=== PATIENT | female | born 1975 | race Two or more races ===

== ENCOUNTER → 2020-08-28 13:30 | Outpatient (BNVA) | payer OTHER, SELFPAY | PROVIDERS: PCP Internal Medicine; Visit Provider Nurse Practitioner Family | DX: Z76.89 Persons encountering health services in other specified circumstances (principal) ==

== ENCOUNTER 2020-10-14 13:00 | Outpatient (RCR) | payer OTHER, SELFPAY ==
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
== END 2020-10-30 11:53 | disposition other institution (70) ==
LOC: HO.PT 13:00
PROVIDERS: PCP Nurse Practitioner Family; Visit Provider Nurse Practitioner Family
DX: M54.2 Cervicalgia (principal); M54.31 Sciatica, right side; V89.2XXD Person injured in unspecified motor-vehicle accident, traffic, subsequent encounter
CPT/HCPCS: 97110; 97140; 97162; 97163

== ENCOUNTER → 2020-10-17 08:57 | Outpatient (REF) | payer OTHER, SELFPAY ==
--- NOTE | 2020-10-17 | NM_ITS ---
Myocardial perfusion study Indication: Chest pain to evaluate for myocardial ischemia . Technique: The patient was brought in for a Lexiscan perfusion study on 10/17/2000. Patient performed low-level exercise and was injected 0.4 mg of Lexiscan intravenously. Within a minute of injection, 35 mCi of sestamibi was given intravenously. Images were obtained using the SPECT gamma camera interlaced with the gating device. Images were obtained in supine position. Resting perfusion study was performed on 10/20/2020. Patient was administered 25 mCi of sestamibi intravenously at rest. Images were then obtained in supine position. Images obtained with and without CT attenuation. Total DLP 106 mGy-cm. Images were processed with the software and compared side to side in short axis, horizontal long axis and vertical long axis views. Findings: The stress perfusion study showed non attenuated images show moderately reduced uptake in the distal anterior and apex of the LV myocardium. Remainder of the LV myocardium is normally perfused. Attenuation corrected images show mildly to moderately reduced uptake in the distal septum and anterior wall of the LV myocardium.. The gated study shows normal LV systolic function with calculated LVEF of 59%. LV cavity is normal in size. The gated study shows normal systolic wall thickening and contraction of segments. Resting study shows non attenuated images show normal uptake in the distal anterior and apex of the LV myocardium. Attenuation corrected images show improved uptake in the distal anterior wall of the LV myocardium.. Gating at rest reveals normal systolic wall motion with ejection fraction at 68%. The findings are consistent with small area of possible reversible defect in the distal anterior wall of the LV myocardium which could represent ischemia. Shifting attenuation artifact cannot be entirely ruled out. NM/NM ella perf SPECT rest & str Impression: 1. Myocardial perfusion imaging study shows equivocal intensity distal anterior wall ischemia. 2. Gated LVEF is 59% 3. Transient ischemic dilatation not present EKG is nondiagnostic for ischemia
--- NOTE | 2020-10-17 09:02 | CA_ITS ---
Acquisition Time: 2020-10-17 10:27:05 Total Exercise Time: 00:02:00 Test Indications: CHEST PAIN, UNSPECIFIED Medications: Protocol: LEXISCAN Max HR: 142 BPM 80% of Pred: 176 BPM Max BP: 124/078 mmHG Max Work Load: 1.0 METS Pharmacological stress test using Lexiscan while sitting and kicking her feet. Pt tolerated well, Denies any anginal sx. EKG without arrhythmias, non-diagnostic for ischemia. Nuclear images to follow. Normotensive response to test. Pt reports to be feeling heavy , sx reversed with Aminophyline. Test reviewed with Dr. Hernandes Referred By: Bella Cade Overread By: Larissa Li
--- NOTE | 2020-10-17 09:02 | CA_ITS ---
Transthoracic Echocardiogram Patient (Last, First, Middle): Rosa Pretty, Gender: Female Date of : 1975 Age: 45 Procedure Date: 10/17/2020 Procedure Type: Transthoracic Echocardiogram Location: OP Height: 160.02 cm Weight: 101.61 kg BSA: 2.03 m2 Heart Rate: bpm BP: 116 / 82 mmHg Aerodynamics Professor: BUCKY Referring MD: Bella Cade AEMTAly Symptoms: I25.10 - Atherosclerotic heart disease of [place] coronary artery without angina pectoris Study Quality: Technically Difficult ECG Rhythm: Sinus Conclusions: - The left ventricular systolic function is normal. The visually estimated ejection fraction is between 55-60%. - No obvious valvular pathology seen on this study. Findings Procedure Information Contrast agent, definity, is being given per protocol without apparent complications. Left Ventricle Normal left ventricular cavity size. There is normal left ventricular wall thickness. The left ventricular systolic function is normal. The visually estimated ejection fraction is between 55-60%. There is no evidence of regional wall motion abnormalities. Diastolic function is normal for age. Right Ventricle Normal right ventricular cavity size and systolic function. Atria The left atrium is normal in size. The right atrium is normal in size. Aortic Valve There is a normal trileaflet aortic valve. There is no aortic valve stenosis. There is no aortic valve regurgitation. Mitral Valve The mitral valve appears normal. There is no mitral valve regurgitation. There is no mitral valve stenosis. Pulmonic Valve The pulmonic valve was not well visualized. Tricuspid Valve Normal tricuspid valve structure. There is trace tricuspid valve regurgitation. The pulmonary artery systolic pressure is normal. Great Vessels The aortic annulus, sinuses of valsalva, and asc aorta are normal in size. Venous The inferior vena cava is normal in size and collapses greater than 50% with inspiration. Pericardium/Pleural There is no evidence of pericardial effusion. Prior Study Comparison No significant change compared to prior study dated: 03/10/2017. Recommendations, Care & Conclusions No obvious valvular pathology seen on this study. Measurements 2D Linear Measurements IVSd: 0.84 0.6-0.9/0.6-1.0 cm LVIDd: 3.89 3.9-5.3/4.2-5.9 cm LVIDd Index: 1.92 2.4-3.2/2.2-3.1 cm/m2 LVIDs: 2.47 2.0-3.6 cm LVPWd: 0.88 0.7-1.1 cm Ao Root: 2.70 2.1-3.5 cm LA Diam: 3.20 2.7-3.8/3.0-4.0 cm LAIDs Index: 1.58 1.5-2.3 cm/m2 LV Mass: 121.72 67-162/88-224 g LV Mass Index: 59.96 43-95/49-115 g/m2 LVOT Diam: 1.90 3.0+(-)1.3 cm 2D Systolic Function EF 4C: 57.10 >55% EF 2C: 40.40 >55% EF BiP: 51.70 >55% Mitral Valve MV Pk E: 1.02 MV PK A: 0.70 MV Decel Time: 148.00 E/A: 1.50 E'Lateral: 10.50 E'Medial: 7.25 E/E' Med: 14.10 E/E' Lat: 9.70 PHT: 43.00 MVA PHT: 5.12 Decel [place]: 6.89 Aortic Valve AoV Pk Te: 1.41 AoV Pk Grad: 8.00 LVOT LVOT Pk Te: 0.87 LVOT Mn Te: 0.61 LVOT VTI: 0.18 LVOT Pk Grad: 3.00 LVOT Mn Grad: 2.00 LVOT Diam: 1.90 LVOT Area: 2.84 Diastolic Function MV Pk E: 1.02 MV Pk A: 0.70 E/A: 1.50 E'Medial: 7.25 E/E' Med: 14.10 E' Laterial: 10.50 E/E' Lat: 9.70 Tricuspid Valve TR Pk Te: 2.10 TR Pk Grad: 18.00 RA Press: 3.00 RVSP: 21.00 Great Vessels Aorta Ao Root-2D: 2.70 2.0-3.7 cm Ao Asc: 2.90 2.1-3.4 cm Updated in Other Vendor System with Status of Final Khai Hernandes MD electronically signed on 10/19/2020 10:11:52 AM with status of Final
== END ==
LOC: HO.CARD 08:57
PROVIDERS: Visit Provider Nurse Practitioner Family
DX: R07.9 Chest pain, unspecified (principal); I25.10 Atherosclerotic heart disease of native coronary artery without angina pectoris; I48.0 Paroxysmal atrial fibrillation
CPT/HCPCS: 78452; 93017; 93306; A9500; J0280; J2785; Q9957

== ENCOUNTER 2020-10-20 11:50 | Outpatient (REF) | payer OTHER, SELFPAY ==
[2020-10-20 13:08] LABS: Cholesterol 223 mg/dL; HDL Cholesterol 45 mg/dL; LDL Cholesterol Calculated 144 mg/dl; Triglycerides 171 mg/dL
== END 2020-10-20 11:51 | disposition home or self-care (01) ==
LOC: HO.LAB 11:50
PROVIDERS: PCP Internal Medicine; Visit Provider Nurse Practitioner Family
DX: I25.10 Atherosclerotic heart disease of native coronary artery without angina pectoris (principal)
CPT/HCPCS: 80061

== ENCOUNTER → 2020-10-24 10:55 | Outpatient (BNVA) | payer OTHER, SELFPAY | PROVIDERS: PCP Family Medicine; Referring Provider Family Medicine; Visit Provider Nurse Practitioner Family | DX: I25.10 Atherosclerotic heart disease of native coronary artery without angina pectoris (principal); R07.9 Chest pain, unspecified; E66.9 Obesity, unspecified; C50.919 Malignant neoplasm of unspecified site of unspecified female breast; R94.39 Abnormal result of other cardiovascular function study | CPT/HCPCS: Q3014 ==

== ENCOUNTER → 2020-11-20 08:13 | Outpatient (BNVA) | payer OTHER, SELFPAY | PROVIDERS: PCP Internal Medicine; Visit Provider Physician Assistant | DX: E66.9 Obesity, unspecified (principal); Z68.39 Body mass index [BMI] 39.0-39.9, adult | CPT/HCPCS: Q3014 ==

== ENCOUNTER 2020-11-25 10:30 | Outpatient (REF) | payer OTHER, SELFPAY ==
[2020-11-26 09:30] LABS: BV Int Neg Control Negative (Negative); BV Int Pos Control Positive (Positive)
[2020-11-27 00:27] LABS: C. trachomatis RNA TMA NOT DETECTED (NOT DETECTED); N. gonorrhoeae RNA TMA NOT DETECTED (NOT DETECTED)
== END 2020-11-25 10:31 | disposition home or self-care (01) ==
LOC: HO.LAB 10:30
PROVIDERS: PCP Internal Medicine; Visit Provider Advanced Practice Midwife
DX: Z01.419 Encounter for gynecological examination (general) (routine) without abnormal findings (principal); Z20.2 Contact with and (suspected) exposure to infections with a predominantly sexual mode of transmission; N39.3 Stress incontinence (female) (male); N94.12 Deep dyspareunia; B37.2 Candidiasis of skin and nail; Z79.899 Other long term (current) drug therapy
CPT/HCPCS: 36415; 87480; 87491; 87510; 87591; 87660; Q3014

== ENCOUNTER → 2020-12-08 12:44 | Outpatient (BNVA) | payer OTHER, SELFPAY | PROVIDERS: PCP Internal Medicine; Visit Provider Physician Assistant | DX: E66.9 Obesity, unspecified (principal) | CPT/HCPCS: Q3014 ==

== ENCOUNTER → 2021-01-26 15:20 | Outpatient (BNV) | payer OTHER, SELFPAY | PROVIDERS: Visit Provider Internal Medicine | DX: Z85.3 Personal history of malignant neoplasm of breast (principal); Z92.3 Personal history of irradiation; R94.5 Abnormal results of liver function studies | CPT/HCPCS: 99214; 99442; G2211 ==

== ENCOUNTER → 2021-02-13 13:35 | Outpatient (BNVA) | payer OTHER, SELFPAY | PROVIDERS: PCP Internal Medicine; Visit Provider Surgery | DX: L91.8 Other hypertrophic disorders of the skin (principal) | CPT/HCPCS: 99212 ==

== ENCOUNTER 2021-09-17 10:02 | Outpatient (REF) | payer OTHER, SELFPAY ==
--- NOTE | ~2021-09-17 | MM_ITS ---
EXAMINATION: MM SCREENING DIGITAL BREAST TOMOSYNTHESIS, RIGHT CLINICAL INFORMATION: Screening. Asymptomatic. Status post left mastectomy. Status post right lumpectomy COMPARISON: Mammography: April 29, 2020 and studies dating back to April 02, 2016 TECHNIQUE: Digital breast tomosynthesis is performed in both the craniocaudal and mediolateral oblique views along with computer-aided detection (CAD). Synthesized 2D images are generated from the tomosynthesis. FINDINGS: There are scattered areas of fibroglandular density (ACR BI-RADS breast composition Category b). There are no new significant masses, abnormal calcifications, or other abnormalities. Stable postoperative changes seen upper outer aspect of the right breast from previous lumpectomy. MM/MM tomosynthesis screening RT IMPRESSION: There are no significant changes from prior study. ASSESSMENT: BI-RADS 2: Benign RECOMMENDATION: Routine annual mammography screening. This patient's information was entered into a reminder system with a target due date for their next mammogram.
== END 2021-09-17 10:03 | disposition home or self-care (01) ==
LOC: HO.MAMMO 10:02
PROVIDERS: PCP Internal Medicine; Visit Provider Internal Medicine
DX: Z12.31 Encounter for screening mammogram for malignant neoplasm of breast (principal)
CPT/HCPCS: 77063; 77067

== ENCOUNTER 2021-10-21 10:28 | Outpatient (REF) | payer OTHER, SELFPAY ==
[2021-10-21 11:49] LABS: Hematocrit 42.9 % (37.0-47.0); Hemoglobin 14.2 g/dl (12.0-16.0); Mean Corpuscular HGB Conc 33.1 g/dl (31.0-35.0); Mean Corpuscular Hemoglobin 29.3 pg (27.0-33.0); Mean Corpuscular Volume 88.6 fL (80.0-98.0); Mean Platelet Volume 10.3 fL (9.4-12.3); Platelet Count 285 X10*3/uL (160-400); Red Blood Count 4.84 X10*6/uL (4.20-5.50); Red Cell Distribution Width 12.5 % (11.0-16.0); White Blood Count 6.6 X10*3/uL (4.8-10.8)
[2021-10-21 12:36] LABS: HCG Quantitative < 2 mIU/mL; TSH reflex Free T4 0.64 uIU/mL (0.32-4.0)
[2021-10-21 16:18] LABS: CT PCR NOT DETECTED (Not Detect.); NG PCR NOT DETECTED (Not Detect.)
[2021-10-22 11:05] LABS: BV Int Neg Control Negative (Negative); BV Int Pos Control Positive (Positive)
[2021-10-23 04:12] LABS: Lutenizing Hormone 38.6 mIU/mL; Prolactin 5.7 ng/mL
== END 2021-10-21 10:29 | disposition home or self-care (01) ==
LOC: HO.LAB 10:28
PROVIDERS: Visit Provider Obstetrics & Gynecology
DX: Z11.3 Encounter for screening for infections with a predominantly sexual mode of transmission (principal); B37.3 Candidiasis of vulva and vagina; N91.5 Oligomenorrhea, unspecified; N93.9 Abnormal uterine and vaginal bleeding, unspecified
CPT/HCPCS: 36415; 83001; 83002; 84146; 84443; 84702; 85027; 87480; 87491; 87510; 87591; 87660; 99212

== ENCOUNTER 2021-11-12 09:59 | Outpatient (REF) | payer OTHER, SELFPAY | END 2021-11-12 10:00 | disposition home or self-care (01) | LOC: HO.LAB 09:59 | PROVIDERS: Visit Provider Obstetrics & Gynecology | DX: N91.5 Oligomenorrhea, unspecified (principal); Z87.891 Personal history of nicotine dependence | CPT/HCPCS: 58100; 88305 ==

== ENCOUNTER 2021-11-19 10:02 | Outpatient (REF) | payer OTHER, SELFPAY ==
--- NOTE | ~2021-11-19 | US_ITS ---
EXAMINATION: US PELVIS CLINICAL INFORMATION: Abnormal uterine and vaginal bleeding. COMPARISON: None. TECHNIQUE: Ultrasound of the pelvis is performed using both transabdominal and transvaginal transducers along with Doppler. Transvaginal imaging is performed due to inadequate visualization transabdominally. FINDINGS: Uterus: The uterus is anteverted and measures 9.2 x 4.1 x 4.9 cm. There is a small cystic area with echogenic calcification measuring 0.5 cm in the left myometrium, likely a small myometrial complex cyst. The double wall endometrial thickness is 0.2 cm. The uterus is smooth in contour and has normal myometrial echogenicity. There is a small hyperechoic area in the left body of uterus measuring 1.6 x 1.6 x 1.5 cm. Adnexa: Both ovaries are visualized. There is normal color flow to the adnexa. There is no ovarian torsion. There is no pelvic ascites or fluid collection. Right ovary measures 2.2 x 1.7 x 1.5 cm and volume 2.9 mL. Previously right ovary measured 2.3 x 1.6 x 1.9 cm and volume 3.5 mL. Left ovary measures 2.1 x 1.8 x 1.9 and volume 3.8 mL. Previously it measured 2.8 x 1.4 x 2.4 cm and volume 4.9 mL. US/US pelvic and transvaginal IMPRESSION: Small mild ventral complex cyst measuring 0.5 cm. Small fibroid left upper body of uterus measuring 1.6 cm.
== END 2021-11-19 10:03 | disposition home or self-care (01) ==
LOC: HO.US 10:02
PROVIDERS: Visit Provider Obstetrics & Gynecology
DX: N93.9 Abnormal uterine and vaginal bleeding, unspecified (principal); N91.5 Oligomenorrhea, unspecified
CPT/HCPCS: 76830; 76856

== ENCOUNTER → 2021-11-26 10:53 | Outpatient (BNVA) | payer OTHER, SELFPAY | PROVIDERS: Visit Provider Obstetrics & Gynecology | DX: N91.5 Oligomenorrhea, unspecified (principal) | CPT/HCPCS: Q3014 ==

== ENCOUNTER 2021-12-13 15:41 | Emergency (ER) | payer OTHER, SELFPAY ==
--- NOTE | ~2021-12-13 | XR_ITS ---
EXAMINATION: XR CHEST CLINICAL INFORMATION: Shortness of breath. COMPARISON: Chest done on 06/15/2020. TECHNIQUE: 2 views of the chest were obtained. FINDINGS: Curvilinear opacities noted at left suprahilar region likely represent pleural parenchymal scar. Otherwise both lung hwang are clear. No evidence of any pleural effusion or pneumothorax. The cardiac mediastinal silhouette is within normal limit. Post surgical changes of left breast implant is noted, unchanged. XR/XR chest 2V IMPRESSION: No radiographic evidence of acute cardiopulmonary disease.
[2021-12-13 15:43] VITALS: PULSE 120; RESP 22; TEMP 37; O2SAT 97; BMI 38.2
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
[2021-12-13 16:02] VITALS: PULSE 114; RESP 17
[2021-12-13 16:47] LABS: MANUAL DIFF FLAG NO
[2021-12-13 16:49] LABS: Basophils Percent Auto 0.3 % (0-2); Eosinophils Absolute Auto 0.2 X10*3/uL (0.0-0.4); Eosinophils Percent Auto 1.8 % (0-4); Hematocrit 43.7 % (37.0-47.0); Hemoglobin 14.8 g/dl (12.0-16.0); Imm Gran Abs Auto 0.02 X10*3/uL (0.00-0.03); Imm Gran Pct Auto 0.2 % (0.0-0.4); Lymphocytes Absolute Auto 3.7 X10*3/uL (1.2-4.9); Lymphocytes Percent Auto 41.7 % (20-40); Mean Corpuscular HGB Conc 33.9 g/dl (31.0-35.0); Mean Corpuscular Hemoglobin 30.5 pg (27.0-33.0); Mean Corpuscular Volume 90.1 fL (80.0-98.0); Mean Platelet Volume 10.5 fL (9.4-12.3); Monocytes Absolute Auto 0.5 X10*3/uL (0.1-1.2); Monocytes Percent Auto 5.7 % (2-11); Neutrophils Absolute Auto 4.5 x10*3/uL (2.0-8.3); Neutrophils Percent Auto 50.3 % (45-73); Platelet Count 287 X10*3/uL (160-400); Red Blood Count 4.85 X10*6/uL (4.20-5.50); Red Cell Distribution Width 12.2 % (11.0-16.0)
[2021-12-13] MEDS: Albuterol Sulfate (0.083%) 2.5 MG/3 ML VIAL.NEB INHALE (16:53)
[2021-12-13 16:55] LABS: INTERNATIONAL NORM RATIO 1.1 (0.9-1.1); Prothrombin Time 12.2 SEC (9.9-13.0)
[2021-12-13 16:57] LABS: Partial Thromboplastin Time 37.8 SEC (24.1-38.0)
[2021-12-13 17:05] LABS: Anion Gap 17 (12-20); Blood Urea Nitrogen 9 mg/dL (9-16); Calcium 10.4 mg/dL (8.4-10.2); Carbon Dioxide 22 mmol/L (22-29); Chloride 107 mmol/L (96-108); Creatinine Clr Calc Pharmacy 94.3; Estimated Glomerular Filt Rate > 60; Glucose Random 107 mg/dL (60-115); Magnesium 1.8 mg/dL (1.6-2.6); Potassium 3.9 mmol/L (3.3-5.1); Sodium 142 mmol/L (135-145)
[2021-12-13 17:09] LABS: COVID-19 Test Negative (Negative)
[2021-12-13 17:10] LABS: B Type Natriuretic Peptide < 10 pg/mL (<100); Troponin-I High Sensitivity 3.6 ng/L (<3.5-17.0)
[2021-12-13 17:17] LABS: D Dimer High Sensitivity < 150 NG/ML
== END 2021-12-13 17:50 | disposition home or self-care (01) ==
PROVIDERS: Physician Assistant; Emergency Provider Emergency Medicine Emergency Medical Services
DX: J45.909 Unspecified asthma, uncomplicated (principal); R06.02 Shortness of breath; R07.89 Other chest pain; R05.9 Cough, unspecified; F17.210 Nicotine dependence, cigarettes, uncomplicated; Z71.6 Tobacco abuse counseling; Z20.822 Contact with and (suspected) exposure to COVID-19; Z79.899 Other long term (current) drug therapy
CPT/HCPCS: 36415; 71046; 80048; 83735; 83880; 84484; 85025; 85379; 85610; 85730; 87635; 99283

== ENCOUNTER → 2022-03-18 11:20 | Outpatient (BNVA) | payer OTHER, SELFPAY | PROVIDERS: Visit Provider Obstetrics & Gynecology | DX: N91.5 Oligomenorrhea, unspecified (principal) | CPT/HCPCS: Q3014 ==

== ENCOUNTER 2022-03-25 11:46 | Outpatient (REF) | payer OTHER, SELFPAY | END 2022-03-25 11:47 | disposition home or self-care (01) | LOC: HO.LAB 11:46 | PROVIDERS: Visit Provider Obstetrics & Gynecology | DX: N91.5 Oligomenorrhea, unspecified (principal); N93.9 Abnormal uterine and vaginal bleeding, unspecified | CPT/HCPCS: 58100; 81025; 88305 ==

== ENCOUNTER → 2022-04-08 16:11 | Outpatient (BNVA) | payer OTHER, SELFPAY | PROVIDERS: Visit Provider Obstetrics & Gynecology | DX: Z13.89 Encounter for screening for other disorder (principal) | CPT/HCPCS: Q3014 ==

== ENCOUNTER 2022-08-07 14:36 | Emergency (ER) | payer OTHER, SELFPAY ==
--- NOTE | ~2022-08-07 | XR_ITS ---
EXAMINATION: LUMBAR SPINE 3 VIEWS AND DORSAL SPINE 3 VIEWS CLINICAL INFORMATION: Pain status post fall COMPARISON: None TECHNIQUE: As above nonweightbearing FINDINGS: Generalized endplate spurring and sclerosis consistent with degenerative disc disease throughout. There is no evidence of any fracture or subluxation. No spondylolysis. Minor scoliosis convex left lumbar spine. XR/XR lumbar spine 2-3V IMPRESSION: No fracture.
--- NOTE | ~2022-08-07 | XR_ITS ---
EXAMINATION: LUMBAR SPINE 3 VIEWS AND DORSAL SPINE 3 VIEWS CLINICAL INFORMATION: Pain status post fall COMPARISON: None TECHNIQUE: As above nonweightbearing FINDINGS: Generalized endplate spurring and sclerosis consistent with degenerative disc disease throughout. There is no evidence of any fracture or subluxation. No spondylolysis. Minor scoliosis convex left lumbar spine. XR/XR thoracic spine 3V IMPRESSION: No fracture.
--- NOTE | ~2022-08-07 | CT_ITS ---
EXAMINATION: CT OF THE HEAD WITHOUT CONTRAST CT OF THE CERVICAL SPINE WITHOUT CONTRAST CLINICAL INFORMATION: Fall yesterday with neck pain and left-sided weakness.. COMPARISON: CT scan of the head and cervical spine dated 06/15/2020. CT scan of the head and cervical spine dated 12/12/2017. TECHNIQUE: Contiguous axial imaging was performed from the skullbase to vertex without intravenous administration of contrast. Coronal reformations of the head were obtained. Contiguous axial imaging was then performed from the skull base down to the thoracic inlet. Coronal and sagittal reformations of the cervical spine were obtained. This CT examination was performed using dose optimization techniques as appropriate, variously including the following: *Automated exposure control *Adjustment of mA and/or kV according to patient size (this includes techniques or standardized protocols for targeted exams where dose is matched to indication/reason for exam; i.e. extremities or head) *Use of iterative reconstruction technique DLP: 1134.2 mGy-cm. FINDINGS: CT scan of the head: There is no evidence of acute intracranial hemorrhage or territorial infarction. No abnormal mass-effect or midline shift is seen. Ho to white matter differentiation is well preserved. No extra-axial fluid collections are identified. The ventricles are normal in size. There is no abnormal attenuation within the brain parenchyma. The osseous structures and soft tissues are normal. The mastoid air cells and visualized portions of the paranasal sinuses are well-aerated. CT scan of the cervical spine: Normal alignment is seen with no evidence of acute fracture or dislocation. Craniocervical junction and atlantoaxial articulations are intact. Prevertebral soft tissues are normal in thickness. There is moderate vertebral spondylosis and minimal disc space narrowing at the C4-C5, C5-C6 and C6-C7 levels and in the upper thoracic spine at T1-T2, similar to the prior exam. The included soft tissues of the neck and lung apices are unremarkable. CT/CT cervical spine wo IV con IMPRESSION: CT scan of the head: No acute intracranial pathology. CT scan of the cervical spine: No evidence of cervical spine fracture or malalignment. Multilevel degenerative changes in the mid and lower cervical spine and upper thoracic spine, similar to the prior exam from 06/15/2020.
[2022-08-07 14:57] VITALS: BP 159/87; PULSE 96; RESP 18; TEMP 36.8; O2SAT 98; BMI 34.5
[2022-08-07 15:16] LABS: MANUAL DIFF FLAG NO
[2022-08-07 15:17] LABS: Basophils Percent Auto 0.5 % (0-2); Eosinophils Absolute Auto 0.3 X10*3/uL (0.0-0.4); Eosinophils Percent Auto 3.5 % (0-4); Hemoglobin 14.2 g/dl (12.0-16.0); Imm Gran Abs Auto 0.02 X10*3/uL (0.00-0.03); Imm Gran Pct Auto 0.2 % (0.0-0.4); Lymphocytes Absolute Auto 2.3 X10*3/uL (1.2-4.9); Lymphocytes Percent Auto 26.3 % (20-40); Mean Corpuscular HGB Conc 33.8 g/dl (31.0-35.0); Mean Corpuscular Hemoglobin 30.5 pg (27.0-33.0); Mean Corpuscular Volume 90.1 fL (80.0-98.0); Mean Platelet Volume 10.2 fL (9.4-12.3); Monocytes Absolute Auto 0.5 X10*3/uL (0.1-1.2); Monocytes Percent Auto 5.7 % (2-11); Neutrophils Absolute Auto 5.5 x10*3/uL (2.0-8.3); Neutrophils Percent Auto 63.8 % (45-73); Platelet Count 246 X10*3/uL (160-400); Red Blood Count 4.66 X10*6/uL (4.20-5.50); White Blood Count 8.6 X10*3/uL (4.8-10.8)
[2022-08-07 15:42] LABS: Alanine Aminotransferase 27 U/L (0-31); Albumin Level 4.6 g/dL (3.5-5.0); Alkaline Phosphatase 85 U/L (39-117); Anion Gap 20 (12-20); Aspartate Amino Transferase 29 U/L (5-31); Bilirubin Total 0.7 mg/dL (0.0-1.0); Blood Urea Nitrogen 15 mg/dL (9-16); Calcium 9.6 mg/dL (8.4-10.2); Carbon Dioxide 20 mmol/L (22-29); Chloride 105 mmol/L (96-108); Creatinine Clr Calc Pharmacy 88.2; Estimated Glomerular Filt Rate > 60; Glucose Random 237 mg/dL (60-115); Potassium 3.9 mmol/L (3.3-5.1); Sodium 141 mmol/L (135-145); Total Protein 7.8 g/dL (6.5-8.0)
--- NOTE | 2022-08-07 18:51 | ED_ITS ---
HPI - Weakness General Chief complaint: Weakness Stated complaint: l side weakness unblanced Time Seen by Provider: 08/07/22 18:25 Source: patient Mode of arrival: ambulatory Limitations: no limitations History of Present Illness HPI Narrative: The patient is a 47 year old female with a PMH significant for diabetes, breast cancer (in remission), optic neuritis (resulting legal blindness), asthma, anxiety, depression and coronary artery calcification, DM on Metformin presenting for left sided weakness heaviness and right sided pain. She reports that yesterday her child fell and she started running over toward him and she tripped and fell and almost fell on her son therefore she tried to avoid him and did an almost 360 she reports and fell on an outstretched hand on the right arm. She reports since then she has been having neck pain and left arm/left weakness heaviness . She reports that the pain on her right side has resolved. The left-sided weakness has improved. She reports that this happened /started around 13:00 yesterday. It is improving. She reports that this time she does not feel weak and she does not have any heavy feeling sensation at this time. She does report some intermittent headaches since the fall. Reports that she is unsure if she hit her head but she did not lose consciousness. She denies being on any blood thinners at this time. Reports that she was taking aspirin but has not taken it in weeks. She denies any dizziness, paresthesias, jaw pain, confusion, chest pain or shortness of breath, dyspnea on exertion, orthopnea, palpitations, nausea/vomiting/diarrhea/constipation, hip pain, right shoulder/elbow/hand and wrist pain at this time. She denies any other injuries complaints or concerns at this time. MD Complaint: generalized weakness (Left sided ) Onset (ago): hour(s) (since 1pm yesterday after her fall) Duration: improved Location: LUE and LLE Migration: none Severity: mild Severity scale (1-10): 7 (Right side and headache) Quality: aching Relieving factors: none Exacerbating factors: movement (Movement of neck) Associated symptoms: denies other symptoms Related Data Home Medications Medication Instructions Recorded Confirmed fluticasone propionate 50 1 spray intranasal DAILY 03/18/22 04/23/22 mcg/actuation nasal spray,suspension Previous Rx's Medication Instructions Recorded albuterol sulfate 90 mcg/actuation 2 puff inhalation Q6H PRN for 07/21/22 aerosol inhaler wheezing #6.7 grams blood-glucose meter (Black Raven and Stag Voice #1 ea 07/21/22 Glucose Meter kit) metformin 1,000 mg tablet 1,000 mg PO BID #180 tabs 07/21/22 aspirin 81 mg tablet,delayed 81 mg PO DAILY 90 days #90 tabs 08/06/22 release (Adult Low Dose Aspirin) diazepam 10 mg tablet (Valium) 10 mg PO Q8H PRN muscle spasm #14 08/07/22 tabs naproxen 500 mg tablet 500 mg PO BID PRN pain #14 tabs 08/07/22 Allergies Allergy/AdvReac Type Severity Reaction Status Date / Time iodine [IODINE] Allergy Severe ANAPHYLAXIS Verified 04/23/22 11:52 Penicillins [PENICILLINS] Allergy Severe DIFFICULTY Verified 04/23/22 11:52 BREATHING,HIVES penicillin V Allergy Unknown anaphylaxis Verified 04/23/22 11:52 ,rash vancomycin Allergy Unknown rash, Verified 04/23/22 11:52 itching Iodine Tincture Allergy Unknown Unknown Uncoded 04/23/22 11:52 nylon Allergy Unknown Unknown Uncoded 04/23/22 11:52 Review of Systems Review of Systems: Constitutional : No Fever, No Chills, No Night Sweats, No Fatigue, No Malaise ENT/Mouth : No Ear Pain, No Nasal Congestion, No Sinus Pain, No sore throat, No Rhinorrhea Eyes: No Eye Pain, No Swelling, No Redness, No Foreign Body, No Discharge, No Vision Changes Cardiovascular : No Chest Pain, No SOB, No Dyspnea on Exertion, No Orthopnea, No Palpitations Respiratory : No Cough, No Sputum, No Wheezing, No Dyspnea Gastrointestinal : No Nausea, No Vomiting, No Diarrhea, No Constipation, No abdominal Pain, No Hematochezia, No Melena Genitourinary : No Dysuria, No Urinary Frequency, No Urinary Incontinence, No Urgency, No Flank Pain Musculoskeletal : + Neck pain/injury, No additional joint pain, No Myalgias Skin : No lacerations Neuro : No Focal weakness, + Fall, + general unilateral left weakness, No Numbness, No Paresthesias, No Loss of Consciousness, No Dizziness, + Headache Yes all other systems are reviewed and are negative PMFSH Past Medical History Attestation statement: The following information was validated with the patient. Source: old records reviewed, obtained from family and nursing notes reviewed Medical History Anxiety and depression Asthma BMI 39.0-39.9,adult Breast CA Chest pain Coronary artery calcification seen on CAT scan Depression Legal blindness Obesity Potential exposure to STD Type 2 diabetes mellitus Surgical History H/O right breast biopsy History of left mastectomy Hx of section S/P lumpectomy, right breast Family History Family History Father HTN (hypertension) Anxiety Depression Cancer Diabetes Mother CVD (cardiovascular disease) Social History Social History Alcohol intake: current Alcohol intake frequency: holidays/special occasions only Patient Tobacco Use Status: Current everyday Tobacco user Tobacco use type: Cigarette Use of substances other than those prescribed or required for medical reasons: No Advance Directives: No Patient : No service: No Current occupational status: disabled Current occupational exposures/hazards: No Gender identity: Female Physical Exam Vital Signs: Vital Signs: Last Vital Signs Temp 98.3 F 08/07/22 14:57 Pulse 74 08/07/22 20:00 Resp 18 08/07/22 14:57 BP 144/90 H 08/07/22 20:00 Pulse Ox 97 08/07/22 20:00 O2 Del Method 08/07/22 20:00 BMI result Body Mass Index 34.5 Patient is Hypertensive. Vital signs have been reviewed as normal and appeared to be correct. Heart rate normal. Respiration rate normal. Temperature normal. Oxygen saturation normal. Appearance: Alert. Oriented X3. No acute distress. Head: Normal external exam. Normocephalic. Atraumatic. Able to rotate head bilaterally. Eyes: PERRLA. EOMI. No nystagmus noted. Conjunctiva and sclera normal. Eyelids normal. Patient's visual field is limited (chronic) ENT: Hearing normal. Moist mucous membranes. No trismus noted. No drooling noted. No muffled voice noted. No nystagmus noted. Neck: Normal inspection. Neck supple. FROM. Trachea midline. No meningeal signs. No neck mass noted. CVS: Normal heart rate and rhythm. Heart sound normal. No murmurs noted. Pulses normal throughout. Respiratory: No respiratory distress. Painless inspiration. Breath sounds normal. No wheezes/rales/rhonchi noted. Chest nontender. No accessory muscle usage noted or decreased air movement noted. Abdomen: Soft and nontender. No distention noted. No organomegaly noted. No visible injury noted. Back: No CVA tenderness. Full range of motion noted. Skin: Skin warm and dry. Normal skin color. Normal skin turgor. No rashes/lesions/lacerations noted. Extremities: No lower extremity edema. Extremities exhibit normal range of motion. Extremities nontender. Able to shrug shoulders bilaterally and keep up against resistance. Neuro: Oriented X 3. No motor deficit. No sensory deficit. Reflexes normal. Moving all extremities. No focal motor deficits. Cranial nerves II-XI intact bilaterally. Facial strength normal. Normal cognition. Speech normal. Gait normal. Strength 5/5 throughout. No pronator drift. No tremor noted. No fasciculations noted. No rigidity noted. Muscle tone normal throughout. No asterixis noted. Dqxkor-uv-[id number] test normal. Heel to cunningham test normal. Tandem gait normal. Does not sway with eyes open. Romberg test negative. Rapid alternating movement upper extremity normal. Rapid alternating movement lower extremity normal. NIHSS score 0. NIH Stroke Scale Internal: Initial- Upon Arrival Level of Consciousness: Alert Level of Consciousness Questions: Answers both questions correctly Level of Consciousness Commands: Performs both tasks correctly Best Gaze: Normal Visual: No visual loss (baseline ) Facial Palsy: Normal Motor Arm (Right): No drift Motor Arm (Left): No drift Motor Leg (Right): No drift Motor Leg (Left): No drift Limb Ataxia: Absent Sensory: Normal Best Language: No aphasia Dysarthia: Normal Extinction and Inattention: No abnormality Score: 0 Course Course Course Narrative: 6:30 pm -The patient is a 47 year old female with a PMH significant for diabetes, breast cancer (in remission), optic neuritis (resulting legal blindness), asthma, anxiety, depression and coronary artery calcification presenting for neck pain, left sided weakness and right sided pain. She reports yesterday she was running over to her child because he fell, she then tripped and fell on an out stretched right arm after for performing some type of 360 avoid falling onto her son. She reports since then she has been having neck pain with left upper and lower extremity weakness or heaviness that has actually improved today. She reports muscular pain to the right side. Patient is currently taking metformin, she reports she has not taken her ASA in a few weeks. On exam patient does not have any focal neuro deficits noted. Normal steady gait. She does have tenderness palpation to left side of her neck. No mid ce rvical tenderness step-offs or deformities noted or obvious trauma. She has full range of motion of all extremities. Normal strength. Normal sensation. Normal reflexes. She has chronic visual disturbance that she reports is not worsened at this time. Not a candidate for tPA as patient has non disabling symptoms and the symptoms started after a fall. Plan: CT of the head and neck, x ray of spine, labs - CBC w/ diff, CMP, CK, Troponin Reevaluation(s) Reevaluation #1: Patient is sitting in a chair with a heating pack on her shoulders. She is alert and oriented. CT and Xray results are unremarkable. Labs remarkable for Carbon Dioxide: 20 (L); Random Glucose 237 (H) Troponin: <3.5 (unremrkable) At this time patient reports her headache and neck pain are much better. She continues to deny any left-sided numbness or heavy sensation any longer since her episode yesterday. As patient has a normal neuro exam. Imaging is all negative only revealed chronic changes will DC home with symptomatic treatment instructions return if any new or worsening symptoms to follow up with primary care provider. Patient understands agrees with this plan. Time: 20:36 MDM - Weakness Medical Records Attestation: I reviewed the patient's medical records. Lab Data Attestation: I reviewed the patient's lab results. Result diagrams: 08/07/22 15:11 08/07/22 15:11 Labs: Lab Results 08/07/22 08/07/22 08/07/22 Range/Units 15:11 15:11 15:11 WBC 8.6 (4.8-10.8) X10*3/uL RBC 4.66 (4.20-5.50) X10*6/uL Hgb 14.2 (12.0-16.0) g/dl Hct 42.0 (37.0-47.0) % MCV 90.1 (80.0-98.0) fL MCH 30.5 (27.0-33.0) pg MCHC 33.8 (31.0-35.0) g/dl RDW 12.0 (11.0-16.0) % Plt Count 246 (160-400) X10*3/uL MPV 10.2 (9.4-12.3) fL Immature Gran % (Auto) 0.2 (0.0-0.4) % Neut % (Auto) 63.8 (45-73) % Lymph % (Auto) 26.3 (20-40) % Fountain % (Auto) 5.7 (2-11) % Eos % (Auto) 3.5 (0-4) % Baso % (Auto) 0.5 (0-2) % Lymph # (Auto) 2.3 (1.2-4.9) X10*3/uL Fountain # (Auto) 0.5 (0.1-1.2) X10*3/uL Eos # (Auto) 0.3 (0.0-0.4) X10*3/uL Baso # (Auto) 0.0 (0.0-0.2) X10*3/uL Abs Immat Gran (auto) 0.02 (0.00-0.03) X10*3/uL Absolute Neuts (auto) 5.5 (2.0-8.3) x10*3/uL Absolute Nucleated RBC 0.000 (0.0-0.012) X10*3/uL Nucleated RBC % (auto) 0.0 (0.0-0.2) /100WBC Sodium 141 (135-145) mmol/L Potassium 3.9 (3.3-5.1) mmol/L Chloride 105 (96-108) mmol/L Carbon Dioxide 20 L (22-29) mmol/L Anion Gap 20 (12-20) BUN 15 D (9-16) mg/dL Creatinine 0.84 (0.5-1.4) mg/dL Estim Creat Clear Calc 88.2 Estimated GFR > 60 Random Glucose 237 H (60-115) mg/dL Calcium 9.6 D (8.4-10.2) mg/dL Total Bilirubin 0.7 (0.0-1.0) mg/dL AST 29 (5-31) U/L ALT 27 (0-31) U/L Alkaline Phosphatase 85 (39-117) U/L Total Creatine Kinase 93 (26-140) U/L Troponin I High Sens < 3.5 (<3.5-17.0) ng/L Total Protein 7.8 (6.5-8.0) g/dL Albumin 4.6 (3.5-5.0) g/dL Imaging Data CT scan - head: Attestation: I personally reviewed and interpreted this imaging study as follows: Radiologist's impression: IMPRESSION: CT scan of the head: No acute intracranial pathology. ? ? CT scan of the cervical spine: No evidence of cervical spine fracture or malalignment. Multilevel degenerative changes in the mid and lower cervical spine and upper thoracic spine, similar to the prior exam from 06/15/2020. Cervical Spine CT : Attestation: I personally reviewed and interpreted this imaging study as follows: Radiologist's impression: IMPRESSION: CT scan of the head: No acute intracranial pathology. ? ? CT scan of the cervical spine: No evidence of cervical spine fracture or malalignment. Multilevel degenerative changes in the mid and lower cervical spine and upper thoracic spine, similar to the prior exam from 06/15/2020. Thoracic Spine X-Ray: Attestation: I personally reviewed and interpreted this imaging study as follows: Radiologist's impression: IMPRESSION: No fracture Lumbar Spine X-Ray: Attestation: I personally reviewed and interpreted this imaging study as follows: Radiologist's impression: IMPRESSION: No fracture Discharge Plan Discharge Clinical Impression: Fall, Head injury, Cervical sprain, Sprain of upper back, Sprain of low back Patient Disposition: Home, Self-Care Instructions: Head Injury (ED), Low Back Strain (ED), Cervical Sprain (ED) Prescriptions: New naproxen 500 mg tablet 500 mg PO BID PRN (Reason: pain) Qty: 14 0RF diazepam [Valium] 10 mg tablet 10 mg PO Q8H PRN (Reason: muscle spasm) Qty: 14 0RF No Action albuterol sulfate 90 mcg/actuation HFA aerosol inhaler 2 puff inhalation Q6H PRN (Reason: for wheezing) Qty: 6.7 1RF (DME) blood-glucose meter [[employer] Glucose Meter] Kit See Rx Instructions .Route Qty: 1 0RF Rx Instructions: As directed metformin 1,000 mg tablet 1,000 mg PO BID Qty: 180 1RF aspirin [Adult Low Dose Aspirin] 81 mg tablet,delayed release (DR/EC) 81 mg PO DAILY 90 Days Qty: 90 0RF fluticasone propionate 50 mcg/actuation spray,suspension 1 spray intranasal DAILY Rx Instructions: administer into each nostril Referrals: Yann Fernandez MD [Primary Care Provider] - 2 days Interventions: ED Discharge Assessment Last Done: 08/07/22 20:51 Discharge Date/Time: 08/07/22 20:52 Print Language: Bangladeshi
[2022-08-07] MEDS: Acetaminophen 325 MG TABLET 975 MG PO (19:06)
[2022-08-07] MEDS: Cyclobenzaprine HCl 10 MG TABLET PO (19:06)
--- OUTSIDE RECORDS SUMMARY | 2022-08-07 19:25 | XMS_ITS | Continuity of Care Document ---
:1975 Author Organization [facility] Address [address] [place] [address]- Care Team Providers Name Role Phone Rebecca DE JESUS, Yann Corona Primary Care Physician Encounter [facility] [place] Date(s): 09/27/19 - 11/14/19 [facility] [address] [place] [address]- [facility] Attending Physician: Hanane Roman DO Admitting Physician: Hanane Roman DO Referring Physician: Karoline Carlisle MD Allergies, Adverse Reactions, Alerts Substance Reaction Severity Status penicillin anaphalactic Active iodinated radiocontrast dyes anaphalactic Act chaya Medications albuterol 0.083% inhalation solution 3 mL = 2.5 mg, Neb, Every 6 hours, PRN Wheezing/Shortness of Breath, 0 Refills, Maintenance, 08/28/18 10:19:10 EDT Start Date: 08/28/18 Status: Orderedalbuterol 90 mcg/inh inhalation powder 2 puffs, Inhalation, Every 4 hours, PRN Wheezing/Shortness of Breath, 0 Refills, Maintenance, 09/27/18 11:31:56 EST Start Date: 09/27/18 Status: OrderedPatient's Own Meds See Instructions, Maintenance, diabetic medication By Mouth as per doctor- to star sep 27, 2018, 09/27/18 13:48:31 EST Start Date: 09/27/18 Status: Orderedtamoxifen 20 mg oral tablet 1 tablet = 20 mg, By Mouth, Daily, 0 Refills, Maintenance, 08/28/18 10:18:47 EDT Start Date: 08/28/18 Status: Ordered Problem List Condition Effective Dates Status Health Status Informant Acquired absence of left Active breast(Confirmed) Anxiety(Confirmed) Active Depression(Confirmed) Active Former tobacco use(Confirmed) Active Legally blind(Confirmed) Active Breast cancer of lower-outer quadrant Active of left female breast(Confirmed) Breast cancer of upper-outer quadrant Active of right female breast(Confirmed) Obese(Confirmed) Active Social History Social History Type Response Smoking Status Former smoker entered on: 08/28/18 Sex Medical Equipment Implanted Date:10/02/18 Target Site:Breast Left Description Quantity MRI Company Model MESH ALLOMAX HUMAN 16X20 - BARD ([id number]) 1 Bard Unknown SUSANNE: No Information Assigning Authority: FDA
--- OUTSIDE RECORDS SUMMARY | 2022-08-07 19:25 | XMS_ITS | Continuity of Care Document ---
:1975 Author Organization [facility] Address [address] [place] [address] Drive [address] [place] [address]- Care Team Providers Name Role Phone Rebecca DE JESUS, Yann Corona Primary Care Physician Encounter [facility] [place] Date(s): 01/25/20 - 05/24/20 [facility] [address] [place] [address] Drive [address] [place] [address]- [facility] Attending Physician: Serene DE JESUS, Oliver Scherer Referring Physician: Yann Fernandez MD Allergies, Adverse Reactions, Alerts Substance Reaction [...] Model MESH ALLOMAX HUMAN 16X20 - BARD ([id number]) 1 Bard Unknown SUSANNE: No Information Assigning Authority: FDA
--- OUTSIDE RECORDS SUMMARY | 2022-08-07 19:25 | XMS_ITS | Continuity of Care Document ---
:1975 Author Organization [facility] Address [address] [place] [address] Drive [address] [place] [address]- Care Team Providers Name Role Phone Rebecca DE JESUS, Ynan Corona Primary Care Physician Encounter [facility] [place] Date(s[place] 02/13/20 - 06/12/20 [facility] [address] [place] [address] Drive [address] [place] [address]- [facility] Attending Physician: Rosa Maria RAO, Emilie Hope Allergies, Adverse Reactions, Alerts Substance Reaction Severity [...] Model MESH ALLOMAX HUMAN 16X20 - BARD ([id number]) 1 Bard Unknown SUSANNE: No Information Assigning Authority: FDA
--- OUTSIDE RECORDS SUMMARY | 2022-08-07 19:25 | XMS_ITS | Continuity of Care Document ---
:1975 Author Organization [facility] Address [address] [facility] [place] [address]- Care Team Providers Name Role Phone Rebecca DE JESUS, Yann Corona Primary Care Physician Encounter [facility] [place] Date(s): 10/15/19 - 10/15/19 [facility] [address] [facility] [place] [address]- [facility] Discharge Disposition: A-D/C Home Attending Physician: Osiris Mcgee MD Admitting Physician: Osiris Mcgee MD Referring Physician: Karoline Carlisle MD Allergies, Adverse [...] Active of right female breast(Confirmed) Obese(Confirmed) Active Vital Signs Most recent to oldest [Reference Range]: 1 Height 160 cm (10/15/19 2:39 PM) Weight 99.8 kg (10/15/19 2:39 PM) Pulse Rate [55-90 bpm] 92 bpm *H* (10/15/19 2:39 PM) Body Mass Index [18.5-24.99] 38.98 *>HHI* (10/15/19 2:39 PM) Blood Pressure [90-138/55-84 mm Hg] 114/57 mm Hg (10/15/19 2:39 PM) Respiratory Rate [16-30 br/min] 14 br/min *L* (10/15/19 2:39 PM) Temperature [96.8-100.4 DegF] 98.4 DegF (10/15/19 2:39 PM) Social History Social History Type Response Smoking Status Former smoker entered on: 08/28/18 Sex Medical Equipment Implanted Date:10/02/18 Target Site:Breast Left Description Quantity MRI Company Model MESH ALLOMAX HUMAN 16X20 - BARD ([id number]) 1 Bard Unknown SUSANNE: No Information Assigning Authority: FDA
--- OUTSIDE RECORDS SUMMARY | 2022-08-07 19:26 | XMS_ITS | Continuity of Care Document ---
:1975 Author Organization [facility] Address [address] [place] [address] Drive [address] [place] [address]- Care Team Providers Name Role Phone Rebecca DE JESUS, Yann Corona Primary Care Physician Encounter [facility] Date(s): 05/13/20 - 06/12/20 [facility] [address] [place] [address] Drive [address] [place] [address]- [facility] Attending Physician: Elba Sinclair Admitting Physician: Admtr, Elba Referring Physician: Admtr, Ar8 Allergies, Adverse Reactions, Alerts Substance Reaction Severity [...] Model MESH ALLOMAX HUMAN 16X20 - BARD ([id number]) 1 Bard Unknown SUSANNE: No Information Assigning Authority: FDA
--- OUTSIDE RECORDS SUMMARY | 2022-08-07 19:26 | XMS_ITS | Continuity of Care Document ---
:1975 Author Organization [facility] Address [address] [facility] [place] [address]- Care Team Providers Name Role Phone Rebecca DE JESUS, Yann Corona Primary Care Physician [phone] Encounter [facility] [place] Date(s): 10/15/19 - 10/25/19 [facility] [address] [facility] [place] [address]- [facility] Attending Physician: Elba Sinclair Admitting Physician: AdmtrElba Referring Physician: Admtr, Ar8 Allergies, Adverse Reactions, [...] Model MESH ALLOMAX HUMAN 16X20 - BARD ([id number]) 1 Bard Unknown SUSANNE: No Information Assigning Authority: FDA
--- OUTSIDE RECORDS SUMMARY | 2022-08-07 19:26 | XMS_ITS | Continuity of Care Document ---
:1975 Author Organization [facility] Address [address] [place] [address]- Care Team Providers Name Role Phone Rebecca DE JESUS, Yann Corona Primary Care Physician [phone] Encounter [facility] [place] Date(s): 12/27/19 - 04/10/[address] [address]- [facility] Attending Physician: Oliver Cast MD Admitting Physician: Oliver Cast MD Allergies, Adverse Reactions, Alerts Substance Reaction [...] Model MESH ALLOMAX HUMAN 16X20 - BARD ([id number]) 1 Bard Unknown SUSANNE: No Information Assigning Authority: FDA
[2022-08-07 19:35] LABS: Troponin-I High Sensitivity < 3.5 ng/L (<3.5-17.0)
[2022-08-07 20:00] VITALS: BP 144/90; PULSE 74; O2SAT 97
== END 2022-08-07 20:52 | disposition home or self-care (01) ==
PROVIDERS: Physician Assistant Medical; Emergency Provider Internal Medicine; PCP Internal Medicine
DX: S09.90XA Unspecified injury of head, initial encounter (principal); S13.4XXA Sprain of ligaments of cervical spine, initial encounter; S23.3XXA Sprain of ligaments of thoracic spine, initial encounter; S33.5XXA Sprain of ligaments of lumbar spine, initial encounter; W01.0XXA Fall on same level from slipping, tripping and stumbling without subsequent striking against object, initial encounter; R53.1 Weakness; E11.9 Type 2 diabetes mellitus without complications; F17.210 Nicotine dependence, cigarettes, uncomplicated; Z79.84 Long term (current) use of oral hypoglycemic drugs; Z79.899 Other long term (current) drug therapy; Y93.02 Activity, running; Y92.480 Sidewalk as the place of occurrence of the external cause; Y99.9 Unspecified external cause status
CPT/HCPCS: 36415; 70450; 72072; 72100; 72125; 80053; 82550; 84484; 85025; 99284

== ENCOUNTER → 2022-10-12 13:02 | Outpatient (BNVA) | payer OTHER, SELFPAY | PROVIDERS: PCP Internal Medicine; Referring Provider Internal Medicine; Visit Provider Internal Medicine Cardiovascular Disease | DX: R07.89 Other chest pain (principal); I25.10 Atherosclerotic heart disease of native coronary artery without angina pectoris; F17.210 Nicotine dependence, cigarettes, uncomplicated | CPT/HCPCS: 93005; 99212 ==

== ENCOUNTER 2022-10-25 13:53 | Outpatient (REF) | payer OTHER, SELFPAY ==
[2022-10-25 14:49] LABS: Hematocrit 41.4 % (37.0-47.0); Hemoglobin 13.9 g/dl (12.0-16.0); Mean Corpuscular HGB Conc 33.6 g/dl (31.0-35.0); Mean Corpuscular Hemoglobin 30.7 pg (27.0-33.0); Mean Corpuscular Volume 91.4 fL (80.0-98.0); Mean Platelet Volume 10.7 fL (9.4-12.3); Platelet Count 257 X10*3/uL (160-400); Red Blood Count 4.53 X10*6/uL (4.20-5.50); Red Cell Distribution Width 12.1 % (11.0-16.0); White Blood Count 8.8 X10*3/uL (4.8-10.8)
[2022-10-25 15:02] LABS: Alanine Aminotransferase 25 U/L (0-31); Albumin Level 4.7 g/dL (3.5-5.0); Alkaline Phosphatase 79 U/L (39-117); Anion Gap 14 (12-20); Aspartate Amino Transferase 22 U/L (5-31); Bilirubin Total 0.6 mg/dL (0.0-1.0); Blood Urea Nitrogen 11 mg/dL (9-16); Calcium 10.1 mg/dL (8.4-10.2); Carbon Dioxide 23 mmol/L (22-29); Chloride 108 mmol/L (96-108); Estimated Glomerular Filt Rate > 60; Glucose Random 108 mg/dL (60-115); Potassium 4.1 mmol/L (3.3-5.1); Sodium 141 mmol/L (135-145); Total Protein 7.7 g/dL (6.5-8.0)
== END 2022-10-25 13:54 | disposition home or self-care (01) ==
LOC: HO.LAB 13:53
PROVIDERS: PCP Internal Medicine; Visit Provider Internal Medicine
DX: C50.919 Malignant neoplasm of unspecified site of unspecified female breast (principal)
CPT/HCPCS: 36415; 80053; 85027

== ENCOUNTER 2022-11-12 12:24 | Outpatient (REF) | payer OTHER, SELFPAY ==
--- NOTE | ~2022-11-12 | MM_ITS ---
EXAMINATION: MM SCREENING DIGITAL BREAST TOMOSYNTHESIS, RIGHT CLINICAL INFORMATION: Due for yearly. Prior left mastectomy. Right IDC status post lumpectomy 01/21/2017. COMPARISON: Mammography: 09/17/2021, 04/29/2020, 06/21/2019, 05/02/2018; ultrasound right breast 04/29/2020. TECHNIQUE: Digital breast tomosynthesis is performed in both the craniocaudal and mediolateral oblique views along with computer-aided detection (CAD). Synthesized 2D images are generated from the tomosynthesis. FINDINGS: There are scattered areas of fibroglandular density (ACR BI-RADS breast composition Category b). There are post therapy changes with stable scarring anterior upper outer quadrant. A stable macrolobulated nodule is again present mid 9:00 right breast. The axilla is unremarkable. No abnormal calcifications. No interval developing density or architectural abnormality. No significant changes. MM/MM tomosynthesis screening RT IMPRESSION: No mammographic evidence of malignancy. ASSESSMENT: BI-RADS 2: Benign RECOMMENDATION: Routine annual mammography screening. This patient's information was entered into a reminder system with a target due date for their next mammogram.
== END 2022-11-12 12:25 | disposition home or self-care (01) ==
LOC: HO.MAMMO 12:24
PROVIDERS: PCP Internal Medicine; Visit Provider Internal Medicine
DX: Z12.31 Encounter for screening mammogram for malignant neoplasm of breast (principal)
CPT/HCPCS: 77063; 77067

== ENCOUNTER 2022-12-24 19:13 | Emergency (ER) | payer OTHER, SELFPAY ==
[2022-12-24 20:11] VITALS: BP 154/97; PULSE 98; RESP 16; TEMP 36.4; O2SAT 98; BMI 37.1
--- NOTE | 2022-12-24 20:12 | ED_ITS ---
HPI - Asthma General Chief Complaint: Asthma Stated Complaint: Asthma Time Seen by Provider: 12/24/22 20:16 Source: patient Mode of arrival: ambulatory Limitations: no limitations History of Present Illness HPI Narrative: 47-year-old female with a past medical history of asthma presenting to the ER with complaints of a cough with some shortness of breath and wheezing that started today. Reports that she would not be here if she had medication for her nebulizer and her albuterol inhaler. Reports that her son was sick with similar symptoms a few days ago although his symptoms improved. She does not believe s he has COVID and does not want a COVID/RSV/flu swab. She denies any fevers, chest pain, dyspnea on exertion, orthopnea palpitations, nausea/vomiting/diarrhea, abdominal pain, lower extremity edema or calf tenderness or any other symptoms complaints or concerns at this time. MD complaint: asthma attack , shortness of breath and wheezing Onset (ago): day(s) (Started today) Severity: mild Context: ran out of meds Associated symptoms: dry cough Asthma History: history of frequent attacks Treatments Prior to Arrival: inhaled bronchodilator Related Data Current Asthma Therapy: inhaled bronchodilator Previous Rx's Medication Instructions Recorded albuterol sulfate 90 mcg/actuation 2 puff inhalation Q6H PRN for 07/21/22 aerosol inhaler wheezing #6.7 grams blood-glucose meter ([employer] Voice #1 ea 07/21/22 Glucose Meter kit) metformin 1,000 mg tablet 1,000 mg PO BID #180 tabs 07/21/22 aspirin 81 mg tablet,delayed 81 mg PO DAILY 90 days #90 tabs 08/06/22 release (Adult Low Dose Aspirin) nicotine See Rx Instructions transdermal 11/16/22 21mg/24hr-14mg/24hr-7mg/24hr daily .COMPLEX #56 patches transderm patches,sequentl fluticasone propionate 50 1 spray intranasal DAILY #16 grams 12/08/22 mcg/actuation nasal spray,suspension albuterol sulfate 0.63 mg/3 mL 0.63 mg (3 mL) inhalation QID PRN 12/24/22 solution for nebulization shortness of breath or wheezing #75 mL albuterol sulfate 90 mcg/actuation 1 inh inhalation QID PRN shortness 12/24/22 aerosol inhaler of breath or wheezing #8.5 grams azithromycin 250 mg tablet See Rx Instructions PO .COMPLEX #6 12/24/22 tabs codeine 10 mg-guaifenesin 100 mg/5 5 ml PO Q6H PRN cold symptoms #120 12/24/22 mL oral liquid (Guaifenesin AC) mL prednisone 20 mg tablet 40 mg PO DAILY inflammation 5 days 12/24/22 #10 tabs Allergies Allergy/AdvReac Type Severity Reaction Status Date / Time iodine [IODINE] Allergy Severe ANAPHYLAXIS Verified 11/16/22 11:55 Penicillins [PENICILLINS] Allergy Severe DIFFICULTY Verified 11/16/22 11:55 BREATHING,HIVES penicillin V Allergy Unknown anaphylaxis Verified 11/16/22 11:55 ,rash vancomycin Allergy Unknown rash, Verified 11/16/22 11:55 itching Iodine Tincture Allergy Unknown Unknown Uncoded 11/16/22 11:31 nylon Allergy Unknown Unknown Uncoded 11/16/22 11:31 Review of Systems Review of Systems: Constitutional : denies med noncompliance, no history of PE or DVT, denies recent travel, No Fever, No Chills ENT/Mouth : No Hoarseness, No sore throat, No Rhinorrhea, No Nasal congestion, No Sinus Pressure, No Ear Pain, No stridor, Eyes: No Redness, No Discharge, No Vision Changes Cardiovascular : No Chest Pain, + SOB, No Dyspnea on Exertion, No Edema, no pleurisy, Respiratory : + Cough, + wheezing, No Sputum, no stridor, no hemoptysis, Gastrointestinal : No Nausea, No Vomiting, No Diarrhea, No abdominal Pain Genitourinary : No Dysuria, No Hematuria Musculoskeletal : No joint pain/swelling, No Myalgias Extremities: no extremity swelling /pain Skin : No rash, no itching, no swelling Neuro : No Weakness, No Numbness, No Headache, No Dizziness, No Paresthesias Psych : No anxiety, depression Heme/Lymph: No Bruising, No Bleeding Endocrine : No Polyuria, No Polydipsia Yes all other systems are reviewed and are negative [facility] Past Medical History Attestation statement: The following information was validated with the patient. Source: old records reviewed and nursing notes reviewed Medical History Anxiety and depression Asthma BMI 39.0-39.9,adult Breast CA Chest pain Coronary artery calcification seen on CAT scan Depression Legal blindness Obesity Potential exposure to STD Smoker Type 2 diabetes mellitus Surgical History H/O right breast biopsy History of left mastectomy Hx of section S/P lumpectomy, right breast Family History Family History Father HTN (hypertension) Anxiety Depression Cancer Diabetes Mother CVD (cardiovascular disease) Social History Social History Housing: Apartment Alcohol intake: current Alcohol intake frequency: holidays/special occasions only Patient Tobacco Use Status: Current everyday Tobacco user Tobacco use type: Cigarette e-Cigarette/Vaping Use: Never Used Advance Directives: No Advance Directives Information Provided: Yes service: No Current occupational status: disabled Current occupational exposures/hazards: No Gender identity: Female Cognitive needs: No Hearing needs: No Vision needs: No Physical Exam Vital Signs: Vital Signs: Last Vital Signs Temp 97.6 F 12/24/22 20:11 Pulse 98 12/24/22 20:11 Resp 16 12/24/22 20:11 BP 154/97 H 12/24/22 20:11 Pulse Ox 98 12/24/22 20:11 O2 Del Method 12/24/22 20:11 BMI result Body Mass Index 37.1 vital signs have been reviewed Blood pressure normal. Heart rate normal. Respiration normal. Oxygen saturation normal. Appearance: Alert. Oriented X3. No acute distress. Head: Normal external exam. Normocephalic. Atraumatic. Eyes: PERRLA. EOMI. Conjunctiva and sclera normal. Eyelids normal. ENT: EAC normal. TM's Normal. Pharynx normal. Uvula midline. Moist mucous membranes. No trismus noted. No drooling noted. No muffled voice noted. No stridor noted. Patient tolerating secretions well. Neck: Normal inspection. Neck supple. FROM. No adenopathy. Thyroid Normal. No meningeal signs. No neck mass noted. CVS: Normal heart rate and rhythm. Heart sound normal. Pulses normal throughout. No murmurs/rales/gallops. Respiratory: No respiratory distress. Painless inspiration. Breath sounds normal. No wheezes/rales/rhonchi noted. Chest nontender. No accessory muscle usage noted or decreased air movement noted. Normal chest excursions noted. Abdomen: Soft and nontender. Bowel sounds normal in all 4 quadrants. No distention noted. No organomegaly noted. No visible injury noted. Back: No CVA tenderness. Full range of motion noted. No rashes/lesion/induration/fluctuance or signs of infection noted. Skin: Skin warm and dry. Normal skin color. Normal skin turgor. No rashes/lesions/lacerations noted. Extremities: No lower extremity edema. Extremities exhibit normal range of motion. Extremities nontender. Neuro: Oriented X 3. No motor deficit. No sensory deficit. Reflexes normal. Normal steady gait. No focal neuro deficits noted. Vascular: + radial pulses/+ 2 distal pedal pulses/+2 dorsalis pedis b/l. Normal cap refill. No cyanosis noted to upper extremity nails and lower extremity toes nails. Course Course Course Narrative: Patient is alert and oriented x3. Not in any acute distress. Lungs clear to auscultation. No wheezes/rales/rhonchi noted. No lower extremity edema or calf tenderness is noted. Patient reports she does not need a chest x-ray and she refused a COVID/RSV/flu swab. Therefore at this time patient will be discharged home with refill on her asthma medication and symptomatic treatment instructions return if any new or worsening symptoms follow up with primary care provider. Patient understands agrees with this plan. Discharge Plan Discharge Clinical Impression: Asthma exacerbation, Acute bronchitis with bronchospasm Patient Disposition: Home, Self-Care Instructions: Asthma (ED), Acute Bronchitis (ED), Wheezing (ED) Additional Instructions: You have a pending COVID/RSV/flu swab. Please check her patient portal to see if it is positive or negative. Prescriptions: New albuterol sulfate 0.63 mg/3 mL solution for nebulization 0.63 mg inhalation QID PRN (Reason: shortness of breath or wheezing) Qty: 75 0RF albuterol sulfate 90 mcg/actuation HFA aerosol inhaler 1 inh inhalation QID PRN (Reason: shortness of breath or wheezing) Qty: 8.5 0RF azithromycin 250 mg tablet See Rx Instructions .ROUTE .COMPLEX Qty: 6 0RF Rx Instructions: take 500 mg today (day 1), then 250 mg for 4 days (days 2-5) codeine-guaifenesin [Guaifenesin AC] 10-100 mg/5 mL liquid 5 ml PO Q6H PRN (Reason: cold symptoms) Qty: 120 0RF prednisone 20 mg tablet 40 mg PO DAILY 5 Days Qty: 10 0RF No Action albuterol sulfate 90 mcg/actuation HFA aerosol inhaler 2 puff inhalation Q6H PRN (Reason: for wheezing) Qty: 6.7 1RF (DME) blood-glucose meter [[employer] Glucose Meter] Kit See Rx Instructions .Route Qty: 1 0RF Rx Instructions: As directed metformin 1,000 mg tablet 1,000 mg PO BID Qty: 180 1RF aspirin [Adult Low Dose Aspirin] 81 mg tablet,delayed release (DR/EC) 81 mg PO DAILY 90 Days Qty: 90 0RF fluticasone propionate 50 mcg/actuation spray,suspension 1 spray intranasal DAILY Qty: 16 0RF Rx Instructions: administer into each nostril nicotine 21-14-7 mg/24 hr patch, TD daily, sequential See Rx Instructions transdermal .COMPLEX Qty: 56 0RF Rx Instructions: apply 1-21 mg NICOTINE PATCH daily for 28 days; follow with 1-14 mg PATCH daily for 14 days, then 1-7mg PATCH daily for 14 days transdermal Referrals: Yann Fernandez MD [Primary Care Provider] - Interventions: ED Discharge Assessment Last Done: 12/24/22 20:24 Discharge Date/Time: 12/24/22 20:24
== END 2022-12-24 20:24 | disposition home or self-care (01) ==
PROVIDERS: Emergency Provider Emergency Medicine; PCP Internal Medicine
DX: J20.9 Acute bronchitis, unspecified (principal); J45.901 Unspecified asthma with (acute) exacerbation; F17.210 Nicotine dependence, cigarettes, uncomplicated; E66.9 Obesity, unspecified; Z68.37 Body mass index [BMI] 37.0-37.9, adult
CPT/HCPCS: 99282; 99283

== ENCOUNTER 2023-02-16 10:24 | Outpatient (REF) | payer OTHER, SELFPAY ==
[2023-02-16 12:32] LABS: Anion Gap 10 (12-20); Blood Urea Nitrogen 9 mg/dL (9-16); Calcium 9.8 mg/dL (8.4-10.2); Carbon Dioxide 26 mmol/L (22-29); Chloride 107 mmol/L (96-108); Cholesterol 186 mg/dL; Estimated Glomerular Filt Rate > 60; Glucose Random 146 mg/dL (60-115); HDL Cholesterol 37 mg/dL; LDL Cholesterol Calculated 109 mg/dl; Potassium 4.4 mmol/L (3.3-5.1); Sodium 139 mmol/L (135-145); Triglycerides 203 mg/dL
[2023-02-16 12:44] LABS: Folate 11.3 ng/mL (> or = 4.0); TSH reflex Free T4 0.31 uIU/mL (0.32-4.0); Vitamin B12 369 pg/mL (200-900); Vitamin D 25-OH Total 18.9 ng/mL (>30)
[2023-02-16 13:37] LABS: Free T4 (Free Thyroxine) 1.15 ng/dL (0.71-1.85)
== END 2023-02-16 10:25 | disposition home or self-care (01) ==
LOC: HO.LAB 10:24
PROVIDERS: Nurse Practitioner Family; PCP Internal Medicine; Visit Provider Internal Medicine Cardiovascular Disease
DX: Z13.220 Encounter for screening for lipoid disorders (principal); Z13.29 Encounter for screening for other suspected endocrine disorder; Z13.21 Encounter for screening for nutritional disorder; R07.9 Chest pain, unspecified; R94.39 Abnormal result of other cardiovascular function study
CPT/HCPCS: 36415; 80048; 80061; 82306; 82607; 82746; 84439; 84443

== ENCOUNTER → 2023-03-22 13:28 | Outpatient (BNVA) | payer OTHER, SELFPAY | PROVIDERS: PCP Internal Medicine; Referring Provider Internal Medicine; Visit Provider Nurse Practitioner Family | DX: R07.9 Chest pain, unspecified (principal); I25.10 Atherosclerotic heart disease of native coronary artery without angina pectoris; I10 Essential (primary) hypertension; E11.9 Type 2 diabetes mellitus without complications; E78.5 Hyperlipidemia, unspecified; C50.911 Malignant neoplasm of unspecified site of right female breast; F17.210 Nicotine dependence, cigarettes, uncomplicated; Z90.11 Acquired absence of right breast and nipple; Z79.82 Long term (current) use of aspirin; Z79.84 Long term (current) use of oral hypoglycemic drugs | CPT/HCPCS: 99212 ==

== ENCOUNTER 2023-05-24 14:25 | Outpatient (AMB) | payer OTHER, SELFPAY ==
[2023-05-24 14:29] VITALS: BP 118/78; PULSE 81; O2SAT 99; BMI 35.6
--- NOTE | 2023-05-24 14:29 | MHC.PC.OV ---
Vital Signs 05/24/23 14:29 Height 5 ft 3 in Weight 201 lb BMI 35.6 BP 118/78 Blood Pressure Location Lt brachial Position Sitting Pulse 81 Pulse Source Pulse Oximeter Pulse Oximetry (%) 99 Oxygen Delivery Method Room Air Intake Visit Reasons: Transfer of Care Dr. Roman Scrub Tech Required: No Accompanied by: Self / Same As Patient Allergies iodine [IODINE] Allergy (Severe, Verified 05/24/23 14:51) ANAPHYLAXIS Penicillins [PENICILLINS] Allergy (Severe, Verified 05/24/23 14:51) DIFFICULTY BREATHING,HIVES penicillin V Allergy (Unknown, Verified 05/24/23 14:51) anaphylaxis,rash vancomycin Allergy (Unknown, Verified 05/24/23 14:51) rash, itching Iodine Tincture Allergy (Unknown, Uncoded 11/16/22 11:31) Unknown nylon Allergy (Unknown, Uncoded 11/16/22 11:31) Unknown Medication List - Last Reconciled 05/24/23 by Polo Cobb PA-C albuterol sulfate 0.63 mg (3 mL) inhalation QID PRN albuterol sulfate 90 mcg/actuation 1 inh inhalation QID PRN aspirin (Adult Low Dose Aspirin) 81 mg PO DAILY 90 days blood-glucose meter ([employer] Glucose Meter kit) As directed cholecalciferol (vitamin D3) 50 mcg PO DAILY fluticasone propionate 50 mcg/actuation 1 spray intranasal DAILY hydroxyzine HCl 25 mg PO ONCE PRN letrozole 2.5 mg PO DAILY metformin 1,000 mg PO BID nicotine (polacrilex) (Nicorette) 2 mg buccal Q8H PRN rosuvastatin (Crestor) 5 mg PO DAILY Tobacco use date assessed: 05/24/23 Dental Screening Dental Screen Date: 05/24/23 Did you have a dental visit in the last 12 months?: Yes Did you have a dental problem in the last 6 months where you did not have access to dental care?: No Was dental information given to patient?: Patient has dentist [facility] Transfer of Care Dr. Roman HPI Details Patient is a 48-year-old female here today for transfer care visit. Is the 1st time I am meeting this 48-year-old female with a past medical history significant for breast cancer, coronary calcifications, obesity, tobacco dependency, legal blindness. . Tobacco dependency: Has been working with smoking cessation counselor and has nicotine patches available to her. She is very motivated to stop smoking though finds it very difficult to do so. She would like nicotine lozenges to also help her quit smoking .. Obesity: She is interested in losing weight and lost his talk to a plastic surgeon about breast lift surgery. She does understand her BMI is above 30. .. Type 2 diabetes: Continues on metformin a 1000 b.i.d., most recent A1c of 5.9. She would like to get off of diabetic medication though understand she needs to lose weight. Otherwise does not regularly check her sugars at homeat this time. No reported episodes of hypoglycemia .. Breast cancer: Patient is status post radiation and lumpectomy on left side. Patient is followed by Oncology and continues on anti hormonal therapy. .. Coronary artery calcifications: Followed by Cardiology, most recent CT coronary arteries showing calcifications, patient has been started on low-dose statin therapy will continue following lipid panel. Otherwise denies any recent episodes of palpitations, shortness of breath or chest discomforts. She does report trying to be more physically active to help her lose weight. Again she does understand she needs to quit smoking [facility] Medical History Anxiety and depression Asthma BMI 39.0-39.9,adult Breast CA Chest pain Coronary artery calcification seen on CAT scan Depression Legal blindness Obesity Potential exposure to STD Smoker Type 2 diabetes mellitus Vitamin D deficiency Surgical History H/O right breast biopsy History of left mastectomy Hx of section S/P lumpectomy, right breast Family History Father HTN (hypertension) Anxiety Depression Cancer Diabetes Mother CVD (cardiovascular disease) Social History Housing: Apartment Alcohol intake: current Alcohol intake frequency: holidays/special occasions only Patient Tobacco Use Status: Current everyday Tobacco user Tobacco use type: Cigarette e-Cigarette/Vaping Use: Never Used service: No Current occupational status: disabled Current occupational exposures/hazards: No Gender identity: Female Cognitive needs: No Hearing needs: No Vision needs: No Female Reproductive History Menstrual Age of Menarche: 11 Questionnaire PHQ-9 Over the last 2 weeks, how often have you been bothered by any of the following problems? 1. Little interest or pleasure in doing things: several days 2. Feeling down, depressed, or hopeless: more than half the days 3. Trouble falling or staying asleep, or sleeping too much: nearly every day 4. Feeling tired or having little energy: more than half the days 5. Poor appetite or overeating: nearly every day 6. Feeling bad about yourself - or that you are a failure or have let yourself or your family down: not at all 7. Trouble concentrating on things, such as reading the newspaper or watching television: not at all 8. Moving or speaking so slowly that other people could have noticed. Or the opposite - being so fidgety or restless that you have been moving around a lot more than usual: not at all 9. Thoughts that you would be better off or of hurting yourself in some way: not at all Total score: 11 17858 - PHQ-9 Billing: Yes Source: Developed by Drs. Scotty Doss, Adenike Rodas, Ghulam Lindsay and colleagues, with an educational shawn from [employer]. Thrive Questionnaire Date Thrive assessed: 05/24/23 I am a: Patient What is your living situation today?: I have a steady place to live Within the past 12 months, did the food you bought not last and you didn't have the money to get more?: Never true Within the past 12 months, did you worry whether your food would run out before you got money to buy more?: Never true Do you have trouble paying for medicines?: No Do you have trouble getting transportation to medical appointments?: No Do you have trouble paying your heating and electricity bill?: No Do you have trouble taking care of your child, family member or friend?: No Do you have trouble with day-to-day activities such as bathing, preparing meals, shopping, managing finances, etc.?: No Are you currently unemployed and looking for a job?: No Are you interested in more education?: No Please select the resources that you would like help with: None Currently or been in a relationship where the following occur: no concerns reported AUDIT C Alcohol Use Questionnaire (AUDIT-C) 1. How often do you have a drink containing alcohol?: Monthly or less 2. How many drinks containing alcohol do you have on a typical day when you are drinking?: 1 or 2 3. How often do you have six or more drinks on one occasion?: Never Total Score: 1 ELEAZAR-7 AMB Questionnaire ELEAZAR-7 Date ELEAZAR - 7 assessed: 05/24/23 Feeling nervous, anxious, or on edge: 2 = More than half the days Not being able to stop or control worryin = More than half the days Worrying too much about different things: 3 = Nearly every day Trouble relaxin = More than half the days Being so restless that it is hard to sit still: 0 = Not at all Becoming easily annoyed or irritable: 3 = Nearly every day Feeling afraid as if something awful might happen: 2 = More than half the days Total ELEAZAR-7 score (0-4 normal; 5-9 mild; 10-14 moderate; 15-21 severe): 14 Source: Developed by Drs. Scotty Doss, Adenike Rodas, Ghulam Lindsay and colleagues, with an educational shawn from [employer]. ELEAZAR-7 Assessment Billing ELEAZAR-7 Assessment Tool: ELEAZAR-7 Assessment 05243 Review of Systems Const Denies headache(s) Eyes Denies loss of vision ENT Denies vertigo, Denies dizziness, Denies headache(s) and Denies sore throat Card Denies chest pain, Denies leg edema and Denies lightheadedness Resp Denies cough, Denies hemoptysis and Denies wheezing GI Denies abdominal pain, Denies melena, Denies constipation, Denies diarrhea and Denies vomiting Denies urinary frequency, Denies dysuria and Denies urinary urgency Musc Denies arthralgias, Denies joint swelling, Denies numbness and Denies tingling Neuro Denies Abnormal speech present, Denies behavioral changes, Denies vertigo, Denies dizziness, Denies headache(s), Denies loss of vision, Denies memory loss, Denies numbness and Denies tingling Psych Denies anxiety, Denies behavioral changes, Denies depression, Denies memory loss and Denies panic attacks Lg/Lymph Denies easy bleeding and Denies easy bruising Aller/Immun Denies wheezing Physical exam (Primary Care) Vital Signs: Last Vital Signs Pulse 81 07/18/23 14:29 BP 118/78 05/24/23 14:29 Pulse Ox 99 05/24/23 14:29 Oxygen Delivery Method Room Air 05/24/23 14:29 BMI result Body Mass Index 35.6 BMI Assessment/Plan discussion: High Tobacco/Smoking Status: Tobacco use Status Tobacco use date assessed 05/24/23 05/24/23 14:39 Patient Tobacco Use Status Current everyday Tobacco 05/24/23 14:39 Tobacco use type Cigarette 05/24/23 14:39 e-Cigarette/Vaping Use Never Used 05/24/23 14:39 Are you ready to quit: Yes Tobacco cessation counseling provided: Yes Relapse Prevention: discussed the importance of a supportive environment, discussed extending NRT, discussed negative mood or depression after quitting, weight gain after smoking is common and discussed dietary, exercise and/or lifestyle changes Number of minutes spent counselin CPT code: 87009 - 4-10 Minutes PHQ-9: PHQ-9 Score PHQ-9: Total score 11 05/24/23 14:48 Thrive Assessment: Date of Thrive Assessment Date Thrive assessed 05/24/23 05/24/23 14:39 Currently or been in a relationship where the following occur: no concerns reported Const Other: Obese General: healthy appearing, no acute distress, alert and awake Nutritional Appearance: well nourished Orientation/consciousness: oriented to person, oriented to place and oriented to time HENMT Ears: TM's normal bilaterally General nose exam: Normal nasal mucous membranes and turbinates present Eyes Conjunctivae: conjunctivae normal Sclerae: sclerae normal Pupils: Equal, round and reactive pupils present Neck Neck: Yes no lymphadenopathy and Yes no JVD Thyroid: Thyroid normal Carotids: no bruits Resp Effort & Inspection: normal respiratory effort and not tachypneic Auscultation: no crackles, no rales, no rhonchi and no wheezes Cardio Rate: regular rate Rhythm: regular rhythm Heart sounds: no murmurs and normal S1 and S2 GI Palpation (GI): Soft to palpation, nontender, no hepatomegaly and no splenomegaly Auscultation: normal bowel sounds Skin General skin exam: no rashes or lesions noted and dry skin Neuro General: oriented to person, oriented to place and oriented to time Cranial nerves: Yes Equal, round and reactive pupils present Speech: No Abnormal speech present Gait exam (Neuro): Normal gait present Motor exam (neuro): no tremor noted Extrem Right upper extremity: full ROM Left upper extremity: full ROM Right lower extremity: full ROM; no edema Left lower extremity: full ROM; no edema Psych Mental Status: mental status grossly normal Speech and movement: Normal speech and movement present Affect: normal affect Attitude: cooperative Thought process: Normal thought process present Assessment and Plan Assessment & Plan (1) Type 2 diabetes mellitus: Code(s): E11.9 - Type 2 diabetes mellitus without complications Qualifiers: Diabetes mellitus complication status: with hyperglycemia Diabetes mellitus intermission coordinator insulin use: without intermission coordinator use Qualified Code(s): E11.65 - Type 2 diabetes mellitus with hyperglycemia Plan: Patient's type 2 diabetes well controlled on current dose of metformin 500 b.i.d.. She expresses a lot of concern not wanting to be on diabetes medication. She would like to lose 30 lb to help her get off of diabetes medication. (2) Smoker: Code(s): F17.200 - Nicotine dependence, unspecified, uncomplicated Plan: She does understand she needs to quit smoking, has nicotine patches available to her. She would like to also tried nicotine lozenges. She has been speaking with a smoking cessation counselor which has been helpful. (3) Obesity: Comment: working with weight management program Code(s): E66.9 - Obesity, unspecified Qualifiers: Body mass index: BMI 35.0-35.9 Obesity classification: adult class 2 (BMI 35 - 39.9) Obesity type: due to excess calories Serious obesity comorbidity presence: without serious comorbidity Qualified Code(s): E66.09 - Other obesity due to excess calories; Z68.35 - Body mass index [BMI] 35.0-35.9, adult Plan: Patient does understand BMI is over 30 will work on being more physically active and adapting to better eating habits to reduce her weight. (4) Legal blindness: Comment: optic neuritis Code(s): H54.8 - Legal blindness, as defined in [place] Plan: Has history of optic neuritis causing legal blindness. 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 She expresses desire to do a breast lift. Orders: Orders Lipid Panel 3 Months I25.10 - Atherosclerotic heart disease of [place] coronary artery without angina pectoris Comprehensive [place]. Panel Fast 3 Months E11. - Type 2 diabetes mellitus with hyperglycemia Complete Blood Count no Diff 3 Months E11. - Type 2 diabetes mellitus with hyperglycemia Hemoglobin A1c 3 Months E11. - Type 2 diabetes mellitus with hyperglycemia Referrals Podiatry Referral E11.65 - Type 2 diabetes mellitus with hyperglycemia Medications: New ciclopirox 0.77% 1 appl topical BID 4 weeks 30 grams 1RF B35.3 - Tinea pedis Changed From rosuvastatin (Crestor) Get fasting labs 2 months of use 5 mg PO DAILY 30 tabs 3RF I25.10 - Atherosclerotic heart disease of [place] coronary artery without angina pectoris To rosuvastatin (Crestor) Get fasting labs 2 months of use 5 mg PO DAILY 90 days 90 tabs 1RF I25.10 - Atherosclerotic heart disease of [place] coronary artery without angina pectoris From cholecalciferol (vitamin D3) 50 mcg PO DAILY 30 caps 3RF E55.9 - Vitamin D deficiency, unspecified To cholecalciferol (vitamin D3) 50 mcg PO DAILY 90 days 90 caps 1RF E55.9 - Vitamin D deficiency, unspecified Refilled nicotine (polacrilex) (Nicorette) 2 mg buccal Q8H PRN 72 ea 0RF nicotine cravings F17.200 - Nicotine dependence, unspecified, uncomplicated Coding Level of Care Code Est Pt Level 4 (42535) Diagnoses Type 2 diabetes mellitus Diabetes mellitus complication status: with hyperglycemia Diabetes mellitus intermission coordinator insulin use: without halfway use Smoker F17.200 Obesity E66.09; Z68.35 Body mass index: BMI 35.0-35.9 Obesity classification: adult class 2 (BMI 35 - 39.9) Obesity type: due to excess calories Serious obesity comorbidity presence: without serious comorbidity Legal blindness H54.8 Breast CA C50.911; C50.912; Z17.0 Breast location: unspecified site of breast Estrogen receptor status: positive Patient sex: female Laterality: bilateral Additional Codes ELEAZAR-7 Assessment Billing - ELEAZAR-7 Assessment Tool: ELEAZAR-7 Assessment 75094 ([id number]) Vital Signs *Quality* - CPT code: 96780 - 4-10 Minutes ([id number])
== END 2023-05-24 15:56 | disposition home or self-care (01) ==
PROVIDERS: Visit Provider Physician Assistant
DX: E11.65 Type 2 diabetes mellitus with hyperglycemia (principal); F17.210 Nicotine dependence, cigarettes, uncomplicated; Z68.35 Body mass index [BMI] 35.0-35.9, adult; E66.09 Other obesity due to excess calories; H54.8 Legal blindness, as defined in USA; C50.911 Malignant neoplasm of unspecified site of right female breast; C50.912 Malignant neoplasm of unspecified site of left female breast; Z17.0 Estrogen receptor positive status [ER+]
CPT/HCPCS: 99214; 99406

== ENCOUNTER 2023-08-02 08:29 | Outpatient (AMB) | payer OTHER, SELFPAY ==
--- NOTE | 2023-08-02 08:30 | A.OFFVIS_ITS ---
Intake Vital Signs 08/02/23 08:34 Height 5 ft 3 in Weight 209 lb 7.026 oz BMI 37.1 BP 128/86 Blood Pressure Location Lt brachial Position Sitting Pulse 103 H Pulse Source Pulse Oximeter Pulse Oximetry (%) 97 Oxygen Delivery Method Room Air Intake Visit Reasons: chest pain Intake Note: Pt presents to the office today for chest pain. Pt states she had chest pain for a day but has since subsided. EKG done. Allergies iodine [IODINE] Allergy (Severe, Verified 08/02/23 08:31) ANAPHYLAXIS Penicillins [PENICILLINS] Allergy (Severe, Verified 08/02/23 08:31) DIFFICULTY BREATHING,HIVES penicillin V Allergy (Unknown, Verified 08/02/23 08:31) anaphylaxis,rash vancomycin Allergy (Unknown, Verified 08/02/23 08:31) rash, itching Iodine Tincture Allergy (Unknown, Uncoded 08/02/23 08:31) Unknown nylon Allergy (Unknown, Uncoded 08/02/23 08:31) Unknown Medication List - Last Reconciled 08/02/23 by ERIK Pulliam albuterol sulfate 0.63 mg (3 mL) inhalation QID PRN albuterol sulfate 90 mcg/actuation 1 inh inhalation QID PRN aspirin (Adult Low Dose Aspirin) 81 mg PO DAILY 90 days blood-glucose meter ([employer] Glucose Meter kit) As directed cholecalciferol (vitamin D3) 50 mcg PO DAILY 90 days ciclopirox 0.77% 1 appl topical BID 4 weeks fluticasone propionate 50 mcg/actuation 1 spray intranasal DAILY hydroxyzine HCl 25 mg PO ONCE PRN letrozole 2.5 mg PO DAILY metformin 1,000 mg PO BID nicotine (polacrilex) (Nicorette) 2 mg buccal Q8H PRN rosuvastatin (Crestor) 5 mg PO DAILY 90 days HPI chest pain HPI Details Rosa is a 48-year-old female with past medical history of hyperlipidemia, diabetes, coronary atherosclerosis on CT scan, mild coronary calcifications on CTA, smoking who presents with reported recent chest discomfort. Today she reports that she had an episode of discomfort below her left breast last week when she was sitting in the car. It spread across her chest in lasted a few minutes before relieving. She has had breast surgery for cancer and currently has expanders in place. She was told by her oncologist that she would have various discomfort in the chest region. She was afraid her pain was from her heart. She has not had any recurrent symptoms since that time. She has no exertional chest discomfort. No shortness of breath, dizziness, presyncope, syncope, PND, orthopnea or edema. She takes her meds as directed. She tells me she quit smoking recently and is interested in working on weight loss and improving her health overall. [facility] Medical History Vitamin D deficiency Smoker Anxiety and depression Asthma Potential exposure to STD Depression BMI 39.0-39.9,adult Type 2 diabetes mellitus Legal blindness Coronary artery calcification seen on CAT scan Breast CA Obesity Chest pain Surgical History History of left mastectomy S/P lumpectomy, right breast H/O right breast biopsy Hx of section Family History Father HTN (hypertension) Anxiety Depression Cancer Diabetes Mother CVD (cardiovascular disease) Social History Housing: Apartment Alcohol intake: current Alcohol intake frequency: holidays/special occasions only Patient Tobacco Use Status: Current everyday Tobacco user Tobacco use type: Cigarette e-Cigarette/Vaping Use: Never Used service: No Current occupational status: disabled Current occupational exposures/hazards: No Gender identity: Female Cognitive needs: No Hearing needs: No Vision needs: No Female Reproductive History Menstrual Age of Menarche: 11 Review of Systems Const All systems reviewed & are unremarkable except as noted in HPI and below Card Reports chest pain (one episode - resolved) Physical Exam Vital Signs: Last Vital Signs Pulse 103 H 08/02/23 08:34 BP 128/86 08/02/23 08:34 Pulse Ox 97 08/02/23 08:34 Oxygen Delivery Method Room Air 08/02/23 08:34 BMI result Body Mass Index 37.1 Const General: cooperative, healthy appearing, comfortable and no acute distress Orientation/consciousness: patient oriented x3 Neck Neck: Yes normal visual inspection Resp Effort & Inspection: normal respiratory effort Auscultation: clear to auscultation bilaterally, no crackles, no rales, no rhonchi and no wheezes Cardio Jugular venous distension: no JVD Rate: regular rate Rhythm: regular rhythm Heart sounds: S1 normal heart sound present, S2 normal heart sound present, no murmurs and no rubs Neuro General: patient oriented x3 Extrem General: Yes normal to inspection and No no pedal edema Psych Appearance: grossly normal Mental Status: mental status grossly normal Speech and movement: Normal speech and movement present Office Procedures EKG Details: Today, read by me, normal sinus rhythm, no acute ST or T-wave abnormalities, rate 97, QTC 447 millisecond [id number], Complete Assessment & Plan Assessment & Plan (1) Chest pain: Code(s): R07.9 - Chest pain, unspecified Qualifiers: Chest pain type: precordial pain Qualified Code(s): R07.2 - Precordial pain Plan: Reports of CP, mostly atypical sounding, No prior known cardiac hx. Does have risk factors of obesity, chest radiation 4 years ago, current smoking. Priort chest CT showed mild coronary calcifications. Echocardiogram 10/17/20 shows EF 55-60%, no valve abnormality and no regional wall motion abnormality. Nuclear stress test 10/17/20 is equivocal for distal anterior ischemia. EKG last visit 10/12/2022 shows sinus rhythm with no acute ST or T-wave abnormalities, rate 81. A CTA of the coronary arteries was done on 02/18/2023 showing minimal nonobstructive CAD. She is taking a daily aspirin and low-dose statin. Previously reluctant to use statin due to history of liver issues with tamoxifen. Labs need to be followed. Orders are in place in the system as ordered by PCP.. Today she reports having an episode of chest discomfort last week which caused her much concern. Her symptom was most likely chest wall in nature. She has a breast [employer] in place which likely contributed to the symptom. She has no exertional discomfort. EKG done today showing normal sinus rhythm with no acute ST or T-wave abnormalities. Offered reassurance. Review cardiac testing with her.. s/s of true angina reviewed. She will keep her cardiology follow-up that is scheduled for March 2024. Emergency care if needed for symptoms. (2) Coronary artery calcification seen on CAT scan: Code(s): I25.10 - Atherosclerotic heart disease of [place] coronary artery without angina pectoris (3) Abnormal nuclear stress test: Code(s): R94.39 - Abnormal result of other cardiovascular function study (4) Obesity: Comment: working with weight management program Code(s): E66.9 - Obesity, unspecified Qualifiers: Body mass index: BMI 35.0-35.9 Obesity classification: adult class 2 (BMI 35 - 39.9) Obesity type: due to excess calories Serious obesity comorbidity presence: without serious comorbidity Qualified Code(s): E66.09 - Other obesity due to excess calories; Z68.35 - Body mass index [BMI] 35.0-35.9, adult Plan: She is requesting referral to the weight loss management program. Message sent to her PCP (5) Breast CA: Comment: Right breast lumpectomy, left breast masectomy - currently has tissue [employer]ter in place (11/2020) Code(s): C50.919 - Malignant neoplasm of unspecified site of unspecified female breast Qualifiers: Breast location: unspecified site of breast Estrogen receptor status: positive Laterality: bilateral Patient sex: female Qualified Code(s): C50.911 - Malignant neoplasm of unspecified site of right female breast; C50.912 - Malignant neoplasm of unspecified site of left female breast; Z17.0 - Estrogen receptor positive status [ER+] Plan: Bilateral breast CA with sugical resection, prior radiation. Follows with Dr Carlisle for oncology. Being monitored at present time. (6) Smoker: Code(s): F17.200 - Nicotine dependence, unspecified, uncomplicated Plan: Since last visit she tells me she quit smoking altogether. Applauded on this. Coding Level of Care Code Est Pt Level 3 (32226) Diagnoses Precordial pain R07.2 Chest pain type: precordial pain Coronary artery calcification seen on CAT scan I25.10 Abnormal nuclear stress test R94.39 Class 2 obesity due to excess calories without serious comorbidity with body mass index (BMI) of 35.0 to 35.9 in adult E66.09; Z68.35 Body mass index: BMI 35.0-35.9 Obesity classification: adult class 2 (BMI 35 - 39.9) Obesity type: due to excess calories Serious obesity comorbidity presence: without serious comorbidity Bilateral malignant neoplasm of breast in female, estrogen receptor positive, unspecified site of breast C50.911; C50.912; Z17.0 Breast location: unspecified site of breast Estrogen receptor status: positive Laterality: bilateral Patient sex: female Smoker F17.200 CPT Codes EKG - CPT: [id number], Complete ([id number]) Time Spent (min) 24
[2023-08-02 08:34] VITALS: BP 128/86; PULSE 103; O2SAT 97; BMI 37.1
== END 2023-08-02 08:55 | disposition home or self-care (01) ==
PROVIDERS: PCP Physician Assistant; Visit Provider Nurse Practitioner Family
DX: R07.2 Precordial pain (principal); I25.10 Atherosclerotic heart disease of native coronary artery without angina pectoris; R94.39 Abnormal result of other cardiovascular function study; E66.09 Other obesity due to excess calories; Z68.35 Body mass index [BMI] 35.0-35.9, adult; C50.911 Malignant neoplasm of unspecified site of right female breast; C50.912 Malignant neoplasm of unspecified site of left female breast; Z17.0 Estrogen receptor positive status [ER+]; F17.200 Nicotine dependence, unspecified, uncomplicated
CPT/HCPCS: 93010; 99213

== ENCOUNTER → 2023-08-02 08:29 | Outpatient (BNVA) | payer OTHER, SELFPAY | PROVIDERS: PCP Physician Assistant; Visit Provider Nurse Practitioner Family | DX: I25.10 Atherosclerotic heart disease of native coronary artery without angina pectoris (principal); R07.2 Precordial pain; R94.39 Abnormal result of other cardiovascular function study; E66.09 Other obesity due to excess calories; C50.911 Malignant neoplasm of unspecified site of right female breast; C50.912 Malignant neoplasm of unspecified site of left female breast; Z17.0 Estrogen receptor positive status [ER+]; Z68.37 Body mass index [BMI] 37.0-37.9, adult | CPT/HCPCS: 93005; 99212 ==

== ENCOUNTER 2023-09-09 09:24 | Emergency (ER) | payer OTHER, SELFPAY ==
--- NOTE | ~2023-09-09 | XR_ITS ---
EXAMINATION: XR CHEST CLINICAL INFORMATION: Dyspnea. COMPARISON: Chest 12/13/2021 TECHNIQUE: Frontal view of the chest was obtained. FINDINGS: No significant abnormality is noted involving the heart, lungs, mediastinum, bony thorax or soft tissues. XR/XR chest 1V IMPRESSION: Unremarkable chest examination.
[2023-09-09 09:25] VITALS: BP 151/85; PULSE 98; RESP 18; TEMP 36.7; O2SAT 105; BMI 37.8
--- NOTE | 2023-09-09 09:29 | ECG_ITS ---
Test Reason : dyspnea Blood Pressure : / mmHG Vent. Rate : 100 BPM Atrial Rate : 100 BPM P-R Int : 108 ms QRS Dur : 086 ms QT Int : 328 ms P-R-T Axes : 030 033 021 degrees QTc Int : 423 ms Sinus tachycardia Otherwise normal ECG When compared with ECG of 08-MAR-2014 09:55, No significant changes seen Referred By: Generic ED Physician Electronically Signed By:LUAN PAINTER MD
--- NOTE | 2023-09-09 09:53 | ED_ITS ---
HPI - SOB/Dyspnea General Chief Complaint: Dyspnea Stated Complaint: Diff Breathing Time Seen by Provider: 09/09/23 09:42 Source: patient and old records reviewed Mode of arrival: ambulatory Limitations: other (very agitated does not want to talk or answer questions refusing most care except neb) History of Present Illness HPI Narrative: 48 yo female with PMH of DM, breast cancer follows with [facility] due for next mammogram in Nov 2023, not currently started letrozole per notes due to concern for side effects on patient's part, elevated LFTs, DM, CAD on CTA scan, asthma but no prior intubations - last prednisone in spring? here with c/o worsening breathing and asthma attack not responding to nebs x 1 week due to son being sick with URI and she had similar symptoms. She notes she is also exposed to roaches/mice in the house to RN but not to me she doesn't really give much history to me. She was upset she had to wait to be seen for 35 minutes and was threatening to leave, she is tearful and crying. She only agrees to neb right now and refuses all other interventions such as IV, labs, workup, medications. MD elicited complaint: shortness of breath, asthma attack and anxiety Pertinent past history: asthma Onset (ago): week(s) (1) Context: recent illness and allergen exposure Timing: progressively worsening Severity: moderate Relieving factors: rest and bronchodilators Known history of: asthma Associated symptoms: cough and wheezing Treatment prior to arrival: bronchodilator Related Data Previous Rx's Medication Instructions Recorded blood-glucose meter ([employer] #1 ea 07/21/22 Glucose Meter kit) metformin 1,000 mg tablet 1,000 mg PO BID #180 tabs 07/21/22 albuterol sulfate 0.63 mg/3 mL 0.63 mg (3 mL) inhalation QID PRN 12/24/22 solution for nebulization shortness of breath or wheezing #75 mL albuterol sulfate 90 mcg/actuation 1 inh inhalation QID PRN shortness 12/24/22 aerosol inhaler of breath or wheezing #8.5 grams aspirin 81 mg tablet,delayed 81 mg PO DAILY 90 days #90 tabs 03/31/23 release (Adult Low Dose Aspirin) fluticasone propionate 50 1 spray intranasal DAILY #16 grams 03/31/23 mcg/actuation nasal spray,suspension hydroxyzine HCl 25 mg tablet 25 mg PO ONCE PRN anxiety #3 tabs 04/08/23 letrozole 2.5 mg tablet 2.5 mg PO DAILY #30 tabs 04/27/23 cholecalciferol (vitamin D3) 50 50 mcg PO DAILY 90 days #90 caps 05/24/23 mcg (2,000 unit) capsule nicotine (polacrilex) 2 mg buccal 2 mg buccal Q8H PRN nicotine 05/24/23 lozenge (Nicorette) cravings #72 ea rosuvastatin 5 mg tablet (Crestor) 5 mg PO DAILY 90 days #90 tabs 05/24/23 ciclopirox 0.77 % topical cream 1 appl topical BID 4 weeks #30 08/02/23 grams prednisone 20 mg tablet 40 mg (2 x 20 mg) PO DAILY 4 days 09/09/23 #8 tabs Allergies Allergy/AdvReac Type Severity Reaction Status Date / Time iodine [IODINE] Allergy Severe ANAPHYLAXIS Verified 09/09/23 09:28 Penicillins [PENICILLINS] Allergy Severe DIFFICULTY Verified 09/09/23 09:28 BREATHING,HIVES penicillin V Allergy Unknown anaphylaxis Verified 09/09/23 09:28 ,rash vancomycin Allergy Unknown rash, Verified 09/09/23 09:28 itching Iodine Tincture Allergy Unknown Unknown Uncoded 08/02/23 08:31 nylon Allergy Unknown Unknown Uncoded 08/02/23 08:31 Review of Systems Review of Systems: Constitutional : No Fever, No Chills ENT/Mouth : No Hoarseness, No sore throat, No Rhinorrhea Eyes: No Redness, No Discharge, No Vision Changes Cardiovascular : No Chest Pain, positive SOB, positive Dyspnea on Exertion, No Edema Respiratory : positive Cough, No Sputum, positive Wheezing, Gastrointestinal : No Nausea, No Vomiting, No Diarrhea, No abdominal Pain Genitourinary : No Dysuria, No Hematuria Musculoskeletal : No joint pain, No Myalgias Skin : No rash Neuro : No Weakness, No Numbness, No Headache Psych : No anxiety, depression Heme/Lymph: No Bruising, No Bleeding Endocrine : No Polyuria, No Polydipsia All other systems reviewed and are negative PMFSH Past Medical History Attestation statement: The following information was validated with the patient. Source: old records reviewed Medical History Vitamin D deficiency Smoker Anxiety and depression Asthma Potential exposure to STD Depression BMI 39.0-39.9,adult Type 2 diabetes mellitus Legal blindness Coronary artery calcification seen on CAT scan Breast CA Obesity Chest pain Surgical History History of left mastectomy S/P lumpectomy, right breast H/O right breast biopsy Hx of section Family History Family History Father HTN (hypertension) Anxiety Depression Cancer Diabetes Mother CVD (cardiovascular disease) Social History Social History Housing: Apartment Alcohol intake: never Patient Tobacco Use Status: Current everyday Tobacco user Tobacco use type: Cigarette Smoked in Last 30 Days: No e-Cigarette/Vaping Use: Never Used Use of substances other than those prescribed or required for medical reasons: No Advance Directives: No Advance Directives Information Provided: No service: No Current occupational status: disabled Current occupational exposures/hazards: No Gender identity: Female Cognitive needs: No Hearing needs: No Vision needs: No Physical Exam Vital Signs: Vital Signs: Last Vital Signs Temp 98.0 F 09/09/23 09:25 Pulse 98 09/09/23 11:16 Resp 16 09/09/23 11:16 BP 118/77 09/09/23 11:16 Pulse Ox 98 09/09/23 11:16 O2 Del Method Room Air 09/09/23 11:16 BMI result Body Mass Index 37.8 Appearance: Alert. Oriented X3. No acute distress. tearful and angry Eyes: Pupils equal, round and reactive to light. ENT: Pharynx normal. Neck: Normal inspection. Neck supple. CVS: Normal heart rate and rhythm. Pulses normal. Respiratory: No respiratory distress. Breath sounds slightly diminished Abdomen: Soft and nontender. Skin: Skin warm and dry. Normal skin color. Normal skin turgor. Extremities: No lower extremity edema. No calf ttp Neuro: Oriented X 3. No motor deficit. No sensory deficit. Medications Administered Discontinued Medications Generic Name Dose Route Start Last Admin Trade Name Freq PRN Reason Stop Dose Admin Albuterol/Ipratropium 3 ml 09/09/23 10:05 09/09/23 10:15 Albuterol/Iprat 2.5/0.5mg 3 Ml Ampul.Neb INHALE 09/09/23 10:06 3 ml ONCE ONE Administration Prednisone 40 mg 09/09/23 10:43 09/09/23 11:15 Prednisone 20 Mg Tablet PO 09/09/23 10:44 40 mg ONCE ONE Administration Medical Decision Making Medical Decision Making MDM Narrative: 48 yo female with PMH of DM, breast cancer follows with [facility] due for next mammogram in Nov 2023, not currently started letrozole per notes due to concern for side effects on patient's part, elevated LFTs, DM, CAD on CTA scan, asthma but no prior intubations here with c/o asthma at this time will need CXR, swab and duoneb she agrees to oral steroids - she is refusing labs and IV she is not in distress has no chest pain to suggest ACS or VTE so this is reasonable. She did improve after neb and calmed down with clear lungs. Suspect asthma and URI Differential Diagnosis Differential Diagnoses: The differential diagnosis associated with the presentation includes asthma, URI Admission/Observation Consideration of admission/observation: Escalation of care including admission/observation considered feels much better walking around no distress no hypoxia Lab Data MDM Lab Attestation statement: I reviewed the patient's lab results. Labs: Lab Results 09/09/23 Range/Units 10:44 Influenza Type A (PCR) NEGATIVE (Negative) Influenza Type B (PCR) NEGATIVE (Negative) RSV RNA Qual (PCR) NEGATIVE (Negative) SARS-CoV-2 RNA (RT-PCR) NEGATIVE (Negative) Independent Interpretation I performed an independent interpretation of an: EKG and Plain X-Ray (no pneumonia) Interpretation: Rate: 100 Rhythm: NSR [place]: normal Normal P waves. Normal JAMAR. Normal QRS complex. ST T wave : normal no JOSE qTC: normal prior studies: no acute ischemia The study has been interpreted contemporaneously by me. . Radiology Impression Discussion of test interpretation with radiology: I have reviewed the radiologist's reading. Prescription Management I considered prescription management with: Other Chronic Conditions Patient?s care impacted by: Diabetes Discharge Plan Discharge Clinical Impression: Asthma with exacerbation Qualifiers: Asthma severity: moderate Asthma persistence: persistent Qualified Code(s): J45.41 - Moderate persistent asthma with (acute) exacerbation Patient Disposition: Home, Self-Care Instructions: Asthma (ED) Additional Instructions: normal chest xray, negative for flu covid and rsv. continue your nebs. while on steroids monitor your blood sugar - next dose is tomorrow return for worsening symptoms, pain, fevers, or any other concerns with your breathing Prescriptions: New prednisone 20 mg tablet 40 mg PO DAILY 4 Days Qty: 8 0RF No Action (DME) blood-glucose meter [[employer] Glucose Meter] Kit See Rx Instructions .Route Qty: 1 0RF Rx Instructions: As directed metformin 1,000 mg tablet 1,000 mg PO BID Qty: 180 1RF aspirin [Adult Low Dose Aspirin] 81 mg tablet,delayed release (DR/EC) 81 mg PO DAILY 90 Days Qty: 90 0RF fluticasone propionate 50 mcg/actuation spray,suspension 1 spray intranasal DAILY Qty: 16 0RF Rx Instructions: administer into each nostril hydroxyzine HCl 25 mg tablet 25 mg PO ONCE PRN (Reason: anxiety) Qty: 3 0RF Rx Instructions: Take 1 tablet prior to dentist for anxiety ciclopirox 0.77 % cream 1 appl topical BID 28 Days Qty: 30 3RF letrozole 2.5 mg Tablet 2.5 mg PO DAILY Qty: 30 3RF albuterol sulfate 0.63 mg/3 mL solution for nebulization 0.63 mg inhalation QID PRN (Reason: shortness of breath or wheezing) Qty: 75 0RF albuterol sulfate 90 mcg/actuation HFA aerosol inhaler 1 inh inhalation QID PRN (Reason: shortness of breath or wheezing) Qty: 8.5 0RF nicotine (polacrilex) [Nicorette] 2 mg lozenge 2 mg buccal Q8H PRN (Reason: nicotine cravings) Qty: 72 0RF rosuvastatin [Crestor] 5 mg tablet 5 mg PO DAILY 90 Days Qty: 90 1RF Rx Instructions: Get fasting labs 2 months of use cholecalciferol (vitamin D3) 50 mcg (2,000 unit) capsule 50 mcg PO DAILY 90 Days Qty: 90 1RF
--- NOTE | 2023-09-09 09:58 | PC.NURSE ---
pt reports SOB at rest- airway intact, 98% on RA. provider Beatrice made aware pt also declining labs. no oxygen needed. provider made aware pt states there are mice at home
[2023-09-09 10:00] VITALS: RESP 18; O2SAT 99
--- NOTE | 2023-09-09 10:00 | PC.NURSE ---
pt rports improvement with neb. no wheezing, less coughing. airway intact. +CMS. 99% on RA at this time. MD Barron came to bedside to eval again. talking w/o difficulty
[2023-09-09] MEDS: Albuterol/Iprat 2.5/0.5MG 3 ML AMPUL.NEB INHALE (10:15)
[2023-09-09] MEDS: predniSONE 20 MG TABLET 40 MG PO (11:15)
[2023-09-09 11:16] VITALS: BP 118/77; PULSE 98; RESP 16; O2SAT 98
[2023-09-09 11:53] LABS: Influenza A PCR NEGATIVE (Negative); Influenza B PCR NEGATIVE (Negative); Resp Syncy Virus RNA Qual PCR NEGATIVE (Negative); SARS COV2 PCR INHOUSE NEGATIVE (Negative)
[2023-09-09 12:00] VITALS: RESP 16; O2SAT 98
--- NOTE | 2023-09-09 12:10 | PC.NURSE ---
pt declined to sign papers. walked out w/o distress. +CMS/breathing/o2 sat on ra
== END 2023-09-09 12:19 | disposition home or self-care (01) ==
PROVIDERS: Emergency Provider Emergency Medicine; PCP Physician Assistant
DX: J45.41 Moderate persistent asthma with (acute) exacerbation (principal); R06.02 Shortness of breath; R00.0 Tachycardia, unspecified; F17.210 Nicotine dependence, cigarettes, uncomplicated; Z20.822 Contact with and (suspected) exposure to COVID-19; Z20.828 Contact with and (suspected) exposure to other viral communicable diseases; Z71.6 Tobacco abuse counseling; Z79.899 Other long term (current) drug therapy
CPT/HCPCS: 0241U; 71045; 93005; 99284; 99285

== ENCOUNTER 2023-09-27 08:36 | Emergency (ER) | payer OTHER, SELFPAY ==
[2023-09-27 08:49] VITALS: BP 121/83; PULSE 100; RESP 18; TEMP 37.6; O2SAT 98; BMI 36.9
--- NOTE | 2023-09-27 09:05 | ED_ITS ---
HPI - Headache General Chief Complaint: Headache Stated Complaint: Migraine Time Seen by Provider: 09/27/23 09:05 Source: patient, RN notes reviewed and old records reviewed Mode of arrival: ambulatory History of Present Illness HPI Narrative: 48-year-old female with a past medical history of anxiety, depression, asthma, breast CA s/p mastectomy and lumpectomy, legal blindness, presenting to the ED complaining of sinus congestion and migraine headache x2 days with associated photophobia and nausea. Admits to taking Tylenol and Motrin yesterday without relief. Denies headache pain maximal onset. Denies new vision changes, vomiting, numbness/tingling, weakness, fever/chills, sick contacts MD elicited complaint: migraine Related Data Previous Rx's Medication Instructions Recorded blood-glucose meter ([employer] Voice #1 ea 07/21/22 Glucose Meter kit) metformin 1,000 mg tablet 1,000 mg PO BID #180 tabs 07/21/22 albuterol sulfate 0.63 mg/3 mL 0.63 mg (3 mL) inhalation QID PRN 12/24/22 solution for nebulization shortness of breath or wheezing #75 mL albuterol sulfate 90 mcg/actuation 1 inh inhalation QID PRN shortness 12/24/22 aerosol inhaler of breath or wheezing #8.5 grams fluticasone propionate 50 1 spray intranasal DAILY #16 grams 03/31/23 mcg/actuation nasal spray,suspension hydroxyzine HCl 25 mg tablet 25 mg PO ONCE PRN anxiety #3 tabs 04/08/23 cholecalciferol (vitamin D3) 50 50 mcg PO DAILY 90 days #90 caps 05/24/23 mcg (2,000 unit) capsule nicotine (polacrilex) 2 mg buccal 2 mg buccal Q8H PRN nicotine 05/24/23 lozenge (Nicorette) cravings #72 ea rosuvastatin 5 mg tablet (Crestor) 5 mg PO DAILY 90 days #90 tabs 05/24/23 ciclopirox 0.77 % topical cream 1 appl topical BID 4 weeks #30 08/02/23 grams letrozole 2.5 mg tablet 2.5 mg PO DAILY #30 tabs 09/09/23 aspirin 81 mg tablet,delayed 81 mg PO DAILY 90 days #90 tabs 09/26/23 release (Adult Low Dose Aspirin) icuyxxejmv-reteqyidnlncj-dsubuoch 1 cap PO Q4-6H PRN headache #14 09/27/23 50 mg-300 mg-40 mg capsule caps (Fioricet) fluticasone propionate 50 2 spray intranasal DAILY #16 grams 09/27/23 mcg/actuation nasal spray,suspension (Flonase Allergy Relief) semaglutide 0.25 mg or 0.5 mg (2 0.25 mg (0.368 mL) subcut QWEEK 4 09/27/23 mg/3 mL) subcutaneous pen injector weeks #3 mL (Ozempic) sennosides 8.6 mg capsule (senna) 8.6 mg PO BEDTIME 30 days #30 caps 09/27/23 Allergies Allergy/AdvReac Type Severity Reaction Status Date / Time iodine [IODINE] Allergy Severe ANAPHYLAXIS Verified 09/27/23 14:14 Penicillins [PENICILLINS] Allergy Severe DIFFICULTY Verified 09/27/23 14:14 BREATHING,HIVES penicillin V Allergy Unknown anaphylaxis Verified 09/27/23 14:14 ,rash vancomycin Allergy Unknown rash, Verified 09/27/23 14:14 itching Iodine Tincture Allergy Unknown Unknown Uncoded 09/27/23 08:49 nylon Allergy Unknown Unknown Uncoded 09/27/23 08:49 Review of Systems Review of Systems: Constitutional: No Fever, No Chills, No Fatigue, No Malaise ENT/Mouth: No Hearing loss, No Ear Pain, + Nasal Congestion, No Sinus Pain, No sore throat, + Rhinorrhea, No Swallowing Difficulty Eyes: No Eye Pain, No Swelling, No Redness, No Foreign Body, No Discharge, No Vision Changes Cardiovascular: No Chest Pain, No SOB, Respiratory: No Cough, No Sputum,No Dyspnea Gastrointestinal: + Nausea, No Vomiting, No Diarrhea, No Constipation, No Abdominal Musculoskeletal: No joint pain, No Myalgias, No Joint Swelling Skin: No Skin Lesions, No rash Neuro: No Weakness, No Numbness, No Paresthesias, No Loss of Consciousness, No Dizziness, +Headache Yes all other systems are reviewed and are negative Constitutional: Constitutional: Reports as per HPI Eyes: Eyes: Reports photophobia Neurologic: Denies Abnormal speech present PMFSH Past Medical History Attestation statement: The following information was validated with the patient. Source: old records reviewed Medical History Vitamin D deficiency Smoker Anxiety and depression Asthma Potential exposure to STD Depression BMI 39.0-39.9,adult Type 2 diabetes mellitus Legal blindness Coronary artery calcification seen on CAT scan Breast CA Obesity Chest pain Surgical History History of left mastectomy S/P lumpectomy, right breast H/O right breast biopsy Hx of section Family History Family History Father HTN (hypertension) Anxiety Depression Cancer Diabetes Mother CVD (cardiovascular disease) Social History Housing: Apartment Alcohol intake: never Patient Tobacco Use Status: Current everyday Tobacco user Tobacco use type: Cigarette e-Cigarette/Vaping Use: Never Used service: No Current occupational status: disabled Current occupational exposures/hazards: No Gender identity: Female Cognitive needs: No Hearing needs: No Vision needs: No Physical Exam Vital Signs: Vital Signs: Last Vital Signs Temp 99.6 F 09/27/23 08:49 Pulse 91 09/27/23 10:26 Resp 18 09/27/23 10:26 BP 135/82 09/27/23 10:26 Pulse Ox 97 09/27/23 10:26 O2 Del Method Room Air 09/27/23 10:26 BMI result Body Mass Index 36.9 Const: General: cooperative, healthy appearing and no acute distress Orientation/consciousness: patient oriented x3 Limitations: no limitations HEENT: Head: Yes normal to inspection and Yes atraumatic Ears: hearing grossly normal bilaterally, external ears normal and TM's normal bilaterally General nose exam: Normal external nose present Face and sinus: Yes normal facial exam and Yes sinuses nontender Mouth: Normal oral and palatal mucosa present Throat: Yes posterior oropharynx normal, Yes tonsils normal, Yes uvula midline, No uvula laterally displaced and No uvular edema Eyes: General: appearance normal, both eyes and all related structures Periorbital: periorbital findings normal Conjunctivae: conjunctivae normal Pupils: Equal, round and reactive pupils present EOM: EOMs intact bilaterally Direct Ophthalmoscopy: photophobia Neck: Neck: Yes normal visual inspection and Yes no meningeal signs Resp: Effort & Inspection: normal respiratory effort and no respiratory distress Auscultation: clear to auscultation bilaterally and no wheezes Cardio: Rate: regular rate Heart sounds: S1 normal heart sound present and S2 normal heart sound present GI: Inspection: Yes normal to inspection Palpation (GI): Soft to palpation, nontender, no guarding and not rigid Skin: Rashes: no rashes Wounds: no wounds Neuro: General: patient oriented x3, gait normal, tone normal, moves all extremities, no meningeal signs, no focal motor deficits and CN's II-XI intact bilaterally Cranial nerves: Yes CN's II-XII intact bilaterally and Yes Equal, round and reactive pupils present Cognition (Neuro): normal cognition Speech: No Abnormal speech present Gait exam (Neuro): Normal gait present Extrem: General: Yes normal to inspection Course Course Course Narrative: -1012--patient refusing IV or IM medications, will take p.o. only > meds changed to Fioricet -1133--COVID and influenza negative. On re-evaluation patient is ambulating around the room, requesting to be discharged reports symptomatic improvement. Results discussed with patient including worrisome signs and symptoms and strict return precautions, and when to return to the emergency department. They verbalized understanding and feel safe for discharge at this time. Medications Administered Discontinued Medications Generic Name Dose Route Start Last Admin Trade Name Freq PRN Reason Stop Dose Admin Acetaminophen/Butalbital/Caffeine 2 tab 09/27/23 10:11 09/27/23 10:26 Butalb/Acetamin/Caff 50/325/40 Tablet PO 09/27/23 10:12 2 tab ONCE ONE Administration Medical Decision Making Medical Decision Making MDM Narrative: 48-year-old female with a past medical history of anxiety, depression, asthma, breast CA s/p mastectomy and lumpectomy, legal blindness, presenting to the ED complaining of sinus congestion and migraine headache x2 days with associated photophobia and nausea. On exam vital signs stable, NAD, nontoxic appearing my physical exam as above, no focal neuro deficits, + photophobia. Concern for migraine headache vs viral syndrome/sinusitis. Lower suspicion for ICH, meningitis/encephalitis Plan: Viral testing, IVF, IV Toradol/Benadryl/Reglan, re-evaluate Please refer to course for remaining clinical decision making, interpretation of labs/imaging results, and discussions with consultants and/or family members. Differential Diagnosis Differential Diagnoses: The differential diagnosis associated with the presentation includes As above Lab Data MDM Lab Attestation statement: I reviewed the patient's lab results. Labs: Lab Results 09/27/23 Range/Units 09:56 COVID-19 (СЕРГЕЙ) Negative (Negative) COVID-19 Clin Com See Note Influenza Type A (YVES) Negative (Negative) Influenza Type B (YVES) Negative (Negative) Influenza A & B Note See Note Radiology Impression Discussion of test interpretation with radiology: I have reviewed the radiologist's reading. External Record Review External record reviewed: Inpatient record, Office record, Outpatient record, Prior outpatient labs, Prior outpatient radiology, Primary care record and Outside ED record Tests considered The following testing was considered but not selected: As above Prescription Management I considered prescription management with: Pain Medication Chronic Conditions Patient?s care impacted by: Diabetes Discharge Plan Discharge Clinical Impression: Migraine Patient Disposition: Home, Self-Care Instructions: Migraine Headache (ED) Additional Instructions: You tested negative for COVID and flu Fioricet is a combination headache medicine take as needed Be aware Fioricet has Tylenol mixed in do not exceed 4 g of Tylenol in 1 day You may also take Motrin Flonase as a nasal decongestant spray Follow-up with her doctor If symptoms persist or worsen return to the ED Prescriptions: New fluticasone propionate [Flonase Allergy Relief] 50 mcg/actuation spray,suspension 2 spray intranasal DAILY Qty: 16 0RF Rx Instructions: administer into each nostril oearszjeer-onftdiahomjeq-boab [Fioricet] 50-300-40 mg capsule 1 cap PO Q4-6H PRN (Reason: headache) Qty: 14 0RF No Action (DME) blood-glucose meter [[employer] Voice Glucose Meter] Kit See Rx Instructions .Route Qty: 1 0RF Rx Instructions: As directed metformin 1,000 mg tablet 1,000 mg PO BID Qty: 180 1RF fluticasone propionate 50 mcg/actuation spray,suspension 1 spray intranasal DAILY Qty: 16 0RF Rx Instructions: administer into each nostril hydroxyzine HCl 25 mg tablet 25 mg PO ONCE PRN (Reason: anxiety) Qty: 3 0RF Rx Instructions: Take 1 tablet prior to dentist for anxiety ciclopirox 0.77 % cream 1 appl topical BID 28 Days Qty: 30 3RF aspirin [Adult Low Dose Aspirin] 81 mg tablet,delayed release (DR/EC) 81 mg PO DAILY 90 Days Qty: 90 0RF albuterol sulfate 0.63 mg/3 mL solution for nebulization 0.63 mg inhalation QID PRN (Reason: shortness of breath or wheezing) Qty: 75 0RF albuterol sulfate 90 mcg/actuation HFA aerosol inhaler 1 inh inhalation QID PRN (Reason: shortness of breath or wheezing) Qty: 8.5 0RF letrozole 2.5 mg Tablet 2.5 mg PO DAILY Qty: 30 3RF nicotine (polacrilex) [Nicorette] 2 mg lozenge 2 mg buccal Q8H PRN (Reason: nicotine cravings) Qty: 72 0RF rosuvastatin [Crestor] 5 mg tablet 5 mg PO DAILY 90 Days Qty: 90 1RF Rx Instructions: Get fasting labs 2 months of use cholecalciferol (vitamin D3) 50 mcg (2,000 unit) capsule 50 mcg PO DAILY 90 Days Qty: 90 1RF senna 8.6 mg capsule 8.6 mg PO BEDTIME 30 Days Qty: 30 0RF Ozempic 0.25 mg or 0.5 mg (2 mg/3 mL) pen injector 0.25 mg subcut QWEEK 28 Days Qty: 3 3RF Rx Instructions: for 4 weeks Referrals: Polo Cobb PA-C [Primary Care Provider] - 1 week Interventions: ED Discharge Assessment Last Done: 09/27/23 12:02 Discharge Date/Time: 09/27/23 12:03
[2023-09-27 10:26] VITALS: BP 135/82; PULSE 91; RESP 18; O2SAT 97
[2023-09-27] MEDS: Butalb/Acetamin/Caff 50/325/40 TABLET 2 TAB PO (10:26)
[2023-09-27 10:46] LABS: COVID-19 Test Negative (Negative); IDNOW Serial# 08D9AD1C; IDNOW Serial# 9DB6401D; Influenza A Negative (Negative); Influenza B2 Negative (Negative)
== END 2023-09-27 12:03 | disposition home or self-care (01) ==
PROVIDERS: Physician Assistant; Emergency Provider Emergency Medicine Emergency Medical Services; PCP Physician Assistant
DX: G43.909 Migraine, unspecified, not intractable, without status migrainosus (principal); Z11.52 Encounter for screening for COVID-19; Z20.822 Contact with and (suspected) exposure to COVID-19
CPT/HCPCS: 87502; 87635; 99283; 99284

== ENCOUNTER 2023-09-27 13:39 | Outpatient (AMB) | payer OTHER, SELFPAY ==
--- NOTE | 2023-09-27 13:42 | A.OFFPC_ITS ---
Vital Signs 09/27/23 14:14 Height 5 ft 3 in Weight 208 lb 8 oz BMI 36.9 BP 128/88 Blood Pressure Location Lt brachial Position Sitting Pulse 112 H Pulse Source Pulse Oximeter Pulse Oximetry (%) 98 Oxygen Delivery Method Room Air Intake Visit Reasons: f/u DmII/ weight ,check. Change Management Expert Required: No Accompanied by: Self / Same As Patient Allergies iodine [IODINE] Allergy (Severe, Verified 09/27/23 14:14) ANAPHYLAXIS Penicillins [PENICILLINS] Allergy (Severe, Verified 09/27/23 14:14) DIFFICULTY BREATHING,HIVES penicillin V Allergy (Unknown, Verified 09/27/23 14:14) anaphylaxis,rash vancomycin Allergy (Unknown, Verified 09/27/23 14:14) rash, itching Iodine Tincture Allergy (Unknown, Uncoded 09/27/23 08:49) Unknown nylon Allergy (Unknown, Uncoded 09/27/23 08:49) Unknown Tobacco use date assessed: 05/24/23 Dental Screening Dental Screen Date: 09/27/23 Did you have a dental visit in the last 12 months?: Yes Did you have a dental problem in the last 6 months where you did not have access to dental care?: No Was dental information given to patient?: Patient has dentist HPI f/u DmII/ weight ,check. HPI Details Patient is a 48-year-old female here today for follow-up visit. Patient has a past medical history significant for breast cancer, coronary calcifications, obesity, tobacco dependency, legal blindness. . Former smoker: Has quit smoking over the last 3 months and has gained a few lb since last office visit. .. Obesity: She is interested in losing weight. She does understand her BMI of 36. Interested in injectable therapy to help her lose weight. Will trial Ozempic. . .. Type 2 diabetes: Continues on metformin a 1000 b.i.d., most recent A1c of 5.9. She would like to get off of diabetic medication though understand she needs to lose weight, though will send fortunately gain weight and has been difficult to lose weight. She does report walking though has lack of motivation due to her depression. PLAN : Willing to trial Ozempic for added benefit of weight loss. .. Breast cancer: Patient is status post radiation and lumpectomy on left side. Patient is followed by Oncology and continues on anti hormonal therapy. .. Coronary artery calcifications: Followed by Cardiology, most recent CT coronary arteries showing calcifications, patient has been started on low-dose statin therapy will continue following lipid panel. Otherwise denies any recent episodes of palpitations, shortness of breath or chest discomforts. She does report trying to be more physically active to help her lose weight. Again she does understand she needs to quit smoking [facility] Medical History Vitamin D deficiency Smoker Anxiety and depression Asthma Potential exposure to STD Depression BMI 39.0-39.9,adult Type 2 diabetes mellitus Legal blindness Coronary artery calcification seen on CAT scan Breast CA Obesity Chest pain Surgical History History of left mastectomy S/P lumpectomy, right breast H/O right breast biopsy Hx of section Family History Father HTN (hypertension) Anxiety Depression Cancer Diabetes Mother CVD (cardiovascular disease) Housing: Apartment Alcohol intake: never Patient Tobacco Use Status: Current everyday Tobacco user Tobacco use type: Cigarette e-Cigarette/Vaping Use: Never Used service: No Current occupational status: disabled Current occupational exposures/hazards: No Gender identity: Female Cognitive needs: No Hearing needs: No Vision needs: No Female Reproductive History Menstrual Age of Menarche: 11 Questionnaire Thrive Questionnaire Date Thrive assessed: 05/24/23 ELEAZAR-7 AMB Questionnaire ELEAZAR-7 Date ELEAZAR - 7 assessed: 05/24/23 Source: Developed by Drs. Scotty Doss, Adenike Rodas, Ghulam Lindsay and colleagues, with an educational shawn from [employer]. Review of Systems Const Denies headache(s) Eyes Denies loss of vision ENT Denies vertigo, Denies dizziness, Denies headache(s) and Denies sore throat Card Denies chest pain, Denies leg edema and Denies lightheadedness Resp Denies cough, Denies hemoptysis and Denies wheezing GI Denies abdominal pain, Denies melena, Denies constipation, Denies diarrhea and Denies vomiting Denies urinary frequency, Denies dysuria and Denies urinary urgency Musc Denies arthralgias, Denies joint swelling, Denies numbness and Denies tingling Neuro Denies Abnormal speech present, Denies behavioral changes, Denies vertigo, Denies dizziness, Denies headache(s), Denies loss of vision, Denies memory loss, Denies numbness and Denies tingling Psych Denies anxiety, Denies behavioral changes, Denies depression, Denies memory loss and Denies panic attacks Lg/Lymph Denies easy bleeding and Denies easy bruising Aller/Immun Denies wheezing Physical exam (Primary Care) Vital Signs: Last Vital Signs Pulse 112 H 09/27/23 14:14 BP 128/88 09/27/23 14:14 Pulse Ox 98 09/27/23 14:14 Oxygen Delivery Method Room Air 09/27/23 14:14 BMI result Body Mass Index 36.9 Tobacco/Smoking Status: Tobacco use Status Tobacco use date assessed 05/24/23 09/27/23 13:43 Patient Tobacco Use Status Current everyday Tobacco 09/27/23 13:43 Tobacco use type Cigarette 09/27/23 13:43 e-Cigarette/Vaping Use Never Used 09/27/23 13:43 Thrive Assessment: Date of Thrive Assessment Date Thrive assessed 05/24/23 09/27/23 13:43 Const General: healthy appearing, no acute distress, alert and awake Nutritional Appearance: well nourished Orientation/consciousness: oriented to person, oriented to place and oriented to time HENMT Ears: TM's normal bilaterally General nose exam: Normal nasal mucous membranes and turbinates present Eyes Conjunctivae: conjunctivae normal Sclerae: sclerae normal Pupils: Equal, round and reactive pupils present Neck Neck: Yes no lymphadenopathy and Yes no JVD Thyroid: Thyroid normal Carotids: no bruits Resp Effort & Inspection: normal respiratory effort and not tachypneic Auscultation: no crackles, no rales, no rhonchi and no wheezes Cardio Rate: regular rate Rhythm: regular rhythm Heart sounds: no murmurs and normal S1 and S2 GI Palpation (GI): Soft to palpation, nontender, no hepatomegaly and no splenomegaly Auscultation: normal bowel sounds Skin General skin exam: no rashes or lesions noted and dry skin Neuro General: oriented to person, oriented to place and oriented to time Cranial nerves: Yes Equal, round and reactive pupils present Speech: No Abnormal speech present Gait exam (Neuro): Normal gait present Motor exam (neuro): no tremor noted Extrem Right upper extremity: full ROM Left upper extremity: full ROM Right lower extremity: full ROM; no edema Left lower extremity: full ROM; no edema Psych Mental Status: mental status grossly normal Speech and movement: Normal speech and movement present Affect: normal affect Attitude: cooperative Thought process: Normal thought process present Assessment and Plan Assessment & Plan (1) Type 2 diabetes mellitus: Code(s): E11.9 - Type 2 diabetes mellitus without complications Qualifiers: Diabetes mellitus complication status: with hyperglycemia 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 She expresses a lot of concern not wanting to be on diabetes medication. She would like to lose 30 lb to help her get off of diabetes medication. Unfortunately has gained weight since last office since he stopped smoking. She is willing to try Ozempic for added benefit of weight loss. If covered by insurance and able to receive will have patient come in to get Education through RN on injection. She does have very impaired vision thus unable to really see that dosage. Does take a phone picture the pen and is able to enlarge photo to see dose on Ozempic pen. (2) Obesity: Comment: working with weight management program Code(s): E66.9 - Obesity, unspecified Qualifiers: Body mass index: BMI 35.0-35.9 Obesity classification: adult class 2 (BMI 35 - 39.9) Obesity type: due to excess calories Serious obesity comorbidity presence: without serious comorbidity Qualified Code(s): E66.09 - Other obesity due to excess calories; Z68.35 - Body mass index [BMI] 35.0-35.9, adult Plan: Patient does understand BMI is over 30 will work on being more physically active and adapting to better eating habits to reduce her weight. (3) Legal blindness: Comment: optic neuritis Code(s): H54.8 - Legal blindness, as defined in [place] Plan: Has history of optic neuritis causing legal blindness. (4) Breast CA: Comment: Right breast lumpectomy, left breast masectomy - currently has tissue sole ruffer in place (11/2020) Code(s): C50.919 - Malignant neoplasm of unspecified site of unspecified female breast Qualifiers: Breast location: unspecified site of breast Estrogen receptor status: positive Laterality: bilateral Patient sex: female Qualified Code(s): C50.911 - Malignant neoplasm of unspecified site of right female breast; C50.912 - Malignant neoplasm of unspecified site of left female breast; Z17.0 - Estrogen receptor positive status [ER+] Plan: Patient is status post lumpectomies, continues to follow-up with Oncology and continues onsletrozole. She expresses desire to do a breast lift. (5) Constipation: Code(s): K59.00 - Constipation, unspecified Qualifiers: Constipation type: chronic idiopathic constipation Qualified Code(s): K59.04 - Chronic idiopathic constipation Plan: Will supply patient with laxative medication to help her with her bowel movements. Medications: New semaglutide (Ozempic) for 4 weeks 0.25 mg (0.368 mL) subcut QWEEK 4 weeks 3 mL 3RF E11.65 - Type 2 diabetes mellitus with hyperglycemia sennosides (senna) 8.6 mg PO BEDTIME 30 days 30 caps 0RF K59.04 - Chronic idiopathic constipation Discontinued prednisone Discontinued Reason: Doctor's Order 40 mg (2 x 20 mg) PO DAILY 4 days 8 tabs 0RF Coding Level of Care Code Est Pt Level 4 (18408) Diagnoses Type 2 diabetes mellitus with hyperglycemia, without long-term current use of insulin E11.65 Diabetes mellitus complication status: with hyperglycemia Diabetes mellitus fci insulin use: without fci use Class 2 obesity due to excess calories without serious comorbidity with body mass index (BMI) of 35.0 to 35.9 in adult E66.09; Z68.35 Body mass index: BMI 35.0-35.9 Obesity classification: adult class 2 (BMI 35 - 39.9) Obesity type: due to excess calories Serious obesity comorbidity presence: without serious comorbidity Legal blindness H54.8 Bilateral malignant neoplasm of breast in female, estrogen receptor positive, unspecified site of breast C50.911; C50.912; Z17.0 Breast location: unspecified site of breast Estrogen receptor status: positive Laterality: bilateral Patient sex: female Chronic idiopathic constipation K59.04 Constipation type: chronic idiopathic constipation
[2023-09-27 14:14] VITALS: BP 128/88; PULSE 112; O2SAT 98; BMI 36.9
== END 2023-09-27 15:40 | disposition home or self-care (01) ==
PROVIDERS: PCP Physician Assistant; Visit Provider Physician Assistant
DX: E11.65 Type 2 diabetes mellitus with hyperglycemia (principal); C50.911 Malignant neoplasm of unspecified site of right female breast; C50.912 Malignant neoplasm of unspecified site of left female breast; E66.09 Other obesity due to excess calories; Z68.35 Body mass index [BMI] 35.0-35.9, adult; H54.8 Legal blindness, as defined in USA; Z17.0 Estrogen receptor positive status [ER+]; K59.04 Chronic idiopathic constipation
CPT/HCPCS: 99214

== ENCOUNTER 2023-10-03 08:29 | Outpatient (REF) | payer OTHER, SELFPAY ==
[2023-10-03 10:39] LABS: MANUAL DIFF FLAG NO
[2023-10-03 10:59] LABS: Basophils Percent Auto 0.3 % (0-2); Eosinophils Absolute Auto 0.2 X10*3/uL (0.0-0.4); Eosinophils Percent Auto 1.8 % (0-4); Hematocrit 42.5 % (37.0-47.0); Hemoglobin 14.3 g/dl (12.0-16.0); Imm Gran Abs Auto 0.02 X10*3/uL (0.00-0.03); Imm Gran Pct Auto 0.2 % (0.0-0.4); Lymphocytes Absolute Auto 4.8 X10*3/uL (1.2-4.9); Mean Corpuscular HGB Conc 33.6 g/dl (31.0-35.0); Mean Corpuscular Hemoglobin 29.8 pg (27.0-33.0); Mean Corpuscular Volume 88.5 fL (80.0-98.0); Mean Platelet Volume 10.4 fL (9.4-12.3); Monocytes Absolute Auto 0.5 X10*3/uL (0.1-1.2); Monocytes Percent Auto 5.9 % (2-11); Neutrophils Absolute Auto 3.2 x10*3/uL (2.0-8.3); Neutrophils Percent Auto 36.8 % (45-73); Platelet Count 279 X10*3/uL (160-400); Red Cell Distribution Width 11.5 % (11.0-16.0); White Blood Count 8.8 X10*3/uL (4.8-10.8)
[2023-10-03 11:10] LABS: Alanine Aminotransferase 25 U/L (0-31); Albumin Level 4.7 g/dL (3.5-5.0); Alkaline Phosphatase 77 U/L (39-117); Anion Gap 14 (12-20); Aspartate Amino Transferase 23 U/L (5-31); Bilirubin Total 0.4 mg/dL (0.0-1.0); Blood Urea Nitrogen 7 mg/dL (9-16); Calcium 10.5 mg/dL (8.4-10.2); Carbon Dioxide 26 mmol/L (22-29); Chloride 107 mmol/L (96-108); Cholesterol 137 mg/dL (<200); Estimated Glomerular Filt Rate > 60; Glucose Fasting 98 mg/dL (60-99); Glucose Random 99 mg/dL (60-115); HDL Cholesterol 51 mg/dL (>40); LDL Cholesterol Calculated 61 mg/dL (<100); Potassium 3.7 mmol/L (3.3-5.1); Sodium 143 mmol/L (135-145); Total Protein 8.4 g/dL (6.5-8.0); Triglycerides 129 mg/dL (<150)
[2023-10-03 11:12] LABS: Estimated Average Glucose 143 mg/dL; Hemoglobin A1c % 6.6 % (<6.0)
== END 2023-10-03 08:30 | disposition home or self-care (01) ==
LOC: HO.LAB 08:29
PROVIDERS: Internal Medicine; PCP Physician Assistant; Visit Provider Physician Assistant Surgical
DX: E11.65 Type 2 diabetes mellitus with hyperglycemia (principal); C50.919 Malignant neoplasm of unspecified site of unspecified female breast; I25.10 Atherosclerotic heart disease of native coronary artery without angina pectoris
CPT/HCPCS: 36415; 80053; 80061; 83036; 85025

== ENCOUNTER 2023-10-06 09:29 | Outpatient (REF) | payer OTHER, SELFPAY ==
[2023-10-06 10:26] LABS: MANUAL DIFF FLAG NO
[2023-10-06 10:51] LABS: Basophils Percent Auto 0.5 % (0-2); Eosinophils Absolute Auto 0.2 X10*3/uL (0.0-0.4); Eosinophils Percent Auto 1.8 % (0-4); Hematocrit 42.5 % (37.0-47.0); Hemoglobin 14.4 g/dl (12.0-16.0); Imm Gran Abs Auto 0.02 X10*3/uL (0.00-0.03); Imm Gran Pct Auto 0.2 % (0.0-0.4); Lymphocytes Absolute Auto 4.8 X10*3/uL (1.2-4.9); Lymphocytes Percent Auto 54.5 % (20-40); Mean Corpuscular HGB Conc 33.9 g/dl (31.0-35.0); Mean Corpuscular Hemoglobin 30.3 pg (27.0-33.0); Mean Corpuscular Volume 89.3 fL (80.0-98.0); Mean Platelet Volume 10.8 fL (9.4-12.3); Monocytes Absolute Auto 0.5 X10*3/uL (0.1-1.2); Monocytes Percent Auto 6.2 % (2-11); Neutrophils Absolute Auto 3.2 x10*3/uL (2.0-8.3); Neutrophils Percent Auto 36.8 % (45-73); Platelet Count 270 X10*3/uL (160-400); Red Blood Count 4.76 X10*6/uL (4.20-5.50); Red Cell Distribution Width 11.6 % (11.0-16.0); White Blood Count 8.7 X10*3/uL (4.8-10.8)
== END 2023-10-06 09:30 | disposition home or self-care (01) ==
LOC: HO.LAB 09:29
PROVIDERS: PCP Physician Assistant; Referring Provider Physician Assistant; Visit Provider Internal Medicine Pulmonary Disease
DX: J45.909 Unspecified asthma, uncomplicated (principal); Z91.09 Other allergy status, other than to drugs and biological substances
CPT/HCPCS: 36415; 82785; 85025; 86003; 99202

== ENCOUNTER 2023-10-06 09:29 | Outpatient (AMB) | payer OTHER, SELFPAY ==
[2023-10-06 09:30] VITALS: BP 124/84; PULSE 112; O2SAT 97; BMI 36.8
--- NOTE | 2023-10-06 09:30 | MHC.OFFVIS ---
Intake Vital Signs 10/06/23 09:30 Height 5 ft 3 in Weight 208 lb BMI 36.8 BP 124/84 Blood Pressure Location Lt brachial Position Sitting Pulse 112 H Pulse Source Doppler Pulse Oximetry (%) 97 Oxygen Delivery Method Room Air Intake Visit Reasons: Asthma Allergies iodine [IODINE] Allergy (Severe, Verified 10/06/23 09:39) ANAPHYLAXIS Penicillins [PENICILLINS] Allergy (Severe, Verified 10/06/23 09:39) DIFFICULTY BREATHING,HIVES penicillin V Allergy (Unknown, Verified 10/06/23 09:39) anaphylaxis,rash vancomycin Allergy (Unknown, Verified 10/06/23 09:39) rash, itching Iodine Tincture Allergy (Unknown, Uncoded 09/27/23 08:49) Unknown nylon Allergy (Unknown, Uncoded 09/27/23 08:49) Unknown HPI Asthma HPI Details 48-year-old lady, recent 10 pack-year smoker, quit May 2023 with underlying asthma since her teenage E years, previously controlled on albuterol MDI/nebs, recently with significantly worsening symptom control. Patient states that she has multiple environmental allergies that appear to be tracking her underlying asthma symptoms. She does have an aunt with a history of lung cancer. She denies exposure to industrial dusts. [facility] Medical History (Updated 10/06/23 @ 09:53 by Fernando Perales MD) Vitamin D deficiency Smoker Anxiety and depression Asthma Potential exposure to STD Depression BMI 39.0-39.9,adult Type 2 diabetes mellitus Legal blindness Coronary artery calcification seen on CAT scan Breast CA Obesity Chest pain Surgical History History of left mastectomy S/P lumpectomy, right breast H/O right breast biopsy Hx of section Family History Father HTN (hypertension) Anxiety Depression Cancer Diabetes Mother CVD (cardiovascular disease) Social History Housing: Apartment Alcohol intake: never Patient Tobacco Use Status: Former Tobacco user Tobacco use type: Cigarette e-Cigarette/Vaping Use: Never Used service: No Current occupational status: disabled Current occupational exposures/hazards: No Gender identity: Female Cognitive needs: No Hearing needs: No Vision needs: No Female Reproductive History Menstrual Age of Menarche: 11 Review of Systems Const Denies daytime sleepiness, Denies excessive sweating, Denies fatigue, Denies fever(s), Denies lethargy, Denies malaise, Denies night sweats, Denies snoring and Denies weight loss Eyes Denies blurry vision and Denies itchy eyes ENT Denies nasal congestion, Denies post nasal drip, Denies sinus pain, Denies sinus pressure and Denies other ( Thrush) Card Denies chest pain, Denies pedal edema, Denies dyspnea, Denies orthopnea and Denies paroxysmal nocturnal dyspnea Resp Denies cough, Denies hemoptysis, Denies excessive phlegm production, Denies dyspnea, Denies snoring, Denies wheezing and Reports other (Chest tightness) GI Denies abdominal pain and Denies heartburn Musc Denies myalgias, Denies arthralgias and Denies joint swelling Skin/Breast Denies rash Neuro Denies memory loss and Denies seizure-like activity Psych Denies abnormal sleep pattern, Denies anxiety and Denies memory loss Endo Denies excessive sweating, Denies fatigue and Denies heat intolerance Lg/Lymph Denies easy bruising Aller/Immun Denies itchy eyes, Denies seasonal rhinorrhea and Denies wheezing Physical Exam Vital Signs: Last Vital Signs Pulse 112 H 10/06/23 09:30 BP 124/84 10/06/23 09:30 Pulse Ox 97 10/06/23 09:30 Oxygen Delivery Method Room Air 10/06/23 09:30 BMI result Body Mass Index 36.8 Const General: no acute distress and alert Nutritional Appearance: obese Orientation/consciousness: Other orientation findings ( oriented) HEENT Head: Yes atraumatic Eyes General: appearance normal, both eyes and all related structures Sclerae: sclerae normal EOM: EOMs intact bilaterally Neck Neck: Yes supple Lymphatic: no lymphadenopathy noted Resp Effort & Inspection: normal respiratory effort and no use of accessory muscles Auscultation: clear to auscultation bilaterally Cardio Rate: regular rate Rhythm: regular rhythm Heart sounds: no gallops, no murmurs and no rubs Skin General skin exam: other ( warm) Extrem General: No clubbing, No cyanosis and No edema Assessment & Plan Assessment & Plan (1) Asthma: Code(s): J45.909 - Unspecified asthma, uncomplicated Plan: Underlying asthma of unclear severity suboptimally controlled on albuterol MDI. Will obtain full PFT and start on Breo. (2) Environmental allergies: Code(s): Z91.09 - Other allergy status, other than to drugs and biological substances Plan: Will obtain RAST, CBC with differential, and IgE level for further evaluation. Orders: Orders PFT pulmonary function test Today J45.909 - Unspecified asthma, uncomplicated Rast Allergen Today Z91.09 - Other allergy status, other than to drugs and biological substances Complete Blood Count Auto Diff Today Z91.09 - Other allergy status, other than to drugs and biological substances Medications: New Breo Ellipta 200-25 mcg/dose (fluticasone furoate-vilanterol) 1 inh inhalation DAILY 1 ea 6RF 30 days NS Coding Level of Care Code New Pt Level 4 (18441) Diagnoses Asthma J45.909 Environmental allergies Z91.09
== END 2023-10-06 09:51 | disposition home or self-care (01) ==
PROVIDERS: PCP Physician Assistant; Referring Provider Physician Assistant; Visit Provider Internal Medicine Pulmonary Disease
DX: J45.909 Unspecified asthma, uncomplicated (principal); Z91.09 Other allergy status, other than to drugs and biological substances
CPT/HCPCS: 99204

== ENCOUNTER 2023-10-07 08:25 | Outpatient (AMB) | payer OTHER, SELFPAY ==
--- NOTE | 2023-10-07 12:50 | MHC.OFFVISWM ---
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 Allergies iodine [IODINE] Allergy (Severe, Verified 10/07/23 12:51) ANAPHYLAXIS Penicillins [PENICILLINS] Allergy (Severe, Verified 10/07/23 12:51) DIFFICULTY BREATHING,HIVES penicillin V Allergy (Unknown, Verified 10/07/23 12:51) anaphylaxis,rash vancomycin Allergy (Unknown, Verified 10/07/23 12:51) rash, itching Iodine Tincture Allergy (Unknown, Uncoded 10/07/23 12:51) Unknown nylon Allergy (Unknown, Uncoded 10/07/23 12:51) Unknown Medication List - Last Reconciled 10/07/23 by Dm Harper MD albuterol sulfate 0.63 mg (3 mL) inhalation QID PRN albuterol sulfate 90 mcg/actuation 1 inh inhalation QID PRN aspirin (Adult Low Dose Aspirin) 81 mg PO DAILY 90 days blood-glucose meter (ideeli Glucose Meter kit) As directed Breo Ellipta 200-25 mcg/dose (fluticasone furoate-vilanterol) 1 inh inhalation DAILY 30 days NS cholecalciferol (vitamin D3) 50 mcg PO DAILY 90 days ciclopirox 0.77% 1 appl topical BID 4 weeks fluticasone propionate 50 mcg/actuation (Flonase Allergy Relief) 2 sprays intranasal DAILY fluticasone propionate 50 mcg/actuation 1 spray intranasal DAILY metformin 1,000 mg PO BID nicotine (polacrilex) (Nicorette) 2 mg buccal Q8H PRN rosuvastatin (Crestor) 5 mg PO DAILY 90 days semaglutide (Ozempic) 0.25 mg (0.368 mL) subcut QWEEK 4 weeks sennosides (senna) 8.6 mg PO BEDTIME 30 days 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 HPI Details Start time: 12.33pm, End time: 1.27pm ?I spent 49 minutes speaking with the patient on the phone plus an additional 5 minutes reviewing and updating records for a total of 54 minutes HPI Comments History of Present Illness Details Previous weight loss efforts: [facility] Wakes up: 6.30am, Sleeps: 8pm Breakfast: skips Lunch: skips Dinner: 6pm (meat with salad or vegetables) Snacks: 2-3 times throughout the day with sweets Exercise: has a treadmill Coffee: 1 cup/day (sweetener), tea: none, soda: occasionally, juice: Crystal light, ETOH: none PFSH Medical History (Updated 10/07/23 @ 12:57 by Dm Harper MD) Hyperlipidemia Vitamin D deficiency Smoker Anxiety and depression Asthma Potential exposure to STD Depression BMI 39.0-39.9,adult Type 2 diabetes mellitus Legal blindness Coronary artery calcification seen on CAT scan Breast CA Obesity Chest pain Surgical History History of left mastectomy S/P lumpectomy, right breast H/O right breast biopsy Hx of section Family History Father HTN (hypertension) Anxiety Depression Cancer Diabetes Mother CVD (cardiovascular disease) Social History Housing: Apartment Alcohol intake: never Patient Tobacco Use Status: Former Tobacco user Tobacco use type: Cigarette e-Cigarette/Vaping Use: Never Used service: No Current occupational status: disabled Current occupational exposures/hazards: No Gender identity: Female Cognitive needs: No Hearing needs: No Vision needs: No Female Reproductive History Menstrual Age of Menarche: 11 Physical Exam Vital Signs: BMI result Body Mass Index 36.6 Assessment & Plan Assessment & Plan (1) Obesity: Comment: working with weight management program Code(s): E66.9 - Obesity, unspecified Qualifiers: Body mass index: BMI 35.0-35.9 Obesity classification: adult class 2 (BMI 35 - 39.9) Obesity type: due to excess calories Serious obesity comorbidity presence: without serious comorbidity Qualified Code(s): E66.09 - Other obesity due to excess calories; Z68.35 - Body mass index [BMI] 35.0-35.9, adult Plan: 1.? Plan for lap sleeve gastrectomy. If diaphragmatic or ventral hernias are present at time of surgery, these will be repaired laparoscopically as well. Risks and complications were discussed in detail including possible conversion to an open procedure, anastomotic leak, bleeding requiring transfusion, small bowel obstruction, , DVT and pulmonary embolism, cardiac, or pulmonary complications, as mcfp complications such as anastomotic ulcer, insufficient weight loss and vitamin deficiencies. I emphasized the importance of close follow-up, adherence to instructions and good communication. 2. Nutritional counseling. Start with 2 CELEBRATE REBUILD protein (buy at [facility] [employer] [facility]) shakes (HALF scoop EACH in 8oz low fat unsweetened almond milk each) at 7am-9am and 10am-12pm, 2 protein bars (CELEBRATE protein bars, buy at [facility] [employer] [facility]) at 1pm-3pm and 4pm-6pm and dinner at 7pm (8 forks of protein and 8 forks of salad/vegetables). So you do 2 protein shakes, 2 protein bars and one meal per day. Meal to include lean meat (beef, fish, pork, turkey, chicken), or cambodian yogurt, or egg whites, or beans with a salad with olive oil and fruits (berries, pears, apples, kiwi). Avoid salt, breads, potatoes, rice, pasta, desserts. 3. Each shake would be drunk slowly, like coffee in a period of 2 hours. May add your coffee into your shakes, if flavors match. 4. Cut each bar in 4 pieces and eat each piece in 30min ?to make each bar last 2 hours. 5. I emphasized the importance of measuring accurately the food portion and measure it when serving the food in plate 6. The meal portions include 8 full-size forks of meat and 8 full-size forks of salad. You always eat the meat portion but you can replace up to 4 forks for salad/vegetables with rice, potatoes or pasta, or a fruit ?if you like. The less you do it the better weight loss will be. 7. One full-size fork is what it can be scooped on the fork without falling aside and not what can be bit with the fork. Use regular forks like those you find in a typical restaurant. 8.? Please send me weight measurements as soon as possible and then once a week. Always include your diet and exercise plan. 9. Start treadmill with an incline of 0.0 and speed of 3.0 and burn 300 calories per day, daily. Goal is to burn 2000 calories per week on exercise. 10.?It is important of avoiding and for at least 18 months postoperatively and has been discussed at the infosession. 11. Goal is to lose at least 1.5-2lbs per week 12. Goal to lose 10% of your weight before surgery, which is about 20lbs. Ultimate weight goal: 186lbs before surgery 13. Please follow the diet plan exactly without any change. If you don't like something about the plan or you feel hungry you need to communicate with me so I can help you revise the plan. You should not change the plan yourself. Orders: Orders Insulin Today E11.9 - Type 2 diabetes mellitus without complications, E66.9 - Obesity, unspecified, E78.5 - Hyperlipidemia, unspecified, J45.909 - Unspecified asthma, uncomplicated, Z68.36 - Body mass index [BMI] 36.0-36.9, adult Hemoglobin A1c Today E11.9 - Type 2 diabetes mellitus without complications, E66.9 - Obesity, unspecified, E78.5 - Hyperlipidemia, unspecified, J45.909 - Unspecified asthma, uncomplicated, Z68.36 - Body mass index [BMI] 36.0-36.9, adult H Pylori Breath Test Today E11.9 - Type 2 diabetes mellitus without complications, E66.9 - Obesity, unspecified, E78.5 - Hyperlipidemia, unspecified, J45.909 - Unspecified asthma, uncomplicated, Z68.36 - Body mass index [BMI] 36.0-36.9, adult Complete Blood Count Auto Diff Today E11.9 - Type 2 diabetes mellitus without complications, E66.9 - Obesity, unspecified, E78.5 - Hyperlipidemia, unspecified, J45.909 - Unspecified asthma, uncomplicated, Z68.36 - Body mass index [BMI] 36.0-36.9, adult Lipid Panel Today E11.9 - Type 2 diabetes mellitus without complications, E66.9 - Obesity, unspecified, E78.5 - Hyperlipidemia, unspecified, J45.909 - Unspecified asthma, uncomplicated, Z68.36 - Body mass index [BMI] 36.0-36.9, adult Vitamin B12 and Folate Today E11.9 - Type 2 diabetes mellitus without complications, E66.9 - Obesity, unspecified, E78.5 - Hyperlipidemia, unspecified, J45.909 - Unspecified asthma, uncomplicated, Z68.36 - Body mass index [BMI] 36.0-36.9, adult C Reactive Protein Today E11.9 - Type 2 diabetes mellitus without complications, E66.9 - Obesity, unspecified, E78.5 - Hyperlipidemia, unspecified, J45.909 - Unspecified asthma, uncomplicated, Z68.36 - Body mass index [BMI] 36.0-36.9, adult Vitamin B1 Today E11.9 - Type 2 diabetes mellitus without complications, E66.9 - Obesity, unspecified, E78.5 - Hyperlipidemia, unspecified, J45.909 - Unspecified asthma, uncomplicated, Z68.36 - Body mass index [BMI] 36.0-36.9, adult Vitamin A Today E11.9 - Type 2 diabetes mellitus without complications, E66.9 - Obesity, unspecified, E78.5 - Hyperlipidemia, unspecified, J45.909 - Unspecified asthma, uncomplicated, Z68.36 - Body mass index [BMI] 36.0-36.9, adult Ferritin Today E11.9 - Type 2 diabetes mellitus without complications, E66.9 - Obesity, unspecified, E78.5 - Hyperlipidemia, unspecified, J45.909 - Unspecified asthma, uncomplicated, Z68.36 - Body mass index [BMI] 36.0-36.9, adult US abdomen comp w elastography Today E11.9 - Type 2 diabetes mellitus without complications, E66.9 - Obesity, unspecified, E78.5 - Hyperlipidemia, unspecified, J45.909 - Unspecified asthma, uncomplicated, Z68.36 - Body mass index [BMI] 36.0-36.9, adult XR chest 2V Today E11.9 - Type 2 diabetes mellitus without complications, E66.9 - Obesity, unspecified, E78.5 - Hyperlipidemia, unspecified, J45.909 - Unspecified asthma, uncomplicated, Z68.36 - Body mass index [BMI] 36.0-36.9, adult ECG 12 lead EKG Today E11.9 - Type 2 diabetes mellitus without complications, E66.9 - Obesity, unspecified, E78.5 - Hyperlipidemia, unspecified, J45.909 - Unspecified asthma, uncomplicated, Z68.36 - Body mass index [BMI] 36.0-36.9, adult IRON PROFILE Today E11.9 - Type 2 diabetes mellitus without complications, E66.9 - Obesity, unspecified, E78.5 - Hyperlipidemia, unspecified, J45.909 - Unspecified asthma, uncomplicated, Z68.36 - Body mass index [BMI] 36.0-36.9, adult Comprehensive Met. Panel Today E11.9 - Type 2 diabetes mellitus without complications, E66.9 - Obesity, unspecified, E78.5 - Hyperlipidemia, unspecified, J45.909 - Unspecified asthma, uncomplicated, Z68.36 - Body mass index [BMI] 36.0-36.9, adult Zinc Today E11.9 - Type 2 diabetes mellitus without complications, E66.9 - Obesity, unspecified, E78.5 - Hyperlipidemia, unspecified, J45.909 - Unspecified asthma, uncomplicated, Z68.36 - Body mass index [BMI] 36.0-36.9, adult TSH reflex Free T4 Today E11.9 - Type 2 diabetes mellitus without complications, E66.9 - Obesity, unspecified, E78.5 - Hyperlipidemia, unspecified, J45.909 - Unspecified asthma, uncomplicated, Z68.36 - Body mass index [BMI] 36.0-36.9, adult Vitamin D 25-OH Total Today E11.9 - Type 2 diabetes mellitus without complications, E66.9 - Obesity, unspecified, E78.5 - Hyperlipidemia, unspecified, J45.909 - Unspecified asthma, uncomplicated, Z68.36 - Body mass index [BMI] 36.0-36.9, adult FL upper GI w air Today E11.9 - Type 2 diabetes mellitus without complications, E66.9 - Obesity, unspecified, E78.5 - Hyperlipidemia, unspecified, J45.909 - Unspecified asthma, uncomplicated, Z68.36 - Body mass index [BMI] 36.0-36.9, adult Referrals Behavioral Health Referral E11.9 - Type 2 diabetes mellitus without complications, E66.9 - Obesity, unspecified, E78.5 - Hyperlipidemia, unspecified, J45.909 - Unspecified asthma, uncomplicated, Z68.36 - Body mass index [BMI] 36.0-36.9, adult Nutrition/Dietitian Referral E11.9 - Type 2 diabetes mellitus without complications, E66.9 - Obesity, unspecified, E78.5 - Hyperlipidemia, unspecified, J45.909 - Unspecified asthma, uncomplicated, Z68.36 - Body mass index [BMI] 36.0-36.9, adult Telehealth Telehealth Location of provider rendering services: practice address Location of patient: address on file Patient Identification confirmed using: Name, : Yes Telehealth method: voice only Patient verbally consented to treatment: Yes Patient verbally consented to billing insurance company: Yes Patient informed of any privacy concerns related to visit: Yes Minutes spent on Phone/Video with Pt.: 54 Coding Level of Care Code Tele [facility] Pt Level 4 (71177) Diagnoses Class 2 obesity due to excess calories without serious comorbidity with body mass index (BMI) of 35.0 to 35.9 in adult E66.09; Z68.35 Body mass index: BMI 35.0-35.9 Obesity classification: adult class 2 (BMI 35 - 39.9) Obesity type: due to excess calories Serious obesity comorbidity presence: without serious comorbidity Time Spent (min) 54
[2023-10-07 13:05] VITALS: BMI 36.6
== END 2023-10-07 13:28 | disposition home or self-care (01) ==
PROVIDERS: PCP Physician Assistant; Visit Provider Surgery
DX: E66.09 Other obesity due to excess calories (principal); Z68.35 Body mass index [BMI] 35.0-35.9, adult
CPT/HCPCS: 99443

== ENCOUNTER → 2023-10-07 08:25 | Outpatient (BNVA) | payer OTHER, SELFPAY | PROVIDERS: PCP Physician Assistant; Visit Provider Surgery ==

== ENCOUNTER 2023-10-13 08:26 | Outpatient (REF) | payer OTHER, SELFPAY ==
--- NOTE | ~2023-10-13 | XR_ITS ---
EXAMINATION: XR CHEST CLINICAL INFORMATION: Obesity unspecifie.d COMPARISON: 09/09/2023 TECHNIQUE: 2 views of the chest were obtained. FINDINGS: Lung volumes are low. There is no gross pneumothorax. Streaky opacities in the right infrahilar region may represent subsegmental atelectasis or scar. Postsurgical changes redemonstrated overlying left breast. No pleural effusion. Heart size is normal. Mild degenerative changes in the thoracic spine. XR/XR chest 2V IMPRESSION: Streaky opacities in the right infrahilar region may represent subsegmental atelectasis or scar.
--- NOTE | 2023-10-13 08:55 | ECG_ITS ---
Test Reason : obesity Blood Pressure : / mmHG Vent. Rate : 097 BPM Atrial Rate : 097 BPM P-R Int : 140 ms QRS Dur : 094 ms QT Int : 342 ms P-R-T Axes : 060 035 028 degrees QTc Int : 434 ms Normal sinus rhythm Normal ECG When compared with ECG of 09-SEP-2023 09:30, No significant changes seen Referred By: Dm Harper Electronically Signed By:GRICEL ZAVALA
[2023-10-13 09:21] LABS: MANUAL DIFF FLAG NO
[2023-10-13 09:37] LABS: Basophils Percent Auto 0.6 % (0-2); Eosinophils Absolute Auto 0.1 X10*3/uL (0.0-0.4); Estimated Average Glucose 140 mg/dL; Hematocrit 41.2 % (37.0-47.0); Hemoglobin 14.1 g/dl (12.0-16.0); Hemoglobin A1c % 6.5 % (<6.0); Imm Gran Abs Auto 0.02 X10*3/uL (0.00-0.03); Imm Gran Pct Auto 0.3 % (0.0-0.4); Lymphocytes Absolute Auto 3.4 X10*3/uL (1.2-4.9); Lymphocytes Percent Auto 48.7 % (20-40); Mean Corpuscular HGB Conc 34.2 g/dl (31.0-35.0); Mean Corpuscular Hemoglobin 30.5 pg (27.0-33.0); Mean Platelet Volume 10.7 fL (9.4-12.3); Monocytes Absolute Auto 0.5 X10*3/uL (0.1-1.2); Monocytes Percent Auto 6.6 % (2-11); Neutrophils Absolute Auto 2.9 x10*3/uL (2.0-8.3); Neutrophils Percent Auto 41.8 % (45-73); Platelet Count 258 X10*3/uL (160-400); Red Blood Count 4.63 X10*6/uL (4.20-5.50); Red Cell Distribution Width 11.6 % (11.0-16.0)
[2023-10-13 09:59] LABS: Alanine Aminotransferase 27 U/L (0-31); Albumin Level 4.7 g/dL (3.5-5.0); Alkaline Phosphatase 90 U/L (39-117); Anion Gap 13 (12-20); Aspartate Amino Transferase 26 U/L (5-31); Bilirubin Total 0.4 mg/dL (0.0-1.0); Blood Urea Nitrogen 14 mg/dL (9-16); C Reactive Protein 0.23 mg/dL (< or = 0.50); Carbon Dioxide 24 mmol/L (22-29); Chloride 108 mmol/L (96-108); Cholesterol 132 mg/dL (<200); Estimated Glomerular Filt Rate > 60; Glucose Random 92 mg/dL (60-115); HDL Cholesterol 44 mg/dL (>40); Iron 71 mcg/dL (30-160); LDL Cholesterol Calculated 74 mg/dL (<100); Percent Iron Saturation 22 % (15-50); Sodium 141 mmol/L (135-145); Total Iron Binding Capacity 326 mcg/dL (228-428); Total Protein 8.5 g/dL (6.5-8.0); Triglycerides 73 mg/dL (<150); Unsaturated Iron Binding 255 ug/dL
[2023-10-13 10:16] LABS: Ferritin 180 ng/mL (10-250); Insulin 26 uU/mL (2-29); TSH reflex Free T4 0.15 uIU/mL (0.32-4.0); Vitamin D 25-OH Total 45.8 ng/mL (>30)
[2023-10-13 10:28] LABS: Folate 10.5 ng/mL (> or = 4.0); Vitamin B12 377 pg/mL (200-900)
[2023-10-13 10:59] LABS: Free T4 (Free Thyroxine) 0.96 ng/dL (0.71-1.85)
[2023-10-18 06:03] LABS: Zinc 86 mcg/dL (60-130)
[2023-10-19 04:03] LABS: Vitamin A 51 mcg/dL (38-98)
[2023-10-19 15:12] LABS: Vitamin B1 14 nmol/L (8-30)
== END 2023-10-13 08:27 | disposition home or self-care (01) ==
LOC: HO.XRAY 08:26
PROVIDERS: PCP Physician Assistant; Visit Provider Surgery
DX: E66.9 Obesity, unspecified (principal); Z68.36 Body mass index [BMI] 36.0-36.9, adult; E78.5 Hyperlipidemia, unspecified; J45.909 Unspecified asthma, uncomplicated; E11.9 Type 2 diabetes mellitus without complications
CPT/HCPCS: 36415; 71046; 80053; 80061; 82306; 82607; 82728; 82746; 83036; 83525; 83540; 84425; 84439; 84443; 84590; 84630; 85025; 86140; 93005

== ENCOUNTER → 2023-10-13 08:55 | Outpatient (BNV) | payer OTHER, SELFPAY | PROVIDERS: PCP Physician Assistant; Visit Provider Internal Medicine | DX: E66.9 Obesity, unspecified (principal) | CPT/HCPCS: 93010 ==

== ENCOUNTER 2023-10-19 09:38 | Outpatient (AMB) | payer OTHER, SELFPAY ==
--- NOTE | 2023-10-19 09:33 | MHC.AMNUTRGE ---
Intake Intake Visit Reasons: VIDEO Initial Nutrition SWL Allergies iodine [IODINE] Allergy (Severe, Verified 10/07/23 12:51) ANAPHYLAXIS Penicillins [PENICILLINS] Allergy (Severe, Verified 10/07/23 12:51) DIFFICULTY BREATHING,HIVES penicillin V Allergy (Unknown, Verified 10/07/23 12:51) anaphylaxis,rash vancomycin Allergy (Unknown, Verified 10/07/23 12:51) rash, itching Iodine Tincture Allergy (Unknown, Uncoded 10/07/23 12:51) Unknown nylon Allergy (Unknown, Uncoded 10/07/23 12:51) Unknown HPI Nutrition Presentation Reason for consult elevated BMI Unstable SDH Reports use of SNAP (Educated about hip program today) Diet Assmnt Details Pt reports she hasn't started nutrition plan provided by surgeon. Reports she had to wait until she received her food stamps benefits. She lives with her 9-year-old son Coffee with splenda and bread 6:30pm last night has fries and chicken She does not like to eat during the day, is afraid she will gain weight. Today I educated her on the importance of having structured meals throughout the day. Online classes: none - Patient is legally blind. She lives with her 9-year-old son who may be able to help her with the quizzes. I advised her to listen to the classes and follow-up with me in office to discuss quizzes Dietary counseling reduction Who buys your food self Who prepares/cooks your food self Meal frequency regular: dinner and irregular: breakfast and lunch Lifestyle Eating out 4 or more times/week Food frequency Fruit: daily, Vegetables: daily, Grains/pasta/breads/cereal (carbs): daily, Meats/poultry/fish (protein): daily (eats everything ), Water: daily, Soda: several times weekly and Juice: occasionally Diagnosis Nutrition problem #1 overweight/obesity As related to (etiology) #1 excess energy intake and physical inactivity As evidenced by (sign/symptom) #1 high BMI Monitoring/Goals Nutrition problem monitoring total energy intake, level of knowledge/skill, total PRO intake, total CHO intake and weight Outcome progress verbalized understanding Learning/Education Readiness to learn fair Stages of change contemplation Educational materials provided Yes Most Recent Diabetes Results: Cholesterol 132 mg/dL (<200) 10/13/23 HDL Cholesterol 44 mg/dL (>40) 10/13/23 Triglycerides 73 mg/dL (<150) 10/13/23 Creatinine 0.86 mg/dL (0.5-1.4) 10/13/23 Blood Urea Nitrogen 14 mg/dL (9-16) 10/13/23 Sodium 141 mmol/L (135-145) 10/13/23 Potassium 4.0 mmol/L (3.3-5.1) 10/13/23 Chloride 108 mmol/L (96-108) 10/13/23 Carbon Dioxide 24 mmol/L (22-29) 10/13/23 Calcium 10.0 mg/dL (8.4-10.2) 10/13/23 AST 26 U/L (5-31) 10/13/23 ALT 27 U/L (0-31) 10/13/23 Total Protein 8.5 g/dL (6.5-8.0) H 10/13/23 Albumin 4.7 g/dL (3.5-5.0) 10/13/23 [facility] Medical History (Updated 10/07/23 @ 12:57 by Dm Harper MD) Hyperlipidemia Vitamin D deficiency Smoker Anxiety and depression Asthma Potential exposure to STD Depression BMI 39.0-39.9,adult Type 2 diabetes mellitus Legal blindness Coronary artery calcification seen on CAT scan Breast CA Obesity Chest pain Surgical History History of left mastectomy S/P lumpectomy, right breast H/O right breast biopsy Hx of section Family History Father HTN (hypertension) Anxiety Depression Cancer Diabetes Mother CVD (cardiovascular disease) Social History Housing: Apartment Alcohol intake: never Patient Tobacco Use Status: Former Tobacco user Tobacco use type: Cigarette e-Cigarette/Vaping Use: Never Used service: No Current occupational status: disabled Current occupational exposures/hazards: No Gender identity: Female Cognitive needs: No Hearing needs: No Vision needs: No Female Reproductive History Menstrual Age of Menarche: 11 Assessment & Plan Assessment & Plan (1) Obesity (BMI 30-39.9): Code(s): E66.9 - Obesity, unspecified Plan Patient will be seen again in office after she completes her online classes. Telehealth Telehealth Location of provider rendering services: practice address Location of patient: address on file Patient Identification confirmed using: Name, : Yes Telehealth method: voice only Patient verbally consented to treatment: Yes Patient verbally consented to billing insurance company: Yes Patient informed of any privacy concerns related to visit: Yes Minutes spent on Phone/Video with Pt.: 30 Coding Level of Care Code Nutr Indiv Intake (76204) Diagnoses Obesity (BMI 30-39.9) E66.9 Time Spent (min) 30
== END 2023-10-19 11:06 | disposition home or self-care (01) ==
LOC: HO.HBS 09:38
PROVIDERS: PCP Physician Assistant; Visit Provider Dietitian, Registered
DX: E66.9 Obesity, unspecified (principal)

== ENCOUNTER → 2023-10-19 09:38 | Outpatient (BNVA) | payer OTHER, SELFPAY | PROVIDERS: PCP Physician Assistant; Visit Provider Dietitian, Registered | DX: E66.9 Obesity, unspecified (principal) | CPT/HCPCS: 97802 ==

== ENCOUNTER → 2023-10-26 08:29 | Outpatient (BNVA) | payer OTHER, SELFPAY | PROVIDERS: PCP Physician Assistant; Visit Provider Physician Assistant ==

== ENCOUNTER 2023-10-28 08:13 | Outpatient (AMB) | payer OTHER, SELFPAY ==
--- NOTE | 2023-10-28 09:25 | MHC.OFFVISWM ---
Intake VS Expanded 10/28/23 09:34 Height 5 ft 3 in Weight 206 lb 2 oz BMI 36.5 Body Fat % 44.5 Body Fat Mass 91.7 Fat Free Mass 114.4 Visceral Fat Rating 12 Body Water % 39.6 Body Water Mass 81.6 Basal Metabolic Rate/Score 1,606 Intake Visit Reasons: TV Follow Up SWL - Allergies iodine [IODINE] Allergy (Severe, Verified 10/07/23 12:51) ANAPHYLAXIS Penicillins [PENICILLINS] Allergy (Severe, Verified 10/07/23 12:51) DIFFICULTY BREATHING,HIVES penicillin V Allergy (Unknown, Verified 10/07/23 12:51) anaphylaxis,rash vancomycin Allergy (Unknown, Verified 10/07/23 12:51) rash, itching Iodine Tincture Allergy (Unknown, Uncoded 10/07/23 12:51) Unknown nylon Allergy (Unknown, Uncoded 10/07/23 12:51) Unknown HPI TV Follow Up SWL - HPI Details Start time: 9.21am, End time: 9.41am ?I spent 15 minutes speaking with the patient on the phone plus an additional 5 minutes reviewing and updating records for a total of 20 minutes HPI Comments History of Present Illness Details Overall weight loss: 0.6lbs, She is starting the nutritional plan as it took sometime to get the shakes with her food stamps [facility] Medical History (Updated 10/28/23 @ 09:21 by Dm Harper MD) Hyperlipidemia Vitamin D deficiency Smoker Anxiety and depression Asthma Potential exposure to STD Depression BMI 39.0-39.9,adult Type 2 diabetes mellitus Legal blindness Coronary artery calcification seen on CAT scan Breast CA Obesity Chest pain Surgical History History of left mastectomy S/P lumpectomy, right breast H/O right breast biopsy Hx of section Family History Father HTN (hypertension) Anxiety Depression Cancer Diabetes Mother CVD (cardiovascular disease) Social History Housing: Apartment Alcohol intake: never Patient Tobacco Use Status: Former Tobacco user Tobacco use type: Cigarette e-Cigarette/Vaping Use: Never Used service: No Current occupational status: disabled Current occupational exposures/hazards: No Gender identity: Female Cognitive needs: No Hearing needs: No Vision needs: No Female Reproductive History Menstrual Age of Menarche: 11 Assessment & Plan Assessment & Plan (1) Obesity: Comment: working with weight management program Code(s): E66.9 - Obesity, unspecified Qualifiers: Obesity type: due to excess calories Obesity classification: adult class 2 (BMI 35 - 39.9) Serious obesity comorbidity presence: without serious comorbidity Body mass index: BMI 35.0-35.9 Qualified Code(s): E66.09 - Other obesity due to excess calories; Z68.35 - Body mass index [BMI] 35.0-35.9, adult Plan: 1. Change nutritional plan to 2 [employer] shakes with HALF scoop each in 8oz almond milk at 7-9am and 10am-12pm AND TWO more Orgain shakes with ONE scoop each in 8oz almond milk at 1-3pm and 4pm-6pm and dinner at 7pm (8 forks of protein and 8 forks of salad or vegetables) 2. Start using your treadmill daily for 300 calories at speed 3.0 and incline zero. You can do it all together or split it in 2 sessions for 150 calories twice per day 3. Continue to send me weight measurements weekly on Wednesdays Medications: New mecobalamin (vitamin B12) place tablet under tongue and allow to dissolve for at least30 secs before swallowing 1,000 mcg sublingual DAILY 30 tabs 2RF E53.8 - Deficiency of other specified B group vitamins Telehealth Telehealth Location of provider rendering services: practice address Location of patient: address on file Patient Identification confirmed using: Name, : Yes Telehealth method: voice only Patient verbally consented to treatment: Yes Patient verbally consented to billing insurance company: Yes Patient informed of any privacy concerns related to visit: Yes Minutes spent on Phone/Video with Pt.: 20 Coding Level of Care Code Tele Est Pt Level 3 (11717) Diagnoses Class 2 obesity due to excess calories without serious comorbidity with body mass index (BMI) of 35.0 to 35.9 in adult E66.09; Z68.35 Obesity type: due to excess calories Obesity classification: adult class 2 (BMI 35 - 39.9) Serious obesity comorbidity presence: without serious comorbidity Body mass index: BMI 35.0-35.9 Time Spent (min) 20
[2023-10-28 09:34] VITALS: BMI 36.5
== END 2023-10-28 09:41 | disposition home or self-care (01) ==
LOC: HO.HBS 08:13
PROVIDERS: PCP Physician Assistant; Visit Provider Surgery
DX: E66.09 Other obesity due to excess calories (principal); Z68.35 Body mass index [BMI] 35.0-35.9, adult
CPT/HCPCS: 99442

== ENCOUNTER → 2023-10-28 08:13 | Outpatient (BNVA) | payer OTHER, SELFPAY | PROVIDERS: PCP Physician Assistant; Visit Provider Surgery ==

== ENCOUNTER → 2023-11-10 09:29 | Outpatient (BNVA) | payer OTHER, SELFPAY | PROVIDERS: PCP Physician Assistant; Visit Provider Physician Assistant Surgical ==

== ENCOUNTER 2023-11-10 14:06 | Outpatient (REF) | payer OTHER, SELFPAY ==
[2023-11-15 15:01] LABS: H Pylori Breath Test Negative (Negative)
== END 2023-11-10 14:07 | disposition home or self-care (01) ==
LOC: HO.LNP 14:06
PROVIDERS: Visit Provider Surgery
DX: E66.9 Obesity, unspecified (principal); E11.9 Type 2 diabetes mellitus without complications; E78.5 Hyperlipidemia, unspecified; J45.909 Unspecified asthma, uncomplicated; Z68.36 Body mass index [BMI] 36.0-36.9, adult
CPT/HCPCS: 83013

== ENCOUNTER 2023-11-18 08:06 | Outpatient (AMB) | payer OTHER, SELFPAY ==
--- NOTE | 2023-11-18 09:25 | MHC.OFFVISWM ---
Intake VS Expanded 11/18/23 09:27 Height 5 ft 3.5 in Weight 206 lb 2 oz BMI 35.9 Intake Visit Reasons: TV Follow Up SWL Allergies iodine [IODINE] Allergy (Severe, Verified 10/07/23 12:51) ANAPHYLAXIS Penicillins [PENICILLINS] Allergy (Severe, Verified 10/07/23 12:51) DIFFICULTY BREATHING,HIVES penicillin V Allergy (Unknown, Verified 10/07/23 12:51) anaphylaxis,rash vancomycin Allergy (Unknown, Verified 10/07/23 12:51) rash, itching Iodine Tincture Allergy (Unknown, Uncoded 10/07/23 12:51) Unknown nylon Allergy (Unknown, Uncoded 10/07/23 12:51) Unknown HPI TV Follow Up SWL HPI Details Start time: 9.09am, End time: 9.29am ?I spent 15 minutes speaking with the patient on the phone plus an additional 5 minutes reviewing and updating records for a total of 20 minutes HPI Comments History of Present Illness Details Overall weight loss: 0.6lbs, or 0.29% TB[facility]: [facility] Medical History (Updated 10/28/23 @ 09:21 by Dm Harper MD) Hyperlipidemia Vitamin D deficiency Smoker Anxiety and depression Asthma Potential exposure to STD Depression BMI 39.0-39.9,adult Type 2 diabetes mellitus Legal blindness Coronary artery calcification seen on CAT scan Breast CA Obesity Chest pain Surgical History History of left mastectomy S/P lumpectomy, right breast H/O right breast biopsy Hx of section Family History Father HTN (hypertension) Anxiety Depression Cancer Diabetes Mother CVD (cardiovascular disease) Social History Housing: Apartment Alcohol intake: never Patient Tobacco Use Status: Former Tobacco user Tobacco use type: Cigarette e-Cigarette/Vaping Use: Never Used service: No Current occupational status: disabled Current occupational exposures/hazards: No Gender identity: Female Cognitive needs: No Hearing needs: No Vision needs: No Female Reproductive History Menstrual Age of Menarche: 11 Assessment & Plan Assessment & Plan (1) Obesity: Comment: working with weight management program Code(s): E66.9 - Obesity, unspecified Qualifiers: Obesity type: due to excess calories Obesity classification: adult class 2 (BMI 35 - 39.9) Serious obesity comorbidity presence: without serious comorbidity Body mass index: BMI 35.0-35.9 Qualified Code(s): E66.09 - Other obesity due to excess calories; Z68.35 - Body mass index [BMI] 35.0-35.9, adult Plan: 1. Change nutritional plan to 2 Orgain shakes with HALF scoop each in 8oz almond milk at 7-9am and 10am-12pm AND TWO more Orgain shakes with ONE scoop each in 8oz almond milk at 1-3pm and 4pm-6pm and dinner at 7pm (8 forks of protein and 8 forks of salad or vegetables) 2. Start using your treadmill daily for 300 calories at speed 3.0 and incline zero. You can do it all together or split it in 2 sessions for 150 calories twice per day 3. Continue to send me weight measurements weekly on Wednesdays Telehealth Telehealth Location of provider rendering services: practice address Location of patient: address on file Patient Identification confirmed using: Name, : Yes Telehealth method: voice only Patient verbally consented to treatment: Yes Patient verbally consented to billing insurance company: Yes Patient informed of any privacy concerns related to visit: Yes Minutes spent on Phone/Video with Pt.: 20 Coding Level of Care Code Tele Est Pt Level 3 (07732) Diagnoses Class 2 obesity due to excess calories without serious comorbidity with body mass index (BMI) of 35.0 to 35.9 in adult E66.09; Z68.35 Obesity type: due to excess calories Obesity classification: adult class 2 (BMI 35 - 39.9) Serious obesity comorbidity presence: without serious comorbidity Body mass index: BMI 35.0-35.9 Time Spent (min) 20
[2023-11-18 09:27] VITALS: BMI 35.9
== END 2023-11-18 09:30 | disposition home or self-care (01) ==
LOC: HO.HBS 08:06
PROVIDERS: PCP Physician Assistant; Visit Provider Surgery
DX: E66.09 Other obesity due to excess calories (principal); Z68.35 Body mass index [BMI] 35.0-35.9, adult
CPT/HCPCS: 99442

== ENCOUNTER → 2023-11-18 08:06 | Outpatient (BNVA) | payer OTHER, SELFPAY | PROVIDERS: PCP Physician Assistant; Visit Provider Surgery ==

== ENCOUNTER → 2023-11-25 08:28 | Outpatient (BNVA) | payer OTHER, SELFPAY | PROVIDERS: PCP Physician Assistant; Visit Provider Physician Assistant Surgical ==

== ENCOUNTER 2023-12-01 15:15 | Emergency (ER) | payer OTHER, SELFPAY ==
--- NOTE | ~2023-12-01 | US_ITS ---
EXAMINATION: US VENOUS ULTRASOUND WITH DOPPLER LOWER EXTREMITY, LEFT CLINICAL INFORMATION: Calf pain COMPARISON: None available. TECHNIQUE: Ultrasound of the deep veins is performed from the hip to the calf with compression sonography and color and pulse Doppler assessment. Spectral analysis with color-flow imaging is performed. FINDINGS: There is normal venous compression and respiratory variation and augmented flow. The visualized common femoral vein, superficial femoral vein, profunda femoral vein, popliteal vein, and the trifurcation region shows no evidence of deep venous thrombosis. There is no significant popliteal fossa cyst. US/US venous duplex LE LT IMPRESSION: No DVT demonstrated in the left lower extremity.
--- NOTE | ~2023-12-01 | XR_ITS ---
EXAMINATION: 1. Left ankle. 2. Left calcaneus. CLINICAL INFORMATION: Heel pain COMPARISON: None. TECHNIQUE: 1. Left ankle. 3 views 2. Left calcaneus. Single view. FINDINGS: 1. Left ankle. No fracture. No dislocation. Ankle mortise is congruent. No significant degenerative change. No soft tissue abnormality. 2. Left calcaneus. Small plantar calcaneal spur. This does have a small radiolucent groove through the inferior cortex at the base of the spur which is likely chronic. Cannot exclude a small nondisplaced fracture however. Correlate with point tenderness. XR/XR calcaneus LT min 2V IMPRESSION: 1. Normal left ankle. 2. Left calcaneus. Small plantar calcaneal spur. This does have a small radiolucent groove through the inferior cortex at the base of the spur which is likely chronic. Cannot exclude a small nondisplaced fracture. Correlate with point tenderness.
--- NOTE | ~2023-12-01 | XR_ITS ---
EXAMINATION: 1. Left ankle. 2. Left calcaneus. CLINICAL INFORMATION: Heel pain COMPARISON: None. TECHNIQUE: 1. Left ankle. 3 views 2. Left calcaneus. Single view. FINDINGS: 1. Left ankle. No fracture. No dislocation. Ankle mortise is congruent. No significant degenerative change. No soft tissue abnormality. 2. Left calcaneus. Small plantar calcaneal spur. This does have a small radiolucent groove through the inferior cortex at the base of the spur which is likely chronic. Cannot exclude a small nondisplaced fracture however. Correlate with point tenderness. XR/XR ankle LT min 3V IMPRESSION: 1. Normal left ankle. 2. Left calcaneus. Small plantar calcaneal spur. This does have a small radiolucent groove through the inferior cortex at the base of the spur which is likely chronic. Cannot exclude a small nondisplaced fracture. Correlate with point tenderness.
--- NOTE | ~2023-12-01 | XR_ITS ---
EXAMINATION: 1. Right ankle. 2. Right calcaneus. CLINICAL INFORMATION: Heel pain. COMPARISON: None. TECHNIQUE: 1. Right ankle. 3 views 2. Right calcaneus. Single view FINDINGS: 1. Right ankle. No fracture. No dislocation. Ankle mortise is congruent. Small spur at the inferior tip of the medial malleolus. 2. Right calcaneus. Small plantar calcaneal spur. No acute abnormality. XR/XR ankle RT min 3V IMPRESSION: 1. Normal right ankle. 2. Small plantar calcaneal spur. No acute osseous abnormality of the right calcaneus.
--- NOTE | ~2023-12-01 | XR_ITS ---
EXAMINATION: 1. Right ankle. 2. Right calcaneus. CLINICAL INFORMATION: Heel pain. COMPARISON: None. TECHNIQUE: 1. Right ankle. 3 views 2. Right calcaneus. Single view FINDINGS: 1. Right ankle. No fracture. No dislocation. Ankle mortise is congruent. Small spur at the inferior tip of the medial malleolus. 2. Right calcaneus. Small plantar calcaneal spur. No acute abnormality. XR/XR calcaneus RT min 2V IMPRESSION: 1. Normal right ankle. 2. Small plantar calcaneal spur. No acute osseous abnormality of the right calcaneus.
[2023-12-01 15:54] VITALS: BP 155/100; PULSE 113; RESP 18; TEMP 37.1; O2SAT 96; BMI 38.6
--- NOTE | 2023-12-01 15:56 | ED_ITS ---
HPI - General Adult General Chief complaint: Extremity Injury, Lower Stated complaint: bilateral heel pain Time Seen by Provider: 12/01/23 18:41 Source: patient Mode of arrival: ambulatory Limitations: no limitations History of Present Illness HPI narrative: Patient comes to the emergency room complaining of bilateral heel pain. Patient states that 4 days ago she jumped up in the air and stung her feet on landing. Patient states that she was very angry with her neighbors the leave on the lower floor and was trying to get them to be quite. Patient states that since then her already diagnosed sciatica pain has gotten worse on the right leg. Patient denies any falls, denies any other injuries. Patient denies any urinary/fecal incontinence or retention Related Data Previous Rx's Medication Instructions Recorded blood-glucose meter ([employer] Voice #1 ea 07/21/22 Glucose Meter kit) metformin 1,000 mg tablet 1,000 mg PO BID #180 tabs 07/21/22 albuterol sulfate 0.63 mg/3 mL 0.63 mg (3 mL) inhalation QID PRN 12/24/22 solution for nebulization shortness of breath or wheezing #75 mL albuterol sulfate 90 mcg/actuation 1 inh inhalation QID PRN shortness 12/24/22 aerosol inhaler of breath or wheezing #8.5 grams fluticasone propionate 50 1 spray intranasal DAILY #16 grams 03/31/23 mcg/actuation nasal spray,suspension cholecalciferol (vitamin D3) 50 50 mcg PO DAILY 90 days #90 caps 05/24/23 mcg (2,000 unit) capsule nicotine (polacrilex) 2 mg buccal 2 mg buccal Q8H PRN nicotine 05/24/23 lozenge (Nicorette) cravings #72 ea rosuvastatin 5 mg tablet (Crestor) 5 mg PO DAILY 90 days #90 tabs 05/24/23 ciclopirox 0.77 % topical cream 1 appl topical BID 4 weeks #30 08/02/23 grams aspirin 81 mg tablet,delayed 81 mg PO DAILY 90 days #90 tabs 09/26/23 release (Adult Low Dose Aspirin) fluticasone propionate 50 2 spray intranasal DAILY #16 grams 09/27/23 mcg/actuation nasal spray,suspension (Flonase Allergy Relief) sennosides 8.6 mg capsule (senna) 8.6 mg PO BEDTIME 30 days #30 caps 09/27/23 Breo Ellipta 200 mcg-25 mcg/dose 1 inh inhalation DAILY 30 days #1 10/06/23 powder for inhalation (fluticasone ea furoate-vilanterol) mecobalamin (vitamin B12) 1,000 1,000 mcg sublingual DAILY #30 tabs 10/28/23 mcg disintegrating tablet,sublingual prednisone 10 mg tablet 10 mg PO DIRECTED 9 days #18 11/03/23 tabs semaglutide 0.25 mg or 0.5 mg (2 0.25 mg (0.368 mL) subcut QWEEK 4 11/04/23 mg/3 mL) subcutaneous pen injector weeks #3 mL (Ozempic) naproxen 500 mg tablet 500 mg PO BID PRN pain #14 tabs 12/01/23 Allergies Allergy/AdvReac Type Severity Reaction Status Date / Time iodine [IODINE] Allergy Severe ANAPHYLAXIS Verified 12/01/23 15:59 Penicillins [PENICILLINS] Allergy Severe DIFFICULTY Verified 12/01/23 15:59 BREATHING,HIVES penicillin V Allergy Unknown anaphylaxis Verified 12/01/23 15:59 ,rash vancomycin Allergy Unknown rash, Verified 12/01/23 15:59 itching Iodine Tincture Allergy Unknown Unknown Uncoded 10/07/23 12:51 nylon Allergy Unknown Unknown Uncoded 10/07/23 12:51 Review of Systems Review of Systems: Constitutional : No Weight loss, No Fever, No Chills, No Night Sweats, No Fatigu e, No Malaise ENT/Mouth : No Hearing loss, No Ear Pain, No Nasal Congestion, No Sinus Pain, No Hoarseness, No sore throat, No Rhinorrhea, No Swallowing Difficulty Eyes: No Eye Pain, No Swelling, No Redness, No Foreign Body, No Discharge, No Vision Changes Cardiovascular : No Chest Pain, No SOB, No Dyspnea on Exertion, No Orthopnea, No Edema, No Palpitations Respiratory : No Cough, No Sputum, No Wheezing, No Smoke Exposure, No Dyspnea Gastrointestinal : No Nausea, No Vomiting, No Diarrhea, No Constipation, No abdominal Pain, No Hematochezia, No Melena Genitourinary : no irregular bleeding, No Dysuria, No Urinary Frequency, No Hematuria, No Urinary Incontinence, No Urgency, No Flank Pain, No Urinary Flow Changes, No Hesitancy Musculoskeletal : Complaining of bilateral heel pain and worsening sciatica on the right leg, No Myalgias, No Joint Swelling Skin : No Skin Lesions, No rash Neuro : No Weakness, No Numbness, No Paresthesias, No Loss of Consciousness, No Dizziness, No Headache Psych : No Anxiety/Panic, No Depression, No SI/HI/AH/VH, No Social Issues, Heme/Lymph: No Bruising, No Bleeding,No Lymphadenopathy Endocrine : No Polyuria, No Polydipsia, No Temperature Intolerance [facility] Past Medical History Medical History Hyperlipidemia Vitamin D deficiency Smoker Anxiety and depression Asthma Potential exposure to STD Depression BMI 39.0-39.9,adult Type 2 diabetes mellitus Legal blindness Coronary artery calcification seen on CAT scan Breast CA Obesity Chest pain Surgical History History of left mastectomy S/P lumpectomy, right breast H/O right breast biopsy Hx of section Family History Family History Father HTN (hypertension) Anxiety Depression Cancer Diabetes Mother CVD (cardiovascular disease) Social History Social History Housing: Apartment Alcohol intake: never Patient Tobacco Use Status: Former Tobacco user Tobacco use type: Cigarette e-Cigarette/Vaping Use: Never Used Advance Directives: No Advance Directives Information Provided: Yes service: No Current occupational status: disabled Current occupational exposures/hazards: No Gender identity: Female Cognitive needs: No Hearing needs: No Vision needs: No Physical Exam ED Vital Signs: Vital Signs - 24 hr 12/01/23 15:54 Temperature 98.8 F Pulse Rate 113 H Respiratory Rate 18 Blood Pressure 155/100 H Pulse Oximetry 96 Oxygen Delivery Method Room Air BMI result Body Mass Index 38.6 Const Other: Appearance: Alert. Oriented X3. No acute distress. Eyes: Pupils equal, round and reactive to light. ENT: Pharynx normal. Neck: Normal inspection. Neck supple. No lymph nodes noted. No crepitus CVS: Normal heart rate and rhythm. Pulses normal. Normal S1 and S2 Respiratory: No respiratory distress. Breath sounds normal. No Wheezing. No rales Abdomen: Soft and nontender. No rigidity. No distention. Skin: Skin warm and dry. Normal skin color. Normal skin turgor. Extremities: No lower extremity edema. No Lacerations. No Rash. Pain to palpation over bilateral heels, no erythema, no swelling Neuro: Oriented X 3. No motor deficit. No sensory deficit. Moving all extremities. No slurred speech. CN 2 through 12 grossly intact Psych: calm, cooperative, normal affect Course Course Course Narrative: This is an RME: Additional HPI, ROS, PE not included below will be deferred to primary provider. this is a [id number]-female, with a history of breast cancer, bone deficiency , hyperlipidemia, type 2 diabetes, presenting to the ER with complaints of BL heel pain since this morning. Patient reports that she was upset with her neighbor and stopped her feet on her floor very hard. She has had significant bilateral heel pain. She also reports that she has left calf pain. Plan: X-ray bilateral ankles, bilateral cocaine use, ultrasound left lower extremity Medical Decision Making Medical Decision Making MDM Narrative: -my interpretation of ultrasound of the legs: Negative for DVT -my interpretation of x-ray of the heels: No obvious fracture. Radiology report shows a possible calcaneus spur fracture on the left Independent Interpretation I performed an independent interpretation of an: Plain X-Ray (My interpretation of x-rays: No obvious fracture) and Ultrasound Radiology Impression Discussion of test interpretation with radiology: I have reviewed the radiologist's reading. Radiologist Impression: FINDINGS: There is normal venous compression and respiratory variation and augmented flow. The visualized common femoral vein, superficial femoral vein, profunda femoral vein, popliteal vein, and the trifurcation region shows no evidence of deep venous thrombosis. There is no significant popliteal fossa cyst. US/US venous duplex LE LT IMPRESSION: No DVT demonstrated in the left lower extremity. 1. Normal left ankle. 2. Left calcaneus. Small plantar calcaneal spur. This does have a small radiolucent groove through the inferior cortex at the base of the spur which is likely chronic. Cannot exclude a small nondisplaced fracture. Correlate with point tenderness. 1. Normal right ankle. 2. Small plantar calcaneal spur. No acute osseous abnormality of the right calcaneus. I discussed the patient and x-ray findings with Dr. DEONNA Gonzalezay to put the patient on a walking boot versus surgical shoe. Patient opted for the surgical shoe, patient will follow-up with orthopedics. -patient requested a prescription for naproxen Discharge Plan Discharge Clinical Impression: Heel pain Patient Disposition: Home, Self-Care Instructions: Heel Spur (ED) Additional Instructions: Please follow-up with your primary care physician tomorrow. If you have any worsening or new symptoms, please return to the emergency room or call 911 Prescriptions: New naproxen 500 mg tablet 500 mg PO BID PRN (Reason: pain) Qty: 14 0RF No Action (DME) blood-glucose meter [[employer] Glucose Meter] Kit See Rx Instructions .Route Qty: 1 0RF Rx Instructions: As directed metformin 1,000 mg tablet 1,000 mg PO BID Qty: 180 1RF fluticasone propionate 50 mcg/actuation spray,suspension 1 spray intranasal DAILY Qty: 16 0RF Rx Instructions: administer into each nostril ciclopirox 0.77 % cream 1 appl topical BID 28 Days Qty: 30 3RF aspirin [Adult Low Dose Aspirin] 81 mg tablet,delayed release (DR/EC) 81 mg PO DAILY 90 Days Qty: 90 0RF prednisone 10 mg tablet 10 mg PO DIRECTED 9 Days Qty: 18 0RF Rx Instructions: Take 3 tabs x3 days, 2 tabs x3 days, 1 tablet x3 days Ozempic 0.25 mg or 0.5 mg (2 mg/3 mL) pen injector 0.25 mg subcut QWEEK 28 Days Qty: 3 3RF Rx Instructions: for 4 weeks albuterol sulfate 0.63 mg/3 mL solution for nebulization 0.63 mg inhalation QID PRN (Reason: shortness of breath or wheezing) Qty: 75 0RF albuterol sulfate 90 mcg/actuation HFA aerosol inhaler 1 inh inhalation QID PRN (Reason: shortness of breath or wheezing) Qty: 8.5 0RF fluticasone propionate [Flonase Allergy Relief] 50 mcg/actuation spray,suspension 2 spray intranasal DAILY Qty: 16 0RF Rx Instructions: administer into each nostril nicotine (polacrilex) [Nicorette] 2 mg lozenge 2 mg buccal Q8H PRN (Reason: nicotine cravings) Qty: 72 0RF rosuvastatin [Crestor] 5 mg tablet 5 mg PO DAILY 90 Days Qty: 90 1RF Rx Instructions: Get fasting labs 2 months of use cholecalciferol (vitamin D3) 50 mcg (2,000 unit) capsule 50 mcg PO DAILY 90 Days Qty: 90 1RF senna 8.6 mg capsule 8.6 mg PO BEDTIME 30 Days Qty: 30 0RF fluticasone furoate-vilanterol [Breo Ellipta] 200-25 mcg/dose blister with device 1 inh inhalation DAILY 30 Days Qty: 1 6RF mecobalamin (vitamin B12) 1,000 mcg tablet,disintegrating 1,000 mcg sublingual DAILY Qty: 30 2RF Rx Instructions: place tablet under tongue and allow to dissolve for at least30 secs before swallowing
[2023-12-01 19:36] VITALS: BP 117/55; PULSE 70; RESP 16; TEMP 36.1; O2SAT 98
== END 2023-12-01 19:35 | disposition home or self-care (01) ==
PROVIDERS: Emergency Provider Emergency Medicine; PCP Physician Assistant
DX: M77.32 Calcaneal spur, left foot (principal); M77.31 Calcaneal spur, right foot; M79.671 Pain in right foot; M79.672 Pain in left foot; R60.0 Localized edema; Z79.899 Other long term (current) drug therapy; Z87.891 Personal history of nicotine dependence
CPT/HCPCS: 73610; 73650; 93971; 99284

== ENCOUNTER 2023-12-05 09:17 | Outpatient (AMB) | payer OTHER, SELFPAY ==
--- NOTE | 2023-12-05 09:11 | A.OFFWM_ITS ---
Intake Intake Visit Reasons: VIDEO BH Intake Allergies iodine [IODINE] Allergy (Severe, Verified 12/20/23 09:04) ANAPHYLAXIS Penicillins [PENICILLINS] Allergy (Severe, Verified 12/20/23 09:04) DIFFICULTY BREATHING,HIVES penicillin V Allergy (Unknown, Verified 12/20/23 09:04) anaphylaxis,rash vancomycin Allergy (Unknown, Verified 12/20/23 09:04) rash, itching Iodine Tincture Allergy (Unknown, Uncoded 12/20/23 08:50) Unknown nylon Allergy (Unknown, Uncoded 12/20/23 08:50) Unknown [facility] Medical History (Updated 12/20/23 @ 12:32 by Radha Narvaez) Hyperlipidemia Vitamin D deficiency Smoker Anxiety and depression Asthma Potential exposure to STD Depression BMI 39.0-39.9,adult Type 2 diabetes mellitus Legal blindness Coronary artery calcification seen on CAT scan Breast CA Obesity Chest pain Surgical History History of left mastectomy S/P lumpectomy, right breast H/O right breast biopsy Hx of section Family History Father HTN (hypertension) Anxiety Depression Cancer Diabetes Mother CVD (cardiovascular disease) Social History Housing: Apartment Alcohol intake: never Patient Tobacco Use Status: Former Tobacco user Tobacco use type: Cigarette e-Cigarette/Vaping Use: Never Used service: No Current occupational status: disabled Current occupational exposures/hazards: No Gender identity: Female Cognitive needs: No Hearing needs: No Vision needs: No Female Reproductive History Menstrual Age of Menarche: 11 Behavioral Health Assessment Weight Management Therapy Therapy Notes Details Pt is looking to have weight loss surgery to help improve her health and quality. She reported being a diabetic and having heart problems. Pt reported no hx of problems with drugs or alcohol. She was in therapy in the past however not currently. Presenting Concerns Referral Source provider Reason for referral weight loss surgery evaluation Precipitating Event obesity Living Situation Current Living Situation Rent At risk of losing current housing? No Satisfied with current living situation? Yes Comments Pt lives on a second floor apartment with her 9 year old son. She reported being very unhappy there. Food/Weight/Diet Expectations of change weight loss and maintenance History/Relationship with weight Pt stated that prior to breast cancer diagnosis in 2018, she was not struggling with her weight. History/Relationship with dieting Pt stated that she lost 30lbs last year but not in a healthy way . She started to smoke and drink coffee due to stress and was not eating. Questionnaires PHQ-9 Over the last 2 weeks, how often have you been bothered by any of the following problems? 1. Little interest or pleasure in doing things: several days 2. Feeling down, depressed, or hopeless: nearly every day 3. Trouble falling or staying asleep, or sleeping too much: several days 4. Feeling tired or having little energy: nearly every day 5. Poor appetite or overeating: not at all 6. Feeling bad about yourself - or that you are a failure or have let yourself or your family down: more than half the days 7. Trouble concentrating on things, such as reading the newspaper or watching television: not at all 8. Moving or speaking so slowly that other people could have noticed. Or the opposite - being so fidgety or restless that you have been moving around a lot more than usual: several days 9. Thoughts that you would be better off or of hurting yourself in some way: not at all Total score: 11 Source: Developed by Drs. Scotty Doss, Adenike Rodas, Ghulam Lindsay and colleagues, with an educational shawn from [employer]. Binge Eating Scale Group 1 A. I don't feel self-conscious about my wt. or body size when I'm with others. B. I feel concerned about how I look to others, but it normally does not make me fell disappointed with myself C. I do get self-conscious about my appearance and wt. which makes me feel disappointed in myself. D. I feel very self-conscious about my wt. and frequently I feel intense shame and disgust for myself. I try to avoid social contacts because of my self- consciousness. Response Group 1: B Group 2 A. I don't have any difficulty eating slowly in the proper manner. B. Although I seem to gobble down foods, I don't end up feeling stuffed because of eating to much. C. At times, I tend to eat quickly and then, I feel uncomfortably full afterwards. D. I have the habit of bolting down my food, without really chewing it. When this happens I usually feel uncomfortably stuffed because I've eaten to much. Response Group 2: C Group 3 A. I feel capable to control my eating urges when I want to. B. I feel like I have failed to control my eating more than the average person. C. I feel utterly helpless when it comes to feeling in control of my eating urges. D. Because I feel so helpless about controlling my eating I have become very desperate about trying to get control. Response Group 3: A Group 4 A. I don't have the habit of eating when I'm bored. B. I sometimes eat when I'm bored, but often I'm able to get busy and get my mind off food. C. I have a regular habit of eating when I'm bored, but occasionally, I can use some other activity to get my mind off eating. D. I have a strong habit of eating when I'm bored. Nothing seems to help me breath the habit. Response Group 4: B Group 5 A. I'm usually physically hungry when I eat something. B. Occasionally, I eat something on impulse even though I really am not hungry. C. I have the regular habit of eating foods, that I might not really enjoy, to satisfy a hungry feeling even though physically, I don't need the food. D. Although I'm not physically hungry, I get a hungry feeling in my mouth that only seems to be satisfied when I eat a food, like sandwich, that fills my mouth. Sometimes, when I eat the food to satisfy my mouth hunger, I then spit the food out so I won't gain weight. Response Group 5: C Group 6 A. I don't feel any guilt or self-hate after I overeat. B. After I overeat, occasionally I feel guilt or self-hate. C. Almost all the time I experience strong guilt or self-hate after I overeat. Response Group 6: B Group 7 A. I don't lose total control of my eating when dieting even after periods when I overeat. B. Sometimes when I eat a forbidden food on a diet, I feel like I blew it and eat even more. C. Frequently, I have the habit of saying to myself, I've blown it now, why not go all the way, when I overeat on a diet. When that happens I eat more. D. I have a regular habit of starting a strict diets for myself but I break the diets by going on an eating binge. My life seems to be either a feast or famine. Response Group 7: A Group 8 A. I rarely eat so much food that I feel uncomfortably stuffed afterwards. B. Usually about once a month, I each such a quantity of food, I end up feeling very stuffed. C. I have regular periods during the month when I eat large amounts of food, either at mealtime or at snacks. D. I eat so much food that I regularly feel quite uncomfortable after eating and sometimes a bit nauseous. Response Group 8: D Group 9 A. My level of calorie intake does not go up very high or go down very low on a regular basis. B. Sometimes after I overeat, I will try to reduce my caloric intake to almost nothing to compensate for the excess calories I've eaten. C. I have a regular habit of overeating during the night. It seems that my routine is not to be hungry in the morning but overeat in the evening. D. In my adult years, I have had week-long periods where I practically starve myself. This follows periods when I overeat. It seems I live a life of either feast or famine. Response Group 9: A Group 10 A. I usually am able to stop eating when I want to. I know when enough is enough. B. Every so often, I experience a compulsion to eat which I can't seem to control. C. Frequently, I experience strong urges to eat which I seem unable to control, but at other times I can control my eating urges. D. I feel incapable of controlling urges to eat. I have a fear of not being able to stop eating voluntarily. Response Group 10: B Group 11 A. I don't have any problem stopping eating when I feel full. B. I usually can stop eating when I feel full but occasionally overeat leaving me feeling uncomfortably stuffed. C. I have a problem stopping eating once I start and usually I feel uncomfortably stuffed after I eat a meal. D. Because I have a problem not being able to stop eating when I want, I sometimes have to induce vomiting to relieve my stuffed feeling. Response Group 11: A Group 12 A. I seem to eat just as much when I'm with others, Family social gatherings as when I'm by myself. B. Sometimes, when I'm with other persons, I don't eat as much as I want to eat because I'm self-conscious about my eating. C. Frequently, I eat only a small amount of food when others are present, because I'm very embarrassed about my eating. D. I feel so ashamed about overeating that I pick times to overeat when I know no one will see me. I feel like a closet eater. Response Group 12: A Group 13 A. I eat three meals a day with only an occasional between meal snack. B. I eat 3 meals a day, but I also normally snack between meals. C. When I am snacking heavily, I get in the habit of skipping regular meals. D. There are regular periods when I seem to be continually eating, with no planned meals. Response Group 13: D Group 14 A. I don't think much about trying to control unwanted eating urges. B. At least some of the time, I feel my thoughts are pre-occupied with trying to control my eating urges. C. I feel that frequently I spend much time thinking about how much I ate or about trying not to eat anymore. D. It seems to me that most of my waking hours are pre-occupied by thoughts about eating or not eating. I feel like I'm constantly struggling not to eat. Response Group 14: D Group 15 A. I don't think about food a great deal. B. I have strong craving for food but they last only for brief periods of time. C. I have days when I can't seem to think about anything else but food. D. Most of my days seem to be pre-occupied with thoughts about food. I feel like I live to eat. Response Group 15: C Group 16 A. I usually know whether or not I'm physically hungry. I take the right portion of food to satisfy me. B. Occasionally, I feel uncertain about knowing whether or not I'm physically hungry. A these times it's hard to know how much food I should take to satisfy me. C. Even though I might know how many calories I should eat, I don't have any idea what is a normal amount of food for me. Response Group 16: A Binge Eating Score: 19 Score less than 17 Minimal Risk Score between 18-26 Moderate Risk Score between 27-46 High Risk Assessment & Plan Assessment & Plan (1) Obesity: Comment: working with weight management program Code(s): E66.9 - Obesity, unspecified Qualifiers: Obesity type: due to excess calories Obesity classification: adult class 2 (BMI 35 - 39.9) Serious obesity comorbidity presence: without serious comorbidity Body mass index: BMI 35.0-35.9 Qualified Code(s): E66.09 - Other obesity due to excess calories; Z68.35 - Body mass index [BMI] 35.0-35.9, adult Plan Pt will be seen again. Telehealth Telehealth Location of provider rendering services: other Location of patient: address on file Patient Identification confirmed using: Name, : Yes Telehealth method: voice only Patient verbally consented to treatment: Yes Patient verbally consented to billing insurance company: Yes Patient informed of any privacy concerns related to visit: Yes Minutes spent on Phone/Video with Pt.: 45 Coding Level of Care Code Tele y Mary Jog Laura ([id number]) Diagnoses Class 2 obesity due to excess calories without serious comorbidity with body mass index (BMI) of 35.0 to 35.9 in adult E66.09; Z68.35 Obesity type: due to excess calories Obesity classification: adult class 2 (BMI 35 - 39.9) Serious obesity comorbidity presence: without serious comorbidity Body mass index: BMI 35.0-35.9 Time Spent (min) 45
== END 2023-12-05 09:30 ==
LOC: HO.HBST 09:17
PROVIDERS: PCP Physician Assistant; Visit Provider Counselor Mental Health
DX: E66.09 Other obesity due to excess calories (principal); Z68.35 Body mass index [BMI] 35.0-35.9, adult
CPT/HCPCS: 90791

== ENCOUNTER → 2023-12-05 09:17 | Outpatient (BNVA) | payer OTHER, SELFPAY | PROVIDERS: PCP Physician Assistant; Visit Provider Counselor Mental Health ==

== ENCOUNTER 2023-12-20 08:52 | Outpatient (AMB) | payer OTHER, SELFPAY ==
--- NOTE | 2023-12-20 08:49 | A.OFFPC_ITS ---
Vital Signs 12/20/23 08:49 Height 5 ft 4 in Intake Visit Reasons: Both feet fractured [phone] Intake Note: Patient is here to follow-up after a visit the emergency department at [facility] on 12/01/2023. Pt needs a Orthopedic referral. Metallurgical Specialist Required: No Accompanied by: Self / Same As Patient Allergies iodine [IODINE] Allergy (Severe, Verified 12/20/23 09:04) ANAPHYLAXIS Penicillins [PENICILLINS] Allergy (Severe, Verified 12/20/23 09:04) DIFFICULTY BREATHING,HIVES penicillin V Allergy (Unknown, Verified 12/20/23 09:04) anaphylaxis,rash vancomycin Allergy (Unknown, Verified 12/20/23 09:04) rash, itching Iodine Tincture Allergy (Unknown, Uncoded 12/20/23 08:50) Unknown nylon Allergy (Unknown, Uncoded 12/20/23 08:50) Unknown Medication List - Last Reconciled 12/20/23 by Polo Cobb PA-C albuterol sulfate 0.63 mg (3 mL) inhalation QID PRN albuterol sulfate 90 mcg/actuation 1 inh inhalation QID PRN aspirin (Adult Low Dose Aspirin) 81 mg PO DAILY 90 days blood-glucose meter ([employer] Glucose Meter kit) As directed Breo Ellipta 200-25 mcg/dose (fluticasone furoate-vilanterol) 1 inh inhalation DAILY 30 days NS cholecalciferol (vitamin D3) 50 mcg PO DAILY 90 days ciclopirox 0.77% 1 appl topical BID 4 weeks fluticasone propionate 50 mcg/actuation (Flonase Allergy Relief) 2 sprays intranasal DAILY fluticasone propionate 50 mcg/actuation 1 spray intranasal DAILY mecobalamin (vitamin B12) 1,000 mcg sublingual DAILY metformin 1,000 mg PO BID naproxen 500 mg PO BID PRN nicotine (polacrilex) (Nicorette) 2 mg buccal Q8H PRN prednisone 10 mg PO DIRECTED 9 days rosuvastatin (Crestor) 5 mg PO DAILY 90 days semaglutide (Ozempic) 0.25 mg (0.368 mL) subcut QWEEK 4 weeks sennosides (senna) 8.6 mg PO BEDTIME 30 days Tobacco use date assessed: 12/20/23 HPI Both feet fractured [phone] HPI Details Patient is a 48-year-old female being evaluated today via telephone only. Patient recently seen at the [facility] for acute bilateral foot and heel pain. She reports she jumped in the air and slammed her feet on the floor due to being angry at her downstairs neighbors. X-rays of bilateral heels do show spurs-- >Left calcaneus. Small plantar calcaneal spur. This does have a small radiolucent groove through the inferior cortex at the base of the spur which is likely chronic. Cannot exclude a small nondisplaced fracture. Correlate with point tenderness. She is now in his surgical boot though still does have pain from time to time in her left heel. She is interested in seeing a transmission inspector for both diabetic foot grooming and evaluation of her calcaneal fracture. Type 2 diabetes: She was started on Ozempic and felt some benefit early on weight loss. She is interested in increasing her GLP 1 to higher dose for added benefit of weight loss. She is considering getting off of oral diabetic medication. Most recent A1c done in October of 2023 at 6.5. [facility] Medical History Hyperlipidemia Vitamin D deficiency Smoker Anxiety and depression Asthma Potential exposure to STD Depression BMI 39.0-39.9,adult Type 2 diabetes mellitus Legal blindness Coronary artery calcification seen on CAT scan Breast CA Obesity Chest pain Surgical History History of left mastectomy S/P lumpectomy, right breast H/O right breast biopsy Hx of section Family History Father HTN (hypertension) Anxiety Depression Cancer Diabetes Mother CVD (cardiovascular disease) Social History Housing: Apartment Alcohol intake: never Patient Tobacco Use Status: Former Tobacco user Tobacco use type: Cigarette e-Cigarette/Vaping Use: Never Used service: No Current occupational status: disabled Current occupational exposures/hazards: No Gender identity: Female Cognitive needs: No Hearing needs: No Vision needs: No Female Reproductive History Menstrual Age of Menarche: 11 Questionnaire PHQ-9 Over the last 2 weeks, how often have you been bothered by any of the following problems? 1. Little interest or pleasure in doing things: not at all 2. Feeling down, depressed, or hopeless: not at all 3. Trouble falling or staying asleep, or sleeping too much: not at all 4. Feeling tired or having little energy: not at all 5. Poor appetite or overeating: not at all 6. Feeling bad about yourself - or that you are a failure or have let yourself or your family down: not at all 7. Trouble concentrating on things, such as reading the newspaper or watching television: not at all 8. Moving or speaking so slowly that other people could have noticed. Or the opposite - being so fidgety or restless that you have been moving around a lot more than usual: not at all 9. Thoughts that you would be better off or of hurting yourself in some way: not at all Total score: 0 Depression Screening Interpretation: Negative Depression Screening Done: Yes [id number] - PHQ-9 Billing: Yes Source: Developed by Drs. Scotty Doss, Adenike Rodas, Ghulam Lindsay and colleagues, with an educational shawn from [employer]. Thrive Questionnaire Date Thrive assessed: 12/20/23 I am a: Patient What is your living situation today?: I have a steady place to live Within the past 12 months, did the food you bought not last and you didn't have the money to get more?: Never true Within the past 12 months, did you worry whether your food would run out before you got money to buy more?: Never true Do you have trouble paying for medicines?: No Do you have trouble getting transportation to medical appointments?: No Do you have trouble paying your heating and electricity bill?: No Do you have trouble taking care of your child, family member or friend?: No Do you have trouble with day-to-day activities such as bathing, preparing meals, shopping, managing finances, etc.?: No Are you currently unemployed and looking for a job?: No Are you interested in more education?: No Please select the resources that you would like help with: None Currently or been in a relationship where the following occur: no concerns reported THRIVE Score: 0 AUDIT C Alcohol Use Questionnaire (AUDIT-C) 1. How often do you have a drink containing alcohol?: Never 3. How often do you have six or more drinks on one occasion?: Never Total Score: 0 ELEAZAR-7 AMB Questionnaire ELEAZAR-7 Date ELEAZAR - 7 assessed: 12/20/23 Feeling nervous, anxious, or on edge: 0 = Not at all Not being able to stop or control worryin = Not at all Worrying too much about different things: 0 = Not at all Trouble relaxin = Not at all Being so restless that it is hard to sit still: 0 = Not at all Becoming easily annoyed or irritable: 0 = Not at all Feeling afraid as if something awful might happen: 0 = Not at all Total ELEAZAR-7 score (0-4 normal; 5-9 mild; 10-14 moderate; 15-21 severe): 0 Source: Developed by Drs. Scotty Doss, Adenike Rodas, Ghulam Lindsay and colleagues, with an educational shawn from [employer]. ELEAZAR-7 Assessment Billing ELEAZAR-7 Assessment Tool: ELEAZAR-7 Assessment 59913 Review of Systems Const Denies headache(s) Eyes Denies loss of vision ENT Denies vertigo, Denies dizziness, Denies headache(s) and Denies sore throat Card Denies chest pain, Denies leg edema and Denies lightheadedness Resp Denies cough, Denies hemoptysis and Denies wheezing GI Denies abdominal pain, Denies melena, Denies constipation, Denies diarrhea and Denies vomiting Denies urinary frequency, Denies dysuria and Denies urinary urgency Musc Details: LEFT FOOT HEEL PAIN Denies arthralgias, Denies joint swelling, Denies numbness and Denies tingling Neuro Denies behavioral changes, Denies vertigo, Denies dizziness, Denies headache(s), Denies loss of vision, Denies memory loss, Denies numbness and Denies tingling Psych Denies anxiety, Denies behavioral changes, Denies depression, Denies memory loss and Denies panic attacks Lg/Lymph Denies easy bleeding and Denies easy bruising Aller/Immun Denies wheezing Physical exam (Primary Care) Tobacco/Smoking Status: Tobacco use Status Tobacco use date assessed 12/20/23 12/20/23 08:52 Patient Tobacco Use Status Former Tobacco user 12/20/23 08:52 Tobacco use type Cigarette 12/20/23 08:52 e-Cigarette/Vaping Use Never Used 12/20/23 08:52 PHQ-9: PHQ-9 Score PHQ-9: Total score 0 12/20/23 08:54 Depression Screening Interpretation: Negative Thrive Assessment: Date of Thrive Assessment Date Thrive assessed 12/20/23 12/20/23 08:52 Currently or been in a relationship where the following occur: no concerns reported Telehealth Telehealth Location of provider rendering services: practice address Location of patient: address on file Patient Identification confirmed using: Name, : Yes Telehealth method: voice only Patient verbally consented to treatment: Yes Patient verbally consented to billing insurance company: Yes Patient informed of any privacy concerns related to visit: Yes Minutes spent on Phone/Video with Pt.: 11 Assessment and Plan Assessment & Plan (1) Left calcaneal fracture: Code(s): S92.002A - Unspecified fracture of left calcaneus, initial encounter for closed fracture Qualifiers: Encounter type: subsequent encounter Calcaneus location: body Fracture type: closed Fracture healing: with routine healing Fracture alignment: nondisplaced Qualified Code(s): S92.015D - Nondisplaced fracture of body of left calcaneus, subsequent encounter for fracture with routine healing Plan: As per HPI patient suffered a left calcaneal injury apparently a fracture. Now in a surgical boot. She would like to see a transmission inspector for both fracture care and diabetic nail grooming. (2) Type 2 diabetes mellitus: Code(s): E11.9 - Type 2 diabetes mellitus without complications Qualifiers: Diabetes mellitus alf insulin use: without alf use Diabetes mellitus complication status: with hyperglycemia Qualified Code(s): E11.65 - Type 2 diabetes mellitus with hyperglycemia Plan: Has been on Ozempic and she does report losing 6 lb. She is interested in increasing her dose of Ozempic for added benefit her more weight loss. Will increase her Ozempic dose to 1 mg weekly. Will also reduce her dose of metformin to a 1000 mg in the morning and 500 mg in the afternoon Orders: Referrals Podiatry Referral E11.9 - Type 2 diabetes mellitus without complications, S92.002A - Unspecified fracture of left calcaneus, initial encounter for closed fracture Medications: New semaglutide (Ozempic) 1 mg (0.75 mL) subcut QWEEK 4 weeks 3 mL 3RF E11.9 - Type 2 diabetes mellitus without complications Discontinued semaglutide (Ozempic) for 4 weeks Discontinued Reason: Doctor's Order 0.25 mg (0.368 mL) subcut QWEEK 4 weeks 3 mL 3RF E11.65 - Type 2 diabetes mellitus with hyperglycemia Coding Level of Care Code Tele Est Pt Level 4 (37522) Diagnoses Closed nondisplaced fracture of body of left calcaneus with routine healing, subsequent encounter S92.015D Encounter type: subsequent encounter Calcaneus location: body Fracture type: closed Fracture healing: with routine healing Fracture alignment: nondisplaced Type 2 diabetes mellitus with hyperglycemia, without long-term current use of insulin E11.65 Diabetes mellitus computer terminal operator insulin use: without computer terminal operator use Diabetes mellitus complication status: with hyperglycemia Additional Codes ELEAZAR-7 Assessment Billing - ELEAZAR-7 Assessment Tool: ELEAZAR-7 Assessment [id number] ([id number])
== END 2023-12-20 10:21 | disposition home or self-care (01) ==
LOC: HO.HMGH 08:52
PROVIDERS: PCP Physician Assistant; Visit Provider Physician Assistant
DX: E11.65 Type 2 diabetes mellitus with hyperglycemia (principal); S92.015A Nondisplaced fracture of body of left calcaneus, initial encounter for closed fracture
CPT/HCPCS: 99442

== ENCOUNTER 2023-12-20 12:56 | Outpatient (AMB) | payer OTHER, SELFPAY ==
--- NOTE | 2023-12-20 12:41 | A.OFFWM_ITS ---
Intake Intake Visit Reasons: VIDEO BH F/U Allergies iodine [IODINE] Allergy (Severe, Verified 12/20/23 09:04) ANAPHYLAXIS Penicillins [PENICILLINS] Allergy (Severe, Verified 12/20/23 09:04) DIFFICULTY BREATHING,HIVES penicillin V Allergy (Unknown, Verified 12/20/23 09:04) anaphylaxis,rash vancomycin Allergy (Unknown, Verified 12/20/23 09:04) rash, itching Iodine Tincture Allergy (Unknown, Uncoded 12/20/23 08:50) Unknown nylon Allergy (Unknown, Uncoded 12/20/23 08:50) Unknown [facility] Medical History (Updated 12/20/23 @ 12:53 by Radha Narvaez) Hyperlipidemia Vitamin D deficiency Smoker Anxiety and depression Asthma Potential exposure to STD Depression BMI 39.0-39.9,adult Type 2 diabetes mellitus Legal blindness Coronary artery calcification seen on CAT scan Breast CA Obesity Chest pain Surgical History History of left mastectomy S/P lumpectomy, right breast H/O right breast biopsy Hx of section Family History Father HTN (hypertension) Anxiety Depression Cancer Diabetes Mother CVD (cardiovascular disease) Social History Housing: Apartment Alcohol intake: never Patient Tobacco Use Status: Former Tobacco user Tobacco use type: Cigarette e-Cigarette/Vaping Use: Never Used service: No Current occupational status: disabled Current occupational exposures/hazards: No Gender identity: Female Cognitive needs: No Hearing needs: No Vision needs: No Female Reproductive History Menstrual Age of Menarche: 11 Behavioral Health Assessment Weight Management Therapy Therapy Notes Details Patient reported not dong well, having a bad day, both feet have fractures per her report, one is in a boot. She also struggles with missing appts, stating that she does not get reminder calls. Pt is looking to have weight loss surgery to help improve her health and quality. She reported being a diabetic and having heart problems. Pt reported no hx of problems with drugs or alcohol. She was in therapy in the past however not currently. Presenting Concerns Referral Source provider Reason for referral weight loss surgery evaluation Precipitating Event obesity Living Situation Current Living Situation Rent At risk of losing current housing? No Satisfied with current living situation? Yes Comments Pt lives on a second floor apartment with her 9 year old son. She reported being very unhappy there. Food/Weight/Diet Expectations of change weight loss and maintenance History/Relationship with food One meal a day previously, protein, salad, brown rice, soda when she goes out to eat (twice a week), often craves sweets or chips. History/Relationship with weight Pt stated that prior to breast cancer diagnosis in 2018, she was not struggling with her weight. History/Relationship with dieting Pt stated that she lost 30lbs last year but not in a healthy way . She started to smoke and drink coffee due to stress and was not eating. Social History Family history and relationship Pt was born and raised in this area by her parents who are both living and she has two brothers. Childhood was okay and often heard yelling, screaming, swearing by her father which is now how she is. Pt reported that she lost her first baby when she was 34 years old in utero. 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 Cultural/Ethnic information Legal Involvement and History Current or historical involvement with the legal system? none known Education Preferred learning style Auditory, Verbal, Written, Learn by doing and Visual Currently enrolled in educational program? No Interested in further educational program? No Employment Employment Status Unemployed Wants help to find employment? No Financial Situation Describe current financial situation Occasional struggle Financial assistance? Food [place] and SSDI Service Service? No Mental Health and Addiction Treatment Current/Past substance abuse? No Current/Past addictive behavior concerns? No Medical and Physical Health Summary Physical exam in the last year? Yes Pain Screening Current pain? Yes Pain in the last few months? Yes Comments fracture in her feet. Medications Is the patient compliant with medications? Yes Does the patient have Roque Guardian in place? Not applicable Does the patient use complimentary health approaches? No Trauma/Abuse History History of trauma? No Assessment & Plan Assessment & Plan (1) Depression: Code(s): F32.A - Depression, unspecified (2) Obesity: Comment: working with weight management program Code(s): E66.9 - Obesity, unspecified Qualifiers: Body mass index: BMI 35.0-35.9 Obesity classification: adult class 2 (BMI 35 - 39.9) Obesity type: due to excess calories Serious obesity comorbidity presence: without serious comorbidity Qualified Code(s): E66.09 - Other obesity due to excess calories; Z68.35 - Body mass index [BMI] 35.0-35.9, adult Plan Pt struggles in the program with exercise, sticking to meal plan, missing appts, also negative mindset. She will be seen again in office. Telehealth Telehealth Location of provider rendering services: other Location of patient: other Patient Identification confirmed using: Name, : Yes Telehealth method: voice only Patient verbally consented to treatment: Yes Patient verbally consented to billing insurance company: Yes Patient informed of any privacy concerns related to visit: Yes Minutes spent on Phone/Video with Pt.: 30 Coding Level of Care Code Tele Psytx 30 mins ([id number]) Diagnoses Depression F32.A Class 2 obesity due to excess calories without serious comorbidity with body mass index (BMI) of 35.0 to 35.9 in adult E66.09; Z68.35 Body mass index: BMI 35.0-35.9 Obesity classification: adult class 2 (BMI 35 - 39.9) Obesity type: due to excess calories Serious obesity comorbidity presence: without serious comorbidity Time Spent (min) 25
== END 2023-12-20 13:01 | disposition home or self-care (01) ==
LOC: HO.HBST 12:56
PROVIDERS: PCP Physician Assistant; Visit Provider Counselor Mental Health
DX: F32.A Depression, unspecified (principal); E66.09 Other obesity due to excess calories; Z68.35 Body mass index [BMI] 35.0-35.9, adult
CPT/HCPCS: 90832

== ENCOUNTER → 2023-12-20 12:56 | Outpatient (BNVA) | payer OTHER, SELFPAY | PROVIDERS: PCP Physician Assistant; Visit Provider Counselor Mental Health ==

== ENCOUNTER 2023-12-22 08:26 | Outpatient (REF) | payer OTHER, SELFPAY ==
--- NOTE | ~2023-12-22 | FL_ITS ---
EXAMINATION: XR FLUOROSCOPY UPPER GI WITH AIR CLINICAL INFORMATION: Preoperative evaluation prior to bariatric surgery COMPARISON: None TECHNIQUE: Fluoroscopic air contrast upper GI examination was performed utilizing standard techniques with thin and thick barium and effervescent granules. Numerous spot images were obtained. FINDINGS: Dual and single contrast images of the esophagus demonstrate normal caliber, contour, and mucosal pattern. No evidence of stricture, mass, or ulcerations identified. Esophageal peristalsis was normal. No evidence of hiatus hernia identified. No significant gastroesophageal reflux was seen during the course of the examination and on reflux views. Dual contrast and single contrast images of the stomach are limited by suboptimal coating of the superior wall and lesser curvature. The stomach demonstrates a normal contour. There are multiple tiny foci of contrast pooling in the fundus of stomach may represents small aphthous ulcers. No surrounding edema. There are also small filling defects in the fundus suggesting hyperplastic polyps. No significant masses are seen. Gastric rugal folds appear normal in thickness. Contrast freely passed into the gastric antrum and duodenal bulb without delay. Single and air-contrast images of the duodenal bulb demonstrate no abnormality. The duodenal sweep has a normal appearance, course, and mucosal fold appearance. No malrotation. The imaged proximal jejunum has a normal fold pattern and caliber. FLUOROSCOPY TIME: 4 minutes 5 seconds Number of Spot Images: 11 Number of Cine: 9 DOSE AREA PRODUCT: 2684 uGy-m2 (microgray-meter squared) FL/FL upper GI w air IMPRESSION: 1. Multiple tiny foci of contrast pooling in the fundus of stomach may represent small aphthous ulcers. Small fundal filling defects also present which may represent hyperplastic polyps. Recommend Correlation with EGD This procedure was performed by Sunil Rae PA-C, and supervised by Dr. Finnegan
== END 2023-12-22 08:27 | disposition home or self-care (01) ==
LOC: HO.XRAY 08:26
PROVIDERS: PCP Physician Assistant; Visit Provider Surgery
DX: E66.9 Obesity, unspecified (principal); Z68.36 Body mass index [BMI] 36.0-36.9, adult; E78.5 Hyperlipidemia, unspecified; J45.909 Unspecified asthma, uncomplicated; E11.9 Type 2 diabetes mellitus without complications
CPT/HCPCS: 74246

== ENCOUNTER → 2023-12-22 08:29 | Outpatient (BNV) | payer OTHER, SELFPAY | PROVIDERS: PCP Physician Assistant; Visit Provider Radiology Diagnostic Radiology | DX: Z01.818 Encounter for other preprocedural examination (principal); E66.9 Obesity, unspecified | CPT/HCPCS: 74246 ==

== ENCOUNTER 2024-01-16 09:28 | Outpatient (AMB) | payer OTHER, SELFPAY ==
--- NOTE | 2024-06-06 15:06 | MHC.WMTHER ---
Intake Intake Visit Reasons: (OV) BH F/U Allergies iodine [IODINE] Allergy (Severe, Verified 05/30/24 13:38) ANAPHYLAXIS Penicillins [PENICILLINS] Allergy (Severe, Verified 05/30/24 13:38) DIFFICULTY BREATHING,HIVES penicillin V Allergy (Unknown, Verified 05/30/24 13:38) anaphylaxis,rash vancomycin Allergy (Unknown, Verified 05/30/24 13:38) rash, itching Iodine Tincture Allergy (Unknown, Uncoded 05/30/24 13:38) Unknown nylon Allergy (Unknown, Uncoded 05/30/24 13:38) Unknown [facility] Medical History Hyperlipidemia Vitamin D deficiency Smoker Anxiety and depression Asthma Potential exposure to STD Depression BMI 39.0-39.9,adult Type 2 diabetes mellitus Legal blindness Coronary artery calcification seen on CAT scan Breast CA Obesity Chest pain Surgical History History of left mastectomy S/P lumpectomy, right breast H/O right breast biopsy Hx of section Family History Father HTN (hypertension) Anxiety Depression Cancer Diabetes Mother CVD (cardiovascular disease) Social History Housing: Apartment Alcohol intake: never Patient Tobacco Use Status: Former Tobacco user Tobacco use type: Cigarette e-Cigarette/Vaping Use: Never Used service: No Current occupational status: disabled Current occupational exposures/hazards: No Gender identity: Female Cognitive needs: No Hearing needs: No Vision needs: No Female Reproductive History Menstrual Age of Menarche: 11 Behavioral Health Assessment Weight Management Therapy Therapy Notes Details Patient reported not dong well, having a bad day, both feet have fractures per her report, one is in a boot. She also struggles with missing appts, stating that she does not get reminder calls. Pt is looking to have weight loss surgery to help improve her health and quality. She reported being a diabetic and having heart problems. Pt reported no hx of problems with drugs or alcohol. She was in therapy in the past however not currently. Presenting Concerns Referral Source provider Reason for referral weight loss surgery evaluation Precipitating Event obesity Living Situation Current Living Situation Rent At risk of losing current housing? No Satisfied with current living situation? Yes Comments Pt lives on a second floor apartment with her 9 year old son. She reported being very unhappy there. Food/Weight/Diet Expectations of change weight loss and maintenance History/Relationship with food One meal a day previously, protein, salad, brown rice, soda when she goes out to eat (twice a week), often craves sweets or chips. History/Relationship with weight Pt stated that prior to breast cancer diagnosis in 2018, she was not struggling with her weight. History/Relationship with dieting Pt stated that she lost 30lbs last year but not in a healthy way . She started to smoke and drink coffee due to stress and was not eating. Social History Family history and relationship Pt was born and raised in this area by her parents who are both living and she has two brothers. Childhood was okay and often heard yelling, screaming, swearing by her father which is now how she is. Pt reported that she lost her first baby when she was 34 years old in utero. 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 Cultural/Ethnic information Legal Involvement and History Current or historical involvement with the legal system? none known Education Preferred learning style Auditory, Verbal, Written, Learn by doing and Visual Currently enrolled in educational program? No Interested in further educational program? No Employment Employment Status Unemployed Wants help to find employment? No Financial Situation Describe current financial situation Occasional struggle Financial assistance? Food [place] and [employer]I Service Service? No Mental Health and Addiction Treatment Current/Past substance abuse? No Current/Past addictive behavior concerns? No Medical and Physical Health Summary Physical exam in the last year? Yes Pain Screening Current pain? Yes Pain in the last few months? Yes Comments fracture in her feet. Medications Is the patient compliant with medications? Yes Does the patient have Roque Guardian in place? Not applicable Does the patient use complimentary health approaches? No Trauma/Abuse History History of trauma? No Assessment & Plan Assessment & Plan (1) Depression: Code(s): F32.A - Depression, unspecified (2) Obesity: Comment: working with weight management program Code(s): E66.9 - Obesity, unspecified Qualifiers: Obesity type: due to excess calories Obesity classification: adult class 2 (BMI 35 - 39.9) Serious obesity comorbidity presence: without serious comorbidity Body mass index: BMI 35.0-35.9 Qualified Code(s): E66.09 - Other obesity due to excess calories; Z68.35 - Body mass index [BMI] 35.0-35.9, adult Plan Pt struggles in the program with exercise, sticking to meal plan, missing appts, also negative mindset. She would not be appropriate for surgery at this time. Telehealth Telehealth Location of provider rendering services: other Location of patient: other Patient Identification confirmed using: Name, : Yes Telehealth method: voice only Patient verbally consented to treatment: Yes Patient verbally consented to billing insurance company: Yes Patient informed of any privacy concerns related to visit: Yes Minutes spent on Phone/Video with Pt.: 30 Coding Level of Care Code Tele Psytx 30 mins ([id number]) Diagnoses Depression F32.A Class 2 obesity due to excess calories without serious comorbidity with body mass index (BMI) of 35.0 to 35.9 in adult E66.09; Z68.35 Obesity type: due to excess calories Obesity classification: adult class 2 (BMI 35 - 39.9) Serious obesity comorbidity presence: without serious comorbidity Body mass index: BMI 35.0-35.9 Time Spent (min) 30
== END 2024-01-16 10:30 | disposition home or self-care (01) ==
PROVIDERS: PCP Physician Assistant; Visit Provider Counselor Mental Health
DX: F32.A Depression, unspecified (principal); E66.09 Other obesity due to excess calories; Z68.35 Body mass index [BMI] 35.0-35.9, adult
CPT/HCPCS: 99499

== ENCOUNTER → 2024-01-16 09:28 | Outpatient (BNVA) | payer OTHER, SELFPAY | PROVIDERS: PCP Physician Assistant; Visit Provider Counselor Mental Health ==

== ENCOUNTER → 2024-01-27 09:29 | Outpatient (BNVA) | payer OTHER, SELFPAY | PROVIDERS: PCP Physician Assistant; Visit Provider Physician Assistant ==

== ENCOUNTER 2024-02-07 10:13 | Outpatient (AMB) | payer OTHER, SELFPAY ==
--- NOTE | 2024-02-07 10:43 | MHC.WMTHER ---
Intake Intake Visit Reasons: (TV) BH F/U Allergies iodine [IODINE] Allergy (Severe, Verified 02/24/24 08:38) ANAPHYLAXIS Penicillins [PENICILLINS] Allergy (Severe, Verified 02/24/24 08:38) DIFFICULTY BREATHING,HIVES penicillin V Allergy (Unknown, Verified 02/24/24 08:38) anaphylaxis,rash vancomycin Allergy (Unknown, Verified 02/24/24 08:38) rash, itching Iodine Tincture Allergy (Unknown, Uncoded 02/24/24 08:38) Unknown nylon Allergy (Unknown, Uncoded 02/24/24 08:38) Unknown [facility] Medical History (Updated 12/20/23 @ 12:53 by Radha Narvaez) Hyperlipidemia Vitamin D deficiency Smoker Anxiety and depression Asthma Potential exposure to STD Depression BMI 39.0-39.9,adult Type 2 diabetes mellitus Legal blindness Coronary artery calcification seen on CAT scan Breast CA Obesity Chest pain Surgical History History of left mastectomy S/P lumpectomy, right breast H/O right breast biopsy Hx of section Family History Father HTN (hypertension) Anxiety Depression Cancer Diabetes Mother CVD (cardiovascular disease) Social History Housing: Apartment Alcohol intake: never Patient Tobacco Use Status: Former Tobacco user Tobacco use type: Cigarette e-Cigarette/Vaping Use: Never Used service: No Current occupational status: disabled Current occupational exposures/hazards: No Gender identity: Female Cognitive needs: No Hearing needs: No Vision needs: No Female Reproductive History Menstrual Age of Menarche: 11 Behavioral Health Assessment Weight Management Therapy Therapy Notes Details Patient reported today she is now sick and was going to cancel this appointment. She continues to want surgery however not exercising or following meal plan exactly. Pt is looking to have weight loss surgery to help improve her health and quality. She reported being a diabetic and having heart problems. Pt reported no hx of problems with drugs or alcohol. She was in therapy in the past however not currently. Presenting Concerns Referral Source provider Reason for referral weight loss surgery evaluation Precipitating Event obesity Living Situation Current Living Situation Rent At risk of losing current housing? No Satisfied with current living situation? Yes Comments Pt lives on a second floor apartment with her 9 year old son. She reported being very unhappy there. Food/Weight/Diet Expectations of change weight loss and maintenance History/Relationship with food One meal a day previously, protein, salad, brown rice, soda when she goes out to eat (twice a week), often craves sweets or chips. History/Relationship with weight Pt stated that prior to breast cancer diagnosis in 2018, she was not struggling with her weight. History/Relationship with dieting Pt stated that she lost 30lbs last year but not in a healthy way . She started to smoke and drink coffee due to stress and was not eating. Social History Family history and relationship Pt was born and raised in this area by her parents who are both living and she has two brothers. Childhood was okay and often heard yelling, screaming, swearing by her father which is now how she is. Pt reported that she lost her first baby when she was 34 years old in utero. 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 Cultural/Ethnic information Legal Involvement and History Current or historical involvement with the legal system? none known Education Preferred learning style Auditory, Verbal, Written, Learn by doing and Visual Currently enrolled in educational program? No Interested in further educational program? No Employment Employment Status Unemployed Wants help to find employment? No Financial Situation Describe current financial situation Occasional struggle Financial assistance? Food [place] and SSDI Service Service? No Mental Health and Addiction Treatment Current/Past substance abuse? No Current/Past addictive behavior concerns? No Medical and Physical Health Summary Physical exam in the last year? Yes Pain Screening Current pain? Yes Pain in the last few months? Yes Comments fracture in her feet. Medications Is the patient compliant with medications? Yes Does the patient have Roque Guardian in place? Not applicable Does the patient use complimentary health approaches? No Trauma/Abuse History History of trauma? No Assessment & Plan Assessment & Plan (1) Depression: Code(s): F32.A - Depression, unspecified (2) Obesity: Comment: working with weight management program Code(s): E66.9 - Obesity, unspecified Qualifiers: Obesity type: due to excess calories Obesity classification: adult class 2 (BMI 35 - 39.9) Serious obesity comorbidity presence: without serious comorbidity Body mass index: BMI 35.0-35.9 Qualified Code(s): E66.09 - Other obesity due to excess calories; Z68.35 - Body mass index [BMI] 35.0-35.9, adult Plan Pt struggles in the program with exercise, sticking to meal plan, missing appts, also negative mindset. Telehealth Telehealth Location of provider rendering services: other Location of patient: address on file Patient Identification confirmed using: Name, : Yes Telehealth method: voice only Patient verbally consented to treatment: Yes Patient verbally consented to billing insurance company: Yes Patient informed of any privacy concerns related to visit: Yes Minutes spent on Phone/Video with Pt.: 20 Coding Level of Care Code Tele Psytx 30 mins ([id number]) Diagnoses Depression F32.A Class 2 obesity due to excess calories without serious comorbidity with body mass index (BMI) of 35.0 to 35.9 in adult E66.09; Z68.35 Obesity type: due to excess calories Obesity classification: adult class 2 (BMI 35 - 39.9) Serious obesity comorbidity presence: without serious comorbidity Body mass index: BMI 35.0-35.9 Time Spent (min) 25
== END 2024-02-07 10:43 | disposition home or self-care (01) ==
LOC: HO.HBST 10:13
PROVIDERS: PCP Physician Assistant; Visit Provider Counselor Mental Health
DX: F32.A Depression, unspecified (principal); E66.09 Other obesity due to excess calories; Z68.35 Body mass index [BMI] 35.0-35.9, adult
CPT/HCPCS: 90832

== ENCOUNTER → 2024-02-07 10:13 | Outpatient (BNVA) | payer OTHER, SELFPAY | PROVIDERS: PCP Physician Assistant; Visit Provider Counselor Mental Health ==

== ENCOUNTER → 2024-02-10 08:29 | Outpatient (BNVA) | payer OTHER, SELFPAY | PROVIDERS: PCP Physician Assistant; Visit Provider Physician Assistant Surgical ==

== ENCOUNTER 2024-02-24 08:29 | Outpatient (AMB) | payer OTHER, SELFPAY ==
--- NOTE | 2024-02-24 08:35 | A.OFFVIS_ITS ---
VS Expanded 02/24/24 08:43 BP 142/88 H Blood Pressure Location Rt brachial Blood Pressure Position Sitting Pulse 100 Pulse Source Pulse Oximeter Temp 97.1 F Temperature Source Tympanic Pulse Oximetry 94 Oxygen Delivery Method Room Air Height 5 ft 3.5 in Weight 201 lb 6.4 oz BMI 35.1 Body Fat % 44.1 Body Fat Mass 88.8 Fat Free Mass 112.4 Visceral Fat Rating 11.0 Body Water % 39.8 Body Water Mass 80.0 Muscle Mass/Score 106.8 Basal Metabolic Rate/Score 1,575 Intake Visit Reasons: OV Follow Up SWL Allergies iodine [IODINE] Allergy (Severe, Verified 02/24/24 08:38) ANAPHYLAXIS Penicillins [PENICILLINS] Allergy (Severe, Verified 02/24/24 08:38) DIFFICULTY BREATHING,HIVES penicillin V Allergy (Unknown, Verified 02/24/24 08:38) anaphylaxis,rash vancomycin Allergy (Unknown, Verified 02/24/24 08:38) rash, itching Iodine Tincture Allergy (Unknown, Uncoded 02/24/24 08:38) Unknown nylon Allergy (Unknown, Uncoded 02/24/24 08:38) Unknown HPI Comments Details: We talked about the issues that have hindered her progress and we will address them today [facility] Medical History (Updated 12/20/23 @ 12:53 by Radha Narvaez) Hyperlipidemia Vitamin D deficiency Smoker Anxiety and depression Asthma Potential exposure to STD Depression BMI 39.0-39.9,adult Type 2 diabetes mellitus Legal blindness Coronary artery calcification seen on CAT scan Breast CA Obesity Chest pain Surgical History History of left mastectomy S/P lumpectomy, right breast H/O right breast biopsy Hx of section Family History Father HTN (hypertension) Anxiety Depression Cancer Diabetes Mother CVD (cardiovascular disease) Social History Housing: Apartment Alcohol intake: never Patient Tobacco Use Status: Former Tobacco user Tobacco use type: Cigarette e-Cigarette/Vaping Use: Never Used service: No Current occupational status: disabled Current occupational exposures/hazards: No Gender identity: Female Cognitive needs: No Hearing needs: No Vision needs: No Female Reproductive History Menstrual Age of Menarche: 11 Physical Exam Vital Signs: Last Vital Signs Temp 97.1 F 02/24/24 08:43 Pulse 100 02/24/24 08:43 BP 142/88 H 02/24/24 08:43 Pulse Ox 94 02/24/24 08:43 Oxygen Delivery Method Room Air 02/24/24 08:43 BMI result Body Mass Index 35.1 GI Inspection: Yes normal to inspection and Yes obesity Palpation (GI): Firmness to palpation present (GI) Extrem Right lower extremity: normal to inspection Left lower extremity: normal to inspection Assessment & Plan Assessment & Plan (1) Obesity: Comment: working with weight management program Code(s): E66.9 - Obesity, unspecified Category: Medical Qualifiers: Body mass index: BMI 35.0-35.9 Obesity classification: adult class 2 (BMI 35 - 39.9) Obesity type: due to excess calories Serious obesity comorbidity presence: without serious comorbidity Qualified Code(s): E66.09 - Other obesity due to excess calories; Z68.35 - Body mass index [BMI] 35.0-35.9, adult Plan: 1. I asked our nurse Mahesh to work with her and her Contact Center Agent and get a proper blood sugar monitor that connects with a software application so she can be able to read her blood sugar easily. It would be unsafe to attempt to lose weight and develop low blood sugars that cannot be easily monitored and addressed 2. She will send me pictures of the protein bars she can get with food stamps so I can help her select the right one 3. She will buy the [employer] body composition scale so we can easily monitor her progress weekly 4. she will have her son help her track the calories she kim at the treadmill. The goal is to use the treadmill at a stable speed of 2.8 mph without incline. Once she measures how much time she needs to burn 300 calories, she could put an alarm on her phone to alert her for how long she needs to exercise daily to get to her goal without the need to be able to see as she is legally blind The patient was in agreement with all the above
[2024-02-24 08:43] VITALS: BP 142/88; PULSE 100; TEMP 36.2; O2SAT 94; BMI 35.1
== END 2024-02-24 10:55 | disposition home or self-care (01) ==
PROVIDERS: PCP Physician Assistant; Visit Provider Surgery
DX: E66.09 Other obesity due to excess calories (principal); Z68.35 Body mass index [BMI] 35.0-35.9, adult
CPT/HCPCS: 99214

== ENCOUNTER → 2024-02-24 08:29 | Outpatient (BNVA) | payer OTHER, SELFPAY | PROVIDERS: PCP Physician Assistant; Visit Provider Surgery | DX: E66.9 Obesity, unspecified (principal); Z68.35 Body mass index [BMI] 35.0-35.9, adult | CPT/HCPCS: 99212 ==

== ENCOUNTER 2024-03-21 09:25 | Outpatient (AMB) | payer OTHER, SELFPAY ==
[2024-03-21 09:43] VITALS: BP 134/90; PULSE 80; O2SAT 98
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
== END 2024-03-21 10:16 | disposition home or self-care (01) ==
PROVIDERS: PCP Physician Assistant; Visit Provider Physician Assistant
DX: E11.65 Type 2 diabetes mellitus with hyperglycemia (principal); F33.1 Major depressive disorder, recurrent, moderate; E66.09 Other obesity due to excess calories; Z68.35 Body mass index [BMI] 35.0-35.9, adult; E78.2 Mixed hyperlipidemia; M54.16 Radiculopathy, lumbar region
CPT/HCPCS: 83036; 99214

== ENCOUNTER 2024-03-21 10:31 | Outpatient (REF) | payer OTHER, SELFPAY ==
[2024-03-21 10:50] LABS: Hematocrit 40.7 % (37.0-47.0); Hemoglobin 14.2 g/dl (12.0-16.0); Mean Corpuscular HGB Conc 34.9 g/dl (31.0-35.0); Mean Corpuscular Volume 88.9 fL (80.0-98.0); Mean Platelet Volume 10.1 fL (9.4-12.3); Platelet Count 261 X10*3/uL (160-400); Red Blood Count 4.58 X10*6/uL (4.20-5.50); Red Cell Distribution Width 11.7 % (11.0-16.0); White Blood Count 7.2 X10*3/uL (4.8-10.8)
[2024-03-21 11:03] LABS: Alanine Aminotransferase 18 U/L (0-31); Albumin Level 4.6 g/dL (3.5-5.0); Alkaline Phosphatase 76 U/L (39-117); Anion Gap 14 (12-20); Aspartate Amino Transferase 20 U/L (5-31); Bilirubin Total 0.4 mg/dL (0.0-1.0); Blood Urea Nitrogen 12 mg/dL (9-16); Calcium 9.9 mg/dL (8.4-10.2); Carbon Dioxide 23 mmol/L (22-29); Chloride 109 mmol/L (96-108); Cholesterol 130 mg/dL (<200); Estimated Glomerular Filt Rate > 60; Glucose Fasting 87 mg/dL (60-99); HDL Cholesterol 42 mg/dL (>40); LDL Cholesterol Calculated 71 mg/dL (<100); Potassium 3.9 mmol/L (3.3-5.1); Sodium 142 mmol/L (135-145); Total Protein 7.9 g/dL (6.5-8.0); Triglycerides 87 mg/dL (<150)
[2024-03-21 12:48] LABS: Creatinine Urine 179.31 mg/dL; Microalbum/Creatinine Ratio Ur 11.1 ug/mg cr (<30)
== END 2024-03-21 10:32 | disposition home or self-care (01) ==
LOC: HO.LAB 10:31
PROVIDERS: PCP Physician Assistant; Visit Provider Physician Assistant
DX: E78.2 Mixed hyperlipidemia (principal); E11.65 Type 2 diabetes mellitus with hyperglycemia
CPT/HCPCS: 36415; 80053; 80061; 82043; 82570; 85027

== ENCOUNTER → 2024-03-29 08:33 | Outpatient (BNVA) | payer OTHER, SELFPAY | PROVIDERS: PCP Physician Assistant; Visit Provider Nurse Practitioner Family | DX: M54.16 Radiculopathy, lumbar region (principal); M25.551 Pain in right hip; M25.552 Pain in left hip; M47.817 Spondylosis without myelopathy or radiculopathy, lumbosacral region | CPT/HCPCS: 99202 ==

== ENCOUNTER 2024-03-29 09:24 | Outpatient (AMB) | payer OTHER, SELFPAY ==
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
[2024-03-29 09:01] VITALS: BP 134/76; PULSE 88; O2SAT 99; BMI 34.6
== END 2024-03-29 09:36 | disposition home or self-care (01) ==
PROVIDERS: PCP Physician Assistant; Visit Provider Nurse Practitioner Family
DX: M54.16 Radiculopathy, lumbar region (principal); M25.551 Pain in right hip; M25.552 Pain in left hip; M47.817 Spondylosis without myelopathy or radiculopathy, lumbosacral region
CPT/HCPCS: 99204

== ENCOUNTER → 2024-04-12 08:25 | Outpatient (BNVA) | payer OTHER, SELFPAY | PROVIDERS: PCP Physician Assistant; Visit Provider Physician Assistant Surgical ==

== ENCOUNTER 2024-05-01 08:26 | Outpatient (AMB) | payer OTHER, SELFPAY ==
--- NOTE | 2024-05-01 08:32 | MHC.OFFVIS ---
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 Present Allergies iodine [IODINE] Allergy (Severe, Verified 05/01/24 08:35) ANAPHYLAXIS Penicillins [PENICILLINS] Allergy (Severe, Verified 05/01/24 08:35) DIFFICULTY BREATHING,HIVES penicillin V Allergy (Unknown, Verified 05/01/24 08:35) anaphylaxis,rash vancomycin Allergy (Unknown, Verified 05/01/24 08:35) rash, itching Iodine Tincture Allergy (Unknown, Uncoded 05/01/24 08:35) Unknown nylon Allergy (Unknown, Uncoded 05/01/24 08:35) Unknown Medication List - Last Reconciled 05/01/24 by SALINA PulliamC albuterol sulfate 0.63 mg (3 mL) inhalation QID PRN albuterol sulfate 90 mcg/actuation 1 inh inhalation QID PRN aspirin (Adult Low Dose Aspirin) 81 mg PO DAILY 90 days baclofen 10 mg PO BID 30 days blood-glucose meter ([place] Glucose Meter kit) As directed blood-glucose meter,continuous (FreeStyle [place] 3 Sparks) As directed blood-glucose sensor (FreeStyle [place] 3 Sensor device) As directed Breo Ellipta 200-25 mcg/dose (fluticasone furoate-vilanterol) 1 inh inhalation DAILY 30 days NS cholecalciferol (vitamin D3) 50 mcg PO DAILY 90 days ciclopirox 0.77% 1 appl topical BID 4 weeks fluticasone propionate 50 mcg/actuation (Flonase Allergy Relief) 2 sprays intranasal DAILY loratadine 10 mg PO DAILY mecobalamin (vitamin B12) 1,000 mcg sublingual DAILY metformin 1,000 mg PO BID naproxen 500 mg PO BID PRN rosuvastatin (Crestor) 5 mg PO DAILY 90 days semaglutide (Ozempic) 1 mg (0.75 mL) subcut QWEEK 4 weeks HPI HPI r/s 03/13/24 1 year followup w/ekg: Details: Rosa is a 49-year-old female with past medical history of breast cancer, legally blind, hyperlipidemia, diabetes, coronary atherosclerosis on CT scan, mild coronary calcifications on CTA, smoking who presents for follow-up. Today she reports that she has been experiencing ongoing discomfort in her left breast. She has an implant in place and reports tenderness to palpation around the entire breast. She has no chest discomfort that is worse with walking or stair climbing. No shortness of breath, dizziness, presyncope, syncope, PND, orthopnea or edema. She has been working on weight loss. She was following with the bariatric program but was declined surgery due to not following rules according to her. She takes her meds as directed. [facility] Medical History Hyperlipidemia Vitamin D deficiency Smoker Anxiety and depression Asthma Potential exposure to STD Depression BMI 39.0-39.9,adult Type 2 diabetes mellitus Legal blindness Coronary artery calcification seen on CAT scan Breast CA Obesity Chest pain Surgical History History of left mastectomy S/P lumpectomy, right breast H/O right breast biopsy Hx of section Family History Father HTN (hypertension) Anxiety Depression Cancer Diabetes Mother CVD (cardiovascular disease) Social History Housing: Apartment Alcohol intake: never Patient Tobacco Use Status: Former Tobacco user Tobacco use type: Cigarette e-Cigarette/Vaping Use: Never Used service: No Current occupational status: disabled Current occupational exposures/hazards: No Gender identity: Female Cognitive needs: No Hearing needs: No Vision needs: No Female Reproductive History Menstrual Age of Menarche: 11 Review of Systems Const All systems reviewed & are unremarkable except as noted in HPI and below ENT Denies dizziness Card Reports chest pain (pain left breast), Denies chest pain at rest, Denies chest pain with activity, Denies rapid heart rate, Denies pedal edema, Denies edema, Denies leg edema, Denies lightheadedness, Denies palpitations, Denies dyspnea, Denies dyspnea on exertion and Denies orthopnea Resp Denies cough, Denies dyspnea and Denies dyspnea on exertion GI Denies hematochezia and Denies change in stool character Musc Denies abnormal gait, Denies limited range of motion, Denies muscle cramps, Denies muscle weakness, Denies numbness, Denies radiating pain into limb, Denies stiffness and Denies tingling Neuro Denies abnormal gait, Denies dizziness, Denies numbness and Denies tingling Endo Denies palpitations Physical Exam Vital Signs: Last Vital Signs Pulse 92 05/01/24 08:33 BP 132/90 H 05/01/24 08:33 BMI result Body Mass Index 34.6 Const General: cooperative, healthy appearing, comfortable and no acute distress Orientation/consciousness: patient oriented x3 Neck Neck: Yes normal visual inspection Resp Effort & Inspection: normal respiratory effort Auscultation: clear to auscultation bilaterally, no crackles, no rales, no rhonchi and no wheezes Cardio Jugular venous distension: no JVD Rate: regular rate Rhythm: regular rhythm Heart sounds: S1 normal heart sound present, S2 normal heart sound present, no murmurs and no rubs Neuro General: patient oriented x3 Extrem General: Yes normal to inspection and No no pedal edema Psych Appearance: grossly normal Mental Status: mental status grossly normal Speech and movement: Normal speech and movement present Office Procedures EKG Details: Today, read by me, normal sinus rhythm, no acute ST or T-wave abnormalities, rate 92, QTC 420 milliseconds [id number], Complete Assessment & Plan Assessment & Plan (1) Chest pain: Code(s): R07.9 - Chest pain, unspecified Category: Medical Qualifiers: Chest pain type: precordial pain Qualified Code(s): R07.2 - Precordial pain Plan: Patient has reports of left chest discomfort, nonexertional, reproducible with palpation around left breast region. This is atypical for angina. Does have risk factors of obesity, chest radiation 4 years ago, prior smoking. Priort chest CT showed mild coronary calcifications. Echocardiogram 10/17/20 shows EF 55-60%, no valve abnormality and no regional wall motion abnormality. Nuclear stress test 10/17/20 is equivocal for distal anterior ischemia. A CTA of the coronary arteries was done on 02/18/2023 showing minimal nonobstructive CAD. EKG today shows sinus rhythm with no acute ST or T-wave abnormalities, rate 92. She is taking a daily aspirin and low-dose statin. Previously reluctant to use statin due to history of liver issues with tamoxifen. Labs done on 03/21/2024 shows LDL 71 , AST 20, ALT 18. Today she reports no anginal sounding symptoms. She continues to have left breast discomfort. She plans to discuss with her plastic surgeon and oncologist. She still has a breast industrial maintenance repairer helper in place, and has never completed the full surgical procedure for breast reconstruction.. s/s of true angina reviewed. Cardiology follow-up for nonobstructive CAD in 1 year, sooner if needed. (2) Coronary artery calcification seen on CAT scan: Code(s): I25.10 - Atherosclerotic heart disease of mcgrath coronary artery without angina pectoris Category: Medical Plan: As above (3) Abnormal nuclear stress test: Code(s): R94.39 - Abnormal result of other cardiovascular function study Category: Medical Plan: As above (4) Obesity: Comment: working with weight management program Code(s): E66.9 - Obesity, unspecified Category: Medical Qualifiers: Body mass index: BMI 35.0-35.9 Obesity classification: adult class 2 (BMI 35 - 39.9) Obesity type: due to excess calories Serious obesity comorbidity presence: without serious comorbidity Qualified Code(s): E66.09 - Other obesity due to excess calories; Z68.35 - Body mass index [BMI] 35.0-35.9, adult Plan: She is working on weight loss. (5) Breast CA: Comment: Right breast lumpectomy, left breast masectomy - currently has tissue industrial maintenance repairer helper in place (11/2020) Code(s): C50.919 - Malignant neoplasm of unspecified site of unspecified female breast Category: Medical Qualifiers: Breast location: unspecified site of breast Estrogen receptor status: positive Laterality: bilateral Patient sex: female Qualified Code(s): C50.911 - Malignant neoplasm of unspecified site of right female breast; C50.912 - Malignant neoplasm of unspecified site of left female breast; Z17.0 - Estrogen receptor positive status [ER+] Plan: Bilateral breast CA with sugical resection, prior radiation. Follows with Dr Carlisle for oncology. Being monitored at present time. Patient Instructions: Time spent on chart review, documentation, interview and assessment Coding Level of Care Code Est Pt Level 3 (37700) Diagnoses Precordial pain R07.2 Chest pain type: precordial pain Coronary artery calcification seen on CAT scan I25.10 Abnormal nuclear stress test R94.39 Class 2 obesity due to excess calories without serious comorbidity with body mass index (BMI) of 35.0 to 35.9 in adult E66.09; Z68.35 Body mass index: BMI 35.0-35.9 Obesity classification: adult class 2 (BMI 35 - 39.9) Obesity type: due to excess calories Serious obesity comorbidity presence: without serious comorbidity Bilateral malignant neoplasm of breast in female, estrogen receptor positive, unspecified site of breast C50.911; C50.912; Z17.0 Breast location: unspecified site of breast Estrogen receptor status: positive Laterality: bilateral Patient sex: female CPT Codes EKG - CPT: [id number], Complete ([id number]) Time Spent (min) 24
[2024-05-01 08:33] VITALS: BP 132/90; PULSE 92; BMI 34.6
== END 2024-05-01 09:08 | disposition home or self-care (01) ==
PROVIDERS: PCP Physician Assistant; Visit Provider Nurse Practitioner Family
DX: R07.2 Precordial pain (principal); I25.10 Atherosclerotic heart disease of native coronary artery without angina pectoris; R94.39 Abnormal result of other cardiovascular function study; E66.09 Other obesity due to excess calories; Z68.35 Body mass index [BMI] 35.0-35.9, adult; C50.911 Malignant neoplasm of unspecified site of right female breast; C50.912 Malignant neoplasm of unspecified site of left female breast; Z17.0 Estrogen receptor positive status [ER+]
CPT/HCPCS: 93010; 99213

== ENCOUNTER → 2024-05-01 08:26 | Outpatient (BNVA) | payer OTHER, SELFPAY | PROVIDERS: PCP Physician Assistant; Visit Provider Nurse Practitioner Family | DX: R07.2 Precordial pain (principal); I25.10 Atherosclerotic heart disease of native coronary artery without angina pectoris; I10 Essential (primary) hypertension; R94.39 Abnormal result of other cardiovascular function study; E66.09 Other obesity due to excess calories; C50.912 Malignant neoplasm of unspecified site of left female breast; C50.911 Malignant neoplasm of unspecified site of right female breast; Z68.34 Body mass index [BMI] 34.0-34.9, adult; Z17.0 Estrogen receptor positive status [ER+] | CPT/HCPCS: 93005; 99212 ==

== ENCOUNTER → 2024-07-06 09:00 | Outpatient (BNV) | payer OTHER, SELFPAY | PROVIDERS: PCP Physician Assistant; Visit Provider Internal Medicine | DX: Z12.31 Encounter for screening mammogram for malignant neoplasm of breast (principal) | CPT/HCPCS: 77063; 77067 ==

== ENCOUNTER 2024-07-06 09:24 | Outpatient (REF) | payer OTHER, SELFPAY ==
--- NOTE | ~2024-07-06 | MM_ITS ---
EXAMINATION: MM SCREENING DIGITAL BREAST TOMOSYNTHESIS, BILATERAL CLINICAL INFORMATION: Screening. Asymptomatic. Left mastectomy. History of right breast cancer status post lumpectomy in 2017. COMPARISON: Mammography: This study is compared with prior exams dating back to TECHNIQUE: Digital breast tomosynthesis is performed in both the craniocaudal and mediolateral oblique views along with computer-aided detection (CAD). Synthesized 2D images are generated from the tomosynthesis. FINDINGS: There are scattered areas of fibroglandular density (ACR BI-RADS breast composition Category b). Right: Asymmetry lateral breast posterior depth on CC view with associated questioned architectural distortion. Post lumpectomy changes are stable. Circumscribed oval mass central outer breast stable back to 2018. No suspicious calcifications or other abnormal findings. MM/MM tomosynthesis screening RT IMPRESSION: Right breast asymmetry. Additional imaging and ultrasound recommended at this time. ASSESSMENT: BI-RADS BI-RADS 0 - Incomplete: Needs additional Imaging. RECOMMENDATION: 1. Additional views of the right breast 2. Targeted ultrasound if warranted after review of the additional views. 3. Radiology department staff will contact the patient for additional imaging. Additional Imaging required This examination should not preclude the clinical evaluation of a suspicious palpable abnormality. This patient's information was entered into a reminder system with a target due date for their next mammogram. Electronically signed by: Edwina Kaur DO 07/27/2024 10:32 PM EDT
== END 2024-07-06 09:25 | disposition home or self-care (01) ==
LOC: HO.MAMMO 09:24
PROVIDERS: PCP Physician Assistant; Visit Provider Internal Medicine
DX: Z12.31 Encounter for screening mammogram for malignant neoplasm of breast (principal)
CPT/HCPCS: 77063; 77067

== ENCOUNTER 2024-07-18 12:57 | Outpatient (AMB) | payer OTHER, SELFPAY ==
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
[2024-07-18 13:09] VITALS: BP 102/74; PULSE 105; O2SAT 96; BMI 33.7
== END 2024-07-18 13:56 | disposition home or self-care (01) ==
PROVIDERS: PCP Physician Assistant; Visit Provider Physician Assistant
DX: E11.65 Type 2 diabetes mellitus with hyperglycemia (principal)
CPT/HCPCS: 83036; 99396

== ENCOUNTER 2024-08-08 08:29 | Outpatient (REF) | payer OTHER, SELFPAY ==
--- NOTE | ~2024-08-08 | US_ITS ---
EXAMINATION:US PELVIS TRANSABDOMINAL AND TRANSVAGINAL CLINICAL INFORMATION: pelvic pain COMPARISON: No priors available. LMP: November 19, 2021 FINDINGS: UTERUS: The uterus is anteverted. Size: 6.9 x 2.3 x 3.2 cm. Uterine mass: Intramural uterine mass likely fibroid 1.3 x 1.1 x 1.2 cm not significantly changed allowing for interobserver variability. Cervix: Grossly unremarkable. Endometrium: No ultrasound evidence of endometrial lesion. endometrial thickness measures 0.2 cm ADNEXA: Normal Right ovary: Normal in size. Punctate calcification in the right ovary probably of no clinical significance Left ovary: Normal in size. Doppler exam: Normal Doppler flow identified in both ovaries. FREE FLUID: Trace amount of free fluid. OTHER FINDINGS: None US/US pelvic and transvaginal IMPRESSION: Redemonstration of intramural uterine mass likely fibroid 1.3 cm not significantly changed allowing for interobserver variability. Electronically signed by: Cholo Blanton MD 09/20/2024 07:29 AM [facility] [place]
--- NOTE | ~2024-08-08 | MM_ITS ---
EXAMINATION: MM DIAGNOSTIC DIGITAL BREAST TOMOSYNTHESIS, RIGHT CLINICAL INFORMATION: Diagnostic exam to evaluate asymmetry lateral breast posterior depth on CC projection. Patient has history of left mastectomy for breast CA, and also history of right breast cancer status post lumpectomy in 2017. COMPARISON: Mammography: 07/06/2024, 11/12/2022, 09/17/2021, 11/29/2019, 06/21/2019, and exams dating to 2018. TECHNIQUE: Digital breast tomosynthesis is performed in the following views: Full field digital right 3-D ML view, as well as 3-D spot compression right CC views x2. Computer-aided diagnosis was used for this study. FINDINGS: There are scattered areas of fibroglandular density (ACR BI-RADS breast composition Category b). On spot compression views, 1 view asymmetry on the lateral posterior cc view effaces completely, and on review of prior exams and current exam is consistent with superimposition artifact of overlapping tissues. There is no persistent suspicious abnormality. There is no correlate on the right MLO view. There is a stable circumscribed oval mass central outer breast, and smaller upper outer breast, both stable from 2018. These are benign. Postlumpectomy scarring again noted with treatment-related changes and mild skin thickening ventrally. MM/MM tomosynthesis added views R IMPRESSION: 1. There are no persistent findings suspicious for malignancy. 2. There are findings are stable from prior exams 3. Recommend the patient resume routine annual screening right breast. ASSESSMENT: BI-RADS BI-RADS 2 - Benign Findings RECOMMENDATION: 1 year F/U Results were provided to the patient at time of visit by the technologist. This patient's information was entered into a reminder system with a target due date for their next mammogram. Electronically signed by: Miky Finnegan MD 08/08/2024 09:15 AM EDT
== END 2024-08-08 08:30 | disposition home or self-care (01) ==
LOC: HO.MAMMO 08:29
PROVIDERS: PCP Physician Assistant; Visit Provider Obstetrics & Gynecology Gynecology
DX: R10.2 Pelvic and perineal pain (principal); N83.11 Corpus luteum cyst of right ovary; N63.11 Unspecified lump in the right breast, upper outer quadrant; Z85.3 Personal history of malignant neoplasm of breast; Z90.12 Acquired absence of left breast and nipple
CPT/HCPCS: 76830; 76856; 77061; 77065

== ENCOUNTER → 2024-08-08 08:30 | Outpatient (BNV) | payer OTHER, SELFPAY | PROVIDERS: PCP Physician Assistant; Visit Provider Radiology Diagnostic Radiology | DX: R92.8 Other abnormal and inconclusive findings on diagnostic imaging of breast (principal) | CPT/HCPCS: 77065; G0279 ==

== ENCOUNTER 2024-09-03 15:33 | Emergency (ER) | payer OTHER, SELFPAY ==
--- NOTE | ~2024-09-03 | XR_ITS ---
EXAMINATION: XR BILATERAL HIPS WITH AP PELVIS CLINICAL INFORMATION: Pain. COMPARISON: None available. TECHNIQUE: AP view of the pelvis and 2 views of each hip were obtained. FINDINGS: No acute abnormality. No fracture or bone destruction. No focal bone lesion. Prominence of the superior lateral rim of the acetabula bilaterally. This may be developmental versus degenerative. XR/XR hips RANJIT min 3V IMPRESSION: 1. No acute abnormality. 2. Prominence of the superior lateral rim of the acetabula bilaterally. This may be developmental versus degenerative. Electronically signed by: Leonidas Tony MD 09/03/2024 04:55 PM EDT
[2024-09-03 15:37] VITALS: BP 155/94; PULSE 83; RESP 16; TEMP 36.3; O2SAT 97; BMI 34.9
--- NOTE | 2024-09-03 15:37 | ED.LOWEXIN ---
HPI - Extremity Injury (Lower) General Chief Complaint: General Medical Stated Complaint: Hip pain Time Seen by Provider: 09/03/24 18:22 Source: patient, RN notes reviewed and old records reviewed Mode of arrival: ambulatory History of Present Illness ED Provider: Nerissa John PA-C HPI Narrative: 49-year-old female with a past medical history HLD, asthma, anxiety, depression, breast CA s/p left mastectomy, obesity, presenting to the ED complaining of bilateral hip pain beginning on the right side now worse on the left s/p lifting heavy bags and hearing a pop 2 weeks ago. Denies direct injury/trauma or fall. Reports associated pain radiating down bilateral LE. Pain worse with movement and ambulation. Admits to taking baclofen without relief. Denies numbness, tingling, weakness, incontinence, retention, abdominal pain Related Data Previous Rx's ?Medication ?Instructions ?Recorded blood-glucose meter (CamSemi Voice #1 ea 07/21/22 Glucose Meter kit) albuterol sulfate 0.63 mg/3 mL 0.63 mg (3 mL) inhalation QID PRN 12/24/22 solution for nebulization shortness of breath or wheezing #75 mL albuterol sulfate 90 mcg/actuation 1 inh inhalation QID PRN shortness 12/24/22 aerosol inhaler of breath or wheezing #8.5 grams cholecalciferol (vitamin D3) 50 50 mcg PO DAILY 90 days #90 caps 05/24/23 mcg (2,000 unit) capsule ciclopirox 0.77 % topical cream 1 appl topical BID 4 weeks #30 08/02/23 grams Breo Ellipta 200 mcg-25 mcg/dose 1 inh inhalation DAILY 30 days #1 10/06/23 powder for inhalation (fluticasone ea furoate-vilanterol) naproxen 500 mg tablet 500 mg PO BID PRN pain #14 tabs 12/01/23 aspirin 81 mg tablet,delayed 81 mg PO DAILY 90 days #90 tabs 01/19/24 release (Adult Low Dose Aspirin) blood-glucose meter,continuous #1 ea 03/21/24 (FreeStyle [place]) blood-glucose sensor (FreeStyle #1 ea 03/21/24 [place] 3 Sensor device) fluticasone propionate 50 2 spray intranasal DAILY #16 grams 03/21/24 mcg/actuation nasal spray,suspension (Flonase Allergy Relief) loratadine 10 mg tablet 10 mg PO DAILY #90 tabs 03/21/24 rosuvastatin 5 mg tablet (Crestor) 5 mg PO DAILY 90 days #90 tabs 04/11/24 semaglutide 1 mg/dose (4 mg/3 mL) 1 mg (0.75 mL) subcut QWEEK 4 05/11/24 subcutaneous pen injector (Ozempic) weeks #3 mL alcohol pads #1 ea 05/28/24 mecobalamin (vitamin B12) 1,000 1,000 mcg sublingual DAILY #30 tabs 07/02/24 mcg disintegrating tablet,sublingual baclofen 20 mg tablet 20 mg PO BID PRN pain (scale score 07/18/24 7-10) 30 days #60 tabs lactulose 20 gram/30 mL oral 20 g (30 mL) PO DAILY PRN laxative 07/18/24 solution effect 30 days #1,200 mL metformin 1,000 mg tablet 1,000 mg PO ONCE 90 days #90 tabs 07/18/24 omeprazole 20 mg capsule,delayed 20 mg PO DAILY 30 days #30 caps 07/18/24 release pen needle, diabetic 32 gauge x #50 ea 07/18/2432 (BD Ultra-Fine Sheila Pen Needle) acetaminophen 500 mg tablet 500 mg PO Q6H PRN fever or pain 09/03/24 (Tylenol Extra Strength) #14 tabs cyclobenzaprine 5 mg tablet 5 mg PO Q8H PRN pain (scale score 09/03/24 7-10) 5 days #14 tabs lidocaine 5 % topical patch 1 patch topical DAILY PRN pain #30 09/03/24 (Lidoderm) ea naproxen 500 mg tablet 500 mg PO BID PRN pain 10 days #20 09/03/24 tabs Allergies Allergy/AdvReac Type Severity Reaction Status Date / Time iodine [IODINE] Allergy Severe ANAPHYLAXIS Verified 09/03/24 15:39 Penicillins [PENICILLINS] Allergy Severe DIFFICULTY Verified 09/03/24 15:39 BREATHING,HIVES penicillin V Allergy Unknown anaphylaxis Verified 09/03/24 15:39 ,rash vancomycin Allergy Unknown rash, Verified 09/03/24 15:39 itching Iodine Tincture Allergy Unknown Unknown Uncoded 07/18/24 13:23 nylon Allergy Unknown Unknown Uncoded 07/18/24 13:23 Review of Systems Review of Systems: Yes all other systems are reviewed and are negative Constitutional: Constitutional: Reports as per HPI Neurologic: Denies Sensory deficit (Neuro) [facility] Past Medical History Attestation statement: The following information was validated with the patient. Source: old records reviewed Medical History Hyperlipidemia Vitamin D deficiency Smoker Anxiety and depression Asthma Potential exposure to STD Depression BMI 39.0-39.9,adult Type 2 diabetes mellitus Legal blindness Coronary artery calcification seen on CAT scan Breast CA Obesity Chest pain Surgical History History of left mastectomy S/P lumpectomy, right breast H/O right breast biopsy Hx of section Family History Family History Father HTN (hypertension) Anxiety Depression Cancer Diabetes Mother CVD (cardiovascular disease) Parkinson's disease Social History Social History Housing: Apartment Alcohol intake: current Alcohol intake frequency: holidays/special occasions only Patient Tobacco Use Status: Former Tobacco user Tobacco use type: Cigarette e-Cigarette/Vaping Use: Never Used Advance Directives: No Advance Directives Information Provided: No Do you have a plan to hurt others: No Plan service: No Current occupational status: disabled Current occupational exposures/hazards: No Gender identity: Female Cognitive needs: No Hearing needs: No Vision needs: No Physical Exam Vital Signs: Vital Signs: Last Vital Signs Temp 97.8 F 09/03/24 19:28 Pulse 74 09/03/24 19:28 Resp 18 09/03/24 19:28 BP 136/85 09/03/24 19:28 Pulse Ox 94 09/03/24 19:28 O2 Del Method Room Air 09/03/24 19:28 BMI result Body Mass Index 34.9 Const: General: cooperative, healthy appearing and no acute distress Orientation/consciousness: patient oriented x3 Limitations: no limitations HEENT: Head: Yes normal to inspection and Yes atraumatic Ears: hearing grossly normal bilaterally General nose exam: Normal external nose present Face and sinus: Yes normal facial exam Eyes: General: appearance normal, both eyes and all related structures EOM: EOMs intact bilaterally Neck: Neck: Yes normal visual inspection and Yes no meningeal signs Resp: Effort & Inspection: normal respiratory effort and no respiratory distress Cardio: Rate: regular rate GI: Inspection: Yes normal to inspection Palpation (GI): Soft to palpation, nontender, no guarding and not rigid : General: Yes no CVA tenderness Back/Spine/Pelvis: Other: No midline cervical/thoracic/lumbar spinous tenderness/step-off or deformity. + bilateral lumbar paraspinal/MSK reproducible tenderness. No rash or ecchymosis. Back: no CVA tenderness Skin: Rashes: no rashes Wounds: no wounds Neuro: Other: Strength intact throughout. No saddle anesthesia. Sensation intact to light touch. Neurovascular intact distally General: patient oriented x3, tone normal, moves all extremities and no meningeal signs Cranial nerves: Yes CN's II-XII intact bilaterally Gait exam (Neuro): Antalgic gait present Sensory Exam: No Sensory deficit (Neuro) Extrem: Other: Pelvis stable. Bilateral hips without noted deformity. + MSK tenderness. Hip ROM intact. General: Yes normal to inspection Course Course Course Narrative: This is a Rapid Medical Exam performed in triage by Nerissa John PA-C. Full HPI, ROS and PE to be performed by primary ED provider. 49 yo F w/PMHx depression, GERD, HLD, asthma, breast CA, DM, presenting to the ED c/o R hip pain s/p lifting heavy bags and hearing pop x 2 weeks. Admits pain now in L hip, worse with movement. Patient was previous seen at pain management for b/l hip pain. Has been taking Baclofen w//o relief. PE: ambulating w/limping gait. slow gait Plan: XR 182--XR hips RANJIT min 3V IMPRESSION: 1. No acute abnormality. 2. Prominence of the superior lateral rim of the acetabula bilaterally. This may be developmental versus degenerative. Results discussed with patient including worrisome signs and symptoms and strict return precautions, and when to return to the emergency department. They verbalized understanding and feel safe for discharge at this time. Medications Administered Discontinued Medications Generic Name Dose Route Start Last Admin Trade Name Freq PRN Reason Stop Dose Admin Cyclobenzaprine HCl 10 mg 09/03/24 18:28 09/03/24 19:04 Cyclobenzaprine Hcl 10 Mg Tablet PO 09/03/24 18:29 10 mg ONCE ONE Administration Lidocaine 1 patch 09/03/24 18:28 09/03/24 19:04 Lidocaine 4 % Patch Adh..Patch TRANSDERMA 09/03/24 18:29 1 patch ONCE ONE Administration Protocol Naproxen 500 mg 09/03/24 18:28 09/03/24 19:04 Naproxen 500 Mg Tablet PO 09/03/24 18:29 500 mg ONCE ONE Administration Medical Decision Making Medical Decision Making MDM Narrative: 49-year-old female with a past medical history HLD, asthma, anxiety, depression, breast CA s/p left mastectomy, obesity, presenting to the ED complaining of bilateral hip pain beginning on the right side now worse on the left s/p lifting heavy bags and hearing a pop 2 weeks ago. On exam vital signs stable, NAD, nontoxic appearing, no midline spinous tenderness throughout or red flag symptoms. Abdomen soft and nontender. Ambulating with steady antalgic gait. Concern for MSK pain vs strain vs osteoarthritis vs sciatica vs herniated disc. Low suspicion for cauda equina, cord compression, intra-abdominal pathology, septic joint Plan: XR, pain control Please refer to course for remaining clinical decision making, interpretation of labs/imaging results, and discussions with consultants and/or family members. Differential Diagnosis Differential Diagnoses: The differential diagnosis associated with the presentation includes As above Independent Interpretation I performed an independent interpretation of an: Plain X-Ray Radiology Impression Discussion of test interpretation with radiology: I have reviewed the radiologist's reading. External Record Review External record reviewed: Inpatient record, Office record, Outpatient record, Prior outpatient labs, Prior outpatient radiology, Primary care record and Outside ED record Tests considered The following testing was considered but not selected: As above Prescription Management I considered prescription management with: Pain Medication Chronic Conditions Patient?s care impacted by: Other Social Determinants Patient?s care significantly limited by Social Determinants of Health including: Unemployment, Problems related to employment and Other Social Determinant of Health Discharge Plan Discharge Clinical Impression: Hip pain Patient Disposition: Home, Self-Care Instructions: Arthralgia (ED), Hip Pain (ED) Additional Instructions: Your x-ray does not show any acute abnormalities Your pain is likely musculoskeletal Flexeril is a muscle relaxer, take at night as it makes you drowsy, do not drive, drink alcohol, or operate machinery while taking it PLEASE DO NOT TAKE BOTH FLEXERIL AND BACLOFEN. ONLY TAKE 1. THEY ARE THE SAME TYPE OF MEDICATION Naproxen as an anti-inflammatory / pain medication, take with food Lidoderm patches are numbing patches, apply to painful area In addition take Tylenol at home If symptoms persist or worsen, pain becomes unbearable, you developed urinary retention or incontinence, or weakness return to the ED Prescriptions: New acetaminophen [Tylenol Extra Strength] 500 mg tablet 500 mg PO Q6H PRN (Reason: fever or pain) Qty: 14 0RF lidocaine [Lidoderm] 5 % adhesive patch,medicated 1 patch topical DAILY MDD remove after 12 hours PRN (Reason: pain) Qty: 30 0RF Rx Instructions: leave on most painful area for up to 12 hrs naproxen 500 mg tablet 500 mg PO BID PRN (Reason: pain) 10 Days Qty: 20 0RF cyclobenzaprine 5 mg tablet 5 mg PO Q8H PRN (Reason: pain (scale score 7-10)) 5 Days Qty: 14 0RF No Action (DME) blood-glucose meter [CamSemi Voice Glucose Meter] Kit See Rx Instructions .Route Qty: 1 0RF Rx Instructions: As directed ciclopirox 0.77 % cream 1 appl topical BID 28 Days Qty: 30 3RF aspirin [Adult Low Dose Aspirin] 81 mg tablet,delayed release (DR/EC) 81 mg PO DAILY 90 Days Qty: 90 0RF rosuvastatin [Crestor] 5 mg tablet 5 mg PO DAILY 90 Days Qty: 90 1RF Rx Instructions: Get fasting labs 2 months of use Ozempic 1 mg/dose (4 mg/3 mL) pen injector 1 mg subcut QWEEK 28 Days Qty: 3 3RF (DME) alcohol pads See Rx Instructions .Route .MEDSUPPLY Qty: 1 0RF Rx Instructions: As directed mecobalamin (vitamin B12) 1,000 mcg tablet,disintegrating 1,000 mcg sublingual DAILY Qty: 30 3RF Rx Instructions: place tablet under tongue and allow to dissolve for at least30 secs before swallowing albuterol sulfate 0.63 mg/3 mL solution for nebulization 0.63 mg inhalation QID PRN (Reason: shortness of breath or wheezing) Qty: 75 0RF albuterol sulfate 90 mcg/actuation HFA aerosol inhaler 1 inh inhalation QID PRN (Reason: shortness of breath or wheezing) Qty: 8.5 0RF naproxen 500 mg tablet 500 mg PO BID PRN (Reason: pain) Qty: 14 0RF (DME) FreeStyle [place] 3 [place] Misc See Rx Instructions .Route Qty: 1 3RF Rx Instructions: As directed (DME) FreeStyle [place] 3 Sensor Device See Rx Instructions .Route Qty: 1 6RF Rx Instructions: As directed loratadine 10 mg tablet 10 mg PO DAILY Qty: 90 1RF fluticasone propionate [Flonase Allergy Relief] 50 mcg/actuation spray,suspension 2 spray intranasal DAILY Qty: 16 3RF Rx Instructions: administer into each nostril (DME) pen needle, diabetic [BD Ultra-Fine Sheila Pen Needle] 32 gauge x 5/32 needle See Rx Instructions .ROUTE .MEDSUPPLY Qty: 50 1RF Rx Instructions: As directed metformin 1,000 mg tablet 1,000 mg PO ONCE 90 Days Qty: 90 1RF omeprazole 20 mg capsule,delayed release(DR/EC) 20 mg PO DAILY 30 Days Qty: 30 1RF baclofen 20 mg tablet 20 mg PO BID PRN (Reason: pain (scale score 7-10)) 30 Days Qty: 60 2RF lactulose 20 gram/30 mL solution 20 g PO DAILY PRN (Reason: laxative effect) 30 Days Qty: 1200 0RF cholecalciferol (vitamin D3) 50 mcg (2,000 unit) capsule 50 mcg PO DAILY 90 Days Qty: 90 1RF fluticasone furoate-vilanterol [Breo Ellipta] 200-25 mcg/dose blister with device 1 inh inhalation DAILY 30 Days Qty: 1 6RF Referrals: Polo Cobb PA-C [Primary Care Provider] - 3 days Interventions: ED Discharge Assessment Last Done: 09/03/24 19:28 Discharge Date/Time: 09/03/24 19:28 Print Language: [place]itanian
[2024-09-03 18:43] VITALS: BP 136/85; PULSE 74; RESP 18; TEMP 36.6; O2SAT 94
[2024-09-03] MEDS: NaPROXEN 500 MG TABLET PO (19:04)
[2024-09-03] MEDS: Lidocaine 4 % Patch ADH..PATCH 1 PATCH TRANSDERMA (19:04)
[2024-09-03] MEDS: Cyclobenzaprine HCl 10 MG TABLET PO (19:04)
[2024-09-03 19:28] VITALS: BP 136/85; PULSE 74; RESP 18; TEMP 36.6; O2SAT 94
== END 2024-09-03 19:28 | disposition home or self-care (01) ==
PROVIDERS: Emergency Provider Internal Medicine; PCP Physician Assistant
DX: M25.552 Pain in left hip (principal); M25.551 Pain in right hip; Z79.82 Long term (current) use of aspirin; Z79.02 Long term (current) use of antithrombotics/antiplatelets
CPT/HCPCS: 73522; 99283

== ENCOUNTER 2025-01-15 13:59 | Outpatient (AMB) | payer OTHER, SELFPAY ==
--- NOTE | 2025-01-15 14:03 | A.OFFPC_ITS ---
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 Required: No Accompanied by: Self / Same As Patient Allergies iodine [IODINE] Allergy (Severe, Verified 01/15/25 14:20) ANAPHYLAXIS Penicillins [PENICILLINS] Allergy (Severe, Verified 01/15/25 14:20) DIFFICULTY BREATHING,HIVES penicillin V Allergy (Unknown, Verified 01/15/25 14:20) anaphylaxis,rash vancomycin Allergy (Unknown, Verified 01/15/25 14:20) rash, itching Iodine Tincture Allergy (Unknown, Uncoded 01/15/25 14:20) Unknown nylon Allergy (Unknown, Uncoded 01/15/25 14:20) Unknown Medication List - Last Reconciled 01/15/25 by Polo Cobb PA-C acetaminophen (Tylenol Extra Strength) 500 mg PO Q6H PRN albuterol sulfate 90 mcg/actuation 1 inh inhalation QID PRN albuterol sulfate 0.63 mg (3 mL) inhalation QID PRN [alcohol pads As directed] aspirin (Adult Low Dose Aspirin) 81 mg PO DAILY 90 days baclofen 20 mg PO BID PRN 30 days blood-glucose meter ([employer] Business Plan Glucose Meter kit) As directed blood-glucose meter,continuous (FreeStyle [place] 3 [place]) As directed blood-glucose sensor (FreeStyle [place] 3 Sensor device) As directed Breo Ellipta 200-25 mcg/dose (fluticasone furoate-vilanterol) 1 inh inhalation DAILY 30 days NS cholecalciferol (vitamin D3) 50 mcg PO DAILY 90 days ciclopirox 0.77% 1 appl topical BID 4 weeks cyclobenzaprine 5 mg PO Q8H PRN 5 days fluticasone propionate 50 mcg/actuation (Flonase Allergy Relief) 2 sprays intranasal DAILY lactulose 20 grams (30 mL) PO DAILY PRN 30 days lidocaine 5% (Lidoderm) 1 patch topical DAILY PRN MDD remove after 12 hours loratadine 10 mg PO DAILY mecobalamin (vitamin B12) 1,000 mcg sublingual DAILY metformin 1,000 mg PO ONCE 90 days naproxen 500 mg PO BID PRN 10 days omeprazole 20 mg PO DAILY 30 days pen needle, diabetic (BD Ultra-Fine Sheila Pen Needle) As directed rosuvastatin 5 mg PO DAILY 90 days semaglutide (Ozempic) 1 mg (0.75 mL) subcut QWEEK 4 weeks Tobacco use date assessed: 01/15/25 Dental Screening Dental Screen Date: 01/15/25 Did you have a dental visit in the last 12 months?: No Did you have a dental problem in the last 6 months where you did not have access to dental care?: No Was dental information given to patient?: Patient has dentist HPI f/u DMII HPI Details Patient is a 49-year-old female here today for follow-up visit. Patient has a past medical history significant for type 2 diabetes, hyperlipidemia, obesity, visual impairment. Concern--> She reports she has been dealing with lot more depression since a close friend of her diet. She is not interested in starting any medication though asked about any natural supplements she can use to help her mood. Visual impairment: She reports losing her vision nearly 20 years ago and has since continued to being legally blind. .. Obesity: Continues on Ozempic 1 mg. She was out and was Ozempic for a few natividad hs and unfortunately gained weight .. Breast cancer: Patient is status post radiation and lumpectomy on left side. She does report having tissue Fillers though is interested in seeing a plastic s urgeon for silicone breast augmentation. Patient is followed by Oncology and continues on anti hormonal therapy. .. Coronary artery calcifications: Followed by Cardiology, most recent CT coronary arteries showing calcifications, patient has been started on low-dose statin therapy will continue following lipid panel. Otherwise denies any recent episodes of palpitations, shortness of breath or ch est discomforts. She does report trying to be more physically active to help her lose weight. Continues to abstain from cigarette smoking. . Type 2 diabetes: She was started on Ozempic and felt some benefit on weight loss. A1c- today at 5.4. She continues on Ozempic 1 mg weekly and metformin a 1000 b.i.d.. PLAN; Due to her good A1c will try to reduce her metformin to a 1000 mg daily. Continue working on lifestyle and dietary modifications. .. [facility] Medical History Hyperlipidemia Vitamin D deficiency Smoker Anxiety and depression Asthma Potential exposure to STD Depression BMI 39.0-39.9,adult Type 2 diabetes mellitus Legal blindness Coronary artery calcification seen on CAT scan Breast CA Obesity Chest pain Surgical History History of left mastectomy S/P lumpectomy, right breast H/O right breast biopsy Hx of section Family History Father HTN (hypertension) Anxiety Depression Cancer Diabetes Mother CVD (cardiovascular disease) Parkinson's disease Social History Housing: Apartment Alcohol intake: current Alcohol intake frequency: holidays/special occasions only Patient Tobacco Use Status: Former Tobacco user Tobacco use type: Cigarette e-Cigarette/Vaping Use: Never Used Second Hand Smoke Exposure: No service: No Current occupational status: disabled Current occupational exposures/hazards: No Gender identity: Female Cognitive needs: No Hearing needs: No Vision needs: No Female Reproductive History Menstrual Age of Menarche: 11 Questionnaire PHQ-9 Over the last 2 weeks, how often have you been bothered by any of the following problems? 1. Little interest or pleasure in doing things: not at all 2. Feeling down, depressed, or hopeless: not at all 3. Trouble falling or staying asleep, or sleeping too much: not at all 4. Feeling tired or having little energy: not at all 5. Poor appetite or overeating: not at all 6. Feeling bad about yourself - or that you are a failure or have let yourself o r your family down: not at all 7. Trouble concentrating on things, such as reading the newspaper or watching television: not at all 8. Moving or speaking so slowly that other people could have noticed. Or the opposite - being so fidgety or restless that you have been moving around a lot more than usual: not at all 9. Thoughts that you would be better off or of hurting yourself in some way: not at all Total score: 0 Depression Screening Interpretation: Negative Depression Screening Done: Yes 69115 - PHQ-9 Billing: Yes Source: Developed by Drs. Scotty Doss, Adenike Rodas, Ghulam townsend nd colleagues, with an educational shawn from [employer]. Thrive Questionnaire Date Thrive assessed: 01/15/25 I am a: Patient What is your living situation today?: I choose not to answer this question Within the past 12 months, did the food you bought not last and you didn't have the money to get more?: I choose not to answer this question Within the past 12 months, did you worry whether your food would run out before you got money to buy more?: I choose not to answer this question Do you have trouble paying for medicines?: I choose not to answer this question Do you have trouble getting transportation to medical appointments?: I choose not to answer this question Do you have trouble paying your heating and electricity bill?: I choose not to answer this question Do you have trouble taking care of your child, family member or friend?: I choose not to answer this question Do you have trouble with day-to-day activities such as bathing, preparing meals, shopping, managing finances, etc.?: I choose not to answer this question Are you currently unemployed and looking for a job?: I choose not to answer this question Are you interested in more education?: I choose not to answer this question Please select the resources that you would like help with: None Currently or been in a relationship where the following occur: I choose not to answer THRIVE Score: 0 AUDIT C Alcohol Use Questionnaire (AUDIT-C) 1. How often do you have a drink containing alcohol?: Never Total Score: 0 ELEAZAR-7 AMB Questionnaire ELEAZAR-7 Date ELEAZAR - 7 assessed: 01/15/25 Feeling nervous, anxious, or on edge: 0 = Not at all Not being able to stop or control worryin = Not at all Worrying too much about different things: 0 = Not at all Trouble relaxin = Not at all Being so restless that it is hard to sit still: 0 = Not at all Becoming easily annoyed or irritable: 0 = Not at all Feeling afraid as if something awful might happen: 0 = Not at all Total ELEAZAR-7 score (0-4 normal; 5-9 mild; 10-14 moderate; 15-21 severe): 0 Source: Developed by Adenike Kaiser.W. Clark, Ghulam Lindsay and colleagues, with an educational shawn from [employer]. ELEAZAR-7 Assessment Billing ELEAZAR-7 Assessment Tool: ELEAZAR-7 Assessment 79481 Review of Systems Const Denies headache(s) Eyes Denies loss of vision ENT Denies vertigo, Denies dizziness, Denies headache(s) and Denies sore throat Card Denies chest pain, Denies leg edema and Denies lightheadedness Resp Denies cough, Denies hemoptysis and Denies wheezing GI Denies abdominal pain, Denies melena, Denies constipation, Denies diarrhea and Denies vomiting Denies urinary frequency, Denies dysuria and Denies urinary urgency Musc Denies arthralgias, Denies joint swelling, Denies numbness and Denies tingling Neuro Denies Abnormal speech present, Denies behavioral changes, Denies vertigo, Denies dizziness, Denies headache(s), Denies loss of vision, Denies memory loss, Denies numbness and Denies tingling Psych Denies anxiety, Denies behavioral changes, Denies depression, Denies memory loss and Denies panic attacks Lg/Lymph Denies easy bleeding and Denies easy bruising Aller/Immun Denies wheezing Physical exam (Primary Care) Vital Signs: Last Vital Signs Pulse 104 H 01/15/25 14:05 BP 126/82 01/15/25 14:05 Pulse Ox 97 01/15/25 14:05 Oxygen Delivery Method Room Air 01/15/25 14:05 BMI result Body Mass Index 35.8 Tobacco/Smoking Status: Tobacco use Status Tobacco use date assessed 01/15/25 01/15/25 14:17 Patient Tobacco Use Status Former Tobacco user 01/15/25 14:07 Tobacco use type Cigarette 01/15/25 14:07 e-Cigarette/Vaping Use Never Used 01/15/25 14:07 PHQ-9: PHQ-9 Score PHQ-9: Total score 0 01/15/25 14:30 Depression Screening Interpretation: Negative Thrive Assessment: Date of Thrive Assessment Date Thrive assessed 01/15/25 01/15/25 14:07 Currently or been in a relationship where the following occur: I choose not to answer Const General: healthy appearing, no acute distress, alert and awake Nutritional Appearance: well nourished Orientation/consciousness: oriented to person, oriented to place and oriented to time HENMT Ears: TM's normal bilaterally General nose exam: Normal nasal mucous membranes and turbinates present Eyes Conjunctivae: conjunctivae normal Sclerae: sclerae normal Pupils: Equal, round and reactive pupils present Neck Neck: Yes no lymphadenopathy and Yes no JVD Thyroid: Thyroid normal Carotids: no bruits Resp Effort & Inspection: normal respiratory effort and not tachypneic Auscultation: no crackles, no rales, no rhonchi and no wheezes Cardio Rate: regular rate Rhythm: regular rhythm Heart sounds: no murmurs and normal S1 and S2 GI Palpation (GI): Soft to palpation, nontender, no hepatomegaly and no splenomegaly Auscultation: normal bowel sounds Skin General skin exam: no rashes or lesions noted and dry skin Neuro General: oriented to person, oriented to place and oriented to time Cranial nerves: Yes Equal, round and reactive pupils present Speech: No Abnormal speech present Gait exam (Neuro): Normal gait present Motor exam (neuro): no tremor noted Extrem Right upper extremity: full ROM Left upper extremity: full ROM Right lower extremity: full ROM; no edema Left lower extremity: full ROM; no edema Psych Mental Status: mental status grossly normal Speech and movement: Normal speech and movement present Affect: normal affect Attitude: cooperative Thought process: Normal thought process present Results AMB Hemoglobin A1c AMB Hemoglobin A1c 5.4 % Last Edit by SILVIA Flaherty on 01/15/25 14:1 8 Results Reviewed Results Reviewed: Laboratory Last Values Hgb A1c (Clinic) 5.4 % (4.0-6.0) 01/15/25 14:03 Coding Level of Care Code Est Pt Level 4 (52425) Diagnoses Type 2 diabetes mellitus with hyperglycemia, without long-term current use of insulin E11.65 Diabetes mellitus complication status: with hyperglycemia Diabetes mellitus intermodal customer service insulin use: without intermodal customer service use Bilateral malignant neoplasm of breast in female, estrogen receptor positive, unspecified site of breast C50.911; C50.912; Z17.0 Breast location: unspecified site of breast Estrogen receptor status: positive Laterality: bilateral Patient sex: female MDD (major depressive disorder), recurrent episode, moderate F33.1 History of breast augmentation Z98.82 Unilateral headache R51.9 Additional Codes ELEAZAR-7 Assessment Billing - ELEAZAR-7 Assessment Tool: ELEAZAR-7 Assessment 21465 ([id number]) PHQ-9 - 53786 - PHQ-9 Billing: Yes ([id number]) Assessment & Plan Assessment & Plan (1) Type 2 diabetes mellitus: Code(s): E11.9 - Type 2 diabetes mellitus without complications Category: Medical Qualifiers: Diabetes mellitus complication status: with hyperglycemia Diabetes mellitus intermodal customer service insulin use: without intermodal customer service use Qualified Code(s): E11.65 - Type 2 diabetes mellitus with hyperglycemia Plan: Patient's type 2 diabetes well controlled with current dose of metformin and Ozempic. She is interested in increasing her Ozempic to 2 mg weekly to help her with maintaining will weight loss. 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 She did have left breast lumpectomy years ago. She is interested in seeing a plastic surgeon for silicone breast implant as her breasts continued to feel lumps to her and have pain under lateral aspect of her left breast. (3) MDD (major depressive disorder), recurrent episode, moderate: Code(s): F33.1 - Major depressive disorder, recurrent, moderate Category: Medical Plan: Patient does report suffering with more depression. She is now interested in speaking with a mental health therapist. We did discuss starting SSRI therapy and patient agrees. Will start sertraline 50 mg and will follow up in 4 weeks to evaluate the effectiveness of the medication. (4) History of breast augmentation: Code(s): Z98.82 - Breast implant status Category: Surgical Plan: As above (5) Unilateral headache: Code(s): R51.9 - Headache, unspecified Category: Medical Plan: Patient reporting unilateral headaches in left eye twitching. She attributes this to stress though due to her having history left breast cancer will try for CT brain to evaluate for any metastatic disease. Of note patient does have anaphylactic reaction to IV contrast dye. Orders: Orders AMB Hemoglobin A1c Today E11.65 - Type [address] head/brain w IV con Today R51.9 - Headache, unspecified Referrals Counseling Referral F33.1 - Major depressive disorder, recurrent, moderate Medications: New sertraline 50 mg PO DAILY 90 tabs 1RF 90 days F33.1 - Major depressive disorder, recurrent, moderate semaglutide (Ozempic) 2 mg (0.75 mL) subcut QWEEK 3 mL 3RF 4 weeks E11.65 - Type 2 diabetes mellitus with hyperglycemia Refilled rosuvastatin Get fasting labs 2 months of use 5 mg PO DAILY 90 tabs 3RF 90 days I25.10 - Atherosclerotic heart disease of [place] coronary artery without angina pectoris On Hold semaglutide (Ozempic) Hold Comment: Doctor's Order 1 mg (0.75 mL) subcut QWEEK 4 weeks 3 mL 0RF E11.9 - Type 2 diabetes mellitus without complications
[2025-01-15 14:05] VITALS: BP 126/82; PULSE 104; O2SAT 97; BMI 35.8
--- OUTSIDE RECORDS SUMMARY | 2025-01-15 17:05 | XMS_ITS ---
Author Organization [facility] Address [address] [address] Care Team Providers Care Crop Consultant Name Role Phone Jennifer Graves Unavailable [phone] REASON FOR VISIT NEEDS PE - RECORDS REC'D Encounters Encounter Location Date Provider Diagnosis [facility] [address] 05/11/2024 Jennifer Graves Plan Of Treatment No Information Progress Notes * NAVYA EVANSOB:1975 (49 yo F)Acc No.[id number]:05/11/2024 Patient:?HARRY EVANS :1975???Age:49 Y???Sex:Female Address:[address] [place] [id number] * true * Date:? Generated for Shanna sherwood/Meghan/eTransmitting on:?01/15/2025 05:05 PM EDT
--- OUTSIDE RECORDS SUMMARY | 2025-01-15 17:05 | XMS_ITS ---
Author Organization [facility] Address [address] [place] [address] Care Team Providers Care Automation Sales Manager Name Role Phone Jennifer Graves Unavailable [phone] Allergies Allergen (clinical drug ingredient) Drug/Non Drug Allergy documented on EMR Reaction Allergy Type Onset Date Status Contrast Dye (uncoded) Unknown Allergy Active Iodine Unknown Drug Allergy Active Penicillin Unknown Drug Allergy Active vancomycin Vancomycin Unknown Drug Allergy Activ e Results Component Value Reference Range Notes Urinalysis Reviewed date:07/02/2024 05:31:00 PM Interpretation: Performing Lab: Notes/Report: NITRITE Neg PH 5.0 PROTEIN Trace S.G 1.020 WBC Small GLUCOSE Neg KETONES Neg UROBILINOGEN Neg BILIRUBIN Trace BLOOD Neg Urinalysis, Complete-[id number] Reviewed date:07/04/2024 08:32:53 AM Interpretation: Performing Lab:[facility], [address] [place] [address], Phone - [phone], Director - Kit Notes/Report: Specific [place] 1.024 1.005-1.030 pH 5.5 5.0-7.5 Urine-Color Yellow Yellow Appearance Clear Clear WBC Esterase Negative Negative Protein Negative Negative/Trace Glucose Negative Negative Ketones Negative Negative Occult Blood Negative Negative Bilirubin Negative Negative Urobilinogen,Semi-Qn 0.2 0.2-1.0 mg/dL Nitrite, Urine Negative Negative Microscopic Examination Micr oscopic follows if indicated. Microscopic Examination See below: Micr oscopic was indicated and was performed. WBC 0-5 0 - 5 /hpf RBC 0-2 0 - 2 /hpf Epithelial Cells (non renal) 0-10 0 - 10 /hpf Casts None seen None seen /lpf Bacteria Moderate None seen/Few Urine Culture, Routine-[id number] Reviewed date:07/04/2024 08:32:47 AM Interpretation: Performing Lab:[facility], [address] [facility] [facility], [place], Phone - [phone], Director - Kit Notes/Report: Urine Culture, Routine Final report Result 1 No growth PDF Report Reviewed date:07/04/2024 08:32:40 AM Interpretation: Performing Lab:[facility], [address], [place], Phone - [phone], Director - Kit Notes/Report: REASON FOR VISIT Annual 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 HELPER Physical, Annual METAL FABRICATING SHOP HELPER Physical 40-49 Medications Medication SIG (Take, Route, Frequency, Duration) Notes Start Date End Date Status Calcium 05/11/2024 Active Aspirin Adult Low Dose 81 MG 1 tablet Orally Once a day for 30 day(s) 05/11/2024 Active Rosuvastatin Calcium 5 MG TAKE 1 TABLET BY MOUTH ONCE DAILY (Get FASTING LABS AFTER 2 MONTH OF USE) Oral for 90 Days Active metFORMIN HCl 1000 MG 1 tablet with a me al Orally Once a day for 30 day(s) 05/11/2024 Active Valium 05/11/2024 Active Ozempic (1 MG/DOSE) 4 MG/3ML Subcutaneous for 28 Days Act chaya Vitamin B-12 1000 MCG DISSOLVE 1 TABLET UNDER THE TONGUE AND allow TO DISSOLVE FOR AT LEAST 30 SECONDS BEFORE swallowing ONCE DAILY Sublingual for 30 Days Active Social History Tobacco Use: Social History Observation Description Date Details (start date - stop date) Former Smoker NA - NA Sexual History Question Answer Notes Had sex in the past 12 months (vaginal, oral, or anal)? Yes with Men only AUDIT-C (Standard) Question Answer Notes Did you have a drink containing alcohol in the p ast year? No Points 0 Interpretation Negative Tobacco Control (Standard) Question Answer Notes Tobacco use: Former smoker Problems Problem Type SNOMED Code ICD Code Onset Dates Problem Status W/U Status Risk Notes Problem Personal history of primary malignant neoplasm of breast (541172480) Personal history of malignant neoplasm of breast (Z85.3) Active confirmed Vital Signs Temperature 97.5 degrees Fahrenheit 07/02/20 24 Blood pressure systolic 118 mm Hg 07/02/20 24 Blood pressure diastolic 80 mm Hg 024 Height 63 in 07/02/2024 Weight 191 lbs 07/02/2024 BMI 33.83 kg/m2 07/02/2024 Encounters Encounter Location Date Provider Diagnosis Total [address] [place] [address] 07/02/2024 Jennifer Graves Encounter for gynecological examination (general) (routine) without abnormal findings Z01.419 ; Pelvic Pain R10.2 ; Unspecified lump in the right breast, upper outer quadrant N63.11 and Personal history of malignant neoplasm of breast Z85.3 Assessments Encounter Date Diagnosis (ICD Code) Assessment Notes Treatment Notes Treatment Clinical Notes Section Notes 07/02/2024 Encounter for gynecological examination (general) (routine) without abnormal findings (ICD-10 - Z01.419) NO PAP TEST, DUE IN 2026. COLOGUARD TESTING WAS DISCUSSED AND ORDERED. 07/02/2024 Pelvic Pain (ICD-10 - R10.2) DISCUSSED PREVIOUS SCAN IN 2021. REPEAT PELVIC ULTRASOUND PAINS HAVE RECURRED. 07/02/2024 Unspecified lump in the right breast, upper outer quadrant (ICD-10 - N63.11) DISCUSSED FINDINGS ON RIGHT BREAST. DIAGNOSTIC MAMMOGRAM AND ULTRASOUND WERE ORDERED. 07/02/2024 Personal history of malignant neoplasm of breast (ICD-10 - Z85.3) DISCUSSED PREVIOUS HX OF LEFT BREAST CA AND MASTECTOMY WITH FAILED BREAST RECONSTRUCTION. REFERRED PAT TO DR ANTONINO GONZALEZ FOR REPAIR OF FAILED RECONSTRUCTION SURGERY. REASSURED PAT THAT NO ABNORMAL MASSES WERE PALPATED ON POST MASTECTOMY SITE. Plan Of Treatment Treatment Notes Assessment Notes Encounter for gynecological examination (general) (routine) without abnormal findings NO PAP TEST, DUE IN 2026. COLOGUARD TESTING WAS DISCUSSED AND ORDERED. Pelvic Pain DISCUSSED PREVIOUS SCAN IN 2021. REPEAT PELVIC ULTRASOUND PAINS HAVE RECURRED. Unspecified lump in the righ t breast, upper outer quadrant DISCUSSED FINDINGS ON RIGHT BREAST. DIAGNOSTIC MAMMOGRAM AND ULTRASOUND WERE ORDERED. Personal history of malignan t neoplasm of breast DISCUSSED PREVIOUS HX OF LEFT BREAST CA AND MASTECTOMY WITH FAILED BREAST RECONSTRUCTION. REFERRED PAT TO DR ANTONINO GONZALEZ FOR REPAIR OF FAILED RECONSTRUCTION SURGERY. REASSURED PAT THAT NO ABNORMAL MASSES WERE PALPATED ON POST MASTECTOMY SITE. Pending Test Test Name Order Date PELVIC ULTRASOUND W/TRANSVAGINAL 024 DIAGNOSTIC BILATERAL MAMMOGRAM, W/RT ERIS AST ULTRASOUND 07/02/2024 Next Appt Details Follow Up: 1 Year, Reason: Progress Notes * NAVYA EVANSOB:1975 (49 yo F)Acc No.[id number]:07/02/2024 PROGRESS NOTES Patient:HARRY TAPIA Appointment Provider:?Jennifer metz M.D. :1975???Age:49 Y???Sex:Female D ate:07/02/2024 Address:[address] [place] [address] Subjective: * Chief Complaints: * ??? Annual METAL FABRICATING SHOP HELPER PhysicalAnnua l METAL FABRICATING SHOP HELPER Physical 40-49 * HPI: ???New/Follow-up Patient Consult:? VICKI IS LEGALLY BLIND.? SHE IS HERE FOR HER YEARLY PE.? SHE WAS FIRST SEEN ON 05/11/24 AND SHE WAS A POOR HISTORIAN BUT I HAVE BEEN ABLE TO PIECE OUT HER MEDICAL HISTORY. SHE WAS C/O MENOPAUSAL SYMPTOMS.? SHE HAD ENTERED MENOPAUSE IN 2020.? SHE IS NOT SEXUALLY ACTIVE.? I WAS THINKING OF PUTTING HER ON HRT BUT ON DIGGING THROUGH HER PAPERS, SHE HAD A LEFT MASTECTOMY IN 2018 FOR BREAST CA.? SHE IS FOLLOWED AT [facility] BY AN ONCOLOGIST.? SHE HAD RECONSTRUCTION SURGERY A FEW WEEKS AFTER HER MASTECTOMY AND THE IMPLANT THAT WAS USED HAS HARDENED AND THE RECONSTRUCTION LOOKS VERY POORLY DONE.? SHE WILL BE SEEING ANOTHER PLASTIC SURGEON FOR REVISION. SHE HAD A RIGHT BREAST BIOPSY WITH BENIGN FINDINGS. SHE HAS A HX OF ABNORMAL PAP TESTS BUT HER LAST ONE TAKEN IN MAY WAS NEGATIVE AND HPV NEGATIVE. PELVIC ULTRASOUND IN NOV 2021 WAS NORMAL.? SHE C/O RLQ PAINS, OFF AND ON, OF SEVERAL MONTHS DURATION.? PAINS ARE CRAMPY AND SHE DENIES ANY BOWEL OR URINARY SYMPTOMS.? NO FEVER.? NO BLEEDING. HER LAST MAMMOGRAM WAS DONE 2 YEARS AGO.? SHE HAS AN APPT FOR ANOTHER ONE SOON. SHE HAS NOT HAD A COLONOSCOPY DONE YET. ???Annual:? Patient presents for annual exam, ages 40-49. ?General Health Maintenance:?Current breast complaints:?no breast pain, mass, discharge, or skin changes ?Urinary problems:?patient reports no urinary health problems or bowel health problems ?Calcium intake:?takes adequate calcium via diet and supplementation ?Significant METAL FABRICATING SHOP HELPER problems:?no significant disaster recovery coordinator symptoms or problems * ROS:?general:?no?chest pain.?no?palpitations.?no?headache.?no?cough.?no?shortness of breath.?no?fever.?no?unexplained weight loss.?no?nausea/vomiting.?no?change in bowel movements.?no blood in stool.?no?genitourinary complaints.?no?skin complaints.? * Medical History:? * Social Media Community Manager History:?/ Para?3/1.?Sexual activity?not currently sexually active.?Last Pap Smear:?05/11/24 NIL, NEG HPV, 2 Year Ago.?Mammogram:?2 years.?Abnormal Pap Smear:?Yes.?LMP and menses?2 Years Ago.? * OB History:?Total pregnancies?3.?Total living children?1.?(s)?1.?Miscarriage(s)?2.? * Surgical History:?Left Breas t Reconstruction Lumpectomy C=Section x 1 Left Masectomy * Hospitalization/Major Diagno stic Procedure:?See Surgical Hx * Family History:?Mother: vik e, Parkinsons.?Father: alive, Prostate Cancer.? * Social History:?Tobacco Use:?Tobacco Control (Standard)?Tobacco use:?Former smoker ???Sexual History:?Sexual History?Had sex in the past 12 months (vaginal, oral, or anal)??Yes ?with?Men only ?Details of Sexual History?Are you sexually active??No ???Drugs/Alcohol:?Drugs?Have you used drugs other than those for medical reasons in the past 12 months??No ???Miscellaneous:?Children: yes. ?Exercise: yes, light. ?Home smoke detector use: yes. ?Marital status: Single. ?Natural support system: yes. 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 ?Sexually active: no. ???Drug/Alcohol:?AUDIT-C (Standard)?Did you have a drink containing alcohol in the past year??No ?Points?0 ?Interpretation?Negative * Medications:?TakingOzempic ( 1 MG/DOSE) 4 MG/3ML Solution Pen-injector Subcutaneous Vitamin B-12 1000 MCG Tablet Sublingual DISSOLVE 1 TABLET UNDER THE TONGUE AND allow TO DISSOLVE FOR AT LEAST 30 SECONDS BEFORE swallowing ONCE DAILY Sublingual Calcium Aspirin Adult Low Dose 81 MG Tablet Delayed Release 1 tablet Orally Once a day Rosuvastatin Calcium 5 MG Tablet TAKE 1 TABLET BY MOUTH ONCE DAILY (Get FASTING LABS AFTER 2 MONTH OF USE) Oral metFORMIN HCl 1000 MG Tablet 1 tablet with a meal Orally Once a day Valium Taking Ozempic (1 MG/DOSE) 4 MG/3ML Solution Pen-injector Subcutaneous Taking Vitamin B-12 1000 MCG Tablet Sublingual DISSOLVE 1 TABLET UNDER THE TONGUE AND allow TO DISSOLVE FOR AT LEAST 30 SECONDS BEFORE swallowing ONCE DAILY Sublingual Taking Calcium Taking Aspirin Adult Low Dose 81 MG Tablet Delayed Release 1 tablet Orally Once a day Taking Rosuvastatin Calcium 5 MG Tablet TAKE 1 TABLET BY MOUTH ONCE DAILY (Get FASTING LABS AFTER 2 MONTH OF USE) Oral Taking metFORMIN HCl 1000 MG Tablet 1 tablet with a meal Orally Once a day Taking Valium * Allergies:?Penicillin: Aller gyContrast Dye: AllergyVancomycin: AllergyIodine: Allergyno[Allergies Verified] Objective: * Vitals:?Ht: 63 in, Wt:191lbs , BMI:33.83Index, BP:118/80mm Hg, Temp:97.5F. * Examination: ???General Exam: ?CONSTITUTIONAL:?General Appearance:?alert, in no acute distress, normal, well nourished ?NECK/THYROID:?Inspection/Palpation:?normal ?Thyroid:?normal size and shape ?RESPIRATORY:?Auscultation: clear to auscultation bilaterally, Respiratory Effort: normal.?CARDIOVASCULAR:?Auscultation: regular rate and rhythm.?BREAST, Right:?Inspection/Palpation:?no discharge, no masses present, no nipple retraction, no skin changes, no skin dimpling, no tenderness, no lymphadenopathy, no axillary mass, no axillary tenderness ?BREAST, Left:?Inspection/Palpation:?SURGICALLY ABSENT LEFT BREASST WITH HARD MASS ON THE RECONSTRUCTED BREAST, IRREGULARLY SHAPED. ?GASTROINTESTINAL:?Abdomen:?no masses, nontender, nondistended ?Liver and Spleen:?normal ?Hernias:?no hernias present, no inguinal adenopathy ?MUSCULOSKELETAL:?Inspection/Palpation:?no clubbing, cyanosis, or edema ?SKIN:?Skin:?normal ?NEURO/PSYCH:?Orientation:?time , place, person ?Mood/Affect:?normal?Genitourinary: ?EXTERNAL GENITALIA:?External Genitalia:?normal, no lesions ?VAGINA:?Vagina:?normal appearance, no abnormal discharge, no lesions ?BLADDER:?Bladder:?no mass, nontender ?URETHRA:?Urethra:?no erythema or lesions present ?CERVIX:?Cervix:?no lesions, nontender ?UTERUS:?Uterus:?nontender, normal contour, normal mobility, normal size ?ADNEXA:?Adnexa:?no masses, no tenderness ?ANUS AND PERINEUM:?Anus/Perineum:?visually normal??? Assessment: * Assessment: 1.?Encounter for gynecologic al examination (general) (routine) without abnormal findings - Z01.419???2.?Pelvic Pain - R10.2???3.?Unspecified lump in the right breast, upper outer quadrant - N63.11???4.?Personal history of malignant neoplasm of breast - Z85.3??? Plan: * Treatment: 2.?Pelvic Pain?LAB: Urinalysis, Complete-[id number] ?LAB: Urine Culture, Routine-[id number] ?LAB: Urinalysis (Collection Date & Time - 07/02/2024) ? Value Reference Range ?NITRITE Neg * ?PH 5.0 * ?PROTEIN Trace * ?S.G 1.020 * ?WBC Small * ?GLUCOSE Neg * ?KETONES Neg * ?UROBILINOGEN Neg * ?BILIRUBIN Trace * ?BLOOD Neg * RACHELE Murdock 07/02/2024 01:35:19 PM EDT > U/A and Urine C/S Sent ?Imaging: PELVIC ULTRASOUND W/TRANSVAGINAL* PT DOES AT [facility]. ORDER FAXED AND THEY WILL CONTACT THE PATIENT DIRECTLY. f- [phone] Notes: DISCUSSED PREVIOUS SCAN IN 2021. REPEAT PELVIC ULTRASOUND PAINS HAVE RECURRED.??3.?Unspecified lump in the right breast, upper outer quadrant?Imaging: DIAGNOSTIC BILATERAL MAMMOGRAM, W/RT BREAST ULTRASOUND* PT HAS MAMMO SCHEDULED BUT N EEDS TO BE DIAGNOSTIC. MASS PALPATED AT 8 OCLOCK RT BREAST. ORDER FAXED TO [facility] AND THEY WILL CONTACT PATIENT DIRECTLY Notes: DISCUSSED FINDINGS ON RIGHT BREAST. DIAGNOSTIC MAMMOGRAM AND ULTRASOUND WERE ORDERED.??4.?Personal history of malignant neoplasm of breast? Notes: DISCUSSED PREVIOUS HX OF LEFT BREAST CA AND MASTECTOMY WITH FAILED BREAST RECONSTRUCTION. REFERRED PAT TO DR ANTONINO GONZALEZ FOR REPAIR OF FAILED RECONSTRUCTION SURGERY. REASSURED PAT THAT NO ABNORMAL MASSES WERE PALPATED ON POST MASTECTOMY SITE.?? * Procedure Codes:? * Preventive Medicine:? ??YOUR PREVENTIVE WELLNESS PLAN:?Osteoporosis prevention?Calcium, D, strength training.?Breast Cancer Screening (Mammogram):?annually.?Cervical Cancer Screening (Pap Smear):?q 3 years with HPV screen.?Colorectal Cancer Screening:?q 10 years.? * Follow Up:?1 Year * Images: Billing Information: * Visit Code:? 33809 Preventive Care New Pt. Age 40-64. 30644 Preventive Care Est Pt. Age 40-64. * Procedure Codes:? * Sign off status: Completed true * Appointment Provider:?Jennifer Graves M.D. Date:?07/02/2024 Generated for Shanna sherwood/Meghan/Dariuszitting on:?01/15/2025 05:04 PM EDT History and Physical Notes * HPI (History of Present Illness) Category Sub-Category Detail Notes Category Not es New/Follow-up Patient Consult PAT IS LEGALLY BLIND. SHE IS HERE FOR HER YEARLY PE. SHE WAS FIRST SEEN ON 05/11/24 AND SHE WAS A POOR HISTORIAN BUT I HAVE BEEN ABLE TO PIECE OUT HER MEDICAL HISTORY. SHE WAS C/O MENOPAUSAL SYMPTOMS. SHE HAD ENTERED MENOPAUSE IN 2020. SHE IS NOT SEXUALLY ACTIVE. I WAS THINKING OF PUTTING HER ON HRT BUT ON DIGGING THROUGH HER PAPERS, SHE HAD A LEFT MASTECTOMY IN 2019 FOR BREAST CA. SHE IS FOLLOWED AT [facility] BY AN ONCOLOGIST. SHE HAD RECONSTRUCTION SURGERY A FEW WEEKS AFTER HER MASTECTOMY AND THE IMPLANT THAT WAS USED HAS HARDENED AND THE RECONSTRUCTION LOOKS VERY POORLY DONE. SHE WILL BE SEEING ANOTHER PLASTIC SURGEON FOR REVISION. SHE HAD A RIGHT BREAST BIOPSY WITH BENIGN FINDINGS. SHE HAS A HX OF ABNORMAL PAP TESTS BUT HER LAST ONE TAKEN IN MAY WAS NEGATIVE AND HPV NEGATIVE. PELVIC ULTRASOUND IN NOV 2021 WAS NORMAL. SHE C/O RLQ PAINS, OFF AND ON, OF SEVERAL MONTHS DURATION. PAINS ARE CRAMPY AND SHE DENIES ANY BOWEL OR URINARY SYMPTOMS. NO FEVER. NO BLEEDING. HER LAST MAMMOGRAM WAS DONE 2 YEARS AGO. SHE HAS AN APPT FOR ANOTHER ONE SOON. SHE HAS NOT HAD A COLONOSCOPY DONE YET. Annual General Health Maintenance: Current breast complaints:: no breast pain, mass, discharge, or skin changes Urinary problems:: patient r ni no urinary health problems or bowel health problems Calcium intake:: takes adequ ate calcium via diet and supplementation Significant METAL FABRICATING SHOP HELPER problems:: n o significant disaster recovery coordinator symptoms or problems Examination Category Sub-Category Detail Notes Category Not es General Exam CONSTITUTIONAL: General Appearan ce:: alert, in no acute distress, normal, well nourished NECK/THYROID: Thyroid:: normal size and shape Inspection/Palpation:: normal RESPIRATORY: Auscultation: clear to auscultation bilaterally, Respiratory Effort: normal CARDIOVASCULAR: Auscultation: regula r rate and rhythm GASTROINTESTINAL: Hernias:: no hernias present, no inguinal adenopathy Liver and Spleen:: normal Abdomen:: no masses, nontender, nondiste nded MUSCULOSKELETAL: Inspection/Palpation:: no clubb ing, cyanosis, or edema SKIN: Skin:: normal NEURO/PSYCH: Mood/Affect:: normal Orientation:: time , place, person BREAST, Right: Inspection/Palpation :: no discharge, no masses present, no nipple retraction, no skin changes, no skin dimpling, no tenderness, no lymphadenopathy, no axillary mass, no axillary tenderness BREAST, Left: Inspection/Palpation:: SURGICALL Y ABSENT LEFT BREASST WITH HARD MASS ON THE RECONSTRUCTED BREAST, IRREGULARLY SHAPED. Genitourinary EXTERNAL GENITALIA: External Genitalia:: nor mal, no lesions VAGINA: Vagina:: normal appearance, no a bnormal discharge, no lesions BLADDER: Bladder:: no mass, nontender URETHRA: Urethra:: no erythema or lesions present CERVIX: Cervix:: no lesions, nontender UTERUS: Uterus:: nontender, normal conto ur, normal mobility, normal size ADNEXA: Adnexa:: no masses, no tendernes s ANUS AND PERINEUM: Anus/Perineum:: visually norm al
--- OUTSIDE RECORDS SUMMARY | 2025-01-15 17:05 | XMS_ITS ---
Author Organization [facility] Address [address] [place] [address] Care Team Providers Care Die Cut Operator Name Role Phone Polo Cobb Primary Care Provider Unavailab Maksim Hicks Unavailable [phone] REASON FOR VISIT cx 08/05/23 Skatesman apt Encounters Encounter Location Date Provider Diagnosis [facility] [address] [place] [address] 08/02/2023 Maksim Watts Plan Of Treatment No Information Progress Notes * Tosha PRETTYOB:1975 (48 yo F)Acc No.[id number]:08/02/2023 Patient:?Rosa Pretty :1975???Age:48 Y???Sex:Female Address:[address] [place] [address] [address] , [place], [address] * true * Date:? Generated for Shanna sherwood/Meghan/eTransmitting on:?01/15/2025 05:05 PM EDT
--- OUTSIDE RECORDS SUMMARY | 2025-01-15 17:05 | XMS_ITS | Patient Health Record ---
Author Organization [facility] Address [address] [place] [address] Care Team Providers Care Diabetes Nurse Name Role Phone Jennifer Graves Unavailable [phone] Allergies Allergen (clinical drug ingredient) Drug/Non Drug Allergy documented on EMR Reaction Allergy Type Onset Date Status Contrast Dye (uncoded) Unknown Allergy Active Iodine Unknown Drug Allergy Active Penicillin Unknown Drug Allergy Active vancomycin Vancomycin Unknown Drug Allergy Activ e Results Component Value Reference Range Notes Urinalysis Reviewed date:05/11/2024 01:13:02 PM Interpretation: Performing Lab: Notes/Report: NITRITE Neg PH 5.0 PROTEIN Small S.G 1.020 WBC Trace GLUCOSE Neg KETONES Neg UROBILINOGEN Trace BILIRUBIN Small BLOOD Neg Urinalysis, Complete-[id number] Reviewed date:05/13/2024 11:17:13 AM Interpretation: Performing Lab:[facility], [address] [place] [address], Phone - [phone], Director - Kit Notes/Report: Specific Eolia 1.024 1.005-1.030 pH 5.5 5.0-7.5 Urine-Color Yellow Yellow Appearance Clear Clear WBC Esterase Negative Negative Protein Negative Negative/Trace Glucose Negative Negative Ketones Trace Negative Occult Blood Negative Negative Bilirubin Negative Negative Urobilinogen,Semi-Qn 0.2 0.2-1.0 mg/dL Nitrite, Urine Negative Negative Microscopic Examination Micr oscopic follows if indicated. Microscopic Examination See below: Micr oscopic was indicated and was performed. WBC None seen 0 - 5 /hpf RBC 0-2 0 - 2 /hpf Epithelial Cells (non renal) 0-10 0 - 10 /hpf Casts None seen None seen /lpf Bacteria Few None seen/Few Urine Culture, Routine-[id number] Reviewed date:05/13/2024 11:16:41 AM Interpretation: Performing Lab:[facility], [address], Phone - [phone], Director - Kit Notes/Report: Urine Culture, Routine Final report Result 1 No growth [id number] IGP No Culture 30 Plus Reviewed date:05/16/2024 04:12:34 PM Interpretation: Performing Lab:[facility] [place], [address], [address], [place], Phone - [phone], [facility] - [facility] Notes/Report: Clinical Information:Vaginal/Cervical, LMP: Ear ly Menopause 2 years ago Source.............Cervix;Vagina Dates / Results....2 yrs ago, unknown Other..............Post Menopausal No. of containers..01 ThinPrep Vial DIAGNOSIS: NEGATIVE FOR IN TRAEPITHELIAL LESION OR MALIGNANCY. Specimen adequacy: Satisfact ory for evaluation. No endocervical component is identified. Clinician provided ICD10: Z1 2.4 Performed by: Norbert ham, Dope House Operator Helper (ASCP) . . Note: The Pap smear is a screening test designed to aid in the detection of premalignant and malignant conditions of the uterine cervix. It is not a diagnostic procedure and should not be used as the sole means of detecting cervical cancer. Both false-positive and false-negative reports do occur. . Test Methodology: This liquid based ThinPrep(R) pap test was screened with the use of an image guided system. HPV Aptima Negative Negative This nucleic acid amplification test detects fourteen high-risk HPV types (16,18,31,33,35,39,45,51,52,56 ,58,59,66,68) without differentiation. HPV Genotype Reflex Criteria not met, HPV Genotype not performed. PDF Report Reviewed date:05/13/2024 11:16:50 AM Interpretation: Performing Lab:[facility], [address] [place], Phone - [phone], Director - Kit Notes/Report: Urinalysis Reviewed date:07/02/2024 05:31:00 PM Interpretation: Performing Lab: Notes/Report: NITRITE Neg PH 5.0 PROTEIN Trace S.G 1.020 WBC Small GLUCOSE Neg KETONES Neg UROBILINOGEN Neg BILIRUBIN Trace BLOOD Neg Urinalysis, Complete-[id number] Reviewed date:07/04/2024 08:32:53 AM Interpretation: Performing Lab:[facility] [address] [place] [address], Phone - [phone], Director - Kit Notes/Report: Specific Eolia 1.024 1.005-1.030 pH 5.5 5.0-7.5 Urine-Color Yellow [...] /lpf Bacteria Moderate None seen/Few Urine Culture, Routine-[id number] Reviewed date:07/04/2024 08:32:47 AM Interpretation: Performing Lab:[facility], [address] [place] [address], Phone - [phone], Director - Kit Notes/Report: Urine Culture, Routine Final report Result 1 No growth PDF Report Reviewed date:07/04/2024 08:32:40 AM Interpretation: Performing Lab:[facility], [address] [place] [address], Phone - [phone], Director - Kit Notes/Report: PDF Report Reviewed date:05/16/2024 04:12:57 PM Interpretation: Performing Lab:[facility] Yañez, [address], [address], [place], Phone - [phone], Director - [facility] Notes/Report: Clinical Information:Vaginal/Cervical, LMP: Ear ly Menopause 2 years ago Source.............Cervix;Vagina Dates / Results....2 yrs ago, unknown Other..............Post Menopausal No. of containers..01 ThinPrep Vial Reason For Referral No Information Medications Medication SIG (Take, Route, Frequency, Duration) Notes Start Date End Date Status Ozempic (1 MG/DOSE) 4 MG/3ML Subcutaneous for 28 Days Act chaya Vitamin B-12 1000 MCG DISSOLVE 1 TABLET UNDER THE TONGUE AND allow TO DISSOLVE FOR AT LEAST 30 SECONDS BEFORE swallowing ONCE DAILY Sublingual for 30 Days Active Calcium 05/11/2024 Active Aspirin Adult Low Dose [...] 30 day(s) 05/11/2024 Active Valium 05/11/2024 Active Social History Tobacco Use: Social History [...] Problem Status W/U Status Risk Notes Problem Malignant neoplasm of overlapping sites of right female breast (C50.811) Active confirmed Problem Malignant neoplasm of overlapping sites of left female breast (C50.812) Active confirmed Problem Hyperlipidemia (40605586) Hyperlipidemia, unspecified (E78.5) Active confirmed Problem Recurrent depression (154382906) Other recurrent depressive disorders (F33.8) Active confirmed Problem [place] blindness ([place] (677226440) Legal blindness, as defined in [place] (H54.8) Active confirmed Problem Personal history of primary malignant neoplasm of breast (928860759) Personal history of malignant neoplasm of breast (Z85.3) Active confirmed Problem Menopause (898159802) Menopausal and female climacteric states (N95.1) Active confirmed Vital Signs Temperature 97.5 degrees Fahrenheit 07/02/2024 Blood pressure diastolic 80 mm Hg 07/02/2024 Height 63 in 07/02/2024 Blood pressure systolic 118 mm Hg 07/02/2024 Weight 191 lbs 07/02/2024 BMI 33.83 kg/m2 07/02/2024 Encounters Encounter Location Date Provider Diagnosis Total [address] [place] [address] 05/11/2024 Jennifer Graves Menopausal and femal e climacteric states N95.1 ; Personal history of other diseases of the female genital tract Z87.42 ; Pelvic Pain R10.2 and Encounter for screening mammogram for malignant neoplasm of breast Z12.31 [email or web address] [address] [place] [address] 07/02/2024 Jennifer Star Encounter for gynecological examination (general) (routine) without abnormal findings Z01.419 ; Pelvic Pain R10.2 ; Unspecified lump in the right breast, upper outer quadrant N63.11 and Personal history of malignant neoplasm of breast Z85.3 [email or web address] [address] [place] [address] 05/11/2024 Jennifer Graves Assessments Encounter Date Diagnosis (ICD Code) Assessment Notes Treatment Notes Treatment Clinical Notes Section Notes 05/11/2024 Menopausal and female climacteric states (ICD-10 - N95.1) DISCUSSED MENOPAUSE AND SYMPTOMS ASSOCIATED WITH THIS. DISCUSSED OPTIONS TO DECREASE HER SYMPTOMS INCLUDING HRT. SHE IS TAKING AN OTC MEDICATION RECOMMENDED BY HER PCP. CONTINUE THIS. WE NEED TO REVIEW HER RECORDS SPECIALLY SINCE SHE MAY HAVE BREAST CHANGES INCREASING HER RISK FOR BREAST CA. GET RECORDS FROM [facility]. SCHEDULE SCREENING MAMMOGRAM. SHE SAYS SHE HAD HER LAST ONE IN LATE 2022. WE WILL GET ANOTHER ONE A YEAR AFTERWARDS. 07/02/2024 Encounter for gynecological examination (general) (routine) without abnormal findings (ICD-10 - Z01.419) NO PAP TEST, DUE IN 2026. COLOGUARD TESTING WAS DISCUSSED AND ORDERED. 07/02/2024 Pelvic Pain (ICD-10 - R10.2) DISCUSSED PREVIOUS SCAN IN 2021. REPEAT PELVIC ULTRASOUND PAINS HAVE RECURRED. 05/11/2024 Personal history of other diseases of the female genital tract (ICD-10 - Z87.42) DISCUSSED HER HX OF ABNORMAL PAP TESTS. GET HER PREVIOUS RECORDS FOR REVIEW. PAP TEST WITH HPV TYPING WAS OBTAINED TODAY. 05/11/2024 Pelvic Pain (ICD-10 - R10.2) DISCUSSED PELVIC PAINS. THESE OCCUR SPORADICALLY AND LAST ONLY A FEW SECONDS AND ARE MILD. I SUSPECT THESE ARE MORE GI IN ORIGIN, GAS BUBBLES THAT COALESCE CAUSING COLICKY PAINS OFF AND ON. GAS-X AMD AVOID SMALL FINGER FOODS. IF NOT BETTER, CALL AND WILL ORDER PELVIC ULTRASOUND. 07/02/2024 Unspecified lump in the right breast, [...] MASSES WERE PALPATED ON POST MASTECTOMY SITE. 05/11/2024 Encounter for screening mammogram for malignant neoplasm of breast (ICD-10 - Z12.31) REGULAR MAMMOGRAMS AND SBE'S WERE RECOMMENDED. GET HER PREVIOUS RECORDS. RTO SOON RECORDS ARE AVAILABLE AND WILL DISCUSS HRT AND ITS BENEFITS AND RISKS. 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
--- OUTSIDE RECORDS SUMMARY | 2025-01-15 17:05 | XMS_ITS | Clinical Summary ---
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 20 tablet 03/24/2023 Active Social History Tobacco Use Types Packs/Day Years Used Date Smoking Tobacco: Never Assessed Comments Unknown Sex and Gender Information Value Date Recorded Sex Assigned at Female 09/06/2022 10:32 AM EDT Legal Sex Female 10:32 AM EDT Gender Identity Female 09/06/2022 10:32 AM EDT Sexual Orientation Straight 09/06/2022 10 :32 AM EDT Last Filed Vital Signs Vital Sign Reading Time Taken Comments Blood Pressure 139/80 04/13/2023 10:48 AM EDT Pulse 79 04/13/2023 10:48 AM EDT Temperature - - Respiratory Rate - - Oxygen Saturation - - Inhaled Oxygen Concentration - - Weight - - Height - - Body Mass Index - - Plan of Treatment Health Maintenance Due Date Last Done Comments CT Colonography 1976 Colonoscopy 1976 Colorectal Cancer Screening 1976 Dental Prophylaxis 1976 Depression Screening 1976 FIT DNA/Cologuard 1976 FIT 1976 FOBT 1976 HIV Screening 1976 Lipid Panel 1976 SDOH Screening 1976 Sigmoidoscopy 1976 Alcohol/Substance Use Screening 1988 Tobacco Screening 1988 Family Planning (PISQ) 01/30/1991 Hepatitis C Screening 01/30/1994 Hepatitis B Vaccines (1 of 3 - 19+ 3-dose series) 01/30/1995 Pap Smear 01/30/1997 Cervical Cancer Screening 01/30/2006 HPV/Cotest 01/30/2006 Dental Oral Exam 05/06/2018 11/04/2017 Dental X-Ray: Full Mouth 11/05/2020 11/04/2017 DTaP/Tdap/Td Vaccines (2 - Tdap) 03/10/2024 03/10/2014 Dental X-Ray: Bitewings 03/25/2024 03/24/20 23, 11/04/2017 COVID-19 Vaccine (3 - 2023-2 5 season) 2024 08/18/2021, 07/28/2021 Influenza Vaccine (#1) 2024 Zoster Vaccines (1 of 2) 01/30/2026 RSV Patients and Patients Aged 60 years or older (1 - 1-dose 75+ series) 01/30/2051 HIB Vaccines Aged Out No longer eligi ble based on patient's age to complete this topic HPV Vaccines Aged Out No longer eligi ble based on patient's age to complete this topic Hepatitis A Vaccines Aged Out No long er eligible based on patient's age to complete this topic IPV Vaccines Aged Out No longer eligi ble based on patient's age to complete this topic Meningococcal Vaccine Aged Out No jonnie kate eligible based on patient's age to complete this topic Pneumococcal Vaccine: Pediatrics (0 to 5 Years) and At-Risk Patients (6 to 49) Years) Aged Out No longer eligible b ased on patient's age to complete this topic RSV under 20 months Aged Out No longe r eligible based on patient's age to complete this topic Rotavirus Vaccines Aged Out No longer eligible based on patient's age to complete this topic Procedures Procedure Name Priority Date/Time Associated Diagnosis Comments BITEWING - SINGLE RADIOGRAPHIC IMAGE Routine 03/24/2023 11:30 AM EDT Pain due to dental caries Tooth fracture with loss of restorative material INTRAORAL - COMPLETE SERIES OF RADIOGRAPHIC IMAGES Routine 11/04/2017 12:00 AM EST COMPREHENSIVE ORAL EVALUATION - NEW OR ESTABLISHED PATIENT Routine 11/04/2017 12:00 AM EST from Last 3 Months or Most Recently Relevant to Health Maintenance Insurance [facility]
--- OUTSIDE RECORDS SUMMARY | 2025-01-15 17:05 | XMS_ITS ---
Author Organization [facility] Address [address] [place] [address] Care Team Providers Care Surgical Sales Representative Name Role Phone Jennifer Graves Unavailable [phone] Allergies Allergen (clinical drug ingredient) Drug/Non Drug Allergy documented on EMR Reaction Allergy Type Onset Date Status Contrast Dye (uncoded) Unknown Allergy Active Penicillin Unknown Drug Allergy Active Results Component Value Reference Range Notes Urinalysis Reviewed date:05/11/2024 01:13:02 PM Interpretation: Performing Lab: Notes/Report: NITRITE Neg PH 5.0 PROTEIN Small S.G 1.020 WBC Trace GLUCOSE Neg KETONES Neg UROBILINOGEN Trace BILIRUBIN Small BLOOD Neg Urinalysis, Complete-[id number] Reviewed date:05/13/2024 11:17:13 AM Interpretation: Performing Lab:[facility], Phone - [phone], Director - Kit Notes/Report: Specific Nara Visa 1.024 1.005-1.030 pH 5.5 5.0-7.5 Urine-Color Yellow [...] /lpf Bacteria Few None seen/Few Urine Culture, Routine-[id number] Reviewed date:05/13/2024 11:16:41 AM Interpretation: Performing Lab:[facility], [address] [facility], Phone - [phone], Director - Kit Notes/Report: Urine Culture, Routine Final report Result 1 No growth [id number] IGP No Culture 30 Plus Reviewed date:05/16/2024 04:12:34 PM Interpretation: Performing Lab:[facility] [place], [address], [address], [place], Phone - [phone], Director - Edna Notes/Report: Clinical Information:Vaginal/Cervical, LMP: Ear ly Menopause 2 years ago Source.............Cervix;Vagina Dates / Results....2 yrs ago, unknown Other..............Post Menopausal No. of containers..01 ThinPrep Vial DIAGNOSIS: NEGATIVE FOR IN TRAEPITHELIAL LESION OR MALIGNANCY. Specimen adequacy: Satisfact ory for evaluation. No endocervical component is identified. Clinician provided ICD10: Z1 2.4 Performed by: Norbert ham, Compliance Examiner ([facility]) . . Note: The Pap smear is [...] 11:16:50 AM Interpretation: Performing Lab:[facility] [place], [address] [facility], Phone - [phone], Director - Kit Notes/Report: REASON FOR VISIT EXAM- PELVIC PAIN Medications Medication SIG (Take, Route, Frequency, Duration) Notes Start Date End Date Status metFORMIN HCl 1000 MG 1 tablet with a me al Orally Once a day for 30 day(s) 05/11/2024 Active Valium 05/11/2024 Active Aspirin Adult Low Dose 81 MG 1 tablet Orally Once a day for 30 day(s) 05/11/2024 Active Rosuvastatin Calcium 5 MG TAKE 1 TABLET BY MOUTH ONCE DAILY (Get FASTING LABS AFTER 2 MONTH OF USE) Oral for 90 Days Active Calcium 05/11/2024 Active Vitamin B-12 1000 MCG DISSOLVE 1 TABLET UNDER THE TONGUE AND allow TO DISSOLVE FOR AT LEAST 30 SECONDS BEFORE swallowing ONCE DAILY Sublingual for 30 Days Active Ozempic (1 MG/DOSE) 4 MG/3ML Subcutaneous for 28 Days Act chaya Social History Tobacco Use: Social History Observation [...] left female breast (C50.812) Active confirmed Problem Malignant neoplasm of overlapping sites of right female breast (C50.811) Active confirmed Problem Recurrent depression (421272625) Other recurrent depressive disorders (F33.8) Active confirmed Problem Legal blindness ([place] (334579188) Legal blindness, as defined in [place] (H54.8) Active confirmed Problem Hyperlipidemia (59912063) Hyperlipidemia, unspecified (E78.5) Active confirmed Problem Menopause (271243880) Menopausal and female climacteric states (N95.1) Active confirmed Encounters Encounter Location Date Provider Diagnosis [address] [address] 05/11/2024 Jennifer Graves Menopausal and female climacteric states N95.1 ; Personal history of other diseases of the female genital tract Z87.42 ; Pelvic Pain R10.2 and Encounter for screening mammogram for malignant neoplasm of breast Z12.31 Assessments Encounter Date Diagnosis (ICD Code) Assessment [...] RISK FOR BREAST CA. GET RECORDS FROM [facility]. SCHEDULE SCREENING MAMMOGRAM. SHE SAYS SHE HAD HER LAST ONE IN LATE 2022. WE WILL GET ANOTHER ONE A YEAR AFTERWARDS. 05/11/2024 Personal history of other diseases of [...] BETTER, CALL AND WILL ORDER PELVIC ULTRASOUND. 05/11/2024 Encounter for screening mammogram for malignant neoplasm of breast (ICD-10 - Z12.31) REGULAR MAMMOGRAMS AND SBE'S WERE RECOMMENDED. GET HER PREVIOUS RECORDS. RTO SOON RECORDS ARE AVAILABLE AND WILL DISCUSS HRT AND ITS BENEFITS AND RISKS. Plan Of Treatment Treatment Notes Assessment Notes Menopausal and female climacteric states DISCUSSED MENOPAUSE AND SYMPTOMS ASSOCIATED WITH THIS. DISCUSSED OPTIONS TO DECREASE HER SYMPTOMS INCLUDING HRT. SHE IS TAKING AN OTC MEDICATION RECOMMENDED BY HER PCP. CONTINUE THIS. WE NEED TO REVIEW HER RECORDS SPECIALLY SINCE SHE MAY HAVE BREAST CHANGES INCREASING HER RISK FOR BREAST CA. GET RECORDS FROM [facility]. SCHEDULE SCREENING MAMMOGRAM. SHE SAYS SHE HAD HER LAST ONE IN LATE 2022. WE WILL GET ANOTHER ONE A YEAR AFTERWARDS. Personal history of other di seases of the female genital tract DISCUSSED HER HX OF ABNORMAL PAP TESTS. GET HER PREVIOUS RECORDS FOR REVIEW. PAP TEST WITH HPV TYPING WAS OBTAINED TODAY. Pelvic Pain DISCUSSED PELVIC PAINS. THESE OCCUR SPORADICALLY AND LAST ONLY A FEW SECONDS AND ARE MILD. I SUSPECT THESE ARE MORE GI IN ORIGIN, GAS BUBBLES THAT COALESCE CAUSING COLICKY PAINS OFF AND ON. GAS-X AMD AVOID SMALL FINGER FOODS. IF NOT BETTER, CALL AND WILL ORDER PELVIC ULTRASOUND. Encounter for screening mamm ogram for malignant neoplasm of breast REGULAR MAMMOGRAMS AND SBE'S WERE RECOMMENDED. GET HER PREVIOUS RECORDS. RTO SOON RECORDS ARE AVAILABLE AND WILL DISCUSS HRT AND ITS BENEFITS AND RISKS. Pending Test Test Name Order Date MM Digital Mammo Screening 05/11/2024 Next Appt Details Follow Up: 4 Weeks, Reason: Progress Notes * HARRY EVANS FDOB:[birth year] (49 yo F)Acc No.[id number]:05/11/2024 Progress Note Patient:HARRY TAPIA Appointment Provider:?Jennifer metz M.D. :1975???Age:49 Y???Sex:Female D ate:05/11/2024 Address:[address] [place] [address], [facility] Subjective: * Chief Complaints: * ???EXAM- PELVIC PAIN * HPI: ???New/Follow-up Patient Consult:? PAT IS NEW TO OUR OFFICE.? SHE IS A VERY POOR HISTORIAN AND I TRIED TO GET MUCH INFORMATION I COULD GET AND MAKE SOME SENSE OUT OF IT.\.? SHE IS LEGALLY BLIND.? SHE HAS A 10 YEAR OLD SON DELIVERED BY C/SECTION.? SHE IS PRESENTLY SINGLE AND NOT SEXUALLY ACTIVE.?? SHE ENTERED MENOPAUSE ABOUT 3 YEARS AGO, AT AGE 46.? SHE SAYS HER MOTHER ENTERED MENOPAUSE YOUNG WELL.? SHE IS C/O SEVERE POSTMENOPAUSAL SYMPTOMS: HOT FLASHES, NIGHT SWEATS, IRRITABILITY, DEPRESSION, MOOD SWINGS, LACK OF LIBIDO, DYSPAREUNIA AND INSOMNIA.? SHE CRIES EASILY AND GETS ANGRY EASILY.?? SHE USED TO BE SEEN AT [facility] AND WAS BEING SEEN BY A NURSE PRACTITIONER.? SHE SAYS THAT SHE HAD ABNORMAL PAP TESTS BUT NO TREATMENTS WERE OFFERED.? WE WILL REPEAT HER PAP TEST TODAY AND WILL GET HER OLD RECORDS. SHE ALSO SAYS SHE HAD AN ABNORMAL MAMMOGRAM ABOUT 2 YEARS AGO AND UNDERWENT BREAST BIOPSY AND WAS TOLD SHE HAD PRECANCEROUS BREAST LESIONS.? WE WILL GET HER RECORDS. SHE HAS HAD MILD PELVIC PAINS FOR ABOUT A YEAR.? SHE DESCRIBES THEM AN ACHE THAT COMES AND GOES, LASTING ONLY A FEW SECONDS EACH TIME.? SHE DENIES ANY URINARY OR BOWEL PROBLEMS. * ROS:?general:?no?chest pain.?no?palpitations.?no?headache.?no?cough.?no?shortness of breath.?no?fever.?no?unexplained weight loss.?no?nausea/vomiting.?no?change in bowel movements.?no blood in stool.?genitourinary complaints?yes,?SEVERE POSTMENOPAUSAL SYMPTOMS.?no?skin complaints.? * Medical History:? * Pump Tender History:?/ Para?3/1.?Sexual activity?not currently sexually active.?Last Pap Smear:?2 Year Ago.?Mammogram:?2 years.?Abnormal Pap Smear:?Yes.?LMP and menses?2 Years Ago.? * OB History:?Total pregnancies?3.?Total living children?1.?(s)?1.?Miscarriage(s)?2.? * Surgical History:?Left Breas t Reconstruction Lumpectomy C=Section x 1 Left Masectomy * Hospitalization/Major Diagno stic Procedure:?See Surgical Hx * Family History:?Mother: vik carroll, Parkinsons.?Father: alive, Prostate Cancer.? * Social History:?Tobacco Use:?Tobacco Control (Standard)?Tobacco use:?Former smoker ???Sexual History:?Details of Sexual History?Are you sexually active??No ?Sexual History?Had sex in the past 12 months (vaginal, oral, or anal)??Yes ?with?Men only ???Drugs/Alcohol:?Drugs?Have you used drugs other than those [...] a meal Orally Once a day Valium Medication List reviewed and reconciled with the patientTaking Ozempic (1 MG/DOSE) 4 MG/3ML Solution Pen-injector [...] meal Orally Once a day Taking Valium Medication List reviewed and reconciled with the patient * Allergies:?Penicillin: Aller gyContrast Dye: Allergyno[Allergies Verified] Objective: * Vitals:? * Examination: ???INFIRMARY ATTENDANT exam: ?EXTERNAL GENITALIA:?Normal female. No lesions, erythema or discharge.?VAGINA:?pink chavis. No discharge or lesions. No cystocele or rectocele.?CERVIX:?No cervical motion tenderness, discharge or lesions.?UTERUS:?normal mobility, nontender, normal size, shape and consistency.?ADNEXA:?no masses or tenderness bilaterally.? Assessment: * Assessment: 1.?Menopausal and female cli macteric states - N95.1?2.?Personal history of other diseases of the female genital tract - Z87.42?3.?Pelvic Pain - R10.2?4.?Encounter for screening mammogram for malignant neoplasm of breast - Z12.31? Plan: * Treatment: 2.?Personal history of other diseases of the female genital tract? Notes: DISCUSSED HER HX OF ABNORMAL PAP TESTS. GET HER PREVIOUS RECORDS FOR REVIEW. PAP TEST WITH HPV TYPING WAS OBTAINED TODAY.?? 3.?Pelvic Pain?LAB: Urinalysis, Complete-[id number] ?LAB: Urine Culture, Routine-[id number] ?LAB: Urinalysis (Collection Date & Time - 05/11/2024) ? Value Reference Range ?NITRITE Neg * ?PH 5.0 * ?PROTEIN Small * ?S.G 1.020 * ?WBC Trace * ?GLUCOSE Neg * ?KETONES Neg * ?UROBILINOGEN Trace * ?BILIRUBIN Small * ?BLOOD Neg * DJada RACHELE 05/11/2024 10:24:02 AM EDT > U/A and Urine C&S Sent Notes: DISCUSSED PELVIC PAINS. THESE OCCUR SPORADICALLY AND LAST ONLY A FEW SECONDS AND ARE MILD. I SUSPECT THESE ARE MORE GI IN ORIGIN, GAS BUBBLES THAT COALESCE CAUSING COLICKY PAINS OFF AND ON. GAS-X AMD AVOID SMALL FINGER FOODS. IF NOT BETTER, CALL AND WILL ORDER PELVIC ULTRASOUND.??4.?Encounter for screening mammogram for malignant neoplasm of breast?Imaging: MM Digital Mammo Screening Notes: REGULAR MAMMOGRAMS AND SBE'S WERE RECOMMENDED. GET HER PREVIOUS RECORDS. RTO SOON RECORDS ARE AVAILABLE AND WILL DISCUSS HRT AND ITS BENEFITS AND RISKS. ?? * Labs:? * ?Lab: [id number] IGP No Culture 30 Plus * Procedure Codes:? * Follow Up:?4 Weeks * Images: Billing Information: * Visit Code:? * Procedure Codes:? * Sign off status: Completed true * Appointment Provider:?Jennifer Graves M.D. Date:?05/11/2024 Generated for Shanna sherwood/Meghan/Dariuszitting on:?01/15/2025 05:05 PM EDT History and Physical Notes * HPI (History of Present Illness) Category Sub-Category Detail Notes Category Not es New/Follow-up Patient Consult PAT IS NEW TO OUR OFFICE. SHE IS A VERY POOR HISTORIAN AND I TRIED TO GET MUCH INFORMATION I COULD GET AND MAKE SOME SENSE OUT OF IT.\. SHE IS LEGALLY BLIND. SHE HAS A 10 YEAR OLD SON DELIVERED BY C/SECTION. SHE IS PRESENTLY SINGLE AND NOT SEXUALLY ACTIVE. SHE ENTERED MENOPAUSE ABOUT 3 YEARS AGO, AT AGE 46. SHE SAYS HER MOTHER ENTERED MENOPAUSE YOUNG WELL. SHE IS C/O SEVERE POSTMENOPAUSAL SYMPTOMS: HOT FLASHES, NIGHT SWEATS, IRRITABILITY, DEPRESSION, MOOD SWINGS, LACK OF LIBIDO, DYSPAREUNIA AND INSOMNIA. SHE CRIES EASILY AND GETS ANGRY EASILY. SHE USED TO BE SEEN AT [facility] AND WAS BEING SEEN BY A NURSE PRACTITIONER. SHE SAYS THAT SHE HAD ABNORMAL PAP TESTS BUT NO TREATMENTS WERE OFFERED. WE WILL REPEAT HER PAP TEST TODAY AND WILL GET HER OLD RECORDS. SHE ALSO SAYS SHE HAD AN ABNORMAL MAMMOGRAM ABOUT 2 YEARS AGO AND UNDERWENT BREAST BIOPSY AND WAS TOLD SHE HAD PRECANCEROUS BREAST LESIONS. WE WILL GET HER RECORDS. SHE HAS HAD MILD PELVIC PAINS FOR ABOUT A YEAR. SHE DESCRIBES THEM AN ACHE THAT COMES AND GOES, LASTING ONLY A FEW SECONDS EACH TIME. SHE DENIES ANY URINARY OR BOWEL PROBLEMS. Examination Category Sub-Category Detail Notes Category Not es INFIRMARY ATTENDANT exam CERVIX: No cervical fanny on tenderness, discharge or lesions VAGINA: pink chavis. No disch arge or lesions. No cystocele or rectocele EXTERNAL GENITALIA: Normal female. No le sions, erythema or discharge UTERUS: normal mobility, non tender, normal size, shape and consistency ADNEXA: no masses or tendern ess bilaterally
--- OUTSIDE RECORDS SUMMARY | 2025-01-15 17:05 | XMS_ITS ---
Author Organization [facility] Address [address] [place] [address] Care Team Providers Care Hospice Patient Care Secretary Name Role Phone Polo Cobb Primary Care Provider Unavailab Maksim Hicks Unavailable [phone] Allergies Allergen (clinical drug ingredient) Drug/Non Drug Allergy documented on EMR Reaction Allergy Type Onset Date Status Iodine anaphylaxis Drug Allergy Activ e iodine Iodine Tincture Unknown Drug Allergy A ctive vancomycin Vancomycin HCl rash/itching Drug Allergy Active Substance with penicillin structure and antibacterial mechanism of action (substance) Penicillins shortness of breath/Hives Drug Allergy Active Medications Medication SIG (Take, Route, Frequency, Duration) Notes Start Date End Date Status Aspirin 81 MG 1 tablet Once a day Active Albuterol Sulfate 90mcg Ac tive Cholecalciferol-Vitami n C 50mcg PO Daily Active Blood Glucose Meter Active Albuterol Sulfate 0.63 MG/3ML as directed Inhalation Active hydrOXYzine HCl 10 MG 1 tablet as needed Orally Once a day Active Fluticasone Propionate 50 MCG/ACT 1 spray in each nostril Nasally Once a day Active metFORMIN HCl 1000 MG 1 tablet with a me al Orally Once a day Active Letrozole 2.5 MG 1 tablet Orally Once a day Active Nicotine Polacrilex 2 MG 1 piece chew for 30 minutes as needed Mouth/Throat every 8 hrs Active Ciclopirox 0.77 % 1 application Externally Once a day Active Rosuvastatin Calcium 5 MG 1 tablet Orally Once a day Active Social History Tobacco Use: Social History Observation Description Date Details (start date - stop date) Current Smoker NA - NA Tobacco Use/Smoking Question Answer Notes Are you a: current smoker Alcohol Screen Question Answer Notes Did you have a drink containing alcohol in the p ast year? Yes Points 0 Interpretation Negative Encounters Encounter Location Date Provider Diagnosis [facility] [address] [place] [address] 08/05/2023 Maksim Watts Plan Of Treatment No Information Progress Notes * Tosha PRETTYOB:1975 (49 yo F)Acc No.[id number]:08/05/2023 Progress Notes Patient:Rosa TAPIA Provider:?Maksim Watts DPM :1975???Age:48 Y???Sex:Female D ate:08/05/2023 Address:[address] [place] [address] [address] , [place], [place] Pcp:Polo Cobb Subjective: * Chief Complaints: * ??? * ROS:?General/Constitutional:?Nausea?denies.?Vomiting?denies.?Hunger Thirst?denies.?Loss appetite?denies.?Chills?denies.?Fatigue?denies.?Fever?denies.?Night Sweats?denies.?Unexplained weight loss?denies.?Unexplained weight gain?denies.?HEENTM:?Dentures?denies.?Dizziness?denies.?Glasses/contacts?denies.?Retinopathy?de nies.?Blurred/double vision?denies.?TMJ?denies.?Discharge/drainage?denies.?Implants?denies.?Sore throat?denies.?Dental implants?denies.?Hard of hearing ?denies.?Difficulty chewing/swallowing/speaking?denies.?Nose bleeds?denies.?Sore mouth?denies.?Respiratory:?On Oxygen?denies.?Pneumonia/pleurisy?denies.?Bronchitis?denies.?Emphysema?denies.?C oughing?denies.?Cough blood?denies.?Shortness of breath?denies.?Wheezing?denies.?Cardiovascular:?Pacemaker?denies.?MVP?denies.?WPW?denies.?CHF?denies.?Heart attack?denies.?Septal defect?denies.?Rapid beat?denies.?Chest pain ?denies.?Atrial Fib.?denies.?Murmur/Palpitations?denies.?Gastrointestinal:?Hemorrhoids?denies.?Stomach/Abdominal pain?denies.?Dark blood stool?denies.?Irritable bowel ?denies.?Constipation?denies.?Diarrhea?denies.?Hematology:?Swelling?denies.?Clots?denies.?Varicose Veins?denies.?Bruising?denies.?Bleeding problem?denies.?Genitourinary:?Blood urine?denies.?Frequent/Painfu/urination/bladder control?denies.?Kidney stones?denies.?Infection (UTI)?denies.?Nephropathy?denies.?sex trans dis (STD)?denies.?Prostate?denies.?Musculoskeletal:?Hammertoes?denies.?Bunions?denies.?Back Pain?denies.?Muscle Cramps/ Resting?denies.?Muscle cramps / walking?denies.?Generalized aches and pains?denies.?Weakness?denies.?Integ.:?[place]?denies.?Scars?denies.?Corns/calluses?denies.?Ingrown nails?denies.?Painful nails?denies.?Open Sores?denies.?Rashes?denies.?Neurologic:?Difficulty sleeping?denies.?Brain disorder?denies.?Numbness?denies.?Balance trouble?denies.?Confusion?denies.?Fainting/blackouts?denies.?Tingling?denies.?Tr emors?denies.? * Medical History:?Anxiety, De pression, Asthma, Cervical cancer, Chest pain, Coronary artery disease, Legally blind, Diabetes mellitus, Vitamin D deficiency. * Surgical History:?breast bio psy , left mastectomy , section , lumpectomy, right breast . * Family History:?Mother: vik carroll, cardiovascular, diagnosed with Unspecified heart disease.?Father: alive, hypertension, anxiety, depression, cancer, diabetes, diagnosed with Diabetic - NIDDM, Unspecified essential hypertension, Other malignant neoplasm of unspecified site.? * Social History:?Tobacco Use:?Tobacco Use/Smoking?Are you a:?current smoker ???Drugs/Alcohol:?Alcohol Screen?Did you have a drink containing alcohol in the past year??Yes ?Points?0 ?Interpretation?Negative ???Miscellaneous:?Occupation: Unemployed, Disabled. * Medications:?Taking Ciclopir ox 0.77 % Gel 1 application Externally Once a day , Taking Rosuvastatin Calcium 5 MG Tablet 1 tablet Orally Once a day , Taking Nicotine Polacrilex 2 MG Gum 1 piece chew for 30 minutes as needed Mouth/Throat every 8 hrs , Taking metFORMIN HCl 1000 MG Tablet 1 tablet with a meal Orally Once a day , Taking Letrozole 2.5 MG Tablet 1 tablet Orally Once a day , Taking hydrOXYzine HCl 10 MG Tablet 1 tablet as needed Orally Once a day , Taking Fluticasone Propionate 50 MCG/ACT Suspension 1 spray in each nostril Nasally Once a day , Taking Cholecalciferol-Vitamin C , Notes to Pharmacist: 50mcg PO Daily, Taking Blood Glucose Meter , Taking Aspirin 81 MG Capsule 1 tablet Once a day , Taking Albuterol Sulfate , Notes to Pharmacist: 90mcg, Taking Albuterol Sulfate 0.63 MG/3ML Nebulization Solution as directed Inhalation * Allergies:?Iodine: anaphylax is, Penicillins: shortness of breath/Hives, Vancomycin HCl: rash/itching, Iodine Tincture. Objective: * Vitals:? Assessment: Plan: * Treatment: * Images: * The named appointment provid er may or may not be the originator of this progress note, and it is not deemed complete until electronically signed by the appointment provider. Sign off status: Pending * Provider:?Maksim Watts DPM Date:?2022 Generated for Shanna sherwood/Meghan/Shikha on:?01/15/2025 05:05 PM EDT
--- OUTSIDE RECORDS SUMMARY | 2025-01-15 17:05 | XMS_ITS | Patient Health Record ---
[facility] Nehaljamie Arce Address [address] [facility] [place] [address] Care Team Providers Care Land Developer Name Role Phone Polo Cobb Primary Care Provider Unavailab Maksim Hicks Unavailable [phone] Allergies Allergen (clinical drug ingredient) Drug/Non Drug Allergy documented on EMR Reaction Allergy Type Onset Date Status Iodine anaphylaxis Drug Allergy Activ e iodine Iodine Tincture Unknown Drug Allergy A ctive vancomycin Vancomycin HCl rash/itching Drug Allergy Active Substance with penicillin structure and antibacterial mechanism of action (substance) Penicillins shortness of breath/Hives Drug Allergy Active Reason For Referral No Information Medications Medication SIG (Take, Route, Frequency, Duration) Notes Start Date End Date Status Aspirin 81 MG 1 tablet Once a day Active Albuterol Sulfate 90mcg Ac tive Cholecalciferol-Vitami n C 50mcg PO Daily Active Blood Glucose Meter Active hydrOXYzine HCl 10 MG 1 tablet [...] 1 application Externally Once a day Active Albuterol Sulfate 0.63 MG/3ML as directed Inhalation Active Rosuvastatin Calcium 5 MG 1 tablet [...] ast year? Yes Points 0 Interpretation Negative Plan Of Treatment No Information Insurance Providers Payer Name Payer Address Payer Phone Subscriber Number Group Number Insured Name Patient Relationship to Insured Coverage Start Date Coverage End Date [facility] [employer] Claims [address] [place] [phone] [id number] Rosa Pretty Self - patient is the insured Medical (General) History Medical History History ICD Code Anxiety Depression asthma cervical cancer chest pain Coronary artery disease legally blind Diabetes mellitus Vitamin D deficiency Surgical History Surgery Date(Month/Year) breast biopsy left mastectomy section lumpectomy, right breast
== END 2025-01-15 15:24 | disposition home or self-care (01) ==
LOC: HO.HMCH 14:00
PROVIDERS: PCP Physician Assistant; Visit Provider Physician Assistant
DX: E11.65 Type 2 diabetes mellitus with hyperglycemia (principal); C50.911 Malignant neoplasm of unspecified site of right female breast; C50.912 Malignant neoplasm of unspecified site of left female breast; F33.1 Major depressive disorder, recurrent, moderate; Z17.0 Estrogen receptor positive status [ER+]; Z98.82 Breast implant status; R51.9 Headache, unspecified

== ENCOUNTER → 2025-01-15 13:59 | Outpatient (BNVA) | payer OTHER, SELFPAY | PROVIDERS: PCP Physician Assistant; Visit Provider Physician Assistant | DX: E11.65 Type 2 diabetes mellitus with hyperglycemia (principal); Z85.3 Personal history of malignant neoplasm of breast; Z17.0 Estrogen receptor positive status [ER+]; F33.1 Major depressive disorder, recurrent, moderate; R51.9 Headache, unspecified; Z98.82 Breast implant status | CPT/HCPCS: 83036; 96127; 99212 ==

== ENCOUNTER 2025-04-23 09:31 | Outpatient (AMB) | payer OTHER, SELFPAY ==
[2025-04-23 09:41] VITALS: BP 136/90; PULSE 82; BMI 35.8
--- NOTE | 2025-04-23 09:41 | A.OFFVIS_ITS ---
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: Technical Project Manager Present Allergies iodine [IODINE] Allergy (Severe, Verified 04/23/25 09:44) ANAPHYLAXIS Penicillins [PENICILLINS] Allergy (Severe, Verified 04/23/25 09:44) DIFFICULTY BREATHING,HIVES penicillin V Allergy (Unknown, Verified 04/23/25 09:44) anaphylaxis,rash vancomycin Allergy (Unknown, Verified 04/23/25 09:44) rash, itching Iodine Tincture Allergy (Unknown, Uncoded 04/23/25 09:44) Unknown nylon Allergy (Unknown, Uncoded 04/23/25 09:44) Unknown Medication List - Last Reconciled 04/23/25 by ERIK Pulliam acetaminophen (Tylenol Extra Strength) 500 mg PO Q6H PRN albuterol sulfate 90 mcg/actuation 1 inh inhalation QID PRN albuterol sulfate 0.63 mg (3 mL) inhalation QID PRN [alcohol pads As directed] aspirin (Adult Low Dose Aspirin) 81 mg PO DAILY 90 days baclofen 20 mg PO BID PRN 30 days blood-glucose meter ([employer] Glucose Meter kit) As directed blood-glucose sensor (FreeStyle [place] 3 Sensor device) As directed blood-glucose,outside parts sales,cont (FreeStyle [place] 3 [place]) As directed Breo Ellipta 200-25 mcg/dose (fluticasone furoate-vilanterol) 1 inh inhalation DAILY 30 days NS cholecalciferol (vitamin D3) 50 mcg PO DAILY 90 days ciclopirox 0.77% 1 appl topical BID 4 weeks cyclobenzaprine 5 mg PO Q8H PRN 5 days diphenhydramine HCl (Benadryl Allergy) 50 mg PO ONCE 1 day fluticasone propionate 50 mcg/actuation (Flonase Allergy Relief) 2 sprays intranasal DAILY lactulose 20 grams (30 mL) PO DAILY PRN 30 days lidocaine 5% (Lidoderm) 1 patch topical DAILY PRN MDD remove after 12 hours loratadine 10 mg PO DAILY mecobalamin (vitamin B12) 1,000 mcg sublingual DAILY metformin 1,000 mg PO ONCE 90 days naproxen 500 mg PO BID PRN 10 days omeprazole 20 mg PO DAILY 30 days pen needle, diabetic (BD Ultra-Fine Sheila Pen Needle) As directed prednisone 50 mg PO TID 1 day rosuvastatin 5 mg PO DAILY 90 days semaglutide (Ozempic) 2 mg (0.75 mL) subcut QWEEK 4 weeks sertraline 50 mg PO DAILY 90 days HPI HPI 1 yr f/up: Details: Rosa is a 50-year-old female with past medical history of breast cancer, legally blind, hyperlipidemia, diabetes, coronary atherosclerosis on CT scan, mild coronary calcifications on CTA, smoking who presents for follow-up. Today she reports that she has been having issues with depression and decreased energy to do things. She will get periodic pains in her chest, no clear chest discomfort brought on by exertion. She does have some shortness of breath with activity which she relates to her weight and deconditioning. No shortness of breath at rest, dizziness, presyncope, syncope, PND, orthopnea or edema. She has not been able to lose weight. She admits to being mostly sedentary. She takes her meds as directed. [facility] Medical History Hyperlipidemia Vitamin D deficiency Smoker Anxiety and depression Asthma Potential exposure to STD Depression BMI 39.0-39.9,adult Type 2 diabetes mellitus Legal blindness Coronary artery calcification seen on CAT scan Breast CA Obesity Chest pain Surgical History History of left mastectomy S/P lumpectomy, right breast H/O right breast biopsy Hx of section Family History Father HTN (hypertension) Anxiety Depression Cancer Diabetes Mother CVD (cardiovascular disease) Parkinson's disease Social History Housing: Apartment Alcohol intake: current Alcohol intake frequency: holidays/special occasions only Patient Tobacco Use Status: Former Tobacco user Tobacco use type: Cigarette e-Cigarette/Vaping Use: Never Used Second Hand Smoke Exposure: No service: No Current occupational status: disabled Current occupational exposures/hazards: No Gender identity: Female Cognitive needs: No Hearing needs: No Vision needs: No Female Reproductive History Menstrual Age of Menarche: 11 Review of Systems Const All systems reviewed & are unremarkable except as noted in HPI and below ENT Denies dizziness Card Reports chest pain, Denies chest pain at rest, Denies chest pain with activity, Denies rapid heart rate, Denies pedal edema, Denies edema, Denies leg edema, Denies lightheadedness, Denies palpitations, Reports dyspnea, Denies dyspnea on exertion and Denies orthopnea Resp Denies cough, Reports dyspnea and Denies dyspnea on exertion GI Denies hematochezia and Denies change in stool character Musc Denies abnormal gait, Denies limited range of motion, Denies muscle cramps, Denies muscle weakness, Denies numbness, Denies radiating pain into limb, Denies stiffness and Denies tingling Neuro Denies abnormal gait, Denies dizziness, Denies numbness and Denies tingling Endo Denies palpitations Physical Exam Vital Signs: Last Vital Signs Pulse 82 04/23/25 09:41 BP 136/90 H 04/23/25 09:41 BMI result Body Mass Index 35.8 Const General: cooperative, healthy appearing, comfortable and no acute distress Orientation/consciousness: patient oriented x3 Neck Neck: Yes normal visual inspection Resp Effort & Inspection: normal respiratory effort Auscultation: clear to auscultation bilaterally, no crackles, no rales, no rhonchi and no wheezes Cardio Jugular venous distension: no JVD Rate: regular rate Rhythm: regular rhythm Heart sounds: S1 normal heart sound present, S2 normal heart sound present, no murmurs and no rubs Neuro General: patient oriented x3 Extrem General: Yes normal to inspection and No no pedal edema Psych Appearance: grossly normal Mental Status: mental status grossly normal Speech and movement: Normal speech and movement present Office Procedures EKG Details: Today, read by me, normal sinus rhythm, rate 82, QTC 415 milliseconds [id number], Complete Assessment & Plan Assessment & Plan (1) Chest pain: Code(s): R07.9 - Chest pain, unspecified Category: Medical Qualifiers: Chest pain type: precordial pain Qualified Code(s): R07.2 - Precordial pain Plan: Prior reports of atypical chest discomfort.. Does have risk factors of obesity, chest radiation 5 years ago, prior smoking. Prior chest CT showed mild coronary calcifications. Echocardiogram 10/17/20 shows EF 55-60%, no valve abnormality and no regional wall motion abnormality. Nuclear stress test 10/17/20 is equivocal for distal anterior ischemia. A CTA of the coronary arteries was done on 02/18/2023 showing minimal nonobstructive CAD. EKG today shows sinus rhythm, rate 82. No anginal sounding symptoms. Continue med management for stable CAD including aspirin indefinitely. Continue low-dose statin with ideal LDL goal less than 70. s/s of angina reviewed. Cardiology follow-up for nonobstructive CAD in 1 year, sooner if needed. (2) Coronary artery calcification seen on CAT scan: Code(s): I25.10 - Atherosclerotic heart disease of [place] coronary artery without angina pectoris Category: Medical Plan: As above (3) Abnormal nuclear stress test: Code(s): R94.39 - Abnormal result of other cardiovascular function study Category: Medical Plan: As above (4) Obesity: Comment: working with weight management program Code(s): E66.9 - Obesity, unspecified Category: Medical Qualifiers: Body mass index: BMI 35.0-35.9 Obesity classification: adult class 2 (BMI 35 - 39.9) Obesity type: due to excess calories Serious obesity comorbidity presence: without serious comorbidity Qualified Code(s): E66.09 - Other obesity due to excess calories; Z68.35 - Body mass index [BMI] 35.0-35.9, adult Plan: She is working on weight loss. (5) Breast CA: Comment: Right breast lumpectomy, left breast masectomy - currently has tissue centrifugal separator in place (11/2020) Code(s): C50.919 - Malignant neoplasm of unspecified site of unspecified female breast Category: Medical Qualifiers: Breast location: unspecified site of breast Estrogen receptor status: positive Laterality: bilateral Patient sex: female Qualified Code(s): C50.911 - Malignant neoplasm of unspecified site of right female breast; C50.912 - Malignant neoplasm of unspecified site of left female breast; Z17.0 - Estrogen receptor positive status [ER+] Plan: Bilateral breast CA with sugical resection, prior radiation. Follows with Dr Carlisle for oncology. Being monitored at present time. Plan I discussed with the patient the ongoing management of her Coronary Artery Disease, emphasizing the necessity of continued use of aspirin and rosuvastatin. We reviewed the lab results, confirming the LDL level at 71 mg/dL, supporting ongoing medication compliance. Physical activity's role was highlighted as a complementary measure for her cardiovascular health, aiming to alleviate symptoms and improve her situation. I acknowledged her PTSD and stress, suggesting these may contribute to her energy and motivation issues. I encouraged her to seek counseling if needed and to stay active within her capacity. Follow-up is planned for a year, but earlier contact was advised should her condition change, emphasizing vigilance for symptom changes. Patient Instructions: - Continue taking aspirin and rosuvastatin 5 mg daily. - Begin regular, mild physical activities as tolerated to enhance fitness and health. - Avoid fried and greasy foods to help control cholesterol. - Schedule a follow-up visit in one year or sooner if symptoms change or worsen. - Consider discussing stress and motivation concerns with a counselor or primary doctor for additional support. Patient was informed and verbally consented to the use of an ambient scribe for clinic note documentation during this visit. Visit time spent on chart review, interview, assessment, orders, documentation. Coding Level of Care Code Est Pt Level 3 (28710) Complex EM visit Add On G2211 Diagnoses Precordial pain R07.2 Chest pain type: precordial pain Coronary artery calcification seen on CAT scan I25.10 Abnormal nuclear stress test R94.39 Class 2 obesity due to excess calories without serious comorbidity with body mass index (BMI) of 35.0 to 35.9 in adult E66.09; Z68.35 Body mass index: BMI 35.0-35.9 Obesity classification: adult class 2 (BMI 35 - 39.9) Obesity type: due to excess calories Serious obesity comorbidity presence: without serious comorbidity Bilateral malignant neoplasm of breast in female, estrogen receptor positive, unspecified site of breast C50.911; C50.912; Z17.0 Breast location: unspecified site of breast Estrogen receptor status: positive Laterality: bilateral Patient sex: female CPT Codes EKG - CPT: [id number], Complete ([id number]) Time Spent (min) 24
--- OUTSIDE RECORDS SUMMARY | 2025-04-23 10:18 | XMS_ITS | Clinical Summary ---
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 Operator Name Role Phone Unavailable Primary Care Provider [...] Panel 1976 SDOH Screening 1976 Sigmoidoscopy 1976 Disability Screening 1976 Alcohol/Substance Use Screening 1988 Tobacco Screening [...] 5 season) 2024 08/18/2021, 07/28/2021 Influenza Vaccine (Season Ended) 2025 Zoster Vaccines (1 of 2) 01/30/2026 RSV [...] patient's age to complete this topic Meningococcal B Vaccine Aged Out No l onger eligible based on patient's age to complete this topic Meningococcal Vaccine Aged Out No jonnie kate eligible based on patient's age to complete this topic Pneumococcal Vaccine: Pediatrics (0 to 5 Years) and At-Risk Patients (6 to 49) Years Aged Out No longer eligible b ased [...] Recently Relevant to Health Maintenance Insurance [facility] [place]
== END 2025-04-23 10:16 | disposition home or self-care (01) ==
LOC: HO.HCS 09:32
PROVIDERS: PCP Physician Assistant; Visit Provider Nurse Practitioner Family
DX: R07.2 Precordial pain (principal); I25.10 Atherosclerotic heart disease of native coronary artery without angina pectoris; R94.39 Abnormal result of other cardiovascular function study; E66.09 Other obesity due to excess calories; Z68.35 Body mass index [BMI] 35.0-35.9, adult; C50.911 Malignant neoplasm of unspecified site of right female breast; C50.912 Malignant neoplasm of unspecified site of left female breast; Z17.0 Estrogen receptor positive status [ER+]
CPT/HCPCS: 93010; 99213; G2211

== ENCOUNTER → 2025-04-23 09:31 | Outpatient (BNVA) | payer OTHER, SELFPAY | PROVIDERS: PCP Physician Assistant; Visit Provider Nurse Practitioner Family | DX: R07.2 Precordial pain (principal); I25.10 Atherosclerotic heart disease of native coronary artery without angina pectoris; R94.39 Abnormal result of other cardiovascular function study; E66.09 Other obesity due to excess calories; Z68.35 Body mass index [BMI] 35.0-35.9, adult; C50.912 Malignant neoplasm of unspecified site of left female breast; Z17.0 Estrogen receptor positive status [ER+] | CPT/HCPCS: 93005; 99212 ==

== ENCOUNTER 2025-09-19 09:08 | Emergency (ER) | payer OTHER, SELFPAY ==
--- NOTE | ~2025-09-19 | XR_ITS ---
EXAMINATION: XR WRIST, RIGHT CLINICAL INFORMATION: fall COMPARISON: None available. TECHNIQUE: PA, lateral, and oblique views of the right wrist. Scaphoid projection. FINDINGS: No acute cortical disruption or malalignment. No lytic or blastic lesions. No metallic or radiopaque foreign body. No subcutaneous emphysema. XR/XR wrist RT min 3V IMPRESSION: No acute fracture or dislocation. Normal exam. EXAMINATION: XR ELBOW, RIGHT CLINICAL INFORMATION: fall COMPARISON: None available. TECHNIQUE: AP, lateral, and oblique views of the right elbow. FINDINGS: No acute cortical disruption or malalignment. No lytic or blastic lesions. No metallic or radiopaque foreign body. No joint effusion. No subcutaneous emphysema. IMPRESSION: No acute fracture or dislocation. Normal right elbow x-ray. EXAMINATION: XR SHOULDER, RIGHT CLINICAL INFORMATION: fall COMPARISON: None available. TECHNIQUE: AP external rotation, Grashey, scapular Y, and axillary views of the right shoulder. FINDINGS: No acute cortical disruption or malalignment. No metallic or radiopaque foreign body. No subcutaneous emphysema. Subchondral cyst formation in the inferior glenoid of the scapula. IMPRESSION: No acute fracture or dislocation. EXAMINATION: XR ANKLE, RIGHT CLINICAL INFORMATION: fall COMPARISON: None available. TECHNIQUE: AP, lateral, and mortise views of the right ankle. FINDINGS: No acute cortical disruption or malalignment. No metallic or radiopaque foreign body. No lytic or blastic lesions. No gross joint effusion. Small plantar calcaneal spur. IMPRESSION: No acute fracture or dislocation. Small plantar calcaneus spur. Electronically signed by: Jm Reynoso MD 09/19/2025 10:58 AM KANA
--- NOTE | ~2025-09-19 | XR_ITS ---
EXAMINATION: XR WRIST, RIGHT CLINICAL INFORMATION: fall COMPARISON: None available. TECHNIQUE: PA, lateral, and oblique views of the right wrist. Scaphoid projection. FINDINGS: No acute cortical disruption or malalignment. No lytic or blastic lesions. No metallic or radiopaque foreign body. No subcutaneous emphysema. XR/XR ankle RT min 3V IMPRESSION: No acute fracture or dislocation. Normal exam. EXAMINATION: XR ELBOW, RIGHT CLINICAL INFORMATION: fall COMPARISON: None available. TECHNIQUE: AP, lateral, and oblique views of the right elbow. FINDINGS: No acute cortical disruption or malalignment. No lytic or blastic lesions. No metallic or radiopaque foreign body. No joint effusion. No subcutaneous emphysema. IMPRESSION: No acute fracture or dislocation. Normal right elbow x-ray. EXAMINATION: XR SHOULDER, RIGHT CLINICAL INFORMATION: fall COMPARISON: None available. TECHNIQUE: AP external rotation, Grashey, scapular Y, and axillary views of the right shoulder. FINDINGS: No acute cortical disruption or malalignment. No metallic or radiopaque foreign body. No subcutaneous emphysema. Subchondral cyst formation in the inferior glenoid of the scapula. IMPRESSION: No acute fracture or dislocation. EXAMINATION: XR ANKLE, RIGHT CLINICAL INFORMATION: fall COMPARISON: None available. TECHNIQUE: AP, lateral, and mortise views of the right ankle. FINDINGS: No acute cortical disruption or malalignment. No metallic or radiopaque foreign body. No lytic or blastic lesions. No gross joint effusion. Small plantar calcaneal spur. IMPRESSION: No acute fracture or dislocation. Small plantar calcaneus spur. Electronically signed by: Jm Reynoso MD 09/19/2025 10:58 AM KANA
--- NOTE | ~2025-09-19 | XR_ITS ---
EXAMINATION: XR WRIST, RIGHT CLINICAL INFORMATION: fall COMPARISON: None available. TECHNIQUE: PA, lateral, and oblique views of the right wrist. Scaphoid projection. FINDINGS: No acute cortical disruption or malalignment. No lytic or blastic lesions. No metallic or radiopaque foreign body. No subcutaneous emphysema. XR/XR elbow RT min 3V IMPRESSION: No acute fracture or dislocation. Normal exam. EXAMINATION: XR ELBOW, RIGHT CLINICAL INFORMATION: fall COMPARISON: None available. TECHNIQUE: AP, lateral, and oblique views of the right elbow. FINDINGS: No acute cortical disruption or malalignment. No lytic or blastic lesions. No metallic or radiopaque foreign body. No joint effusion. No subcutaneous emphysema. IMPRESSION: No acute fracture or dislocation. Normal right elbow x-ray. EXAMINATION: XR SHOULDER, RIGHT CLINICAL INFORMATION: fall COMPARISON: None available. TECHNIQUE: AP external rotation, Grashey, scapular Y, and axillary views of the right shoulder. FINDINGS: No acute cortical disruption or malalignment. No metallic or radiopaque foreign body. No subcutaneous emphysema. Subchondral cyst formation in the inferior glenoid of the scapula. IMPRESSION: No acute fracture or dislocation. EXAMINATION: XR ANKLE, RIGHT CLINICAL INFORMATION: fall COMPARISON: None available. TECHNIQUE: AP, lateral, and mortise views of the right ankle. FINDINGS: No acute cortical disruption or malalignment. No metallic or radiopaque foreign body. No lytic or blastic lesions. No gross joint effusion. Small plantar calcaneal spur. IMPRESSION: No acute fracture or dislocation. Small plantar calcaneus spur. Electronically signed by: Jm Reynoso MD 09/19/2025 10:58 AM KANA
--- NOTE | ~2025-09-19 | XR_ITS ---
EXAMINATION: XR WRIST, RIGHT CLINICAL INFORMATION: fall COMPARISON: None available. TECHNIQUE: PA, lateral, and oblique views of the right wrist. Scaphoid projection. FINDINGS: No acute cortical disruption or malalignment. No lytic or blastic lesions. No metallic or radiopaque foreign body. No subcutaneous emphysema. XR/XR shoulder RT min 2V IMPRESSION: No acute fracture or dislocation. Normal exam. EXAMINATION: XR ELBOW, RIGHT CLINICAL INFORMATION: fall COMPARISON: None available. TECHNIQUE: AP, lateral, and oblique views of the right elbow. FINDINGS: No acute cortical disruption or malalignment. No lytic or blastic lesions. No metallic or radiopaque foreign body. No joint effusion. No subcutaneous emphysema. IMPRESSION: No acute fracture or dislocation. Normal right elbow x-ray. EXAMINATION: XR SHOULDER, RIGHT CLINICAL INFORMATION: fall COMPARISON: None available. TECHNIQUE: AP external rotation, Grashey, scapular Y, and axillary views of the right shoulder. FINDINGS: No acute cortical disruption or malalignment. No metallic or radiopaque foreign body. No subcutaneous emphysema. Subchondral cyst formation in the inferior glenoid of the scapula. IMPRESSION: No acute fracture or dislocation. EXAMINATION: XR ANKLE, RIGHT CLINICAL INFORMATION: fall COMPARISON: None available. TECHNIQUE: AP, lateral, and mortise views of the right ankle. FINDINGS: No acute cortical disruption or malalignment. No metallic or radiopaque foreign body. No lytic or blastic lesions. No gross joint effusion. Small plantar calcaneal spur. IMPRESSION: No acute fracture or dislocation. Small plantar calcaneus spur. Electronically signed by: Jm Reynoso MD 09/19/2025 10:58 AM [facility]
--- NOTE | ~2025-09-19 | CT_ITS ---
EXAMINATION: CT HEAD WITHOUT CONTRAST CLINICAL INFORMATION: fall COMPARISON: August 07, 2022 TECHNIQUE: Contiguous axial imaging was performed from the skull base to vertex without intravenous administration of contrast. This CT examination was performed using dose optimization techniques as appropriate, variously including the following: *Automated exposure control *Adjustment of mA and/or kV according to patient size (this includes techniques or standardized protocols for targeted exams where dose is matched to indication/reason for exam; i.e. extremities or head) *Use of iterative reconstruction technique DLP: 692 mGy-cm FINDINGS: No acute cortical disruption in the bony calvarium or the skull base. No acute intracranial hemorrhage, mass effect, midline shift, hydrocephalus or herniation. Ho-white matter differentiation is normal. Posterior cranial fossa contents demonstrated no acute hemorrhage or mass effect. Normal position of the cerebellar tonsils. Sellar/suprasellar region demonstrated no gross masses. Poor pneumatization frontal sinuses. No air-fluid levels in the paranasal sinuses. Tympanic cavities and mastoid cells are aerated. No gross hematoma in the intraconal or extraconal compartments of the orbits. Bilateral prominent parotid glands. Right internal jugular bulb is at the level of the posterior hypotympanum. CT/CT head/brain wo IV con IMPRESSION: No acute fracture, bony calvarium. No acute intracranial hemorrhage. Probable high riding right internal jugular bulb. Electronically signed by: Jm Reynoso MD 09/19/2025 11:01 AM [facility]
[2025-09-19 09:12] VITALS: BP 182/85; PULSE 69; RESP 18; TEMP 36.3; O2SAT 96; BMI 37.1
--- NOTE | 2025-09-19 10:16 | ED_ITS ---
HPI - General Adult General Chief complaint: Fall Stated complaint: fall Time Seen by Provider: 09/19/25 09:37 Source: patient, RN notes reviewed and old records reviewed Mode of arrival: ambulatory Limitations: no limitations History of Present Illness ED Provider: MAGDALENE Hooper HPI narrative: 50-year-old female with medical history of HLD, anxiety, depression, asthma, T2DM, legally blind, breast cancer s/p L breast mastectomy in 2020, presents to ED after sustaining a fall 2 days ago. Patient [place] [employer] when she tripped on something in the pavement and landed with both hands out in front of her, and on her knees before falling onto her right side. Patient states she began experiencing pain of her neck muscles, R shoulder, R elbow, R ankle after the fall but did not get evaluated. Patient states she experienced an episode of nausea yesterday. Patient states she woke up this morning with nausea, and feels funny, I feel off explaining that she has increased pain of her R side and feels numbness and tingling of the R side of her face and down the R side of her neck. Denies headache, visual changes, abdominal pain, vomiting, urinary symptoms MD complaint: Fall with right shoulder, right elbow, right ankle pain Related Data Previous Rx's ?Medication ?Instructions ?Recorded blood-glucose meter ([employer] #1 ea 07/21/22 Glucose Meter kit) albuterol sulfate 90 mcg/actuation 1 inh inhalation QI D PRN shortness 12/24/22 aerosol inhaler of breath or wheezing #8.5 g demetrio cholecalciferol (vitamin D3) 50 50 mcg PO DAILY 90 day s #90 caps 05/24/23 mcg (2,000 unit) capsule ciclopirox 0.77 % topical cream 1 appl topical BID 4 w eeks #30 08/02/23 grams Breo Ellipta 200 mcg-25 mcg/dose 1 inh inhalation MARY KATE Y 30 days #1 10/06/23 powder for inhalation (fluticasone ea furoate-vilanterol) blood-glucose sensor (FreeStyle #1 ea 03/21/24 Savanna 3 Sensor device) blood-glucose,product marketing intern,cont #1 ea 03/21/24 (FreeStyle Savanna 3 [place] Thunder) alcohol pads #1 ea 05/28/24 mecobalamin (vitamin B12) 1,000 1,000 mcg sublingual D AILY #30 tabs 07/02/24 mcg disintegrating tablet,sublingual lactulose 20 gram/30 mL oral 20 g (30 mL) PO DAILY PRN laxative 07/18/24 solution effect 30 days #1,200 mL pen needle, diabetic 32 gauge x #50 ea 07/18/24 (BD Ultra-Fine Sheila Pen Needle) acetaminophen 500 mg tablet 500 mg PO Q6H PRN fever or pain 09/03/24 (Tylenol Extra Strength) #14 tabs cyclobenzaprine 5 mg tablet 5 mg PO Q8H PRN pain (scal e score 09/03/24 7-10) 5 days #14 tabs lidocaine 5 % topical patch 1 patch topical DAILY PRN pain #30 09/03/24 (Lidoderm) ea aspirin 81 mg tablet,delayed 81 mg PO DAILY 90 days #9 0 tabs 10/26/24 release (Adult Low Dose Aspirin) omeprazole 20 mg capsule,delayed 20 mg PO DAILY 30 day s #30 caps 10/26/24 release albuterol sulfate 0.63 mg/3 mL 0.63 mg (3 mL) inhalati on QID PRN 11/13/24 solution for nebulization shortness of breath or wheez ing #75 mL loratadine 10 mg tablet 10 mg PO DAILY #90 tabs 11/07 03/01 rosuvastatin 5 mg tablet 5 mg PO DAILY 90 days #90 ta bs 01/15/25 sertraline 50 mg tablet 50 mg PO DAILY 90 days #90 t abs 01/15/25 metformin 1,000 mg tablet 1,000 mg PO ONCE 90 days #90 tabs 01/17/25 diphenhydramine HCl 50 mg tablet 50 mg PO ONCE 1 day # 1 tab 03/26/25 (Benadryl Allergy) prednisone 50 mg tablet 50 mg PO TID 1 day #3 tabs 0 03/26/25 fluticasone propionate 50 2 spray intranasal DAILY #16 grams 05/06/25 mcg/actuation nasal spray,suspension (Flonase Allergy Relief) semaglutide 1 mg/dose (4 mg/3 mL) 1 mg (0.75 mL) subcu t QWEEK 4 08/07/25 subcutaneous pen injector (Ozempic) weeks #3 mL baclofen 20 mg tablet 20 mg PO BID PRN pain (scale score 09/18/25 7-10) 30 days #60 tabs naproxen 500 mg tablet 500 mg PO BID PRN pain 10 da ys #20 09/18/25 tabs Allergies Allergy/AdvReac Type Severity Reaction Status Date / Time iodine (IODINE) Allergy Severe ANAPHYLAXIS Verified 09/19/25 09:16 Penicillins (PENICILLINS) Allergy Severe DIFFICULTY Verified 09/19/25 09:16 BREATHING,HIVES penicillin V Allergy Unknown anaphylaxis Verified 09/19/25 09:16 ,rash vancomycin Allergy Unknown rash, Verified 09/19/25 09:16 itching Iodine Tincture Allergy Unknown Unknown Uncoded 04/23/25 09:44 nylon Allergy Unknown Unknown Uncoded 04/23/25 09:44 Review of Systems Review of Systems: Yes all other systems are reviewed and are negative [facility] Past Medical History Attestation statement: The following information was validated with the patient. Source: old records reviewed and nursing notes reviewed Medical History Hyperlipidemia Vitamin D deficiency Smoker Anxiety and depression Asthma Potential exposure to STD Depression BMI 39.0-39.9,adult Type 2 diabetes mellitus Legal blindness Coronary artery calcification seen on CAT scan Breast CA Obesity Chest pain Surgical History History of left mastectomy S/P lumpectomy, right breast H/O right breast biopsy Hx of section Family History Family History Father HTN (hypertension) Anxiety Depression Cancer Diabetes Mother CVD (cardiovascular disease) Parkinson's disease Social History Social History Housing: Apartment Alcohol intake: current Alcohol intake frequency: holidays/special occasions only Patient Tobacco Use Status: Former Tobacco user Tobacco use type: Cigarette e-Cigarette/Vaping Use: Never Used Second Hand Smoke Exposure: No Advance Directives: No Advance Directives Information Provided: Yes service: No Current occupational status: disabled Current occupational exposures/hazards: No Gender identity: Female Cognitive needs: No Hearing needs: No Vision needs: No Physical Exam ED Vital Signs: Vital Signs - 24 hr 09/19/25 09:12 Temperature 97.3 F Pulse Rate 69 Respiratory Rate 18 Blood Pressure 182/85 H Pulse Oximetry 96 Oxygen Delivery Method Room Air BMI result Body Mass Index 37.1 GENERAL APPEARANCE: ?AxOx4, generally well-appearing, no acute distress. HEENT: ?NC, AT. MMM. EOMI, clear conjunctiva, oropharynx clear. NECK: ?Supple without lymphadenopathy.? No stiffness or restricted ROM. HEART:? Normal rate and regular rhythm, normal S1/S2, no m/r/g LUNGS:? CTAB, moving air well. No crackles or wheezes are heard. ABDOMEN: ?Soft, nontender, nondistended with good bowel sounds heard. BACK: No CVAT, no obvious deformity. EXTREMITIES: ?Without cyanosis, clubbing or edema. Small area of ecchymosis over the R olecranon, small superficial abrasions of B/L knees. Strength 4/5 of upper extremities due to pain, strength 5/5 of lower extremities NEUROLOGICAL: ?Grossly nonfocal. Alert and oriented, moving all 4 extremities. Observed to ambulate with normal gait. Skin: ?Warm and dry without any rash. Medications Administered Discontinued Medications Generic Name Dose Route Start Last Admin Trade Name Freq PRN Reason Stop Dose Admin Acetaminophen 975 mg 09/19/25 10:16 09/19/25 11:16 Acetaminophen 325 Mg Tablet PO 09/19/25 10:17 975 mg ONCE ONE Administration Medical Decision Making Medical Decision Making MDM Narrative: 50-year-old female with medical history of HLD, anxiety, depression, asthma, T2DM, legally blind, breast cancer s/p L breast mastectomy in 2020, presents to ED after mechanical fall 2 days ago with R shoulder, elbow, wrist, ankle pain, and numbness and tingling of her R side. VS on initial observation-BP 182/85, pulse rate of 69, respiratory rate of 18, afebrile with oral temp of 97.3, O2 saturation 96 percent on room air. On physical exam patient is very well-appearing, nontoxic appearing, in no acute distress, lungs clear to auscultation bilaterally, cardiac exam reveals normal rate and rhythm without murmurs/rubs/gallops, head is atraumatic, EOMI, pupils reactive to accommodation and consensual light reflex, there are no neurological deficits, upper extremities and lower extremities are vascular intact, well- perfused, without reduced ROM. Patient is able to ambulate without ataxic/antalgic gait. Plan: CT head/brain, XR R shoulder, XR R elbow, XR R wrist, XR R ankle Imaging was negative for any acute findings. Patient was medicated with 975 milligrams p.o. Tylenol, patient still feels sore over the R side of her body. I discussed with patient her symptoms are most likely due to muscle tension after catching herself on outstretched hands after falling. I counseled patient to manage pain at home with 500 milligrams of Tylenol, and continue to use her Naprosyn which she is prescribed. I counseled patient to follow up with her primary care doctor to ensure resolution of her symptoms. Patient feels well enough to go home for self-care today and is in agreement with the plan. Differential Diagnosis Differential Diagnoses: The differential diagnosis associated with the presentation includes ICH Shoulder fracture Elbow fracture Wrist fracture Ankle fracture Musculoskeletal strain Admission/Observation Consideration of admission/observation: Escalation of care including a dmission/observation considered Independent Interpretation I performed an independent interpretation of an: Plain X-Ray and CT Scan Interpretation: I personally interpreted the CT head/brain which was negative for acute intracranial findings, I agree with the radiologist's interpretation I personally interpreted the XR R shoulder which was negative for fracture, dislocation, I agree with the radiologist's interpretation I personally interpreted the XR R elbow which was negative for fracture, dislocation, I agree with the radiologist's interpretation I personally interpreted the XR R wrist which was negative for fracture, dislocation, I agree with the radiologist's interpretation I personally interpreted the XR R ankle which was negative for fracture, dislocation, I agree with the radiologist's interpretation Radiology Impression Discussion of test interpretation with radiology: I have reviewed the radiologist's reading. Radiologist Impression: CT head/brain FINDINGS: No acute cortical disruption in the bony calvarium or the skull base. No acute intracranial hemorrhage, mass effect, midline shift, hydrocephalus or herniation. Ho-white matter differentiation is normal. Posterior cranial fossa contents demonstrated no acute hemorrhage or mass effect. Normal position of the cerebellar tonsils. Sellar/suprasellar region demonstrated no gross masses. Poor pneumatization frontal sinuses. No air-fluid levels in the paranasal sinuses. Tympanic cavities and mastoid cells are aerated. No gross hematoma in the intraconal or extraconal compartments of the orbits. Bilateral prominent parotid glands. Right internal jugular bulb is at the level of the posterior hypotympanum. CT/CT head/brain wo IV con IMPRESSION: No acute fracture, bony calvarium. No acute intracranial hemorrhage. Probable high riding right internal jugular bulb. Electronically signed by: Jm Reynoso MD 09/19/2025 11:01 AM EST Dictated By: Jm Mandujano MD Signed By: <Electronically signed by Jm He MD in OV> 09/19/25 1101 XR R shoulder XR R elbow XR R wrist XR R ankle External Record Review External record reviewed: Inpatient record, Office record and Outpatient record Chronic Conditions Patient?s care impacted by: Diabetes and Other (HLD, anxiety, depression, asthma, legally blind, breast cancer s/p L breast mastectomy in 2020) Discharge Plan Discharge Clinical Impression: Fall Patient Disposition: Home, Self-Care Additional Instructions: You were evaluated in the emergency department after experiencing a fall yesterday. Your imaging including a CT head/brain, x-ray of your right shoulder, elbow, wrist, ankle were negative for any acute emergent findings. Your symptoms are most likely due to muscle strain from impact of hitting the ground. To manage pain at home, you can take 500 milligrams of Tylenol, with your at home dose of naproxen. Please make an appointment to follow up with your primary care doctor to ensure resolution of your symptoms. Please return to the emergency department if you experience worsening pain, headaches, visual changes, chest pain, shortness of breath or any new/worsening/concerning symptoms. Prescriptions: No Action (DME) blood-glucose meter [[employer] Glucose Meter] Kit See Rx Instructions .Route Qty: 1 0RF Rx Instructions: As directed ciclopirox 0.77 % cream 1 appl topical BID 28 Days Qty: 30 3RF (DME) alcohol pads See Rx Instructions .Route .MEDSUPPLY Qty: 1 0RF Rx Instructions: As directed mecobalamin (vitamin B12) 1,000 mcg tablet,disintegrating 1,000 mcg sublingual DAILY Qty: 30 3RF Rx Instructions: place tablet under tongue and allow to dissolve for at least30 secs before swallowing aspirin [Adult Low Dose Aspirin] 81 mg tablet,delayed release (DR/EC) 81 mg PO DAILY 90 Days Qty: 90 0RF omeprazole 20 mg capsule,delayed release(DR/EC) 20 mg PO DAILY 30 Days Qty: 30 0RF albuterol sulfate 0.63 mg/3 mL solution for nebulization 0.63 mg inhalation QID PRN (Reason: shortness of breath or wheezing) Qty: 75 0RF loratadine 10 mg tablet 10 mg PO DAILY Qty: 90 1RF metformin 1,000 mg tablet 1,000 mg PO ONCE 90 Days Qty: 90 1RF prednisone 50 mg tablet 50 mg PO TID 1 Days Qty: 3 0RF Rx Instructions: Take 50 mg 13 hours, 7 hours, 1 hour prior to contrast media injection Benadryl Allergy 50 mg tablet 50 mg PO ONCE 1 Days Qty: 1 0RF Rx Instructions: Take 1 hour prior to contrast dye injection fluticasone propionate [Flonase Allergy Relief] 50 mcg/actuation spray,suspension 2 spray intranasal DAILY Qty: 16 3RF Rx Instructions: administer into each nostril Ozempic 1 mg/dose (4 mg/3 mL) pen injector 1 mg subcut QWEEK 28 Days Qty: 3 1RF baclofen 20 mg tablet 20 mg PO BID PRN (Reason: pain (scale score 7-10)) 30 Days Qty: 60 3RF naproxen 500 mg tablet 500 mg PO BID PRN (Reason: pain) 10 Days Qty: 20 0RF albuterol sulfate 90 mcg/actuation HFA aerosol inhaler 1 inh inhalation QID PRN (Reason: shortness of breath or wheezing) Qty: 8.5 0RF acetaminophen [Tylenol Extra Strength] 500 mg tablet 500 mg PO Q6H PRN (Reason: fever or pain) Qty: 14 0RF lidocaine [Lidoderm] 5 % adhesive patch,medicated 1 patch topical DAILY MDD remove after 12 hours PRN (Reason: pain) Qty: 30 0RF Rx Instructions: leave on most painful area for up to 12 hrs cyclobenzaprine 5 mg tablet 5 mg PO Q8H PRN (Reason: pain (scale score 7-10)) 5 Days Qty: 14 0RF (DME) FreeStyle Savanna 3 [place] Misc See Rx Instructions .Route Qty: 1 3RF Rx Instructions: As directed (DME) FreeStyle Savanna 3 Sensor Device See Rx Instructions .Route Qty: 1 6RF Rx Instructions: As directed (DME) pen needle, diabetic [BD Ultra-Fine Sheila Pen Needle] 32 gauge x 5/32 needle See Rx Instructions .ROUTE .MEDSUPPLY Qty: 50 1RF Rx Instructions: As directed lactulose 20 gram/30 mL solution 20 g PO DAILY PRN (Reason: laxative effect) 30 Days Qty: 1200 0RF cholecalciferol (vitamin D3) 50 mcg (2,000 unit) capsule 50 mcg PO DAILY 90 Days Qty: 90 1RF fluticasone furoate-vilanterol [Breo Ellipta] 200-25 mcg/dose blister with device 1 inh inhalation DAILY 30 Days Qty: 1 6RF sertraline 50 mg tablet 50 mg PO DAILY 90 Days Qty: 90 1RF rosuvastatin 5 mg tablet 5 mg PO DAILY 90 Days Qty: 90 3RF Rx Instructions: Get fasting labs 2 months of use Print Language: Tamazight
--- NOTE | 2025-09-19 10:26 | PC.NURSE ---
Patient away for imaging. Will medicate upon return.
--- OUTSIDE RECORDS SUMMARY | 2025-09-19 11:11 | XMS_ITS | Clinical Summary ---
Author Organization [employer] Address [address] [place] [address] Care Team Providers Care Metal Fabricating Inspector Name Role Phone Unavailable Primary Care Provider [...] 03/24/20 23, 11/04/2017 COVID-19 Vaccine (3 - 2024-2 6 season) 2025 08/18/2021, 07/28/2021 Influenza Vaccine (#1) 2025 Zoster Vaccines (1 of 2) 01/30/2026 [...] Relevant to Health Maintenance Insurance [facility] - [facility]
--- OUTSIDE RECORDS SUMMARY | 2025-09-19 11:11 | XMS_ITS | Patient Health Record ---
Author Organization [employer] [facility] Address [address] [place] [address] Care Team Providers Care Clinical Laboratory Director Name Role Phone Jennifer Graves Unavailable [phone] Allergies Allergen (clinical drug ingredient) Drug/Non Drug Allergy documented on EMR Reaction Allergy Type Onset Date Status Contrast Dye (uncoded) Unknown Allergy Active Iodine Unknown Drug Allergy Active Penicillin Unknown Drug Allergy Active vancomycin Vancomycin Unknown Drug Allergy Activ e Reason For Referral No Information Medications Medication SIG (Take, Route, Frequency, Duration) Notes Start Date End Date Status Ozempic (1 MG/DOSE) 4 MG/3ML Subcutaneous; Duration: 28 Days Active Vitamin B-12 1000 MCG DISSOLVE 1 TABLET UNDER THE TONGUE AND allow TO DISSOLVE FOR AT LEAST 30 SECONDS BEFORE swallowing ONCE DAILY Sublingual; Duration: 30 Days Active Calcium 05/11/2024 Active Aspirin Adult Low Dose 81 MG 1 tablet Orally Once a day; Duration: 30 day(s) 05/11/2024 Active Rosuvastatin Calcium 5 MG TAKE 1 TABLET BY MOUTH ONCE DAILY (Get FASTING LABS AFTER 2 MONTH OF USE) Oral; Duration: 90 Days Active metFORMIN HCl 1000 MG 1 tablet with a me al Orally Once a day; Duration: 30 day(s) 05/11/2024 Active Valium 05/11/2024 Active [...] female breast (C50.812) Active confirmed Problem Hyperlipidemia (38139604) Hyperlipidemia, unspecified (E78.5) Active confirmed Problem Recurrent depression (454383750) Other recurrent depressive disorders (F33.8) Active confirmed Problem [place] blindness ([place] (465777435) Legal blindness, as defined in [place] (H54.8) Active confirmed Problem Personal history of primary malignant neoplasm of breast (301624549) Personal history of malignant neoplasm of breast (Z85.3) Active confirmed Problem Menopause (284758832) Menopausal and female climacteric states (N95.1) Active confirmed Plan Of Treatment Pending Test Test Name Order Date MM Digital Mammo Screening 05/11/2024 PELVIC ULTRASOUND W/TRANSVAGINAL 024 DIAGNOSTIC BILATERAL MAMMOGRAM, W/RT ERIS AST ULTRASOUND 07/02/2024 Insurance Providers Payer Name Payer Address Payer Phone Subscriber Number Group Number Insured Name Patient Relationship to Insured Coverage Start Date Coverage End Date [facility] [address] [address] [place] [address] [phone] [id number] [facility] HARRY EVANS Self - patient is [...]
[2025-09-19 12:54] VITALS: BP 182/85; PULSE 69; RESP 18; TEMP 36.3; O2SAT 96
== END 2025-09-19 12:54 | disposition home or self-care (01) ==
PROVIDERS: Emergency Provider Emergency Medicine; PCP Physician Assistant
DX: S69.91XA Unspecified injury of right wrist, hand and finger(s), initial encounter (principal); S69.92XA Unspecified injury of left wrist, hand and finger(s), initial encounter; R51.9 Headache, unspecified; M25.511 Pain in right shoulder; M25.571 Pain in right ankle and joints of right foot; M25.531 Pain in right wrist; X50.9XXA Other and unspecified overexertion or strenuous movements or postures, initial encounter; X50.1XXA Overexertion from prolonged static or awkward postures, initial encounter; Y93.01 Activity, walking, marching and hiking; Y92.9 Unspecified place or not applicable; Y99.8 Other external cause status; Z87.891 Personal history of nicotine dependence; Z79.899 Other long term (current) drug therapy
CPT/HCPCS: 70450; 73030; 73080; 73110; 73610; 99283; 99284

== ENCOUNTER → 2025-09-19 10:16 | Outpatient (BNV) | payer OTHER, SELFPAY | PROVIDERS: Emergency Provider Emergency Medicine; PCP Physician Assistant; Visit Provider Radiology Diagnostic Radiology | DX: M77.31 Calcaneal spur, right foot (principal); M25.531 Pain in right wrist; Z04.3 Encounter for examination and observation following other accident | CPT/HCPCS: 70450; 73030; 73080; 73110; 73610 ==